=== PATIENT | male | born 1950 | race Caucasian/White ===

== ENCOUNTER 2019-12-29 14:23 | Outpatient (REF) | payer MEDICARE, MEDICAID, SELFPAY ==
[2019-12-29 15:23] LABS: Estimated Average Glucose 111 mg/dL; Hemoglobin A1c % 5.5 %
[2019-12-29 16:17] LABS: Prostate Specific Antigen 0.65 ng/mL (<0.05-4.0)
== END 2019-12-29 14:24 | disposition home or self-care (01) ==
LOC: HO.LAB 14:23
PROVIDERS: Visit Provider Family Medicine
DX: R35.0 Frequency of micturition (principal); Z12.5 Encounter for screening for malignant neoplasm of prostate
CPT/HCPCS: 83036; 84153

== ENCOUNTER → 2020-02-12 13:49 | Outpatient (BNVA) | payer MEDICARE, MEDICAID, SELFPAY | PROVIDERS: PCP Family Medicine; Visit Provider Internal Medicine Pulmonary Disease | DX: J44.9 Chronic obstructive pulmonary disease, unspecified (principal); R91.8 Other nonspecific abnormal finding of lung field; Z79.899 Other long term (current) drug therapy | CPT/HCPCS: 99212 ==

== ENCOUNTER → 2020-03-22 12:36 | Outpatient (BNVA) | payer MEDICARE, MEDICAID, SELFPAY | PROVIDERS: PCP Family Medicine; Referring Provider Family Medicine; Visit Provider Nurse Practitioner Family | DX: Z45.02 Encounter for adjustment and management of automatic implantable cardiac defibrillator (principal); I42.8 Other cardiomyopathies | CPT/HCPCS: 99212 ==

== ENCOUNTER → 2020-06-30 15:19 | Outpatient (BNVA) | payer MEDICARE, MEDICAID, SELFPAY | PROVIDERS: PCP Family Medicine; Visit Provider Internal Medicine Pulmonary Disease | DX: J44.9 Chronic obstructive pulmonary disease, unspecified (principal); R91.8 Other nonspecific abnormal finding of lung field; R05 Cough; Z87.891 Personal history of nicotine dependence | CPT/HCPCS: 99212 ==

== ENCOUNTER → 2020-07-27 14:01 | Outpatient (REF) | payer MEDICARE, MEDICAID, SELFPAY ==
--- NOTE | 2020-07-27 14:05 | CA_ITS ---
Transthoracic Echocardiogram Patient (Last, First, Middle): Ramesh Moser G Gender: Male Date of : 1950 Age: 69 Procedure Date: 07/27/2020 Procedure Type: Transthoracic Echocardiogram Location: OP Height: 160.02 cm Weight: 50.8 kg BSA: 1.51 m2 Heart Rate: bpm BP: 122 / 60 mmHg Hydramatic Specialist: UBALDO Referring MD: Kenyatta Agustin IMPROVEMENT SPEC-C Symptoms: I42.8 - Other cardiomyopathies Study Quality: Technically Difficult due to COPD ECG Rhythm: Sinus Conclusions: - Due to suboptimal images, LVEF is difficult to assess but grossly appears to be normal; > 50%. - No obvious valvular pathology seen on this study. Findings Left Ventricle Normal left ventricular cavity size. There is normal left ventricular wall thickness. There is no evidence of regional wall motion abnormalities. Diastolic function is normal for age. Due to suboptimal images, LVEF is difficult to assess but grossly appears to be normal; > 50%. Right Ventricle Normal right ventricular cavity size and systolic function. There is a pacemaker wire seen in the right ventricle. Atria The left atrium is normal in size. The right atrium is normal in size. Aortic Valve The aortic valve was not well visualized. There is no aortic valve stenosis. There is no aortic valve regurgitation. Mitral Valve The mitral valve appears normal. There is no mitral valve regurgitation. There is no mitral valve stenosis. Pulmonic Valve The pulmonic valve was not well visualized. Tricuspid Valve There is mild tricuspid valve regurgitation. The pulmonary artery systolic pressure is normal. Great Vessels The aortic annulus, sinuses of valsalva, and asc aorta are normal in size. Venous The inferior vena cava is normal in size and collapses greater than 50% with inspiration. Pericardium/Pleural There is no evidence of pericardial effusion. Prior Study Comparison Changes noted compared to prior study dated: 10/17/2018. Improved LVEF. Recommendations, Care & Conclusions No obvious valvular pathology seen on this study. Measurements 2D Linear Measurements IVSd: 0.82 0.6-0.9/0.6-1.0 cm LVIDd: 4.23 3.9-5.3/4.2-5.9 cm LVIDd Index: 2.80 2.4-3.2/2.2-3.1 cm/m2 LVIDs: 3.00 2.0-3.6 cm LVPWd: 0.85 0.7-1.1 cm Ao Root: 2.30 2.1-3.5 cm LA Diam: 3.10 2.7-3.8/3.0-4.0 cm LAIDs Index: 2.05 1.5-2.3 cm/m2 LV Mass: 134.45 67-162/88-224 g LV Mass Index: 89.04 43-95/49-115 g/m2 LVOT Diam: 1.90 3.0+(-)1.3 cm 2D Systolic Function EF 4C: 47.40 >55% EF 2C: 48.20 >55% Mitral Valve MV Pk E: 0.60 MV PK A: 0.91 MV Decel Time: 192.00 E/A: 0.70 E'Lateral: 5.87 E'Medial: 5.87 E/E' Med: 10.20 E/E' Lat: 10.20 PHT: 56.00 MVA PHT: 3.93 Decel Banks: 3.12 Aortic Valve AoV Pk Andrea: 1.57 AoV Mn Andrea: 0.89 AoV VTI: 0.28 AoV Pk Grad: 10.00 Aov Mn Grad: 4.00 JITENDRA Cont.VTI: 1.89 LVOT LVOT Pk Andrea: 0.88 LVOT Mn Andrea: 0.52 LVOT VTI: 0.18 LVOT Pk Grad: 3.00 LVOT Mn Grad: 1.00 LVOT Diam: 1.90 LVOT Area: 2.84 Diastolic Function MV Pk E: 0.60 MV Pk A: 0.91 E/A: 0.70 E'Medial: 5.87 E/E' Med: 10.20 E' Laterial: 5.87 E/E' Lat: 10.20 Tricuspid Valve TR Pk Andrea: 2.20 TR Pk Grad: 19.00 RA Press: 3.00 RVSP: 22.00 Great Vessels Aorta Ao Root-2D: 2.30 2.0-3.7 cm Pulmonary Valve PV Pk Andrea: 0.86 Peak PV Grad: 3.00 Updated in Other Vendor System with Status of Final Wilbert Linn MD electronically signed on 07/29/2020 5:07:54 PM with status of Final
== END ==
LOC: HO.CARD 14:01
PROVIDERS: PCP Family Medicine; Visit Provider Nurse Practitioner Family
DX: I42.8 Other cardiomyopathies (principal)
CPT/HCPCS: 93306

== ENCOUNTER → 2020-09-20 13:10 | Outpatient (BNVA) | payer MEDICARE, MEDICAID, SELFPAY | PROVIDERS: PCP Family Medicine; Referring Provider Family Medicine; Visit Provider Nurse Practitioner Family | DX: I42.8 Other cardiomyopathies (principal); I10 Essential (primary) hypertension; J44.9 Chronic obstructive pulmonary disease, unspecified; Z88.4 Allergy status to anesthetic agent; Z79.82 Long term (current) use of aspirin; Z79.899 Other long term (current) drug therapy; Z45.018 Encounter for adjustment and management of other part of cardiac pacemaker; Z95.810 Presence of automatic (implantable) cardiac defibrillator | CPT/HCPCS: 93282; 99212 ==

== ENCOUNTER → 2020-10-01 14:07 | Outpatient (BNVA) | payer MEDICARE, MEDICAID, SELFPAY | PROVIDERS: PCP Dentist Pediatric Dentistry; Visit Provider Internal Medicine Pulmonary Disease | DX: J44.9 Chronic obstructive pulmonary disease, unspecified (principal); R05 Cough; R91.8 Other nonspecific abnormal finding of lung field | CPT/HCPCS: 99212 ==

== ENCOUNTER 2020-10-05 14:52 | Outpatient (REF) | payer MEDICARE, MEDICAID, SELFPAY ==
--- NOTE | ~2020-10-05 | CT_ITS ---
EXAMINATION: CT CHEST WITHOUT CONTRAST CLINICAL INFORMATION: Follow-up pulmonary nodules COMPARISON: Previous chest CT scans most recent September 2019 TECHNIQUE: Multidetector volumetric CT imaging of the chest was done. Axial MIP volume rendering provided. Sagittal and coronal reformatted images were obtained. This CT examination was performed using dose optimization techniques as appropriate, variously including the following: *Automated exposure control *Adjustment of mA and/or kV according to patient size (this includes techniques or standardized protocols for targeted exams where dose is matched to indication/reason for exam; i.e. extremities or head) *Use of iterative reconstruction technique DLP: 173 mGy-cm FINDINGS: [employer] MEMBER: LUNGS: There is evidence of emphysema. There is a 5 mm right upper lobe nodule axial image 122 series 5 that is stable. There were 2 4 mm calcified right upper lobe nodules axial image 198 and 218 series 5 that are stable. There are several new small clustered peribronchial nodules seen in the anterior segment of the right upper lobe near the interhemispheric fissure that are new. The largest measures 3 x 5 mm axial image 219 series 5. Clustered appearance favors tree-in-bud appearance or infectious/inflammatory process. There is a new 0.9 x 1.5 cm spiculated right upper lobe nodule axial image 270 series 5. This has surrounding cystic change and groundglass attenuation this is the most suspicious-appearing pulmonary nodule. Including peripheral groundglass attenuation and cystic change this measures 1.6 x 2.3 cm axial image 270 series 5. There is a new 5 mm right upper lobe nodule axial image 281 series 5. There are numerous new clustered peribronchial right upper lobe nodules in the more inferior anterior segment of the right upper lobe near the minor fissure. The largest measures 6 x 13 mm axial image 334 series 5. Again clustered appearance suggests possible airways disease. There is a new 3 x 10 mm right middle lobe nodule axial image 385 series 5. On sagittal and coronal reconstructions this may represent an area of atelectasis. There is a new 0.9 x 1.5 cm right lower lobe nodule axial image 425 series 5. On sagittal and coronal reconstructions this may represent an area of atelectasis. There is a new 4 x 10 mm lingular nodule axial image 331 series 5. On sagittal and coronal reconstructions this may represent an area of atelectasis. There may be residual increased groundglass attenuation in the left upper lobe for example axial image 166 series 5. Evaluation is limited due to artifact from adjacent left chest wall battery. There is a 4 mm calcified left upper lobe nodule axial image 137 series 5 that is stable. There is a 3 mm calcified left lower lobe nodule axial image 328 series 5 that is stable. There is a 2 mm calcified left lower lobe nodule axial image 488 series 5 that is stable. MEDIASTINUM: There are small mediastinal lymph nodes that are stable. No enlarged lymph nodes are seen. There is a left subclavian single chamber pacemaker that appears unchanged. There is a small pericardial effusion that is unchanged. The thoracic aorta is normal in caliber. There is mild coronary artery calcification. PLEURA: There is no pleural effusion. No pleural mass or thickening. AXILLA: No lymphadenopathy. UPPER ABDOMEN: There are multiple low-attenuation liver lesions probably representing cysts. The largest measures 1.7 x 2.3 cm and the caudate lobe axial image 55 series 3. There is a partially visualized left renal cyst. OSSEOUS STRUCTURES: Unremarkable. CT/CT chest wo con IMPRESSION: Emphysema. Numerous new pulmonary nodules, right greater than left. Some pulmonary nodules appear clustered and peribronchial questionable for tree-in-bud appearance/infectious or inflammatory process or airways disease. Some pulmonary nodules appear to represent areas of atelectasis on sagittal and coronal reconstructed images. The most suspicious pulmonary nodule is a 0.9 x 1.5 cm spiculated right upper lobe nodule with surrounding groundglass attenuation and cystic changes measuring up to 1.6 x 2.3 cm. Short-term follow-up chest CT scan in 2-3 months following antibiotic therapy is recommended.
== END 2020-10-05 14:53 | disposition home or self-care (01) ==
LOC: HO.CT 14:52
PROVIDERS: PCP Family Medicine; Visit Provider Internal Medicine Pulmonary Disease
DX: R91.8 Other nonspecific abnormal finding of lung field (principal)
CPT/HCPCS: 71250

== ENCOUNTER 2020-10-09 11:59 | Inpatient (IN) | payer MEDICARE, MEDICAID, SELFPAY ==
--- NOTE | ~2020-10-09 | XR_ITS ---
EXAMINATION: CR RIGHT WRIST/HAND. CR RIGHT ELBOW. CLINICAL INFORMATION: Status post fall with pain to the right hand/wrist/elbow. COMPARISON: Contralateral left hand films from 05/05/2019. Right humerus films dated 09/15/2008. TECHNIQUE: 4 views of the right hand and wrist. 3 views of the right elbow. FINDINGS: Right hand and wrist: Diffuse osteopenia. No acute fracture or dislocation. 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 Arteriovascular calcifications and mild soft tissue swelling over the distal radius is noted. Minimal degenerative changes are seen in the intercarpal joints and the radiocarpal and first carpometacarpal joints. Right elbow: No acute fracture or dislocation. Evaluation limited by IV tubing overlapping the elbow. No elbow joint effusion or radiopaque foreign body in the soft tissues. Mild dorsal soft tissue swelling.. Arteriovascular calcifications are noted. XR/XR hand wrist RT IMPRESSION: 1. No acute fracture of the right hand/wrist and right elbow. 2. 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 3. Extensive atherosclerotic vascular calcifications.
--- NOTE | ~2020-10-09 | US_ITS ---
EXAMINATION: US VENOUS ULTRASOUND WITH DOPPLER LOWER EXTREMITY, BILATERAL CLINICAL INFORMATION: Lower extremity edema. Evaluate for deep vein thrombosis. COMPARISON: 05/23/2016 TECHNIQUE: Ultrasound of the deep veins is performed from the hip to the calf with compression sonography and color and pulse Doppler assessment. Spectral analysis with color-flow imaging is performed. FINDINGS: The common femoral vein is compressible and exhibits a normal phasic waveform, bilaterally; this suggests that the iliac veins are widely patent above. Within each proximal thigh, the visualized profunda femoris vein is patent. The visualized greater saphenous veins and saphenofemoral junctions are normal. Superficial femoral vein is patent in the proximal, mid and distal aspect of each thigh. Popliteal vein appears normal to the level of the trifurcation, bilaterally, and the visualized calf veins are patent. No evidence of Xie's cyst. US/US venous duplex LE BI IMPRESSION: No evidence of deep vein thrombosis in either lower extremity.
--- NOTE | ~2020-10-09 | CT_ITS ---
EXAMINATION: CT HEAD WITHOUT CONTRAST CT CERVICAL SPINE WITHOUT CONTRAST CLINICAL INFORMATION: Fall COMPARISON: 03/31/2018 TECHNIQUE: Multidetector CT imaging of the head and cervical spine was performed without the use of intravenous contrast. Multiplanar reformats are reviewed. This CT examination was performed using dose optimization techniques as appropriate, variously including the following: *Automated exposure control *Adjustment of mA and/or kV according to patient size (this includes techniques or standardized protocols for targeted exams where dose is matched to indication/reason for exam; i.e. extremities or head) *Use of iterative reconstruction technique DLP: 651 mGy-cm. FINDINGS: There is no evidence of acute intracranial hemorrhage or territorial infarction. No abnormal mass effect or midline shift is seen. Baltazar to white matter differentiation is well preserved. No extra-axial fluid collections are identified. The ventricles are normal in size. Mild patchy subcortical and periventricular white matter low-attenuation changes appear similar to prior and statistically related to chronic white matter small vessel ischemic disease. The osseous structures and soft tissues are normal. The mastoid air cells and visualized portions of the paranasal sinuses are well-aerated. Atlantooccipital alignment is maintained. The vertebral bodies and posterior elements align normally. No acute fracture or subluxation. Vertebral body heights are maintained.The patient status post right decompressive laminectomies at C4, C5 and C6, with instrumentation along the right lamina at the levels. Small endplate ossified present at C4-5 and C5-6. Conjunction with facet arthropathy at these levels, these changes lead to moderate bilateral foraminal narrowing at C4-5 and C5-6. There is slight retrolisthesis of C5 on C6 is well. The paraspinal soft tissues are unremarkable. The imaged lung apices are clear CT/CT cervical spine wo con IMPRESSION: No acute intracranial pathology. No cervical spine fracture or malalignment.
--- NOTE | ~2020-10-09 | US_ITS ---
EXAMINATION: US ABDOMEN COMPLETE CLINICAL INFORMATION: Follow-up abnormal CT. Abnormal common bile duct and ascites.. COMPARISON: Previous CT of the abdomen and pelvis 10/10/2019 TECHNIQUE: Real-time imaging of the abdominal viscera. FINDINGS: PANCREAS: Not visualized due to bowel gas ABDOMINAL AORTA: Not visualized due to bowel gas INFERIOR VENA CAVA: Visualized portions are normal. LIVER: Liver echotexture is normal. There are innumerable liver cysts. The largest measures 1.9 x 1.5 x 2 cm in the caudate lobe. The liver is normal in size. There is no intrahepatic biliary duct dilatation. GALLBLADDER: The gallbladder is normal in size. The gallbladder wall thickness is upper normal measuring 3 mm. No gallstones are seen. No gallbladder wall edema or pericholecystic fluid is seen. COMMON BILE DUCT: The distal common bile duct is not well visualized. The common bile duct is a dilated measuring up to 1.1 cm. No common bile duct stone is seen. RIGHT KIDNEY: Normal. No hydronephrosis. No renal calculi or focal parenchymal lesions. The kidney measures 9.3 cm in maximum dimension. LEFT KIDNEY: There is a 3.6 x 2.2 x 3 cm cyst in the midpole. No hydronephrosis. No renal calculi or focal parenchymal lesions. The kidney measures 9.7 cm in maximum dimension. There is trace perinephric fluid. SPLEEN: Normal. The spleen measures 8.3 cm in maximum dimension. FREE FLUID: There is trace ascites seen adjacent to both kidneys. Largest pocket of ascites measures 0.6 x 1.2 cm in transverse and AP dimension in the hepatorenal space. US/US abdomen complete IMPRESSION: Innumerable liver cysts. Upper normal thickness gallbladder wall. No gallstones seen. Normal caliber intrahepatic bile ducts. Dilated common bile duct measuring up to 1.1 cm. No common bile duct stone. Limited visualization of the distal common bile duct, pancreas and aorta. Left renal cyst. Trace ascites. This is too small even for diagnostic paracentesis.
--- NOTE | ~2020-10-09 | US_ITS ---
EXAMINATION: LEFT UPPER EXTREMITY ARTERIAL DOPPLER ULTRASOUND CLINICAL INFORMATION: Bilateral upper extremity edema and blue discoloration TECHNIQUE: Grayscale, color and spectral Doppler techniques with wave form analysis and measurement of velocities were performed throughout the left upper extremity. COMPARISON: None FINDINGS: LEFT UPPER EXTREMITY DUPLEX ULTRASOUND: LEFT ARM: Subclavian artery, proximal: 90 cm/s, Biphasic Subclavian artery, mid: 75 cm/s, Biphasic Subclavian artery, distal: 72 cm/s, Biphasic Axillary artery: 57 cm/s, Biphasic Brachial artery, proximal: 77 cm/s, Biphasic Brachial artery, mid: 109 cm/s, Biphasic Brachial artery, distal: 90 cm/s, Biphasic Radial artery, mid: 76 cm/s, Biphasic Ulnar artery, mid: 34 cm/s, Biphasic US/US arterial duplex UE LT IMPRESSION: LEFT ARM: Normal left upper extremity arterial perfusion without evidence of hemodynamically significant stenosis or occlusion.
--- NOTE | ~2020-10-09 | CT_ITS ---
EXAMINATION CT CHEST, ABDOMEN AND PELVIS WITH CONTRAST CLINICAL INFORMATION: Edema to all extremities. COMPARISON: CT chest dated 10/05/2020. TECHNIQUE: Multidetector volumetric CT imaging of the chest, abdomen and pelvis was obtained after the administration of 85 mL of intravenous Omnipaque 350 without immediate adverse reactions. Coronal and sagittal reformats were reviewed. This CT examination was performed using dose optimization techniques as appropriate, variously including the following: *Automated exposure control *Adjustment of mA and/or kV according to patient size (this includes techniques or standardized protocols for targeted exams where dose is matched to indication/reason for exam; i.e. extremities or head) *Use of iterative reconstruction technique DLP: 803 mGy-cm. FINDINGS: CHEST LUNGS/PLEURA: Moderate to severe emphysema. Again seen are multiple scattered pulmonary nodules. The dominant nodule within the right upper lobe shows minimal increase in size, now measuring 1.9 x 1.2 cm, previously 1.4 x 0.7 cm by my measurements, with surrounding groundglass. There are multiple additional nodular opacities within the middle lobe and lingula which appear similar to the previous exam. There is no pleural effusion. No pleural mass or thickening. MEDIASTINUM/JOSE: Mild cardiomegaly. New pericardial effusion. Great vessels normal caliber. No pulmonary embolism. No aortic aneurysm. No mediastinal, hilar or supraclavicular adenopathy. CHEST WALL/AXILLA: Unremarkable. ABDOMEN/PELVIS HEPATOBILIARY: Liver is normal in size, contour and morphology. There are multiple hepatic cysts. No suspicious liver lesions. No intrahepatic biliary dilatation. Common bile duct is dilated to 1.0 cm proximal, at the ampulla. Mild gallbladder wall thickening is present, likely related to underdistention. PANCREAS: Pancreatic duct is mildly dilated measuring up to 4 mm, also probably cutting off the region of the ampulla. In this region is a 1.5 x 1.2 cm structure as seen on coronal image 37 and axial image 33 of series 36. SPLEEN: Unremarkable. ADRENAL GLANDS: Unremarkable. KIDNEYS, URETERS AND BLADDER: Kidneys normal in size, axis and morphology demonstrating symmetric enhancement. There is a 3.2 cm cyst within the lateral interpolar cortex of the left kidney, which may be decompressing into the adjacent/overlying perinephric fat. Regardless of etiology, the cyst is benign. No further follow-up required. No hydronephrosis or urinary calculi. Ureters normal in course and caliber. Bladder grossly unremarkable.. GASTROINTESTINAL TRACT: No bowel related abnormalities. PELVIC VISCERA: Unremarkable. LYMPH NODES: No lymphadenopathy. PERITONEUM/BODY WALL: Unremarkable. VASCULAR STRUCTURES: Aorta is atherosclerotic but normal caliber. Patent venous structures. OSSEOUS STRUCTURES No acute or suspicious osseous abnormalities. Bone island present within S2. CT/CT abdomen pelvis w con IMPRESSION: * Moderate to severe emphysema. * Multiple pulmonary nodules redemonstrated, with interval increase in size of the dominant nodule within right upper lobe which now measures 1.9 x 1.2 cm, previously 1.4 x 0.7 cm. Given the short interval timeframe for the increase in size, I would favor an infectious/inflammatory etiology. Short interval follow-up is recommended previously, within 1-3 months. * There is dilatation of the common bile duct and pancreatic duct with abrupt cut off in the region of the ampulla related to a 1.5 x 1.2 cm soft tissue density structure in this region. Recommend MRI/MRCP without and with contrast for further evaluation, and/or ERCP.
--- NOTE | ~2020-10-09 | XR_ITS ---
EXAMINATION: CR RIGHT WRIST/HAND. CR RIGHT ELBOW. CLINICAL INFORMATION: Status post fall with pain to the right hand/wrist/elbow. COMPARISON: Contralateral left hand films from 05/05/2019. Right humerus films dated 09/15/2008. TECHNIQUE: 4 views of the right hand and wrist. 3 views of the right elbow. FINDINGS: Right hand and wrist: Diffuse osteopenia. No acute fracture or dislocation. 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 Arteriovascular calcifications and mild soft tissue swelling over the distal radius is noted. Minimal degenerative changes are seen in the intercarpal joints and the radiocarpal and first carpometacarpal joints. Right elbow: No acute fracture or dislocation. Evaluation limited by IV tubing overlapping the elbow. No elbow joint effusion or radiopaque foreign body in the soft tissues. Mild dorsal soft tissue swelling.. Arteriovascular calcifications are noted. XR/XR elbow RT min 3V IMPRESSION: 1. No acute fracture of the right hand/wrist and right elbow. 2. 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 3. Extensive atherosclerotic vascular calcifications.
--- NOTE | ~2020-10-09 | MR_ITS ---
EXAMINATION: MR ABDOMEN WITHOUT CONTRAST CLINICAL INFORMATION: Assess possible lesion at the ampulla COMPARISON: CT scan of same day TECHNIQUE: MR abdomen is performed without gadolinium contrast. FINDINGS: LUNG BASES: The visualized lung bases are unremarkable. LIVER, GALLBLADDER, AND BILIARY TREE: Multiple cysts again noted. CBD is dilated to the level of the ampulla within is an abrupt transition zone. There is a noncommon pancreatic duct channel does the pancreatic duct appears normal. No definite filling defects to indicate choledocholithiasis. No gross ampullary lesion.. The gallbladder is unremarkable with no evidence of gallbladder wall thickening, or obvious pericholecystic inflammatory changes. PANCREAS: Unremarkable. SPLEEN: Unremarkable. ADRENAL GLANDS: Unremarkable. KIDNEYS AND URETERS: The kidneys are normal in size and shape. No hydronephrosis. No perinephric stranding. Left renal cortical cysts noted. GASTROINTESTINAL TRACT: No bowel obstruction. No ascites or fluid collection. ABDOMINAL WALL: No significant hernia is appreciated. LYMPH NODES: No lymphadenopathy. VASCULAR: Unremarkable. OSSEOUS STRUCTURES: Marrow signal normal. MR/MR MRCP IMPRESSION: No definite ampullary lesion definable. An occult lesion is not excluded based on the limitations of this exam. Recommend ERCP based on the abrupt transition of the distal CBD to exclude a primary CBD lesion. No choledocholithiasis.
[2020-10-09 12:02] VITALS: BP 148/84; PULSE 86; RESP 16; TEMP 36.5; O2SAT 97; BMI 19.8
--- NOTE | 2020-10-09 12:21 | ECG_ITS ---
Test Reason : GENERAL MEDICAL Blood Pressure : / mmHG Vent. Rate : 073 BPM Atrial Rate : 073 BPM P-R Int : 110 ms QRS Dur : 084 ms QT Int : 362 ms P-R-T Axes : 074 069 071 degrees QTc Int : 398 ms Sinus rhythm with short WA Otherwise normal ECG When compared with ECG of 02-APR-2019 10:32, QRS duration has decreased T wave inversion no longer evident in Anterior leads QT has shortened Referred By: Kia Alejandro Electronically Signed By:Masoud Monzon
--- NOTE | 2020-10-09 12:42 | PC.NURSE ---
SLGHT[facility] LABORED RESP AT REST, SITTING UPRIGHT ON SIDE OF BED. LS CLEAR. PT SPKING FULL SENTENCES. PLUS 3 PITTING EDEMA TO KNEES BLE. NON PITTING EDEMA LEFT HAND AND WRIST. STATES ABD IS ALSO DISTENDED. FEELS SWELLING IS D/T AN INTIINFLAMMATORY MEDICATION. NSR ON MONITOR. DENIES CP
[2020-10-09 12:43] LABS: MANUAL DIFF FLAG NO
[2020-10-09 12:45] LABS: Basophils Percent Auto 0.1 % (0-2); Eosinophils Percent Auto 0.2 % (0-4); Hemoglobin 13.8 g/dl (14.0-18.0); Imm Gran Abs Auto 0.49 X10*3/uL (0.00-0.03); Lymphocytes Absolute Auto 0.5 X10*3/uL (1.2-4.9); Lymphocytes Percent Auto 4.7 % (20-40); Mean Corpuscular HGB Conc 33.7 g/dl (31.0-36.0); Mean Corpuscular Hemoglobin 31.9 pg (27.0-33.0); Mean Corpuscular Volume 94.7 fL (80-98); Monocytes Absolute Auto 0.6 X10*3/uL (0.1-1.2); Monocytes Percent Auto 6.1 % (2-11); NRBC Pct Auto 0.3 /100WBC (0.0-0.2); Neutrophils Absolute Auto 8.3 X10*3/uL (2.0-8.3); Neutrophils Percent Auto 83.9 % (45-73); Platelet Count 172 X10*3/uL (160-400); Red Blood Count 4.33 X10*6/uL (4.60-5.80); Red Cell Distribution Width 15.6 % (11.0-16.0); White Blood Count 9.9 X10*3/uL (4.8-10.8)
[2020-10-09 12:51] LABS: INTERNATIONAL NORM RATIO 0.9 (0.9-1.1); Prothrombin Time 10.4 SEC (9.9-13.0)
[2020-10-09 13:01] LABS: COVID-19 Test Negative (Negative); IDNOW Serial# 9DD0AD1C
[2020-10-09 13:10] VITALS: O2SAT 96
[2020-10-09 13:26] LABS: Alanine Aminotransferase 38 U/L (0-40); Albumin Level 3.4 g/dL (3.5-5.0); Alkaline Phosphatase 67 U/L (39-117); Anion Gap 14 (12-20); Aspartate Amino Transferase 22 U/L (5-37); Bilirubin Total 0.7 mg/dL (0.0-1.0); Blood Urea Nitrogen 30 mg/dL (9-16); Calcium 8.9 mg/dL (8.4-10.2); Carbon Dioxide 28 mmol/L (22-29); Chloride 100 mmol/L (96-108); Creatinine Clr Calc Pharmacy 71.5; Estimated Glomerular Filt Rate > 60; Glucose Random 115 mg/dL (60-115); Magnesium 1.9 mg/dL (1.6-2.6); Potassium 4.4 mmol/L (3.3-5.1); Sodium 138 mmol/L (135-145); Total Protein 5.9 g/dL (6.5-8.0)
[2020-10-09 13:28] LABS: B Type Natriuretic Peptide 119 pg/mL (<100)
[2020-10-09 13:28] LABS: ABG Base Excess 3.7 mmol/L; ABG HCO3 26 mmol/L (22-26); ABG pCO2 34 mmHg (32-45); ABG pCO2 TC 34 mmHg (32-45); ABG pH 7.49 (7.35-7.45); ABG pH TC 7.49 (7.35-7.45); ABG pO2 86 mmHg (83-108); ABG pO2 TC 88 (83-108)
--- NOTE | 2020-10-09 14:04 | ED.GENADULT ---
HPI - General Adult General Chief complaint: Extremity Problem Stated complaint: Swelling Time Seen by Provider: 10/09/20 12:18 Source: patient Mode of arrival: ambulatory Limitations: other (Poor historian) History of Present Illness HPI narrative: 70-year-old male with a past medical history dementia, chronic cough, COPD, pulmonary nodules, nonischemic cardiomyopathy with an ICD in place and on a pacemaker only on a baby aspirin presenting to the ED after being sent from [facility] for increased edema to all extremities for the past 2 weeks. Reports that he normally gets injections for pain/inflammation for his back and then was placed on meloxicam due to the pain/inflammation was worsening and he believes since he was started on the meloxicam and the swelling increased. Although he discontinue the meloxicam in a few days after and the swelling is continuing to worsen. He was seen by cardiology approximately 3 days ago and was started on Lasix although no improvement in the edema. 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 Apparently patient was also started on steroids for cough although the swelling started prior to being started on the steroids. He reports he fell this morning due to the swelling of his legs went forward injuring his right hand/right elbow. Reports he did not hit his head or lose consciousness and denies any other injuries. He denies prolonged down time. He denies any symptoms prior to the fall or after the fall it set for the right hand/wrist and elbow pain. He denies any chills, fevers dizziness, headaches, changes in vision, neck pain/stiffness, sore throat, chest pain, abdominal pain, diarrhea, constipation, black or bloody stools, dysuria, hematuria or rashes. Related Data Home Medications Medication Instructions Recorded Confirmed acetaminophen 300 mg-codeine 30 mg 1 tab PO BID PRN 02/12/20 10/09/20 tablet aspirin 81 mg tablet,delayed 81 mg PO DAILY 02/12/20 10/09/20 release atorvastatin 80 mg tablet 80 mg PO DAILY 02/12/20 10/09/20 cholecalciferol (vitamin D3) 25 25 mcg PO DAILY 02/12/20 10/09/20 mcg (1,000 unit) tablet docusate sodium 100 mg capsule 100 mg PO DAILY PRN 02/12/20 10/09/20 ezetimibe 10 mg tablet 10 mg PO DAILY 02/12/20 10/09/20 folic acid 1 mg tablet 1 mg PO DAILY 02/12/20 10/09/20 lisinopril 5 mg tablet 5 mg PO DAILY 02/12/20 10/09/20 metoprolol succinate 100 mg 100 mg PO DAILY 02/12/20 10/09/20 tablet,extended release 24 hr montelukast 10 mg tablet 10 mg PO DAILY 02/12/20 10/09/20 omeprazole 20 mg capsule,delayed 20 mg PO DAILY 02/12/20 10/09/20 release oxycodone 5 mg tablet 5 mg PO Q4H PRN 02/12/20 10/09/20 thiamine HCl (vitamin B1) 100 mg 100 mg PO DAILY 02/12/20 10/09/20 tablet cetirizine 10 mg tablet 10 mg PO DAILY 03/22/20 10/09/20 melatonin 5 mg tablet 5 mg PO BEDTIME 03/22/20 10/09/20 tamsulosin 0.4 mg capsule 0.4 mg PO DAILY 03/22/20 10/09/20 donepezil 10 mg tablet 5 mg PO DAILY tab 09/20/20 10/09/20 diazepam 1 tab PO BID PRN 10/09/20 10/09/20 ipratropium-albuterol 2.5 ml INHALATION Q4-6H PRN 10/09/20 10/09/20 tiotropium bromide [Spiriva with 1 cap INHALATION DAILY 10/09/20 10/09/20 HandiHaler] Previous Rx's Medication Instructions Recorded Advair Diskus 250 mcg-50 mcg/dose 1 inh INHALATION BID #60 ea NS 03/17/20 powder for inhalation albuterol sulfate 90 mcg/actuation 1 inh INHALATION QID #8.5 g 03/17/20 aerosol inhaler prednisone 10 mg tablet 40 mg PO DAILY 7 Days #28 tab 10/01/20 furosemide 20 mg tablet 20 mg PO DAILY 3 Days #3 tab 10/05/20 Allergies Allergy/AdvReac Type Severity Reaction Status Date / Time thiopental [SODIUM PENTOTHAL] Allergy Severe VIOLENCE Verified 10/01/20 14:10 Review of Systems Review of Systems: Constitutional : No Weight loss, No Fever, No Chills, No Night Sweats, No Fatigue, No Malaise ENT/Mouth : No Hearing loss, No Ear Pain, No Nasal Congestion, No Sinus Pain, No Hoarseness, No sore throat, No Rhinorrhea, No Swallowing Difficulty Eyes: No Eye Pain, No Swelling, No Redness, No Foreign Body, No Discharge, No Vision Changes Cardiovascular : Chronic shortness of breath not worse per patient, positive extremity edema upper and lower, No Chest Pain, No Dyspnea on Exertion, No Orthopnea, No Palpitations Respiratory : Chronic cough and sputum production, No Wheezing Gastrointestinal : No Nausea, No Vomiting, No Diarrhea, No Constipation, No abdominal Pain, No Hematochezia, No Melena Genitourinary : no irregular bleeding, No Dysuria, No Urinary Frequency, No Hematuria, No Urinary Incontinence, No Urgency, No Flank Pain, No Urinary Flow Changes, No Hesitancy Musculoskeletal : Positive right wrist/hand/elbow joint pain, No Myalgias, No Joint Swelling Skin : No Skin Lesions, No rash Neuro : No Weakness, No Numbness, No Paresthesias, No Loss of Consciousness, No Dizziness, No Headache Psych : No Anxiety/Panic, No Depression, No SI/HI/AH/VH, No Social Issues, Heme/Lymph: No Bruising, No Bleeding,No Lymphadenopathy Endocrine : No Polyuria, No Polydipsia, No Temperature Intolerance Yes all other systems are reviewed and are negative [facility] Past Medical History Attestation statement: The following information was validated with the patient. Medical History ICD (implantable cardioverter-defibrillator) in place Nonischemic cardiomyopathy Surgical History History of permanent cardiac pacemaker placement Family History Family History Father CVD (cardiovascular disease) Myocardial infarct Mother CVD (cardiovascular disease) Heart disease Social History Social History Alcohol intake: current Alcohol intake frequency: a few times a month Patient Tobacco Use Status: Former Tobacco user Years Smoked: 48 yrs Smoked in Last 30 Days: No Use of substances other than those prescribed or required for medical reasons: No Advance Directives: No Advance Directives Information Provided: Yes Physical Exam Vital Signs: Vital Signs: Last Vital Signs Temp 97.7 F 10/09/20 12:02 Pulse 72 10/09/20 16:00 Resp 18 10/09/20 16:00 BP 164/77 H 10/09/20 16:00 Pulse Ox 96 10/09/20 16:00 Body Mass Index 19.8 vital signs have been reviewed as normal and appeared to be correct. Blood pressure hypotensive 148/84. Heart rate normal. Respiration rate normal. Temperature normal. Oxygen saturation normal. Appearance: Alert. Oriented X3. No acute distress. Head: Normal external exam. Normocephalic. Atraumatic. Eyes: PERRLA. EOMI. Conjunctiva and sclera normal. Eyelids normal. ENT: Pharynx normal. Uvula midline. Dry mucous membranes noted. Neck: Normal inspection. Neck supple. FROM. No adenopathy. No meningeal signs. CVS: Normal heart rate and rhythm. Heart sound normal. Pulses normal throughout. No murmurs/rales/gallops. Respiratory: No respiratory distress. Painless inspiration. Breath sounds normal. No wheezes/rales/rhonchi noted. Chest nontender. No accessory muscle usage noted or decreased air movement noted. Abdomen: Soft and nontender. Bowel sounds normal in all 4 quadrants. Positive distention noted. No organomegaly noted. No visible injury noted. Back: Full range of motion noted. No rashes/lesion/induration/fluctuance or signs of infection noted. Skin: Skin warm and dry. Poor skin turgor. Bilateral upper extremities have a bluish coloration multiple bruises noted to upper extremities. Superficial abrasions throughout no active bleeding or signs of infection noted. No rashes/lesions/lacerations noted. Extremities: Positive bilateral +3 lower extremity edema. No calf tenderness is noted. Patient with tenderness to palpation to right hand/wrist at the radial aspect with mild soft tissue swelling no obvious deformities are noted although patient is noted to have ecchymosis. No signs of infection. Patient with mild tenderness to palpation to olecranon process of right elbow with full range of motion no soft tissue swelling or obvious deformities or signs of infection noted. Otherwise all other Extremities exhibit normal range of motion and nontender. Neuro: Oriented X 3. No motor deficit. No sensory deficit. Reflexes normal. Normal steady gait. No focal neuro deficits noted. Vascular: + radial pulses/+ 2 distal pedal pulses/+2 dorsalis pedis b/l. Normal cap refill. No cyanosis noted to upper extremity nails and lower extremity toes nails. Course Course Course Narrative: 12:20PM - 70-year-old male with a past medical history dementia, chronic cough, COPD, pulmonary nodules, nonischemic cardiomyopathy with an ICD in place and a pacemaker only on a baby aspirin presenting to the ED after being sent from [facility] for increased edema to all extremities for the past 2 weeks after starting meloxicam for inflammation. Also on steroids for chronic cough although swelling started before the steroids was started. Plan: Labs, CT scan of brain/cervical spine/abdomen pelvis and chest, COVID swab, x-ray of right hand/wrist/elbow, EKG, ABG, arterial/venous ultrasound of left upper extremity, bilateral venous duplex ultrasound of lower extremities. I also wanted an ultrasound of right upper extremity although ultrasound reported if I was able to feel a radial pulse that was not indicated and I was agreeable. Reevaluation(s) Reevaluation #1: - patient with a baseline anemia similar compared to prior. ABG 7.49 otherwise within normal limits. BUN 30. BNP 119. Total protein 5.9. Albumin 3.4. COVID swab negative. Otherwise all other labs are within normal limits. - CT scan of head and cervical spine revealed chronic changes no acute processes were noted. - CT scan of chest/abdomen and pelvis with contrast revealed moderate to severe emphysema with multiple pulmonary nodules redemonstrated although increased interval in the size of dominant nodule within the right upper lobe. Also reported is dilation of common bile duct and pancreatic duct with abruption cut off in the region of the ampulla related to a 1.5 x 1.2 cm soft tissue density structure in this region. Recommend MRI/MRCP without and with contrast for further evaluation, and/or ERCP. - venous duplex ultrasound of bilateral lower extremities negative for DVTs or any other acute processes. - x-ray of right wrist/hand and right elbow negative for any acute processes such as fractures revealed only chronic changes. - EKG is sinus rhythm with short UT interval with a ventricular rate of 73 similar when compared to prior EKG 04/02/2019 no acute ischemic changes were noted today. - therefore at this time will admit for anasarca and possible pancreatic cancer. Patient and healthcare proxy sister at bedside understand and agree with this plan. Time: 17:28 Reevaluation #2: Admitting at this time Dr. Brooke at bedside at this time. Time: 17:48 Medical Decision Making Medical Records Medical records reviewed: Yes I reviewed the patient's medical records. Lab Data Lab results reviewed: Yes I reviewed the patient's lab results. Result diagrams: 10/09/20 12:37 10/09/20 12:37 Labs: Lab Results 10/09/20 10/09/20 10/09/20 Range/Units 12:37 12:37 12:37 WBC 9.9 (4.8-10.8) X10*3/uL RBC 4.33 L (4.60-5.80) X10*6/uL Hgb 13.8 L (14.0-18.0) g/dl Hct 41.0 L (42-52) % MCV 94.7 (80-98) fL MCH 31.9 (27.0-33.0) pg MCHC 33.7 (31.0-36.0) g/dl RDW 15.6 (11.0-16.0) % Plt Count 172 (160-400) X10*3/uL MPV 9.0 L (9.4-12.4) fL Immature Gran % (Auto) 5.0 H (0.0-0.4) % Neut % (Auto) 83.9 H (45-73) % Lymph % (Auto) 4.7 L (20-40) % [place] % (Auto) 6.1 (2-11) % Eos % (Auto) 0.2 (0-4) % Baso % (Auto) 0.1 (0-2) % Lymph # (Auto) 0.5 L (1.2-4.9) X10*3/uL [place] # (Auto) 0.6 (0.1-1.2) X10*3/uL Eos # (Auto) 0.0 (0.0-0.4) X10*3/uL Baso # (Auto) 0.0 (0.0-0.2) X10*3/uL Abs Immat Gran (auto) 0.49 H (0.00-0.03) X10*3/uL Absolute Neuts (auto) 8.3 (2.0-8.3) X10*3/uL Absolute Nucleated RBC 0.030 H (0.0-0.012) X10*3/uL Nucleated RBC % (auto) 0.3 H (0.0-0.2) /100WBC Hold Purple Top PT 10.4 (9.9-13.0) SEC INR 0.9 (0.9-1.1) O2 Saturation % ABG pH at Pt Temp (7.35-7.45) ABG pH (Temp Correct) (7.35-7.45) ABG pCO2 at Pt Temp (32-45) mmHg ABG pCO2 (Temp Corrct (32-45) mmHg ABG pO2 at Pt Temp (83-108) mmHg ABG pO2 (Temp Correct (83-108) ABG HCO3 (22-26) mmol/L ABG Base Excess (Actual) mmol/L Sodium (135-145) mmol/L Potassium (3.3-5.1) mmol/L Chloride (96-108) mmol/L Carbon Dioxide (22-29) mmol/L Anion Gap (12-20) BUN (9-16) mg/dL Creatinine (0.5-1.4) mg/dL Estim Creat Clear Calc Estimated GFR Random Glucose (60-115) mg/dL Calcium (8.4-10.2) mg/dL Magnesium Cancelled Total Bilirubin (0.0-1.0) mg/dL AST (5-37) U/L ALT (0-40) U/L Alkaline Phosphatase (39-117) U/L B-Natriuretic Peptide (<100) pg/mL Total Protein (6.5-8.0) g/dL Albumin (3.5-5.0) g/dL COVID-19 ([facility]) (Negative) COVID-19 Clin Com 10/09/20 10/09/20 10/09/20 Range/Units 12:37 12:37 12:37 WBC (4.8-10.8) X10*3/uL RBC (4.60-5.80) X10*6/uL Hgb (14.0-18.0) g/dl Hct (42-52) % MCV (80-98) fL MCH (27.0-33.0) pg MCHC (31.0-36.0) g/dl RDW (11.0-16.0) % Plt Count (160-400) X10*3/uL MPV (9.4-12.4) fL Immature Gran % (Auto) (0.0-0.4) % Neut % (Auto) (45-73) % Lymph % (Auto) (20-40) % [place] % (Auto) (2-11) % Eos % (Auto) (0-4) % Baso % (Auto) (0-2) % Lymph # (Auto) (1.2-4.9) X10*3/uL [place] # (Auto) (0.1-1.2) X10*3/uL Eos # (Auto) (0.0-0.4) X10*3/uL Baso # (Auto) (0.0-0.2) X10*3/uL Abs Immat Gran (auto) (0.00-0.03) X10*3/uL Absolute Neuts (auto) (2.0-8.3) X10*3/uL Absolute Nucleated RBC (0.0-0.012) X10*3/uL Nucleated RBC % (auto) (0.0-0.2) /100WBC Hold Purple Top SEE NOTE PT (9.9-13.0) SEC INR (0.9-1.1) O2 Saturation % ABG pH at Pt Temp (7.35-7.45) ABG pH (Temp Correct) (7.35-7.45) ABG pCO2 at Pt Temp (32-45) mmHg ABG pCO2 (Temp Corrct (32-45) mmHg ABG pO2 at Pt Temp (83-108) mmHg ABG pO2 (Temp Correct (83-108) ABG HCO3 (22-26) mmol/L ABG Base Excess (Actual) mmol/L Sodium 138 (135-145) mmol/L Potassium 4.4 (3.3-5.1) mmol/L Chloride 100 (96-108) mmol/L Carbon Dioxide 28 (22-29) mmol/L Anion Gap 14 (12-20) BUN 30 H (9-16) mg/dL Creatinine 0.70 (0.5-1.4) mg/dL Estim Creat Clear Calc 71.5 Estimated GFR > 60 Random Glucose 115 (60-115) mg/dL Calcium 8.9 (8.4-10.2) mg/dL Magnesium 1.9 Total Bilirubin 0.7 (0.0-1.0) mg/dL AST 22 (5-37) U/L ALT 38 (0-40) U/L Alkaline Phosphatase 67 (39-117) U/L B-Natriuretic Peptide (<100) pg/mL Total Protein 5.9 L (6.5-8.0) g/dL Albumin 3.4 L (3.5-5.0) g/dL COVID-19 ([facility]) Negative (Negative) COVID-19 Clin Com See Note 10/09/20 10/09/20 Range/Units 12:37 13:21 WBC (4.8-10.8) X10*3/uL RBC (4.60-5.80) X10*6/uL Hgb (14.0-18.0) g/dl Hct (42-52) % MCV (80-98) fL MCH (27.0-33.0) pg MCHC (31.0-36.0) g/dl RDW (11.0-16.0) % Plt Count (160-400) X10*3/uL MPV (9.4-12.4) fL Immature Gran % (Auto) (0.0-0.4) % Neut % (Auto) (45-73) % Lymph % (Auto) (20-40) % [place] % (Auto) (2-11) % Eos % (Auto) (0-4) % Baso % (Auto) (0-2) % Lymph # (Auto) (1.2-4.9) X10*3/uL [place] # (Auto) (0.1-1.2) X10*3/uL Eos # (Auto) (0.0-0.4) X10*3/uL Baso # (Auto) (0.0-0.2) X10*3/uL Abs Immat Gran (auto) (0.00-0.03) X10*3/uL Absolute Neuts (auto) (2.0-8.3) X10*3/uL Absolute Nucleated RBC (0.0-0.012) X10*3/uL Nucleated RBC % (auto) (0.0-0.2) /100WBC Hold Purple Top PT (9.9-13.0) SEC INR (0.9-1.1) O2 Saturation 96.0 % ABG pH at Pt Temp 7.49 H (7.35-7.45) ABG pH (Temp Correct) 7.49 H (7.35-7.45) ABG pCO2 at Pt Temp 34 (32-45) mmHg ABG pCO2 (Temp Corrct 34 (32-45) mmHg ABG pO2 at Pt Temp 86 (83-108) mmHg ABG pO2 (Temp Correct 88 (83-108) ABG HCO3 26 (22-26) mmol/L ABG Base Excess (Actual) 3.7 mmol/L Sodium (135-145) mmol/L Potassium (3.3-5.1) mmol/L Chloride (96-108) mmol/L Carbon Dioxide (22-29) mmol/L Anion Gap (12-20) BUN (9-16) mg/dL Creatinine (0.5-1.4) mg/dL Estim Creat Clear Calc Estimated GFR Random Glucose (60-115) mg/dL Calcium (8.4-10.2) mg/dL Magnesium Total Bilirubin (0.0-1.0) mg/dL AST (5-37) U/L ALT (0-40) U/L Alkaline Phosphatase (39-117) U/L B-Natriuretic Peptide 119 H (<100) pg/mL Total Protein (6.5-8.0) g/dL Albumin (3.5-5.0) g/dL COVID-19 ([facility]) (Negative) COVID-19 Clin Com Imaging Data Right hand/wrist/elbow x-ray: Attestation: I personally reviewed and interpreted this imaging study as follows: Radiologist's impression: FINDINGS: Right hand and wrist: Diffuse osteopenia. No acute fracture or dislocation. 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 Arteriovascular calcifications and mild soft tissue swelling over the distal radius is noted. Minimal degenerative changes are seen in the intercarpal joints and the radiocarpal and first carpometacarpal joints. Right elbow: No acute fracture or dislocation. Evaluation limited by IV tubing overlapping the elbow. No elbow joint effusion or radiopaque foreign body in the soft tissues. Mild dorsal soft tissue swelling.. Arteriovascular calcifications are noted. XR/XR elbow RT min 3V IMPRESSION: 1. No acute fracture of the right hand/wrist and right elbow. 2. 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 3. Extensive atherosclerotic vascular calcifications. CT scan of brain/cervical spine without contrast: Attestation: I personally reviewed and interpreted this imaging study as follows: Radiologist's impression: FINDINGS: There is no evidence of acute intracranial hemorrhage or territorial infarction. No abnormal mass effect or midline shift is seen. Baltazar to white matter differentiation is well preserved. No extra-axial fluid collections are identified. The ventricles are normal in size. Mild patchy subcortical and periventricular white matter low-attenuation changes appear similar to prior and statistically related to chronic white matter small vessel ischemic disease. The osseous structures and soft tissues are normal. The mastoid air cells and visualized portions of the paranasal sinuses are well-aerated. Atlantooccipital alignment is maintained. The vertebral bodies and posterior elements align normally. No acute fracture or subluxation. Vertebral body heights are maintained.The patient status post right decompressive laminectomies at C4, C5 and C6, with instrumentation along the right lamina at the levels. Small endplate ossified present at C4-5 and C5-6. Conjunction with facet arthropathy at these levels, these changes lead to moderate bilateral foraminal narrowing at C4-5 and C5-6. There is slight retrolisthesis of C5 on C6 is well. The paraspinal soft tissues are unremarkable. The imaged lung apices are clear CT/CT head/brain wo con IMPRESSION: No acute intracranial pathology. No cervical spine fracture or malalignment. CT scan of chest with contrast and CT scan abdomen pelvis with IV contrast: Attestation: I personally reviewed and interpreted this imaging study as follows: Radiologist's impression: FINDINGS: CHEST LUNGS/PLEURA: Moderate to severe emphysema. Again seen are multiple scattered pulmonary nodules. The dominant nodule within the right upper lobe shows minimal increase in size, now measuring 1.9 x 1.2 cm, previously 1.4 x 0.7 cm by my measurements, with surrounding groundglass. There are multiple additional nodular opacities within the middle lobe and lingula which appear similar to the previous exam. There is no pleural effusion. No pleural mass or thickening. MEDIASTINUM/JOSE: Mild cardiomegaly. New pericardial effusion. Great vessels normal caliber. No pulmonary embolism. No aortic aneurysm. No mediastinal, hilar or supraclavicular adenopathy. CHEST WALL/AXILLA: Unremarkable. ABDOMEN/PELVIS HEPATOBILIARY: Liver is normal in size, contour and morphology. There are multiple hepatic cysts. No suspicious liver lesions. No intrahepatic biliary dilatation. Common bile duct is dilated to 1.0 cm proximal, at the ampulla. Mild gallbladder wall thickening is present, likely related to underdistention. PANCREAS: Pancreatic duct is mildly dilated measuring up to 4 mm, also probably cutting off the region of the ampulla. In this region is a 1.5 x 1.2 cm structure as seen on coronal image 37 and axial image 33 of series 36. SPLEEN: Unremarkable. ADRENAL GLANDS: Unremarkable. KIDNEYS, URETERS AND BLADDER: Kidneys normal in size, axis and morphology demonstrating symmetric enhancement. There is a 3.2 cm cyst within the lateral interpolar cortex of the left kidney, which may be decompressing into the adjacent/overlying perinephric fat. Regardless of etiology, the cyst is benign. No further follow-up required. No hydronephrosis or urinary calculi. Ureters normal in course and caliber. Bladder grossly unremarkable.. GASTROINTESTINAL TRACT: No bowel related abnormalities. PELVIC VISCERA: Unremarkable. LYMPH NODES: No lymphadenopathy. PERITONEUM/BODY WALL: Unremarkable. VASCULAR STRUCTURES: Aorta is atherosclerotic but normal caliber. Patent venous structures. OSSEOUS STRUCTURES No acute or suspicious osseous abnormalities. Bone island present within S2. CT/CT abdomen pelvis w con IMPRESSION: * Moderate to severe emphysema. * Multiple pulmonary nodules redemonstrated, with interval increase in size of the dominant nodule within right upper lobe which now measures 1.9 x 1.2 cm, previously 1.4 x 0.7 cm. Given the short interval timeframe for the increase in size, I would favor an infectious/inflammatory etiology. Short interval follow-up is recommended previously, within 1-3 months. * There is dilatation of the common bile duct and pancreatic duct with abrupt cut off in the region of the ampulla related to a 1.5 x 1.2 cm soft tissue density structure in this region. Recommend MRI/MRCP without and with contrast for further evaluation, and/or ERCP. Venous duplex ultrasound of lower extremity bilaterally: Attestation: I personally reviewed and interpreted this imaging study as follows: Radiologist's impression: FINDINGS: The common femoral vein is compressible and exhibits a normal phasic waveform, bilaterally; this suggests that the iliac veins are widely patent above. Within each proximal thigh, the visualized profunda femoris vein is patent. The visualized greater saphenous veins and saphenofemoral junctions are normal. Superficial femoral vein is patent in the proximal, mid and distal aspect of each thigh. Popliteal vein appears normal to the level of the trifurcation, bilaterally, and the visualized calf veins are patent. No evidence of Xie's cyst. US/US venous duplex LE BI IMPRESSION: No evidence of deep vein thrombosis in either lower extremity. ECG Data Attestation: I personally reviewed and interpreted this ECG as follows: Interpretation: Sinus rhythm with short UT interval with a ventricular rate of 73 UT interval 110 milliseconds otherwise normal QRS normal QT/normal QTC. No acute ischemic change are noted. Similar compared to prior EKG 04/02/2019 Critical Care Time Critical Care Time Critical Care Time: Yes Total Critical Care Time: 60 Attestation: I personally attest to this time spent taking care of the patient Discharge Plan Discharge Clinical Impression: Anasarca, Abnormal computed tomography of abdomen and pelvis, Fall, Right wrist sprain, Sprain of hand, right, Sprain of right elbow, Ecchymosis Patient Disposition: Admitted As Inpatient
[2020-10-09] MEDS: Tamsulosin HCL 0.4 MG CAPSULE PO (14:27)
[2020-10-09 14:33] LABS: ABG Refer to POC result
[2020-10-09 16:00] VITALS: BP 164/77; PULSE 72; RESP 18; O2SAT 96
[2020-10-09 18:01] LABS: Lipase 54 U/L (8-78)
[2020-10-09] MEDS: Albumin Human 25 % 100 ML IV ×2 (18:04→19:02)
--- NOTE | 2020-10-09 18:22 | PM.IMHP ---
History of Present Illness Date of Service: 10/09/20 Chief Complaint: Leg swelling, abdominal distension, weakness and falls A 70 years old male with PMH of COPD, pulmonary nodules, CMP post ICD among others who presented to the hospital with leg edema, abdominal distension, falls for the last week or so. The patient reports that he was treated recently for COPD and chronic cough with prednisone 40 mg which helped his cough along with that he was taking meloxicam that was prescribed for him by Orthopedics for chronic shoulder pain from osteoarthritis and has been taking it for a while now. Earlier this week he started to notice that his legs are getting more swollen associated with abdominal distension but denies any fevers, chills, nausea or vomiting, abdominal pain, change in bowel habit but noticed decreased amount of urine. He reported fall yesterday and multiple other falls over the last few weeks which has increased in frequency than before. In the emergency a CT scan of the abdomen pelvis was consistent with soft tissue mass that cutting of the ambulate over better associated with dilated CBD and pancreatic duct. Blood work overall within normal with mildly decreased albumin level. Admitted for further evaluation and treatment. Review of Systems Review of Systems: No fever, chills but has increased weakness and falls No chest pain, palpitation Chronic shortness of breath and coughing No abdominal pain, nausea or vomiting, abdominal distension No urinary symptoms Petechial rash on upper extremities Lower extremities edema PMFSH Medical History ICD (implantable cardioverter-defibrillator) in place Nonischemic cardiomyopathy Family History Father CVD (cardiovascular disease) Myocardial infarct Mother CVD (cardiovascular disease) Heart disease Surgical History History of permanent cardiac pacemaker placement Social History Alcohol intake: current Alcohol intake frequency: a few times a month Patient Tobacco Use Status: Former Tobacco user Years Smoked: 48 yrs Smoked in Last 30 Days: No Use of substances other than those prescribed or required for medical reasons: No Advance Directives: No Advance Directives Information Provided: Yes Meds Allergies Allergy/AdvReac Type Severity Reaction Status Date / Time thiopental [SODIUM PENTOTHAL] Allergy Severe VIOLENCE Verified 10/01/20 14:10 Active Medications: Current Medications Generic Name Dose Route Start Last Admin Trade Name Damon PRN Reason Stop Dose Admin Acetaminophen 650 mg 10/09/20 18:15 Acetaminophen 325 Mg Tablet PO Q6H PRN Pain, Mild (Pain Scale 1-3) Acetaminophen/Codeine Phosphate 1 tab 10/09/20 18:07 Acetaminophen With Codeine # 3 Tablet PO BID PRN Pain Albuterol Sulfate 1 puff 10/09/20 21:00 Albuterol Sulfate 90 Mcg 8 Gm Inhaler INHALE QID [facility] Albuterol/Ipratropium 2.5 ml 10/09/20 20:00 Albuterol/Iprat 2.5/0.5mg 3 Ml Ampul.Neb INHALE RQ6H WHILE AWAKE [facility] Aspirin 81 mg 10/10/20 09:00 Aspirin Enteric Coated 81 Mg Tablet.Dr PO DAILY [facility] Atorvastatin Calcium 80 mg 10/10/20 09:00 Atorvastatin Calcium 80 Mg Tablet PO DAILY [facility] Diazepam 10 mg 10/09/20 18:07 Diazepam 10 Mg Tablet PO BID PRN Anxiety Docusate Sodium 100 mg 10/09/20 18:07 Docusate Sodium 100 Mg Capsule PO DAILY PRN Constipation Donepezil HCl 5 mg 10/10/20 09:00 Donepezil Hcl 5 Mg Tablet PO DAILY [facility] Ezetimibe 10 mg 10/10/20 09:00 Ezetimibe 10 Mg Tablet PO DAILY [facility] Enoxaparin Sodium 40 mg 10/09/20 18:15 Enoxaparin Sodium 40 Mg/0.4 Ml Syringe SUBCUT Q24H [facility] Folic Acid 1 mg 10/10/20 09:00 Folic Acid 1 Mg Tablet PO DAILY [facility] Furosemide 20 mg 10/09/20 18:10 Furosemide 20 Mg/2 Ml Vial IVPUSH 10/09/20 18:11 ONCE ONE Protocol Albumin Human 100 mls @ 100 mls/hr 10/09/20 17:30 10/09/20 18:04 Kedbumin 25 % IV 10/09/20 19:29 100 mls/hr Q1H [facility] Administration Lisinopril 5 mg 10/10/20 09:00 Lisinopril 5 Mg Tablet PO DAILY [facility] Protocol Loratadine 10 mg 10/10/20 09:00 Loratadine 10 Mg Tablet PO DAILY [facility] Melatonin 6 mg 07/17/21 18:15 Melatonin 3 Mg Tablet PO BEDTIME PRN Insomnia Metoprolol Succinate 100 mg 10/10/20 09:00 Metoprolol Succinate Er 100 Mg Tab.Er.24h PO DAILY [facility] Protocol Montelukast Sodium 10 mg 10/10/20 09:00 Montelukast Sodium 10 Mg Tablet PO DAILY [facility] Omeprazole 20 mg 10/10/20 09:00 Omeprazole 20 Mg Capsule.Dr PO DAILY [facility] Ondansetron HCl 4 mg 10/09/20 18:15 Ondansetron Hcl 4 Mg/2 Ml Vial IVPUSH Q8H PRN Nausea and Vomiting Oxycodone HCl 5 mg 10/09/20 18:07 Oxycodone Hcl Immed Release 5 Mg Tablet PO Q4H PRN Pain Sodium Chloride 3 ml 10/10/20 00:00 0.9 % Sodium Chloride Flush 3 Ml Syringe IVFLUSH QSHIFT [facility] Tamsulosin HCl 0.4 mg 10/10/20 09:00 Tamsulosin Hcl 0.4 Mg Capsule PO DAILY [facility] Thiamine HCl 100 mg 10/10/20 09:00 Thiamine Hcl 100 Mg Tablet PO DAILY [facility] Tiotropium Two Dot puff 10/10/20 09:00 Tiotropium Two Dot 18 Mcg Cap.W.Dev INHALE DAILY [facility] Vitamin D 25 mcg 10/10/20 09:00 Cholecalciferol (Vitamin D3) 25 Mcg Tablet PO DAILY [facility] Home Medications Medication Instructions Recorded Confirmed Last Taken Type acetaminophen 300 mg-codeine 30 mg 1 tab PO BID PRN 02/12/20 10/09/20 Unknown History tablet aspirin 81 mg tablet,delayed 81 mg PO DAILY 02/12/20 10/09/20 Unknown History release atorvastatin 80 mg tablet 80 mg PO DAILY 02/12/20 10/09/20 Unknown History cholecalciferol (vitamin D3) 25 25 mcg PO DAILY 02/12/20 10/09/20 Unknown History mcg (1,000 unit) tablet docusate sodium 100 mg capsule 100 mg PO DAILY PRN 02/12/20 10/09/20 Unknown History ezetimibe 10 mg tablet 10 mg PO DAILY 02/12/20 10/09/20 Unknown History folic acid 1 mg tablet 1 mg PO DAILY 02/12/20 10/09/20 Unknown History lisinopril 5 mg tablet 5 mg PO DAILY 02/12/20 10/09/20 Unknown History metoprolol succinate 100 mg 100 mg PO DAILY 02/12/20 10/09/20 Unknown History tablet,extended release 24 hr montelukast 10 mg tablet 10 mg PO DAILY 02/12/20 10/09/20 Unknown History omeprazole 20 mg capsule,delayed 20 mg PO DAILY 02/12/20 10/09/20 Unknown History release oxycodone 5 mg tablet 5 mg PO Q4H PRN 02/12/20 10/09/20 Unknown History thiamine HCl (vitamin B1) 100 mg 100 mg PO DAILY 02/12/20 10/09/20 Unknown History tablet cetirizine 10 mg tablet 10 mg PO DAILY 03/22/20 10/09/20 Unknown History melatonin 5 mg tablet 5 mg PO BEDTIME 03/22/20 10/09/20 Unknown History tamsulosin 0.4 mg capsule 0.4 mg PO DAILY 03/22/20 10/09/20 Unknown History donepezil 10 mg tablet 5 mg PO DAILY tab 09/20/20 10/09/20 Unknown History diazepam 1 tab PO BID PRN 10/09/20 10/09/20 Unknown History ipratropium-albuterol 2.5 ml INHALATION Q4-6H PRN 10/09/20 10/09/20 Unknown History tiotropium bromide [Spiriva with 1 cap INHALATION DAILY 10/09/20 10/09/20 Unknown History HandiHaler] Physical Exam Vital Signs and Narrative: Vital Signs: Last Vital Signs Temp 97.7 F 10/09/20 12:02 Pulse 72 10/09/20 16:00 Resp 18 10/09/20 16:00 BP 164/77 H 10/09/20 16:00 Pulse Ox 96 10/09/20 16:00 Body Mass Index 19.8 Const: Other: Constitutional : Alert, oriented, not in distress, muscle wasted Neck : Normal inspection, Supple Cardiovascular : RRR, S1 S2, +2 bilateral lower extremity edema Respiratory : Decreased bilateral air entry, no crackles, points catheter wheezes or rhonchi Gastrointestinal: soft, lax, Normal bowel sounds, Non tender, distended with mild amount of ascites Skin : Warm/Dry, upper extremity petechial rash bilaterally Neurological : Alert & oriented x3, No focal deficit Results Labs CBC and Chem 7: 10/09/20 12:37 10/09/20 12:37 Labs: Laboratory Results - last 24 hr 10/09/20 10/09/20 10/09/20 12:37 12:37 12:37 MCV 94.7 MCH 31.9 MCHC 33.7 RDW 15.6 Plt Count 172 MPV 9.0 L Immature Gran % (Auto) 5.0 H Neut % (Auto) 83.9 H Lymph % (Auto) 4.7 L Sumner % (Auto) 6.1 Eos % (Auto) 0.2 Baso % (Auto) 0.1 Lymph # (Auto) 0.5 L Sumner # (Auto) 0.6 Eos # (Auto) 0.0 Baso # (Auto) 0.0 Abs Immat Gran (auto) 0.49 H Absolute Neuts (auto) 8.3 Absolute Nucleated RBC 0.030 H Nucleated RBC % (auto) 0.3 H Hold Purple Top PT 10.4 INR 0.9 O2 Saturation ABG pH at Pt Temp ABG pH (Temp Correct) ABG pCO2 at Pt Temp ABG pCO2 (Temp Corrct ABG pO2 at Pt Temp ABG pO2 (Temp Correct ABG HCO3 ABG Base Excess (Actual) Anion Gap Estim Creat Clear Calc Estimated GFR Random Glucose Calcium Magnesium Cancelled Total Bilirubin AST ALT Alkaline Phosphatase B-Natriuretic Peptide Total Protein Albumin Lipase COVID-19 ([facility]) COVID-19 Clin Com 10/09/20 10/09/20 10/09/20 12:37 12:37 12:37 MCV MCH MCHC RDW Plt Count MPV Immature Gran % (Auto) Neut % (Auto) Lymph % (Auto) Sumner % (Auto) Eos % (Auto) Baso % (Auto) Lymph # (Auto) Sumner # (Auto) Eos # (Auto) Baso # (Auto) Abs Immat Gran (auto) Absolute Neuts (auto) Absolute Nucleated RBC Nucleated RBC % (auto) Hold Purple Top SEE NOTE PT INR O2 Saturation ABG pH at Pt Temp ABG pH (Temp Correct) ABG pCO2 at Pt Temp ABG pCO2 (Temp Corrct ABG pO2 at Pt Temp ABG pO2 (Temp Correct ABG HCO3 ABG Base Excess (Actual) Anion Gap 14 Estim Creat Clear Calc 71.5 Estimated GFR > 60 Random Glucose 115 Calcium 8.9 Magnesium 1.9 Total Bilirubin 0.7 AST 22 ALT 38 Alkaline Phosphatase 67 B-Natriuretic Peptide Total Protein 5.9 L Albumin 3.4 L Lipase 54 COVID-19 ([facility]) Negative COVID-19 Clin Com See Note 10/09/20 10/09/20 12:37 13:21 MCV MCH MCHC RDW Plt Count MPV Immature Gran % (Auto) Neut % (Auto) Lymph % (Auto) Sumner % (Auto) Eos % (Auto) Baso % (Auto) Lymph # (Auto) Sumner # (Auto) Eos # (Auto) Baso # (Auto) Abs Immat Gran (auto) Absolute Neuts (auto) Absolute Nucleated RBC Nucleated RBC % (auto) Hold Purple Top PT INR O2 Saturation 96.0 ABG pH at Pt Temp 7.49 H ABG pH (Temp Correct) 7.49 H ABG pCO2 at Pt Temp 34 ABG pCO2 (Temp Corrct 34 ABG pO2 at Pt Temp 86 ABG pO2 (Temp Correct 88 ABG HCO3 26 ABG Base Excess (Actual) 3.7 Anion Gap Estim Creat Clear Calc Estimated GFR Random Glucose Calcium Magnesium Total Bilirubin AST ALT Alkaline Phosphatase B-Natriuretic Peptide 119 H Total Protein Albumin Lipase COVID-19 ([facility]) COVID-19 Clin Com Imaging Radiologist's Impressions: Impressions Chest CT 10/09/20 12:51 IMPRESSION: * Moderate to severe emphysema. * Multiple pulmonary nodules redemonstrated, with interval increase in size of the dominant nodule within right upper lobe which now measures 1.9 x 1.2 cm, previously 1.4 x 0.7 cm. Given the short interval timeframe for the increase in size, I would favor an infectious/inflammatory etiology. Short interval follow-up is recommended previously, within 1-3 months. * There is dilatation of the common bile duct and pancreatic duct with abrupt cut off in the region of the ampulla related to a 1.5 x 1.2 cm soft tissue density structure in this region. Recommend MRI/MRCP without and with contrast for further evaluation, and/or ERCP. Abdomen/Pelvis CT 10/09/20 12:53 IMPRESSION: * Moderate to severe emphysema. * Multiple pulmonary nodules redemonstrated, with interval increase in size of the dominant nodule within right upper lobe which now measures 1.9 x 1.2 cm, previously 1.4 x 0.7 cm. Given the short interval timeframe for the increase in size, I would favor an infectious/inflammatory etiology. Short interval follow-up is recommended previously, within 1-3 months. * There is dilatation of the common bile duct and pancreatic duct with abrupt cut off in the region of the ampulla related to a 1.5 x 1.2 cm soft tissue density structure in this region. Recommend MRI/MRCP without and with contrast for further evaluation, and/or ERCP. Elbow X-Ray 10/09/20 12:54 IMPRESSION: 1. No acute fracture of the right hand/wrist and right elbow. 2. 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 3. Extensive atherosclerotic vascular calcifications. Hand/Wrist X-Ray 10/09/20 12:54 IMPRESSION: 1. No acute fracture of the right hand/wrist and right elbow. 2. 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 3. Extensive atherosclerotic vascular calcifications. Cervical Spine CT 10/09/20 12:55 IMPRESSION: No acute intracranial pathology. No cervical spine fracture or malalignment. Head CT 10/09/20 12:55 IMPRESSION: No acute intracranial pathology. No cervical spine fracture or malalignment. Venous Duplex 10/09/20 14:06 IMPRESSION: No evidence of deep vein thrombosis in either lower extremity. Assessment and Plan (1) Abnormal computed tomography of abdomen and pelvis: Status: Acute (2) Fall: Status: Acute (3) Ascites: Status: Acute (4) Anasarca: Status: Acute A 70 years old male with PMH of COPD, pulmonary nodules, CMP post ICD among others who presented to the hospital with leg edema, abdominal distension, falls for the last week. Anasarca Ascites, lower extremity and mildly upper extremities swelling Albumin level acceptable Kidney function within normal Has CMP at baseline which might be contributing but last echo from July showing EF of 50% CT abdomen showing soft tissue lesion which might be contributing in case of malignancy BNP 0 111 To start Lasix 20 mg IV for now and monitor response To get GI evaluation for now Soft tissue lesion Shown on CT scan cutting of the ambula of Vater Liver function within normal, no abdominal pain reported To do MRCP tomorrow Physical deconditioning Multiple falls and feeling weak next [place] to do physical therapy evaluation COPD, chronic continue home inhalers Continue the rest of home medications DVT prophylaxis Lovenox Quality Stroke Does the patient have a stroke diagnosis?: No VTE Prior VTE?: No VTE Risk Level:: Medical - moderate - high VTE Device Contraindication: Treatment Not Indicated VTE Drug Contraindication: N/A - Med Ordered
[2020-10-09] MEDS: Furosemide 20 MG/2 ML VIAL IVPUSH (18:39)
[2020-10-09 19:06] VITALS: BP 141/83; PULSE 78; RESP 18; O2SAT 96
[2020-10-09] MEDS: Albuterol Sulfate 90 MCG 8 GM INHALER 1 PUFF INHALE (19:48)
[2020-10-09] MEDS: Albuterol/Iprat 2.5/0.5MG 3 ML AMPUL.NEB 2.5 ML INHALE (19:49)
[2020-10-09] MEDS: diazePAM 10 MG TABLET PO (20:19)
[2020-10-09] MEDS: Enoxaparin Sodium 40 MG/0.4 ML SYRINGE SUBCUT (20:20)
--- NOTE | 2020-10-09 20:25 | PC.NURSE ---
1500: report taken from kayla rn- pt was sent in by pcp for worstening edema. Pt reports anxiety regarding outcome of care. A and o x 4. pt is tachypnic at baseline, but lung sounds remain clear, room saturation remains at 95-96%. Pt orientated to use of call urena. Pt given urinal. denies needs. Pt educated that po will be offered when cleared by MD. 1900: pt tolerating po well. Multiple juices given and crackers 2000: ERT and staff respiratory therapist report tachypnea and disorientation. Contact made to covering hospitalist-tamiko to place condom cath. Pt reports anxiety regarding lack of home meds. Pt given 10mg klonopin PRN and tylenol with codiene. Pt also medicated with lovenox at this time per order. aware and pennyayed.
--- NOTE | 2020-10-09 22:09 | PC.NURSE ---
Attempted to give report. Dinorah jacinto unavaible.
[2020-10-09 23:09] VITALS: BMI 21.4
[2020-10-09 23:29] VITALS: BP 157/87; PULSE 71; RESP 16; TEMP 36.6; O2SAT 98
[2020-10-10] VITALS (8 sets, daily range): BP systolic 122–170; BP diastolic 62–91; PULSE 69–90; RESP 17–20; TEMP 36.4–36.9; O2SAT 93–97
[2020-10-10 00:05] LABS: Glucose Urine UA NEG (NEG); Leukocyte Esterase Urine NEG (NEG); Nitrite Urine NEG (NEG); Urine Blood NEG (NEG); Urine Ketones NEG (NEG); Urine Protein NEG (NEG-TRACE)
[2020-10-10 00:07] LABS: Appearance Urine CLEAR; Color Urine YELLOW
[2020-10-10] MEDS: 0.9 % Sodium Chloride Flush 3 ML SYRINGE IVFLUSH ×3 (02:20→15:43)
[2020-10-10 05:23] LABS: Hematocrit 33.1 % (42-52); Hemoglobin 11.1 g/dl (14.0-18.0); Mean Corpuscular HGB Conc 33.5 g/dl (31.0-36.0); Mean Corpuscular Hemoglobin 31.7 pg (27.0-33.0); Mean Corpuscular Volume 94.6 fL (80-98); Mean Platelet Volume 9.2 fL (9.4-12.4); Platelet Count 133 X10*3/uL (160-400); Red Cell Distribution Width 15.6 % (11.0-16.0); White Blood Count 7.6 X10*3/uL (4.8-10.8)
[2020-10-10 05:44] LABS: Anion Gap 11 (12-20); Blood Urea Nitrogen 29 mg/dL (9-16); Calcium 8.9 mg/dL (8.4-10.2); Carbon Dioxide 33 mmol/L (22-29); Chloride 99 mmol/L (96-108); Creatinine Clr Calc Pharmacy 82.1; Estimated Glomerular Filt Rate > 60; Glucose Random 93 mg/dL (60-115); Potassium 3.9 mmol/L (3.3-5.1); Sodium 139 mmol/L (135-145)
[2020-10-10] MEDS: Albuterol/Iprat 2.5/0.5MG 3 ML AMPUL.NEB 2.5 ML INHALE (08:39)
[2020-10-10] MEDS: Donepezil HCl 5 MG TABLET PO (08:41)
[2020-10-10] MEDS: Metoprolol Succinate ER 100 MG TAB.ER.24H PO (08:41)
[2020-10-10] MEDS: Tamsulosin HCL 0.4 MG CAPSULE PO (08:41)
[2020-10-10] MEDS: Cholecalciferol (Vitamin D3) 25 MCG TABLET PO (08:41)
[2020-10-10] MEDS: Loratadine 10 MG TABLET PO (08:41)
[2020-10-10] MEDS: lisinopriL 5 MG TABLET PO (08:41)
[2020-10-10] MEDS: Omeprazole 20 MG CAPSULE.DR PO (08:41)
[2020-10-10] MEDS: Aspirin Enteric Coated 81 MG TABLET.DR PO (08:41)
[2020-10-10] MEDS: Atorvastatin Calcium 80 MG TABLET PO (08:41)
[2020-10-10] MEDS: Montelukast Sodium 10 MG TABLET PO (08:41)
[2020-10-10] MEDS: Folic Acid 1 MG TABLET PO (08:41)
[2020-10-10] MEDS: Thiamine HCL 100 MG TABLET PO (08:41)
[2020-10-10] MEDS: Ezetimibe 10 MG TABLET PO (08:41)
[2020-10-10] MEDS: Furosemide 20 MG/2 ML VIAL IVPUSH (12:13)
--- NOTE | 2020-10-10 12:47 | PC.NURSE ---
pt's [employer] kunal inhalers from home. Called pharmacy to determine inhalers can return to home. Pt aware
--- NOTE | 2020-10-10 14:19 | P.PNIM_ITS ---
Subjective Subjective Date of Service: 10/10/20 Interval History: the patient was seen and evaluated this morning Laying in bed, feels comfortable overall Swelling has decreased in his lower extremities in stomach Denies any fever, chills or shortness of breath No reported other overnight events. Review of Systems No fever, chills but has increased weakness and falls No chest pain, palpitation Chronic shortness of breath and coughing No abdominal pain, nausea or vomiting, abdominal distension No urinary symptoms Petechial rash on upper extremities Lower extremities edema Physical Exam Vital Signs: Vital Signs: Last Vital Signs Temp 98.5 F 10/10/20 11:29 Pulse 85 10/10/20 11:29 Resp 17 10/10/20 11:29 BP 122/62 10/10/20 11:29 Pulse Ox 97 10/10/20 11:29 Body Mass Index 21.4 Const: Other: Constitutional : Alert, oriented, not in distress, muscle wasted Neck : Normal inspection, Supple Cardiovascular : RRR, S1 S2, +2 bilateral lower extremity edema Respiratory : Decreased bilateral air entry, no crackles, points catheter wheezes or rhonchi Gastrointestinal: soft, lax, Normal bowel sounds, Non tender, distended with mild amount of ascites Skin : Warm/Dry, upper extremity petechial rash bilaterally Neurological : Alert & oriented x3, No focal deficit Objective Data Current Medications Generic Name Dose Route Start Last Admin Trade Name Freq PRN Reason Stop Dose Admin Acetaminophen 650 mg 10/09/20 18:15 Acetaminophen 325 Mg Tablet PO Q6H PRN Pain, Mild (Pain Scale 1-3) Acetaminophen/Codeine Phosphate 1 tab 10/09/20 18:07 10/09/20 20:19 Acetaminophen With Codeine # 3 Tablet PO 1 tab BID PRN Administration Pain Albuterol Sulfate 1 puff 10/09/20 20:00 10/10/20 13:17 Albuterol Sulfate 90 Mcg 8 Gm Inhaler INHALE Not Given RQID JOSE LUIS Albuterol/Ipratropium 2.5 ml 10/09/20 20:00 10/10/20 14:18 Albuterol/Iprat 2.5/0.5mg 3 Ml Ampul.Neb INHALE Not Given RQ6H WHILE AWAKE [facility] Aspirin 81 mg 10/10/20 09:00 10/10/20 08:41 Aspirin Enteric Coated 81 Mg Tablet. PO 81 mg DAILY JOSE LUIS Administration Atorvastatin Calcium 80 mg 10/10/20 09:00 10/10/20 08:41 Atorvastatin Calcium 80 Mg Tablet PO 80 mg DAILY JOSE LUIS Administration Diazepam 10 mg 10/09/20 18:07 10/09/20 20:19 Diazepam 10 Mg Tablet PO 10 mg BID PRN Administration Anxiety Docusate Sodium 100 mg 10/09/20 18:07 Docusate Sodium 100 Mg Capsule PO DAILY PRN Constipation Donepezil HCl 5 mg 10/10/20 09:00 10/10/20 08:41 Donepezil Hcl 5 Mg Tablet PO 5 mg DAILY JOSE LUIS Administration Ezetimibe 10 mg 10/10/20 09:00 10/10/20 08:41 Ezetimibe 10 Mg Tablet PO 10 mg DAILY JOSE LUIS Administration Enoxaparin Sodium 40 mg 10/09/20 22:00 10/09/20 20:20 Enoxaparin Sodium 40 Mg/0.4 Ml Syringe SUBCUT 40 mg Q24H JOSE LUIS Administration Folic Acid 1 mg 10/10/20 09:00 10/10/20 08:41 Folic Acid 1 Mg Tablet PO 1 mg DAILY JOSE LUIS Administration Furosemide 20 mg 10/10/20 10:30 10/10/20 12:13 Furosemide 20 Mg/2 Ml Vial IVPUSH 20 mg DAILY JOSE LUIS Administration Protocol Lisinopril 5 mg 10/10/20 09:00 10/10/20 08:41 Lisinopril 5 Mg Tablet PO 5 mg DAILY JOSE LUIS Administration Protocol Loratadine 10 mg 10/10/20 09:00 10/10/20 08:41 Loratadine 10 Mg Tablet PO 10 mg DAILY JOSE LUIS Administration Melatonin 6 mg 10/09/20 18:15 Melatonin 3 Mg Tablet PO BEDTIME PRN Insomnia Metoprolol Succinate 100 mg 10/10/20 09:00 10/10/20 08:41 Metoprolol Succinate Er 100 Mg Tab.Er.24h PO 100 mg DAILY JOSE LUIS Administration Protocol Montelukast Sodium 10 mg 10/10/20 09:00 10/10/20 08:41 Montelukast Sodium 10 Mg Tablet PO 10 mg DAILY JOSE LUIS Administration Omeprazole 20 mg 10/10/20 09:00 10/10/20 08:41 Omeprazole 20 Mg Capsule.Dr PO 20 mg DAILY JOSE LUIS Administration Ondansetron HCl 4 mg 10/09/20 18:15 Ondansetron Hcl 4 Mg/2 Ml Vial IVPUSH Q8H PRN Nausea and Vomiting Oxycodone HCl 5 mg 10/09/20 18:07 Oxycodone Hcl Immed Release 5 Mg Tablet PO Q4H PRN Pain Sodium Chloride 3 ml 10/10/20 00:00 10/10/20 08:41 0.9 % Sodium Chloride Flush 3 Ml Syringe IVFLUSH 3 ml QSHIFT [facility] Administration Tamsulosin HCl 0.4 mg 10/10/20 09:00 10/10/20 08:41 Tamsulosin Hcl 0.4 Mg Capsule PO 0.4 mg DAILY JOSE LUIS Administration Thiamine HCl 100 mg 10/10/20 09:00 10/10/20 08:41 Thiamine Hcl 100 Mg Tablet PO 100 mg DAILY [facility] Administration Tiotropium [place] 1 puff 10/10/20 08:00 10/10/20 08:40 Tiotropium [place] 18 Mcg Cap.W.Dev INHALE 1 puff RDAILY [facility] Administration Vitamin D 25 mcg 10/10/20 09:00 10/10/20 08:41 Cholecalciferol (Vitamin D3) 25 Mcg Tablet PO 25 mcg DAILY JOSE LUIS Administration Labs CBC & Chem 7: 10/10/20 05:08 10/10/20 05:08 Labs: Laboratory Results - last 24 hr 10/09/20 10/09/20 10/10/20 12:37 23:20 05:08 WBC 7.6 RBC 3.50 L Hgb 11.1 L Hct 33.1 L MCV 94.6 MCH 31.7 MCHC 33.5 RDW 15.6 Plt Count 133 L MPV 9.2 L Absolute Nucleated RBC 0.000 Nucleated RBC % (auto) 0.0 Sodium Potassium Chloride Carbon Dioxide Anion Gap BUN Creatinine Estim Creat Clear Calc Estimated GFR Random Glucose Calcium Lipase 54 Urine Color YELLOW Urine Appearance CLEAR Urine pH 6.0 Ur Specific [place] 1.010 Urine Protein NEG Urine Glucose (UA) NEG Urine Ketones NEG Urine Blood NEG Urine Nitrite NEG Ur Leukocyte Esterase NEG 10/10/20 05:08 WBC RBC Hgb Hct MCV MCH MCHC RDW Plt Count MPV Absolute Nucleated RBC Nucleated RBC % (auto) Sodium 139 Potassium 3.9 Chloride 99 Carbon Dioxide 33 H Anion Gap 11 L BUN 29 H Creatinine 0.66 Estim Creat Clear Calc 82.1 Estimated GFR > 60 Random Glucose 93 Calcium 8.9 Lipase Urine Color Urine Appearance Urine pH Ur Specific [place] Urine Protein Urine Glucose (UA) Urine Ketones Urine Blood Urine Nitrite Ur Leukocyte Esterase Imaging Right hand/wrist/elbow x-ray: Radiologist's impression: Impressions Chest CT 10/09/20 12:51 IMPRESSION: * Moderate to severe emphysema. * Multiple pulmonary nodules redemonstrated, with interval increase in size of the dominant nodule within right upper lobe which now measures 1.9 x 1.2 cm, previously 1.4 x 0.7 cm. Given the short interval timeframe for the increase in size, I would favor an infectious/inflammatory etiology. Short interval follow-up is recommended previously, within 1-3 months. * There is dilatation of the common bile duct and pancreatic duct with abrupt cut off in the region of the ampulla related to a 1.5 x 1.2 cm soft tissue density structure in this region. Recommend MRI/MRCP without and with contrast for further evaluation, and/or ERCP. Abdomen/Pelvis CT 10/09/20 12:53 IMPRESSION: * Moderate to severe emphysema. * Multiple pulmonary nodules redemonstrated, with interval increase in size of the dominant nodule within right upper lobe which now measures 1.9 x 1.2 cm, previously 1.4 x 0.7 cm. Given the short interval timeframe for the increase in size, I would favor an infectious/inflammatory etiology. Short interval follow-up is recommended previously, within 1-3 months. * There is dilatation of the common bile duct and pancreatic duct with abrupt cut off in the region of the ampulla related to a 1.5 x 1.2 cm soft tissue density structure in this region. Recommend MRI/MRCP without and with contrast for further evaluation, and/or ERCP. Cervical Spine CT 10/09/20 12:55 IMPRESSION: No acute intracranial pathology. No cervical spine fracture or malalignment. Head CT 10/09/20 12:55 IMPRESSION: No acute intracranial pathology. No cervical spine fracture or malalignment. Duplex Scan Upper Extremity Artery 10/09/20 14:06 IMPRESSION: LEFT ARM: Normal left upper extremity arterial perfusion without evidence of hemodynamically significant stenosis or occlusion. Venous Duplex 10/09/20 14:06 IMPRESSION: No evidence of deep vein thrombosis in either lower extremity. CT scan of brain/cervical spine without contrast: Radiologist's impression: Impressions Chest CT 10/09/20 12:51 IMPRESSION: * Moderate to severe emphysema. * Multiple pulmonary nodules redemonstrated, with interval increase in size of the dominant nodule within right upper lobe which now measures 1.9 x 1.2 cm, previously 1.4 x 0.7 cm. Given the short interval timeframe for the increase in size, I would favor an infectious/inflammatory etiology. Short interval follow-up is recommended previously, within 1-3 months. * There is dilatation of the common bile duct and pancreatic duct with abrupt cut off in the region of the ampulla related to a 1.5 x 1.2 cm soft tissue density structure in this region. Recommend MRI/MRCP without and with contrast for further evaluation, and/or ERCP. Abdomen/Pelvis CT 10/09/20 12:53 IMPRESSION: * Moderate to severe emphysema. * Multiple pulmonary nodules redemonstrated, with interval increase in size of the dominant nodule within right upper lobe which now measures 1.9 x 1.2 cm, previously 1.4 x 0.7 cm. Given the short interval timeframe for the increase in size, I would favor an infectious/inflammatory etiology. Short interval follow-up is recommended previously, within 1-3 months. * There is dilatation of the common bile duct and pancreatic duct with abrupt cut off in the region of the ampulla related to a 1.5 x 1.2 cm soft tissue density structure in this region. Recommend MRI/MRCP without and with contrast for further evaluation, and/or ERCP. Cervical Spine CT 10/09/20 12:55 IMPRESSION: No acute intracranial pathology. No cervical spine fracture or malalignment. Head CT 10/09/20 12:55 IMPRESSION: No acute intracranial pathology. No cervical spine fracture or malalignment. Duplex Scan Upper Extremity Artery 10/09/20 14:06 IMPRESSION: LEFT ARM: Normal left upper extremity arterial perfusion without evidence of hemodynamically significant stenosis or occlusion. Venous Duplex 10/09/20 14:06 IMPRESSION: No evidence of deep vein thrombosis in either lower extremity. CT scan of chest with contrast and CT scan abdomen pelvis with IV contrast: Radiologist's impression: Impressions Chest CT 10/09/20 12:51 IMPRESSION: * Moderate to severe emphysema. * Multiple pulmonary nodules redemonstrated, with interval increase in size of the dominant nodule within right upper lobe which now measures 1.9 x 1.2 cm, previously 1.4 x 0.7 cm. Given the short interval timeframe for the increase in size, I would favor an infectious/inflammatory etiology. Short interval follow-up is recommended previously, within 1-3 months. * There is dilatation of the common bile duct and pancreatic duct with abrupt cut off in the region of the ampulla related to a 1.5 x 1.2 cm soft tissue density structure in this region. Recommend MRI/MRCP without and with contrast for further evaluation, and/or ERCP. Abdomen/Pelvis CT 10/09/20 12:53 IMPRESSION: * Moderate to severe emphysema. * Multiple pulmonary nodules redemonstrated, with interval increase in size of the dominant nodule within right upper lobe which now measures 1.9 x 1.2 cm, previously 1.4 x 0.7 cm. Given the short interval timeframe for the increase in size, I would favor an infectious/inflammatory etiology. Short interval follow-up is recommended previously, within 1-3 months. * There is dilatation of the common bile duct and pancreatic duct with abrupt cut off in the region of the ampulla related to a 1.5 x 1.2 cm soft tissue density structure in this region. Recommend MRI/MRCP without and with contrast for further evaluation, and/or ERCP. Cervical Spine CT 10/09/20 12:55 IMPRESSION: No acute intracranial pathology. No cervical spine fracture or malalignment. Head CT 10/09/20 12:55 IMPRESSION: No acute intracranial pathology. No cervical spine fracture or malalignment. Duplex Scan Upper Extremity Artery 10/09/20 14:06 IMPRESSION: LEFT ARM: Normal left upper extremity arterial perfusion without evidence of hemodynamically significant stenosis or occlusion. Venous Duplex 10/09/20 14:06 IMPRESSION: No evidence of deep vein thrombosis in either lower extremity. Venous duplex ultrasound of lower extremity bilaterally: Radiologist's impression: Impressions Chest CT 10/09/20 12:51 IMPRESSION: * Moderate to severe emphysema. * Multiple pulmonary nodules redemonstrated, with interval increase in size of the dominant nodule within right upper lobe which now measures 1.9 x 1.2 cm, previously 1.4 x 0.7 cm. Given the short interval timeframe for the increase in size, I would favor an infectious/inflammatory etiology. Short interval follow-up is recommended previously, within 1-3 months. * There is dilatation of the common bile duct and pancreatic duct with abrupt cut off in the region of the ampulla related to a 1.5 x 1.2 cm soft tissue density structure in this region. Recommend MRI/MRCP without and with contrast for further evaluation, and/or ERCP. Abdomen/Pelvis CT 10/09/20 12:53 IMPRESSION: * Moderate to severe emphysema. * Multiple pulmonary nodules redemonstrated, with interval increase in size of the dominant nodule within right upper lobe which now measures 1.9 x 1.2 cm, previously 1.4 x 0.7 cm. Given the short interval timeframe for the increase in size, I would favor an infectious/inflammatory etiology. Short interval follow-up is recommended previously, within 1-3 months. * There is dilatation of the common bile duct and pancreatic duct with abrupt cut off in the region of the ampulla related to a 1.5 x 1.2 cm soft tissue density structure in this region. Recommend MRI/MRCP without and with contrast for further evaluation, and/or ERCP. Cervical Spine CT 10/09/20 12:55 IMPRESSION: No acute intracranial pathology. No cervical spine fracture or malalignment. Head CT 10/09/20 12:55 IMPRESSION: No acute intracranial pathology. No cervical spine fracture or malalignment. Duplex Scan Upper Extremity Artery 10/09/20 14:06 IMPRESSION: LEFT ARM: Normal left upper extremity arterial perfusion without evidence of hemodynamically significant stenosis or occlusion. Venous Duplex 10/09/20 14:06 IMPRESSION: No evidence of deep vein thrombosis in either lower extremity. Quality Stroke Does the patient have a stroke diagnosis?: No VTE Prior VTE?: No VTE Risk Level:: Medical - moderate - high VTE Device Contraindication: Treatment Not Indicated VTE Drug Contraindication: N/A - Med Ordered Assessment and Plan (1) Abnormal computed tomography of abdomen and pelvis: Status: Acute (2) Fall: Status: Acute (3) Ascites: Status: Acute (4) Anasarca: Status: Acute Assessment and Plan: A 70 years old male with PMH of COPD, pulmonary nodules, CMP post ICD among others who presented to the hospital with leg edema, abdominal distension, falls for the last week. Anasarca Ascites, lower extremity and mildly upper extremities swelling Albumin level acceptable Kidney function within normal Has CMP at baseline which might be contributing but last echo from July showing EF of 50% CT abdomen showing soft tissue lesion which might be contributing in case of malignancy BNP 111 Continue Lasix 20 mg daily IV Pending GI evaluation for now Soft tissue lesion Shown on CT scan cutting of the ambula of Vater Liver function within normal, no abdominal pain reported To do MRCP tomorrow Physical deconditioning Multiple falls and feeling weak to do physical therapy evaluation COPD, chronic continue home inhalers Continue the rest of home medications DVT prophylaxis Lovenox
--- NOTE | 2020-10-10 14:38 | MHC.CM.PN ---
CM MET WITH PT, HIS SISTER/HCP WAS AT BEDSIDE. PT REPORTS HE LIVES ALONE AND HAS 25 HOURS OF CAREER DEVELOPMENT COORDINATOR SERVICE A WEEK HOWEVER HE STATES SHE IS OFTEN THERE MORE THAN THAT. HE REPORTS SHE HELPS WITH HOUSEKEEPING, GROCERY SHOPPING, TRANSPORTATION AND MEDICATIONS. HE REPORTS THE CAREER DEVELOPMENT COORDINATOR DOES NOT HELP HIM WITH SHOWERS BUT DOES STAY CLOSE BY TO ENSURE HIS SAFETY. PT REPORTS HE HAS A CANE, NEBULIZER AND GRAB BARS FOR DME. PT HAS A HCP AND PCP ON FILE, HE CONFIRMS THEY ARE CORRECT. IMM DELIVERED CURRENT DC PLAN IS HOME WITH RESUMPTION OF CAREER DEVELOPMENT COORDINATOR AND POSSIBLE VNA. PT IS NOT INTERESTED IN STR. FAMILY TO TRANSPORT
--- NOTE | 2020-10-10 15:09 | PC.NURSE ---
pt has been transferred to [facility]Ed surg unit, report to [facility]. PT awake, oriented and states understanding of reason for transfer.
--- NOTE | 2020-10-10 17:49 | PM.EVENT ---
Event Note Date of Service: 10/10/20 Event Note: GI Consult-Hx via patient, sister, and EMR. Imp: Chronically ill male with significant COPD, s/p placement of an ICD, and a former smoker and EtOH abuser, presenting after a fall at home with some abdominal distention and LE edema. A CT of the abdomen has raised a suspicion of an incidental lesion in the region of the major ampulla/head of the pancreas with dilatation of the CBD and PD. However, the patient is asymptomatic and has normal LFT's. His exam is suspicious for ascites, although he reports that this has improved with diuresis since admission. Rec: Ideally a MRI with MRCP would be helpful, but this can't be done due to the presence of his ICD. Given his frail condition and significant pulmonary disease, along with normal LFT's, I would hold off on an ERCP with anesthesia for now. I will order an U/S for further evaluation of the CBD and possible paracentesis with studies including cytology if they can remove some fluid for the AM. I put his aspirin and Lovenox on hold for 24 hours. I will check a CA 19-9 level re: ? of a pancreatic neoplasm. I will review his films with the radiologist. At some point he might need an upper endoscopy to assess the major ampulla and an ERCP as well. D/W patient and his sister, Faheem, in detail. Thanks.
--- NOTE | 2020-10-10 19:32 | CONS_ITS ---
DATE OF SERVICE: 10/10/2020 REASON FOR CONSULTATION: Question of CAT scan abnormality involving the bile duct, major ampulla, and pancreatic duct, as well as possible ascites. HISTORY OF PRESENT ILLNESS: This has been obtained from the patient, his sister, and the medical record. The patient is a 70-year-old male, who has underlying significant pulmonary disease with COPD, as well as having been a former smoker and heavy drinker. He also has a previously placed ICD. He came to the ER after suffering a fall at home. While in the ER, he was noted to have abdominal distention and leg edema and was subsequently admitted. He underwent multiple imaging studies including a CT scan of the abdomen. Of note, he had been on prednisone recently as well as meloxicam for underlying COPD and shoulder pain, respectively. He describes that his edema and distention of the abdomen seem to have worsened with these medications. Since admission, he has been feeling better with diuresis. He reports that his legs and abdomen are less swollen. He describes that he has been eating comfortably at home. He denies any chronic heartburn nor dysphagia. He denies any nausea nor vomiting. He denies any early satiety. He has not noticed any jaundice. He denies any abdominal pain. He reports his bowel movements are fairly regular and he denies any hematochezia nor melena. He denies any diarrhea. He has not used alcohol for quite some time, although does have a very occasional drink. He also stopped smoking some time ago. He denies any previous history of known liver disease or jaundice, nor any pancreatitis, in relation to his previous history of heavy drinking. MEDICATIONS: At home included the recent prednisone and meloxicam. His medications also included acetaminophen, Advair, albuterol, aspirin, atorvastatin, vitamin D, diazepam p.r.n., Colace p.r.n., Aricept, ezetimibe, folic acid, furosemide, lisinopril, melatonin, oxycodone, tamsulosin, thiamine. His medications here in the hospital include , aspirin, atorvastatin, vitamin D, Colace, Aricept, Lovenox, Zetia, folic acid, Lasix, lisinopril, loratadine, melatonin, metoprolol, Singulair, Prilosec, Zofran, oxycodone, tamsulosin, thiamine. PAST MEDICAL HISTORY: Neck surgery for cervical disk disease. He had placement of AICD. He reports he has had MIs in the past. He has significant pulmonary disease as followed in the [facility] for that. He denies any history of diabetes, stroke, nor kidney disease. SOCIAL HISTORY: He is single. Former smoker and drinker as above. FAMILY HISTORY: Noncontributory. REVIEW OF SYSTEMS: CONSTITUTIONAL: He reports he has been feeling somewhat weak and tired at home, although his appetite has been good. CARDIAC: No chest pain. PULMONARY: He does have some dyspnea and occasional coughing, but no hemoptysis. GASTROINTESTINAL: As above. URINARY: No dysuria. No hematuria. PHYSICAL EXAMINATION: GENERAL: The patient is a thin, chronically ill appearing male, in no distress. He has been afebrile. NECK: Supple. ABDOMEN: Soft and somewhat distended with possible ascites, but no focal mass nor tenderness. Bowel sounds are normal. EXTREMITIES: Without edema. NEUROLOGIC: He seems to be alert and oriented and answers all questions appropriately. LABORATORY DATA: He had a completely normal liver profile on admission. White blood cell count 7.6, hemoglobin 11.1, platelets 132,000 today. CBC yesterday showed a white blood cell count 9.9, hemoglobin 13.8, and platelets 172,000. PT was 10.4 with INR of 0.9. Normal electrolytes. BUN 30, creatinine 0.7. Total bilirubin 0.7, AST 22, ALT 38, alkaline phosphatase 67, albumin 3.4. His CAT scan of the abdomen and pelvis describes a common bile duct of 1 cm with some mild gallbladder wall thickening, but no sign of any gallstones. There is no intrahepatic bile duct dilatation. The pancreatic duct appeared mildly dilated up to 4 mm. There was a question of an ampullary lesion with some cut off the distal bile duct and pancreatic duct. The radiologist describes a possible soft tissue density in the area of that major ampulla. His chest CT describes multiple pulmonary nodules, which appeared to be chronic, although one of the nodules appears to have increased. IMPRESSION: In regard to the CAT scan findings, this appears to be incidental as the patient is asymptomatic and does not have any jaundice. In fact, his LFTs are completely normal. This would tend to go against any significant biliary obstruction. Nonetheless, given the CT scan findings, this may need to be addressed further. Ideally, given his clinical condition, MRI with MRCP would be the most helpful, but that can be done due to the presence of his ICD. Given his overall poor condition, particularly with his lung disease, I am hesitant to put him through ERCP with anesthesia unless we have a more definitive reason to do so, i.e., jaundice. Given his clinical condition, he certainly would not be a candidate for any type of surgical intervention if indeed he had some head of the pancreas lesion. However, I will proceed with abdominal ultrasound for further inspection of the gallbladder and bile duct, as well as to have them before a paracentesis if indeed he has ascites. The ascites can be sent for the usual analysis including cytology. I shall check a repeat liver profile tomorrow. At some point, he may need upper endoscopy for inspection of the major ampulla as well as ERCP, but again, I would hold off on that so as to avoid any invasive procedures and anesthesia given his overall frail condition and pulmonary disease. I shall check a CA19-9 level as well. This has all been reviewed with the patient and his sister in detail and they are comfortable with the plan to proceed conservatively at this time. Thank you for the consultation. MD CHRISTINE Diaz/NURA / [phone]
[2020-10-10] MEDS: diazePAM 10 MG TABLET PO (20:20)
[2020-10-11] VITALS (9 sets, daily range): BP systolic 113–144; BP diastolic 72–81; PULSE 72–88; RESP 18–20; TEMP 36.1–36.6; O2SAT 94–96
[2020-10-11] MEDS: 0.9 % Sodium Chloride Flush 3 ML SYRINGE IVFLUSH ×3 (00:12→17:40)
[2020-10-11 06:54] LABS: Hematocrit 37.9 % (42-52); Hemoglobin 12.7 g/dl (14.0-18.0); Mean Corpuscular HGB Conc 33.5 g/dl (31.0-36.0); Mean Corpuscular Hemoglobin 31.8 pg (27.0-33.0); Mean Corpuscular Volume 94.8 fL (80-98); Mean Platelet Volume 9.2 fL (9.4-12.4); Platelet Count 143 X10*3/uL (160-400); Red Cell Distribution Width 15.7 % (11.0-16.0); White Blood Count 9.3 X10*3/uL (4.8-10.8)
[2020-10-11 07:00] LABS: Partial Thromboplastin Time 25.6 SEC (24.1-38.0)
[2020-10-11 07:33] LABS: Anion Gap 12 (12-20); Blood Urea Nitrogen 34 mg/dL (9-16); Calcium 9.3 mg/dL (8.4-10.2); Carbon Dioxide 32 mmol/L (22-29); Chloride 97 mmol/L (96-108); Creatinine Clr Calc Pharmacy 63.8; Estimated Glomerular Filt Rate > 60; Glucose Random 99 mg/dL (60-115); Potassium 4.4 mmol/L (3.3-5.1); Sodium 137 mmol/L (135-145)
[2020-10-11 07:43] LABS: Alanine Aminotransferase 30 U/L (0-40); Albumin Level 3.6 g/dL (3.5-5.0); Alkaline Phosphatase 52 U/L (39-117); Aspartate Amino Transferase 17 U/L (5-37); Bilirubin Direct 0.4 mg/dL (0.0-0.5); Bilirubin Total 0.9 mg/dL (0.0-1.0); Total Protein 5.6 g/dL (6.5-8.0)
[2020-10-11] MEDS: Albuterol/Iprat 2.5/0.5MG 3 ML AMPUL.NEB 2.5 ML INHALE ×2 (08:11→20:04)
[2020-10-11] MEDS: Furosemide 20 MG/2 ML VIAL IVPUSH (08:16)
[2020-10-11] MEDS: Atorvastatin Calcium 80 MG TABLET PO (08:17)
[2020-10-11] MEDS: oxyCODONE HCl Immed Release 5 MG TABLET PO (08:17)
[2020-10-11] MEDS: Cholecalciferol (Vitamin D3) 25 MCG TABLET PO (08:17)
[2020-10-11] MEDS: Donepezil HCl 5 MG TABLET PO (08:17)
[2020-10-11] MEDS: Metoprolol Succinate ER 100 MG TAB.ER.24H PO (08:17)
[2020-10-11] MEDS: Omeprazole 20 MG CAPSULE.DR PO (08:18)
[2020-10-11] MEDS: Thiamine HCL 100 MG TABLET PO (08:18)
[2020-10-11] MEDS: lisinopriL 5 MG TABLET PO (08:18)
[2020-10-11] MEDS: Loratadine 10 MG TABLET PO (08:18)
[2020-10-11] MEDS: Montelukast Sodium 10 MG TABLET PO (08:18)
[2020-10-11] MEDS: Tamsulosin HCL 0.4 MG CAPSULE PO (08:19)
[2020-10-11] MEDS: diazePAM 10 MG TABLET PO ×2 (08:19→21:44)
[2020-10-11] MEDS: Ezetimibe 10 MG TABLET PO (08:19)
[2020-10-11] MEDS: Folic Acid 1 MG TABLET PO (08:19)
--- NOTE | 2020-10-11 13:41 | MHC.CLN ---
NUTRITION/CONSULT BELLO=15-NO PRESSURE AREAS. HAS SKIN TEARS/ABRASIONS. REGULAR DIET, BMI WNL. NO ADDITIONAL NUTRITION INTERVENTIONS AT THIS TIME.
--- NOTE | 2020-10-11 14:31 | HO.PM.IMPN ---
Subjective Subjective Date of Service: 10/11/20 Interval History: the patient was seen and evaluated this morning Laying the in bed, feels comfortable overall Swellin decreased significantly in his lower extremities Denies any fever, chills or shortness of breath No reported other overnight events. Review of Systems No fever, chills but reports being hungry and weak No chest pain, palpitation Chronic shortness of breath and coughing No abdominal pain, nausea or vomiting, abdominal distension No urinary symptoms Petechial rash on upper extremities Lower extremities edema Physical Exam Vital Signs: Vital Signs: Last Vital Signs Temp 98 F 10/11/20 11:18 Pulse 85 10/11/20 11:18 Resp 18 10/11/20 11:18 BP 138/80 10/11/20 11:18 Pulse Ox 96 10/11/20 11:18 Body Mass Index 21.4 Const: Other: Constitutional : Alert, oriented, not in distress, muscle wasted Neck : Normal inspection, Supple Cardiovascular : RRR, S1 S2, trace bilateral lower extremity edema Respiratory : Decreased bilateral air entry, no crackles, points catheter wheezes or rhonchi Gastrointestinal: soft, lax, Normal bowel sounds, Non tender, no more ascites Skin : Warm/Dry, upper extremity petechial rash bilaterally Neurological : Alert & oriented x3, No focal deficit Objective Data Current Medications Generic Name Dose Route Start Last Admin Trade Name Pavelq PRN Reason Stop Dose Admin Acetaminophen 650 mg 10/09/20 18:15 Acetaminophen 325 Mg Tablet PO Q6H PRN Pain, Mild (Pain Scale 1-3) Acetaminophen/Codeine Phosphate 1 tab 10/09/20 18:07 10/09/20 20:19 Acetaminophen With Codeine # 3 Tablet PO 1 tab BID PRN Administration Pain Albuterol Sulfate 1 puff 10/09/20 20:00 10/11/20 11:32 Albuterol Sulfate 90 Mcg 8 Gm Inhaler INHALE Not Given RQID [facility] Albuterol/Ipratropium 2.5 ml 10/09/20 20:00 10/11/20 13:36 Albuterol/Iprat 2.5/0.5mg 3 Ml Ampul.Neb INHALE Not Given RQ6H WHILE AWAKE [facility] Aspirin 81 mg 10/10/20 09:00 10/11/20 09:59 Aspirin Enteric Coated 81 Mg Tablet. PO Not Given DAILY [facility] Atorvastatin Calcium 80 mg 10/10/20 09:00 10/11/20 08:17 Atorvastatin Calcium 80 Mg Tablet PO 80 mg DAILY JOSE LUIS Administration Diazepam 10 mg 10/09/20 18:07 10/11/20 08:19 Diazepam 10 Mg Tablet PO 10 mg BID PRN Administration Anxiety Docusate Sodium 100 mg 10/09/20 18:07 Docusate Sodium 100 Mg Capsule PO DAILY PRN Constipation Donepezil HCl 5 mg 10/10/20 09:00 10/11/20 08:17 Donepezil Hcl 5 Mg Tablet PO 5 mg DAILY JOSE LUIS Administration Ezetimibe 10 mg 10/10/20 09:00 10/11/20 08:19 Ezetimibe 10 Mg Tablet PO 10 mg DAILY JOSE LUIS Administration Enoxaparin Sodium 40 mg 10/09/20 22:00 10/09/20 20:20 Enoxaparin Sodium 40 Mg/0.4 Ml Syringe SUBCUT 40 mg Q24H JOSE LUIS Administration Fluticasone/Vilanterol 1 puff 10/12/20 08:00 Fluticasone/Vilanterol 100/25 Blst.W.Dev INHALE RDAILY JOSE LUIS Folic Acid 1 mg 10/10/20 09:00 10/11/20 08:19 Folic Acid 1 Mg Tablet PO 1 mg DAILY JOSE LUIS Administration Furosemide 20 mg 10/10/20 10:30 10/11/20 08:16 Furosemide 20 Mg/2 Ml Vial IVPUSH 20 mg DAILY JOSE LUIS Administration Protocol Lisinopril 5 mg 10/10/20 09:00 10/11/20 08:18 Lisinopril 5 Mg Tablet PO 5 mg DAILY JOSE LUIS Administration Protocol Loratadine 10 mg 10/10/20 09:00 10/11/20 08:18 Loratadine 10 Mg Tablet PO 10 mg DAILY JOSE LUIS Administration Melatonin 6 mg 10/09/20 18:15 Melatonin 3 Mg Tablet PO BEDTIME PRN Insomnia Metoprolol Succinate 100 mg 10/10/20 09:00 10/11/20 08:17 Metoprolol Succinate Er 100 Mg Tab.Er.24h PO 100 mg DAILY JOSE LUIS Administration Protocol Montelukast Sodium 10 mg 10/10/20 09:00 10/11/20 08:18 Montelukast Sodium 10 Mg Tablet PO 10 mg DAILY JOSE LUIS Administration Omeprazole 20 mg 10/10/20 09:00 10/11/20 08:18 Omeprazole 20 Mg Capsule.Dr PO 20 mg DAILY JOSE LUIS Administration Ondansetron HCl 4 mg 10/09/20 18:15 Ondansetron Hcl 4 Mg/2 Ml Vial IVPUSH Q8H PRN Nausea and Vomiting Oxycodone HCl 5 mg 10/09/20 18:07 10/11/20 08:17 Oxycodone Hcl Immed Release 5 Mg Tablet PO 5 mg Q4H PRN Administration Pain Sodium Chloride 3 ml 10/10/20 00:00 10/11/20 08:17 0.9 % Sodium Chloride Flush 3 Ml Syringe IVFLUSH 3 ml QSHIFT JOSE LUIS Administration Tamsulosin HCl 0.4 mg 10/10/20 09:00 10/11/20 08:19 Tamsulosin Hcl 0.4 Mg Capsule PO 0.4 mg DAILY JOSE LUIS Administration Thiamine HCl 100 mg 10/10/20 09:00 10/11/20 08:18 Thiamine Hcl 100 Mg Tablet PO 100 mg DAILY JOSE LUIS Administration Tiotropium Jeffers 1 puff 10/10/20 08:00 10/11/20 08:06 Tiotropium Jeffers 18 Mcg Cap.W.Dev INHALE 1 puff RDAILY JOSE LUIS Administration Vitamin D 25 mcg 10/10/20 09:00 10/11/20 08:17 Cholecalciferol (Vitamin D3) 25 Mcg Tablet PO 25 mcg DAILY JOSE LUIS Administration Labs CBC & Chem 7: 10/11/20 06:32 10/11/20 06:32 Labs: Laboratory Results - last 24 hr 10/11/20 10/11/20 10/11/20 06:32 06:32 06:32 WBC 9.3 RBC 4.00 L Hgb 12.7 L Hct 37.9 L MCV 94.8 MCH 31.8 MCHC 33.5 RDW 15.7 Plt Count 143 L MPV 9.2 L Absolute Nucleated RBC 0.000 Nucleated RBC % (auto) 0.0 APTT Sodium 137 Potassium 4.4 Chloride 97 Carbon Dioxide 32 H Anion Gap 12 BUN 34 H Creatinine 0.85 Estim Creat Clear Calc 63.8 Estimated GFR > 60 Random Glucose 99 Calcium 9.3 Total Bilirubin 0.9 Direct Bilirubin 0.4 AST 17 ALT 30 Alkaline Phosphatase 52 D Total Protein 5.6 L Albumin 3.6 10/11/20 10/11/20 06:32 06:32 WBC RBC Hgb Hct MCV MCH MCHC RDW Plt Count MPV Absolute Nucleated RBC Nucleated RBC % (auto) APTT 25.6 Sodium Potassium Chloride Carbon Dioxide Anion Gap BUN Creatinine Estim Creat Clear Calc Estimated GFR Random Glucose Calcium Total Bilirubin Cancelled Direct Bilirubin Cancelled AST Cancelled ALT Cancelled Alkaline Phosphatase Cancelled Total Protein Cancelled Albumin Cancelled Imaging Right hand/wrist/elbow x-ray: Radiologist's impression: Impressions Abdomen Ultrasound 10/11/20 10:53 IMPRESSION: Innumerable liver cysts. Upper normal thickness gallbladder wall. No gallstones seen. Normal caliber intrahepatic bile ducts. Dilated common bile duct measuring up to 1.1 cm. No common bile duct stone. Limited visualization of the distal common bile duct, pancreas and aorta. Left renal cyst. Trace ascites. This is too small even for diagnostic paracentesis. CT scan of brain/cervical spine without contrast: Radiologist's impression: Impressions Abdomen Ultrasound 10/11/20 10:53 IMPRESSION: Innumerable liver cysts. Upper normal thickness gallbladder wall. No gallstones seen. Normal caliber intrahepatic bile ducts. Dilated common bile duct measuring up to 1.1 cm. No common bile duct stone. Limited visualization of the distal common bile duct, pancreas and aorta. Left renal cyst. Trace ascites. This is too small even for diagnostic paracentesis. CT scan of chest with contrast and CT scan abdomen pelvis with IV contrast: Radiologist's impression: Impressions Abdomen Ultrasound 10/11/20 10:53 IMPRESSION: Innumerable liver cysts. Upper normal thickness gallbladder wall. No gallstones seen. Normal caliber intrahepatic bile ducts. Dilated common bile duct measuring up to 1.1 cm. No common bile duct stone. Limited visualization of the distal common bile duct, pancreas and aorta. Left renal cyst. Trace ascites. This is too small even for diagnostic paracentesis. Venous duplex ultrasound of lower extremity bilaterally: Radiologist's impression: Impressions Abdomen Ultrasound 10/11/20 10:53 IMPRESSION: Innumerable liver cysts. Upper normal thickness gallbladder wall. No gallstones seen. Normal caliber intrahepatic bile ducts. Dilated common bile duct measuring up to 1.1 cm. No common bile duct stone. Limited visualization of the distal common bile duct, pancreas and aorta. Left renal cyst. Trace ascites. This is too small even for diagnostic paracentesis. Quality Stroke Does the patient have a stroke diagnosis?: No VTE Prior VTE?: No VTE Risk Level:: Medical - moderate - high VTE Device Contraindication: Treatment Not Indicated VTE Drug Contraindication: N/A - Med Ordered Assessment and Plan (1) Abnormal computed tomography of abdomen and pelvis: Status: Acute (2) Fall: Status: Acute (3) Ascites: Status: Acute (4) Anasarca: Status: Acute Assessment and Plan: A 70 years old male with PMH of COPD, pulmonary nodules, CMP post ICD among others who presented to the hospital with leg edema, abdominal distension, falls for the last week. Anasarca, resolved Ascites, lower extremity and mildly upper extremities swelling, improving Improved significantly Albumin level acceptable Kidney function within normal Has CMP at baseline which might be contributing but last echo from July showing EF of 50% CT abdomen showing soft tissue lesion which seems to be artifact BNP 111 Continue Lasix 20 mg daily IV GI input appreciated, to do ultrasound and paracentesis Paracentesis attempted today, no more fluid remain after diuresis Soft tissue lesion Shown on CT scan cutting of the ambula of Vater Liver function within normal, no abdominal pain reported Ultrasound showing mildly dilated CBD of 1.1 centimetres with no masses seen To do MRCP tomorrow Physical deconditioning Multiple falls and feeling weak physical therapy evaluation COPD, chronic continue home inhalers Continue the rest of home medications DVT prophylaxis Lovenox
[2020-10-12] VITALS (10 sets, daily range): BP systolic 88–128; BP diastolic 51–81; PULSE 69–92; RESP 16–20; TEMP 35.9–36.6; O2SAT 93–96
[2020-10-12] MEDS: 0.9 % Sodium Chloride Flush 3 ML SYRINGE IVFLUSH ×3 (00:33→15:43)
[2020-10-12 07:25] LABS: Anion Gap 13 (12-20); Blood Urea Nitrogen 43 mg/dL (9-16); Calcium 8.9 mg/dL (8.4-10.2); Carbon Dioxide 29 mmol/L (22-29); Chloride 100 mmol/L (96-108); Creatinine Clr Calc Pharmacy 73.2; Estimated Glomerular Filt Rate > 60; Glucose Random 142 mg/dL (60-115); Potassium 4.1 mmol/L (3.3-5.1); Sodium 138 mmol/L (135-145)
[2020-10-12] MEDS: Montelukast Sodium 10 MG TABLET PO (08:16)
[2020-10-12] MEDS: Metoprolol Succinate ER 100 MG TAB.ER.24H PO (08:16)
[2020-10-12] MEDS: Donepezil HCl 5 MG TABLET PO (08:16)
[2020-10-12] MEDS: Ezetimibe 10 MG TABLET PO (08:16)
[2020-10-12] MEDS: Tamsulosin HCL 0.4 MG CAPSULE PO (08:16)
[2020-10-12] MEDS: Thiamine HCL 100 MG TABLET PO (08:16)
[2020-10-12] MEDS: Loratadine 10 MG TABLET PO (08:16)
[2020-10-12] MEDS: Folic Acid 1 MG TABLET PO (08:16)
[2020-10-12] MEDS: Cholecalciferol (Vitamin D3) 25 MCG TABLET PO (08:17)
[2020-10-12] MEDS: Omeprazole 20 MG CAPSULE.DR PO (08:17)
[2020-10-12] MEDS: Aspirin Enteric Coated 81 MG TABLET.DR PO (08:17)
[2020-10-12] MEDS: lisinopriL 5 MG TABLET PO (08:17)
[2020-10-12] MEDS: Atorvastatin Calcium 80 MG TABLET PO (08:17)
[2020-10-12] MEDS: Furosemide 20 MG/2 ML VIAL IVPUSH (08:22)
[2020-10-12] MEDS: Albuterol/Iprat 2.5/0.5MG 3 ML AMPUL.NEB 2.5 ML INHALE ×2 (09:57→20:08)
--- NOTE | 2020-10-12 11:36 | P.PNIM_ITS ---
Subjective Subjective Date of Service: 10/12/20 Interval History: seen and examined this AM no new complaints, wants to go home ROS General - no fevers or chills Cardiovascular - no chest pain Respiratory - no shortness of breath or cough Abdominal- no abdominal pain, nausea, vomiting, diarrhea Physical Exam Vital Signs: Vital Signs: Last Vital Signs Temp 97.9 F 10/12/20 11:23 Pulse 92 10/12/20 11:23 Resp 18 10/12/20 11:23 BP 128/71 10/12/20 11:23 Pulse Ox 93 10/12/20 11:23 Body Mass Index 21.4 Const: Other: Constitutional : Alert, oriented, not in distress, muscle wasted Neck : Normal inspection, Supple Cardiovascular : RRR, S1 S2, trace bilateral lower extremity edema Respiratory : Decreased bilateral air entry, no crackles, points catheter whee zes or rhonchi Gastrointestinal: soft, lax, Normal bowel sounds, Non tender, no more ascites Skin : Warm/Dry, upper extremity petechial rash bilaterally Neurological : Alert & oriented x3, No focal deficit Objective Data Current Medications Generic Name Dose Route Start Last Admin Trade Name Freq PRN Reason Stop Dose Admin Acetaminophen 650 mg 10/09/20 18:15 Acetaminophen 325 Mg Tablet PO Q6H PRN Pain, Mild (Pain Scale 1-3) Acetaminophen/Codeine Phosphate 1 tab 10/09/20 18:07 10/11/20 21:43 Acetaminophen With Codeine # 3 Tablet PO 1 tab BID PRN Administration Pain Albuterol Sulfate 1 puff 10/09/20 20:00 10/12/20 09:55 Albuterol Sulfate 90 Mcg 8 Gm Inhaler INHALE Not Given RQID JOSE LUIS Albuterol/Ipratropium 2.5 ml 10/09/20 20:00 10/12/20 09:57 Albuterol/Iprat 2.5/0.5mg 3 Ml Ampul.Neb INHALE 2.5 ml RQ6H WHILE AWAKE JOSE LUIS Administration Aspirin 81 mg 10/10/20 09:00 10/12/20 08:17 Aspirin Enteric Coated 81 Mg Tablet. PO 81 mg DAILY JOSE LUIS Administration Atorvastatin Calcium 80 mg 10/10/20 09:00 10/12/20 08:17 Atorvastatin Calcium 80 Mg Tablet PO 80 mg DAILY JOSE LUIS Administration Diazepam 10 mg 10/09/20 18:07 10/11/20 21:44 Diazepam 10 Mg Tablet PO 10 mg BID PRN Administration Anxiety Docusate Sodium 100 mg 10/09/20 18:07 Docusate Sodium 100 Mg Capsule PO DAILY PRN Constipation Donepezil HCl 5 mg 10/10/20 09:00 10/12/20 08:16 Donepezil Hcl 5 Mg Tablet PO 5 mg DAILY JOSE LUIS Administration Ezetimibe 10 mg 10/10/20 09:00 10/12/20 08:16 Ezetimibe 10 Mg Tablet PO 10 mg DAILY JOSE LUIS Administration Enoxaparin Sodium 40 mg 10/09/20 22:00 10/09/20 20:20 Enoxaparin Sodium 40 Mg/0.4 Ml Syringe SUBCUT 40 mg Q24H JOSE LUIS Administration Fluticasone/Vilanterol 1 puff 10/12/20 08:00 10/12/20 10:05 Fluticasone/Vilanterol 100/25 Blst.W.Dev INHALE Not Given RDAILY JOSE LUIS Folic Acid 1 mg 10/10/20 09:00 10/12/20 08:16 Folic Acid 1 Mg Tablet PO 1 mg DAILY JOSE LUIS Administration Furosemide 20 mg 10/10/20 10:30 10/12/20 08:22 Furosemide 20 Mg/2 Ml Vial IVPUSH 20 mg DAILY JOSE LUIS Administration Protocol Lisinopril 5 mg 10/10/20 09:00 10/12/20 08:17 Lisinopril 5 Mg Tablet PO 5 mg DAILY JOSE LUIS Administration Protocol Loratadine 10 mg 10/10/20 09:00 10/12/20 08:16 Loratadine 10 Mg Tablet PO 10 mg DAILY JOSE LUIS Administration Melatonin 6 mg 10/09/20 18:15 Melatonin 3 Mg Tablet PO BEDTIME PRN Insomnia Metoprolol Succinate 100 mg 10/10/20 09:00 10/12/20 08:16 Metoprolol Succinate Er 100 Mg Tab.Er.24h PO 100 mg DAILY JOSE LUIS Administration Protocol Montelukast Sodium 10 mg 10/10/20 09:00 10/12/20 08:16 Montelukast Sodium 10 Mg Tablet PO 10 mg DAILY JOSE LUIS Administration Omeprazole 20 mg 10/10/20 09:00 10/12/20 08:17 Omeprazole 20 Mg Capsule.Dr PO 20 mg DAILY JOSE LUIS Administration Ondansetron HCl 4 mg 10/09/20 18:15 Ondansetron Hcl 4 Mg/2 Ml Vial IVPUSH Q8H PRN Nausea and Vomiting Oxycodone HCl 5 mg 10/09/20 18:07 10/11/20 08:17 Oxycodone Hcl Immed Release 5 Mg Tablet PO 5 mg Q4H PRN Administration Pain Sodium Chloride 3 ml 10/10/20 00:00 10/12/20 08:17 0.9 % Sodium Chloride Flush 3 Ml Syringe IVFLUSH 3 ml QSHIFT [facility] Administration Tamsulosin HCl 0.4 mg 10/10/20 09:00 10/12/20 08:16 Tamsulosin Hcl 0.4 Mg Capsule PO 0.4 mg DAILY JOSE LUIS Administration Thiamine HCl 100 mg 10/10/20 09:00 10/12/20 08:16 Thiamine Hcl 100 Mg Tablet PO 100 mg DAILY JOSE LUIS Administration Tiotropium Catarina 1 puff 10/10/20 08:00 10/12/20 09:57 Tiotropium Catarina 18 Mcg Cap.W.Dev INHALE 1 puff RDAILY [facility] Administration Vitamin D 25 mcg 10/10/20 09:00 10/12/20 08:17 Cholecalciferol (Vitamin D3) 25 Mcg Tablet PO 25 mcg DAILY JOSE LUIS Administration Labs CBC & Chem 7: 10/11/20 06:32 10/12/20 06:33 Labs: Laboratory Results - last 24 hr 10/12/20 06:33 Sodium 138 Potassium 4.1 Chloride 100 Carbon Dioxide 29 Anion Gap 13 BUN 43 H Creatinine 0.74 Estim Creat Clear Calc 73.2 Estimated GFR > 60 Random Glucose 142 H D Calcium 8.9 Imaging Right hand/wrist/elbow x-ray: Radiologist's impression: Impressions Abdomen Ultrasound 10/11/20 10:53 IMPRESSION: Innumerable liver cysts. Upper normal thickness gallbladder wall. No gallstones seen. Normal caliber intrahepatic bile ducts. Dilated common bile duct measuring up to 1.1 cm. No common bile duct stone. Limited visualization of the distal common bile duct, pancreas and aorta. Left renal cyst. Trace ascites. This is too small even for diagnostic paracentesis. CT scan of brain/cervical spine without contrast: Radiologist's impression: Impressions Abdomen Ultrasound 10/11/20 10:53 IMPRESSION: Innumerable liver cysts. Upper normal thickness gallbladder wall. No gallstones seen. Normal caliber intrahepatic bile ducts. Dilated common bile duct measuring up to 1.1 cm. No common bile duct stone. Limited visualization of the distal common bile duct, pancreas and aorta. Left renal cyst. Trace ascites. This is too small even for diagnostic paracentesis. CT scan of chest with contrast and CT scan abdomen pelvis with IV contrast: Radiologist's impression: Impressions Abdomen Ultrasound 10/11/20 10:53 IMPRESSION: Innumerable liver cysts. Upper normal thickness gallbladder wall. No gallstones seen. Normal caliber intrahepatic bile ducts. Dilated common bile duct measuring up to 1.1 cm. No common bile duct stone. Limited visualization of the distal common bile duct, pancreas and aorta. Left renal cyst. Trace ascites. This is too small even for diagnostic paracentesis. Venous duplex ultrasound of lower extremity bilaterally: Radiologist's impression: Impressions Abdomen Ultrasound 10/11/20 10:53 IMPRESSION: Innumerable liver cysts. Upper normal thickness gallbladder wall. No gallstones seen. Normal caliber intrahepatic bile ducts. Dilated common bile duct measuring up to 1.1 cm. No common bile duct stone. Limited visualization of the distal common bile duct, pancreas and aorta. Left renal cyst. Trace ascites. This is too small even for diagnostic paracentesis. Quality Stroke Does the patient have a stroke diagnosis?: No VTE Prior VTE?: No VTE Risk Level:: Medical - moderate - high VTE Device Contraindication: Treatment Not Indicated VTE Drug Contraindication: N/A - Med Ordered Assessment and Plan (1) Abnormal computed tomography of abdomen and pelvis: Status: Acute (2) Fall: Status: Acute (3) Ascites: Status: Acute (4) Anasarca: Status: Acute Assessment and Plan: A 70 years old male with PMH of COPD, pulmonary nodules, CMP post ICD among others who presented to the hospital with leg edema, abdominal distension, falls for the last week. Anasarca, Ascites improved Albumin level acceptable Kidney function within normal Has CMP at baseline which might be contributing but last echo from July showing EF of 50% BNP 111 Continue Lasix 20 mg IV today, change to oral diuretics by tomorrow s/p abd ultrasound, trace asictes noted Soft tissue lesion Shown on CT scan cutting of the ampula of Vater Liver function within normal, no abdominal pain reported Ultrasound showing mildly dilated CBD of 1.1 centimetres with no masses seen MRCP today Physical deconditioning Multiple falls and feeling weak physical therapy evaluation COPD, chronic continue home inhalers Continue the rest of home medications DVT prophylaxis Lovenox
[2020-10-12 12:26] LABS: Carbohydrate Antigen 19-9 21 U/mL (<34)
--- NOTE | 2020-10-12 14:23 | MHC.CM.PN ---
MRCP PLANNED FOR TODAY. PLAN IS HOME NO SERVICES [facility].
[2020-10-12] MEDS: LORazepam 2 MG/ML VIAL 0.25 MG IVPUSH (16:58)
[2020-10-12] MEDS: Enoxaparin Sodium 40 MG/0.4 ML SYRINGE SUBCUT (21:41)
[2020-10-12] MEDS: diazePAM 10 MG TABLET PO (21:49)
[2020-10-13] VITALS (7 sets, daily range): BP systolic 98–117; BP diastolic 56–79; PULSE 73–80; RESP 18; TEMP 36.2–36.7; O2SAT 94–955
[2020-10-13] MEDS: 0.9 % Sodium Chloride Flush 3 ML SYRINGE IVFLUSH ×2 (00:27→09:49)
[2020-10-13] MEDS: Albuterol/Iprat 2.5/0.5MG 3 ML AMPUL.NEB 2.5 ML INHALE ×2 (07:09→13:32)
[2020-10-13] MEDS: Fluticasone/Vilanterol 100/25 BLST.W.DEV 1 PUFF INHALE (07:09)
[2020-10-13] MEDS: Montelukast Sodium 10 MG TABLET PO (09:48)
[2020-10-13] MEDS: lisinopriL 5 MG TABLET PO (09:48)
[2020-10-13] MEDS: Atorvastatin Calcium 80 MG TABLET PO (09:48)
[2020-10-13] MEDS: Ezetimibe 10 MG TABLET PO (09:48)
[2020-10-13] MEDS: Loratadine 10 MG TABLET PO (09:48)
[2020-10-13] MEDS: Thiamine HCL 100 MG TABLET PO (09:48)
[2020-10-13] MEDS: Omeprazole 20 MG CAPSULE.DR PO (09:48)
[2020-10-13] MEDS: Metoprolol Succinate ER 100 MG TAB.ER.24H PO (09:48)
[2020-10-13] MEDS: Folic Acid 1 MG TABLET PO (09:49)
[2020-10-13] MEDS: Tamsulosin HCL 0.4 MG CAPSULE PO (09:49)
[2020-10-13] MEDS: Furosemide 20 MG TABLET PO (09:49)
[2020-10-13] MEDS: Cholecalciferol (Vitamin D3) 25 MCG TABLET PO (09:49)
[2020-10-13] MEDS: Donepezil HCl 5 MG TABLET PO (09:50)
--- NOTE | 2020-10-13 13:31 | MHC.CM.PN ---
PATIENT REFUSES INPATIENT REHAB PLACEMENT REFERRALS. HE IS AGREEABLE TO HOME SERVICES, AND CHOOSES [facility]. REFERRAL PLACED. PATIENT REPORTS A SISTER WHO LIVES NEXT DOOR AND TWO NEPHEWS WHO LIVE ABOVE THE PATIENT AND ARE ACTIVE IN PATIENT'S DAILY CARE. IMM 10/13 IN CHART
--- NOTE | 2020-10-13 14:00 | MHC.CM.PN ---
Addendum entered by Yusra Sidhu 10/13/20 14:48: PATIENT VERBALIZED THAT HE PLANS TO BE OUT OF TOWN STARTING NEXT WEEK. [facility] MADE AWARE IN [facility]. PATIENT MADE AWARE THAT PATIENT NEEDS TO BE HOMEBOUND IN ORDER TO RECEIVE [facility] SERVICES Original Note: PATIENT IS DISCHARGED HOME WITH [facility].RN SKILLS TO START Sunday10/16/20 AND PHYSICAL THERAPY TO START Sunday10/18/20. PATIENT AND SISTER (IN ROOM TO PROVIDE TRANSPORT HOME) AWARE OF PLAN. IMM 10/13 IN CHART.
--- NOTE | 2020-10-13 14:06 | P.F2F_ITS ---
Service Date Service Date: 10/13/20 Encounter Date of encounter: 10/13/20 Encounter: Admitted due to bilateral lower extremity edema much generalized weakness and fall, seen by physical therapy they recommended short-term rehab however patient declined and wishes to be discharged home, licensed clinical social worker will arrange for [facility] services Reasons for Services Reason for group home: medication management Reason for physical therapy: home safety and mobility Homebound: Leaving the home is medically contraindicated at this time without the asist of a device and/or another person due th the listed conditions above and below. Certification: Based on the above findings, I certify that this patient is confined to the home and needs intermittent group home care, physical therapy and/or speech therapy, or continues to need occupational therapy. The patient is under my care, and I have initiated the establishment of the plan of care. The patient will be followed by a physician who will periodically review the plan of care.
--- NOTE | 2020-10-13 14:07 | PM.DS ---
DS: Providers Provider Date of Service: 10/13/20 Date of admission: 10/09/20 18:15 Primary care physician: Abdias Griffin MD Consults: 10/09/20 18:10 Consult to Gastroenterology Routine Consulting Provider: Saji Og Reason for consultation: Ascites, CT 1.5x1.2 cm Soft tissue cutting off Ampulla. DS: Diagnosis Discharge Diagnosis (1) Abnormal computed tomography of abdomen and pelvis: Status: Acute (2) Fall: Status: Acute (3) Ascites: Status: Acute (4) Anasarca: Status: Acute DS: Medications Discharge Medications Home Medications: Home Medications Medication Instructions Recorded Confirmed acetaminophen 300 mg-codeine 30 mg 1 tab PO BID PRN 02/12/20 10/09/20 tablet aspirin 81 mg tablet,delayed 81 mg PO DAILY 02/12/20 10/09/20 release atorvastatin 80 mg tablet 80 mg PO DAILY 02/12/20 10/09/20 cholecalciferol (vitamin D3) 25 25 mcg PO DAILY 02/12/20 10/09/20 mcg (1,000 unit) tablet docusate sodium 100 mg capsule 100 mg PO DAILY PRN 02/12/20 10/09/20 ezetimibe 10 mg tablet 10 mg PO DAILY 02/12/20 10/09/20 folic acid 1 mg tablet 1 mg PO DAILY 02/12/20 10/09/20 metoprolol succinate 100 mg 100 mg PO DAILY 02/12/20 10/09/20 tablet,extended release 24 hr montelukast 10 mg tablet 10 mg PO DAILY 02/12/20 10/09/20 omeprazole 20 mg capsule,delayed 20 mg PO DAILY 02/12/20 10/09/20 release thiamine HCl (vitamin B1) 100 mg 100 mg PO DAILY 02/12/20 10/09/20 tablet cetirizine 10 mg tablet 10 mg PO DAILY 03/22/20 10/09/20 melatonin 5 mg tablet 5 mg PO BEDTIME 03/22/20 10/09/20 tamsulosin 0.4 mg capsule 0.4 mg PO DAILY 03/22/20 10/09/20 donepezil 10 mg tablet 5 mg PO DAILY tab 09/20/20 10/09/20 Spiriva with HandiHaler 1 cap INHALATION DAILY 10/09/20 10/09/20 ipratropium-albuterol 2.5 ml INHALATION Q4-6H PRN 10/09/20 10/09/20 Previous Rx's Medication Instructions Recorded Advair Diskus 250 mcg-50 mcg/dose 1 inh INHALATION BID #60 ea NS 03/17/20 powder for inhalation albuterol sulfate 90 mcg/actuation 1 inh INHALATION QID #8.5 g 03/17/20 aerosol inhaler furosemide 20 mg tablet 20 mg PO DAILY 3 Days #3 tab 10/05/20 diazepam 1 tab PO BEDTIME PRN #0 tab 10/13/20 DS: Summary Hospital Course Hospital Course: History of presenting illness Chief Complaint: Leg swelling, abdominal distension, weakness and falls A 70 years old male with PMH of COPD, pulmonary nodules, CMP post ICD among others who presented to the hospital with leg edema, abdominal distension, falls for the last week or so. The patient reports that he was treated recently for COPD and chronic cough with prednisone 40 mg which helped his cough along with that he was taking meloxicam that was prescribed for him by Orthopedics for chronic shoulder pain from osteoarthritis and has been taking it for a while now. Earlier this week he started to notice that his legs are getting more swollen associated with abdominal distension but denies any fevers, chills, nausea or vomiting, abdominal pain, change in bowel habit but noticed decreased amount of urine. He reported fall yesterday and multiple other falls over the last few weeks which has increased in frequency than before. In the emergency a CT scan of the abdomen pelvis was consistent with soft tissue mass that cutting of the ambulate over better associated with dilated CBD and pancreatic duct. Blood work overall within normal with mildly decreased albumin level. Admitted for further evaluation and treatment. Hospital course 70 years old male with PMH of COPD, pulmonary nodules, CMP post ICD among others who presented to the hospital with leg edema, abdominal distension, falls for the last week, patient workup showed normal renal function and LFTs, there was no evidence of congestive heart failure abdominal and pelvic CAT scan showed dilated common bile duct with rapid tapering, no common bile duct stones were noted, since patient remained asymptomatic with no nausea vomiting abdominal pain and with normal LFTs no further intervention is planned by accounting coordinator Dr. Og, he recommend follow-up LFTs in next 4-5 6 weeks and if noted to have elevated LFTs then he can proceed with ERCP, recommended patient to follow high-protein diet and to minimize home medication, patient was noted to have low blood pressure therefore lisinopril has been discontinued since EF is greater than 50%, patient on multiple medications including oxycodone, Valium, high-dose Lipitor, that all can contribute to dizziness and fall, therefore recommended to have outpatient follow-up with primary care physician and Cardiology to minimize home medications, I took the liberty and decrease dose of Librium to once daily took him off of oxycodone prn, patient was not noted to have COPD exacerbation, he was seen by Physical therapy and they recommended short-term rehab however patient declined case discussed with patient's sister who agrees with his decision since patient has [employer] services to of his nephews live upstairs and sister lives close by and they will follow up on him closely. Abdominal ultrasound showed trace ascites, not enough for diagnostic paracentesis. Leg edema has resolved recommend to continue Lasix 20 mg daily and keep leg elevated and to take high-protein diet. In regard to his chronic pulmonary nodules he has been recommended to have follow-up CT chest in 1-3 months Time Spent with Patient Time attestation: Total time spent providing and/or coordinating discharge services: Discharge coordination time: Greater than 30 minutes Quality: Stroke Does the patient have a stroke diagnosis?: No Physical Exam Vital Signs: Vital Signs: Last Vital Signs Temp 97.4 F 10/13/20 12:00 Pulse 73 10/13/20 13:34 Resp 18 10/13/20 12:00 BP 117/75 10/13/20 12:00 Pulse Ox 94 10/13/20 12:00 Body Mass Index 21.4 Constitutional : Alert, oriented, not in distress ,frail appearing Neck : Normal inspection, Supple Cardiovascular : RRR, S1 S2, Respiratory : Decreased bilateral air entry, no crackles, no wheeze, no rhonchi Gastrointestinal: soft, Normal bowel sounds, Non tender Skin : Warm/Dry, upper extremity, no rash noted Extremities no edema noted Neurological : Alert & oriented x3, No focal deficit Discharge Plan Discharge Patient Disposition: Home Health Service Discharge Diagnosis: Dilated common bile duct Generalized weakness Physical deconditioning Referrals: Jennifer MARIE [Outside] - 1 Week Abdias Griffin MD [Primary Care Provider] - 1 Week Discharge Medications: Continued albuterol sulfate [Ventolin HFA] 90 mcg/actuation HFA aerosol inhaler 1 inh inhalation QID Qty: 8.5 RF: 0 fluticasone propion-salmeterol [Advair Diskus] 250-50 mcg/dose blister with device 1 inh inhalation BID Qty: 60 RF: 3 furosemide 20 mg tablet 20 mg PO DAILY 3 Days Qty: 3 RF: 0 ipratropium-albuterol 0.5 mg-3 mg(2.5 mg base)/3 mL Solution For Nebulization 2.5 ml INHALATION Q4-6H PRN (Reason: Shortness Of Breath) RF: 0 Spiriva with HandiHaler 18 mcg Capsule, W/Inhalation Device 1 cap INHALATION DAILY RF: 0 cetirizine 10 mg tablet 10 mg PO DAILY RF: 0 tamsulosin 0.4 mg capsule 0.4 mg PO DAILY RF: 0 melatonin 5 mg tablet 5 mg PO BEDTIME RF: 0 aspirin 81 mg tablet,delayed release (DR/EC) 81 mg PO DAILY RF: 0 docusate sodium 100 mg capsule 100 mg PO DAILY PRN (Reason: Constipation) RF: 0 atorvastatin 80 mg tablet 80 mg PO DAILY RF: 0 metoprolol succinate 100 mg tablet extended release 24 hr 100 mg PO DAILY RF: 0 folic acid 1 mg tablet 1 mg PO DAILY RF: 0 montelukast 10 mg tablet 10 mg PO DAILY RF: 0 omeprazole 20 mg capsule,delayed release(DR/EC) 20 mg PO DAILY RF: 0 cholecalciferol (vitamin D3) 25 mcg (1,000 unit) tablet 25 mcg PO DAILY RF: 0 ezetimibe 10 mg tablet 10 mg PO DAILY RF: 0 thiamine HCl (vitamin B1) 100 mg tablet 100 mg PO DAILY RF: 0 acetaminophen-codeine 300-30 mg tablet 1 tab PO BID PRN (Reason: Pain) RF: 0 donepezil 10 mg tablet 5 mg PO DAILY RF: 0 Changed diazepam 10 mg tablet 1 tab PO BEDTIME PRN (Reason: Anxiety) Qty: 0 RF: 0 Discontinued prednisone 10 mg tablet 40 mg PO DAILY 7 Days Qty: 28 RF: 0 oxycodone 5 mg tablet 5 mg PO Q4H PRN (Reason: Pain) RF: 0 lisinopril 5 mg tablet 5 mg PO DAILY RF: 0 Discharge Orders: Discharge Order (Routine); Ordered 10/13/20 Ordered By: Avel Colon Diet: advance to usual diet and low fat, low cholesterol Activity on Discharge: As tolerated Stand Alone Forms: Patient Portal Discharge page Care Plan Goals: Dilated common bile duct repeat LFTs in 4-6 weeks if noted to have elevated LFTs follow-up with Dr. Og from Gastroenterology Multiple pulmonary nodules short interval follow-up is recommended within 1-3 months to be arranged by primary care physician Generalized weakness and fall recommend physical therapy, minimize home medication as per PCP, avoid narcotics and muscle relaxants Health Concerns: Hypertension, high cholesterol, emphysema close outpatient follow-up Plan of Treatment: Outpatient follow-up with primary care physician in 7-10 days Assessment: as above
--- NOTE | 2020-10-13 21:24 | P.EN_ITS ---
Event Note Date of Service: 10/13/20 Event Note: GI F/U--Late entry after patient was discharged earlier today. How ever, I spoke with Dr. Colon at approx. 2PM today before patient was discharged. I reviewed with her my impression of his MRCP. I did review his MRCP with Dr. Uriarte in radiology today. The CBD appeared somewhat dilated but the distal portion had a smooth and tapered appearance without a stricture nor cutoff. The pancreatic duct appeared WNL without any dilation nor cutoff. There was no evidence of CBD stones nor double duct sign. There was no intrahepatic bile duct dilation His LFT's have been normal and he has had no abdominal complaints. Therefore, I advised her that I would hold off on ERCP given all of these negative findings, as well as his poor clinical condition. I did recommend that his PCP continue to follow as an outpatient with periodic LFT's and to refer back to see me if he develops any signs of jaundice or abdominal pain. If he goes on to develop any definitive signs or symptoms related to his biliary tract I could then reassess things at that point in regard to potential need for ERCP. Thanks
== END 2020-10-13 15:53 | disposition home health service (06) | DRG 445 ==
LOC: HO.ED 17:33 → HO.EDOVER 21:49 → HO.IMC 21:59 → HO.S3 10-10 13:52
PROVIDERS: Internal Medicine; Physician Assistant Medical; Radiology Diagnostic Radiology; Admitting Provider Student in an Organized Health Care Education/Training Program; Emergency Provider Emergency Medicine; PCP Family Medicine; Visit Provider Hospitalist
DX: K83.8 Other specified diseases of biliary tract (principal); R18.8 Other ascites; F03.90 Unspecified dementia, unspecified severity, without behavioral disturbance, psychotic disturbance, mood disturbance, and anxiety; Z95.0 Presence of cardiac pacemaker; Z20.822 Contact with and (suspected) exposure to COVID-19; R29.6 Repeated falls; Z91.81 History of falling; Z87.891 Personal history of nicotine dependence; Z79.1 Long term (current) use of non-steroidal anti-inflammatories (NSAID); Z79.51 Long term (current) use of inhaled steroids; Z79.82 Long term (current) use of aspirin; Z79.899 Other long term (current) drug therapy
CPT/HCPCS: 36415; 70450; 71260; 72125; 73080; 73110; 73130; 74177; 74181; 76700; 80048; 80053; 80076; 81003; 82803; 83690; 83735; 83880; 85025; 85027; 85610; 85730; 86301; 87635; 93005; 93931; 93970; 97110; 97116; 97161; 99285; J1650; J1940; J2060; P9047

== ENCOUNTER → 2020-11-05 13:25 | Outpatient (BNVA) | payer MEDICARE, MEDICAID, SELFPAY | PROVIDERS: PCP Family Medicine; Visit Provider Internal Medicine Pulmonary Disease | DX: J44.9 Chronic obstructive pulmonary disease, unspecified (principal); R91.8 Other nonspecific abnormal finding of lung field; R05 Cough | CPT/HCPCS: 99212 ==

== ENCOUNTER 2020-11-18 11:14 | Day surgery (SDC) | payer MEDICARE, MEDICAID, SELFPAY ==
--- NOTE | 2020-11-17 10:45 | HO.ANESPROP2 ---
Documented by User: Zuleika Silverio NP 11/17/20 10:50 HPI - Anesthesia Eval Consult details Narrative: 70yo M for Bronchoscopy Fiberoptic PMFSH Active Problems Active Problems: All Active Problems (Updated 10/21/20 @ 00:03 by Fermín Pastor) Abnormal computed tomography of abdomen and pelvis (Acute) Fall (Acute) History of permanent cardiac pacemaker placement (Acute) Chronic cough (Acute) ICD (implantable cardioverter-defibrillator) in place (Acute) Nonischemic cardiomyopathy (Acute) Pulmonary nodules (Acute) COPD (chronic obstructive pulmonary disease) (Acute) Past Medical History Medical History (Updated 11/17/20 @ 10:46 by Zuleika Silverio NP) COPD (chronic obstructive pulmonary disease) ICD (implantable cardioverter-defibrillator) in place Nonischemic cardiomyopathy Pulmonary nodules Family History Family History Father CVD (cardiovascular disease) Myocardial infarct Mother CVD (cardiovascular disease) Heart disease Surgical History Surgical History History of permanent cardiac pacemaker placement Social History Social History Household Members: None Housing: House Do you presently have visiting nurse or other home services: Yes ([employer] 25 hours a week) Alcohol intake: current Alcohol intake frequency: a few times a month Patient Tobacco Use Status: Former Tobacco user Years Smoked: 48 yrs Use of substances other than those prescribed or required for medical reasons: No Have you been hit, kicked, punched, or otherwise hurt by someone within the past year? If so, by whom?: No Are you DNR?: Yes Advance Directives: No Advance Directives Information Provided: Yes Current occupational status: retired and disabled Meds Allergies Allergy/AdvReac Type Severity Reaction Status Date / Time thiopental [SODIUM PENTOTHAL] Allergy Severe VIOLENCE Verified 11/05/20 13:34 Home Medications Medication Instructions Recorded Confirmed Last Taken Type acetaminophen 300 mg-codeine 30 mg 1 tab PO BID PRN 02/12/20 10/09/20 Unknown History tablet aspirin 81 mg tablet,delayed 81 mg PO DAILY 02/12/20 10/09/20 Unknown History release atorvastatin 80 mg tablet 80 mg PO DAILY 02/12/20 10/09/20 Unknown History cholecalciferol (vitamin D3) 25 25 mcg PO DAILY 02/12/20 10/09/20 Unknown History mcg (1,000 unit) tablet docusate sodium 100 mg capsule 100 mg PO DAILY PRN 02/12/20 10/09/20 Unknown History ezetimibe 10 mg tablet 10 mg PO DAILY 02/12/20 10/09/20 Unknown History folic acid 1 mg tablet 1 mg PO DAILY 02/12/20 10/09/20 Unknown History metoprolol succinate 100 mg 100 mg PO DAILY 02/12/20 10/09/20 Unknown History tablet,extended release 24 hr montelukast 10 mg tablet 10 mg PO DAILY 02/12/20 10/09/20 Unknown History omeprazole 20 mg capsule,delayed 20 mg PO DAILY 02/12/20 10/09/20 Unknown History release thiamine HCl (vitamin B1) 100 mg 100 mg PO DAILY 02/12/20 10/09/20 Unknown History tablet cetirizine 10 mg tablet 10 mg PO DAILY 03/22/20 10/09/20 Unknown History melatonin 5 mg tablet 5 mg PO BEDTIME 03/22/20 10/09/20 Unknown History tamsulosin 0.4 mg capsule 0.4 mg PO DAILY 03/22/20 10/09/20 Unknown History donepezil 10 mg tablet 5 mg PO DAILY tab 09/20/20 10/09/20 Unknown History ipratropium 0.5 mg-albuterol 3 mg 2.5 ml INHALATION Q4-6H PRN 10/09/20 10/09/20 Unknown History (2.5 mg base)/3 mL nebulization soln tiotropium bromide 18 mcg capsule 1 cap INHALATION DAILY 10/09/20 10/09/20 Unknown History with inhalation device (Spiriva with HandiHaler) lisinopril 5 mg tablet 5 mg PO DAILY 11/05/20 Unknown History Exam Exam Date and Time: November 17, 2020 1045 Pertinent Lab Results Pertinent Lab Results: Laboratory Tests 10/11/20 10/12/20 06:32 06:33 WBC 9.3 Hgb 12.7 L Hct 37.9 L Plt Count 143 L Sodium 138 Potassium 4.1 Chloride 100 Carbon Dioxide 29 BUN 43 H Creatinine 0.74 Narrative Narrative: Cardiac Device Check 11/01/2020 Details: Remote heart failure report generated 11/01/2020.? Heart failure parameters are stable EKG 09/2020 Vent. Rate : 073 BPM ? ? Atrial Rate : 073 BPM ?? P-R Int : 110 ms? QRS Dur : 084 ms ? ? QT Int : 362 ms ? ? ? P-R-T Axes : 074 069 071 degrees ?? QTc Int : 398 ms ? Sinus rhythm with short WI Otherwise normal ECG When compared with ECG of 02-APR-2019 10:32, QRS duration has decreased T wave inversion no longer evident in Anterior leads QT has shortened ECHO 07/2020 Conclusions: - Due to suboptimal images, LVEF is difficult to assess but? ? ? grossly appears to be normal; >? 50%.? - No obvious valvular pathology seen on this study.? ?? Documented by User: Ani Connor MD 11/18/20 12:41 [facility] Past Medical History Medical History (Updated 11/17/20 @ 10:46 by Zuleika Silverio NP) COPD (chronic obstructive pulmonary disease) ICD (implantable cardioverter-defibrillator) in place Nonischemic cardiomyopathy Pulmonary nodules Family History Family History Father CVD (cardiovascular disease) Myocardial infarct Mother CVD (cardiovascular disease) Heart disease Family history of problems with anesthesia: No Surgical History Surgical History History of permanent cardiac pacemaker placement History of Problems with Anesthesia: No Social History Social History Household Members: None Housing: House Do you presently have visiting nurse or other home services: Yes ([employer] 25 hours a week) Alcohol intake: current Alcohol intake frequency: a few times a month Patient Tobacco Use Status: Former Tobacco user Years Smoked: 48 yrs Use of substances other than those prescribed or required for medical reasons: No Have you been hit, kicked, punched, or otherwise hurt by someone within the past year? If so, by whom?: No Are you DNR?: Yes Advance Directives: No Advance Directives Information Provided: Yes Current occupational status: retired and disabled Meds Allergies Allergy/AdvReac Type Severity Reaction Status Date / Time thiopental [SODIUM PENTOTHAL] Allergy Severe VIOLENCE Verified 11/05/20 13:34 Home Medications Medication Instructions Recorded Confirmed Last Taken Type acetaminophen 300 mg-codeine 30 mg 1 tab PO BID PRN 02/12/20 10/09/20 Unknown History tablet aspirin 81 mg tablet,delayed 81 mg PO DAILY 02/12/20 10/09/20 Unknown History release atorvastatin 80 mg tablet 80 mg PO DAILY 02/12/20 10/09/20 Unknown History cholecalciferol (vitamin D3) 25 25 mcg PO DAILY 02/12/20 10/09/20 Unknown History mcg (1,000 unit) tablet docusate sodium 100 mg capsule 100 mg PO DAILY PRN 02/12/20 10/09/20 Unknown History ezetimibe 10 mg tablet 10 mg PO DAILY 02/12/20 10/09/20 Unknown History folic acid 1 mg tablet 1 mg PO DAILY 02/12/20 10/09/20 Unknown History metoprolol succinate 100 mg 100 mg PO DAILY 02/12/20 10/09/20 Unknown History tablet,extended release 24 hr montelukast 10 mg tablet 10 mg PO DAILY 02/12/20 10/09/20 Unknown History omeprazole 20 mg capsule,delayed 20 mg PO DAILY 02/12/20 10/09/20 Unknown History release thiamine HCl (vitamin B1) 100 mg 100 mg PO DAILY 02/12/20 10/09/20 Unknown History tablet cetirizine 10 mg tablet 10 mg PO DAILY 03/22/20 10/09/20 Unknown History melatonin 5 mg tablet 5 mg PO BEDTIME 03/22/20 10/09/20 Unknown History tamsulosin 0.4 mg capsule 0.4 mg PO DAILY 03/22/20 10/09/20 Unknown History donepezil 10 mg tablet 5 mg PO DAILY tab 09/20/20 10/09/20 Unknown History ipratropium 0.5 mg-albuterol 3 mg 2.5 ml INHALATION Q4-6H PRN 10/09/20 10/09/20 Unknown History (2.5 mg base)/3 mL nebulization soln tiotropium bromide 18 mcg capsule 1 cap INHALATION DAILY 10/09/20 10/09/20 Unknown History with inhalation device (Spiriva with HandiHaler) lisinopril 5 mg tablet 5 mg PO DAILY 11/05/20 Unknown History Exam Airway Mallampati Class: II TM Dist: >3cm Neck ROM: Full Heart: rrr Lungs: cta Assessment and Plan Assessment Anesthesia Assessment: Anesthesia Plan Discussed and Chart Reviewed Final Anesthetic Review Family History of Problems with Anesthesia: No History of Problems with Anesthesia: No NPO: Yes ASA Class: III Final Preanesthetic Review: No Changes in Pt Med Stat and Consent Obtained/Reviewed Patient Risk: Intermediate Procedure Risk: Intermediate Anesthetic Plan Anesthetic Plan: MAC: Disposition: Standard PACU
[2020-11-18] VITALS (7 sets, daily range): BP systolic 107–131; BP diastolic 66–82; PULSE 87–94; RESP 16–18; TEMP 36.7; O2SAT 96–99
--- NOTE | 2020-11-18 12:13 | MHC.SHP ---
Pre-Procedural Eval Section A Date of Service: 11/18/20 The patient is an INPATIENT: No Changes since office visit: No Cold of Flu in the past 2 weeks, No New Medical Problems and No Changes in Medication The History & Physical has been completed within 30 days and I have reviewed it.: Yes Section B Chief Complaint: cough Allergies: Allergies Allergy/AdvReac Type Severity Reaction Status Date / Time thiopental [SODIUM PENTOTHAL] Allergy Severe VIOLENCE Verified 11/05/20 13:34 Plan Diagnosis/Plan: Unchanged I have reviewed the history and physical and performed a pertinent physical examination on my patient. No changes have occurred unless specified.
[2020-11-18] MEDS: Lactated Ringers 500 ML 20 ML IVCONT (12:36)
--- NOTE | 2020-11-18 14:34 | P.BOP_ITS ---
Brief Operative Note Date of Service: 11/18/20 Pre-op diagnosis: Chronic cough Post-op diagnosis: same Procedure: Flexible bronchoscopy performed through LMA with flexible bronchoscope advanced through the tracheobronchial tree with visualization and clearance of copious amount of thin clear secretions with normal bronchial mucosa underneath. Bronchoalveolar lavage in right middle lobe with sample sent for microbiologic testing. Patient tolerated procedure well and was returned to PACU in stable condition. Surgeon: Ian Arroyo MD Anesthesia: GLMA Was an Hydrological Technical Officer used for this Procedure?: No Estimated blood loss (mL): 0 Condition: stable Disposition: PACU
== END 2020-11-18 15:23 | disposition home or self-care (01) ==
PROVIDERS: PCP Family Medicine; Visit Provider Internal Medicine Pulmonary Disease
PROC: 0BJ08ZZ Inspection of Tracheobronchial Tree, Via Natural or Artificial Opening Endoscopic (ICD-10-PCS; CPT 31622; principal; 2020-11-18 13:00)
DX: J44.9 Chronic obstructive pulmonary disease, unspecified (principal); R91.8 Other nonspecific abnormal finding of lung field; R05 Cough; R06.00 Dyspnea, unspecified; I42.8 Other cardiomyopathies; Z95.810 Presence of automatic (implantable) cardiac defibrillator; Z79.51 Long term (current) use of inhaled steroids; Z79.899 Other long term (current) drug therapy; Z79.82 Long term (current) use of aspirin; Z88.8 Allergy status to other drugs, medicaments and biological substances; Z87.891 Personal history of nicotine dependence
CPT/HCPCS: 31645; 31624; 87071; 87101; 87102; 87116; 87205; J1100; J2370; J2405; J3010

== ENCOUNTER → 2020-12-02 13:50 | Outpatient (BNVA) | payer MEDICARE, MEDICAID, SELFPAY | PROVIDERS: PCP Family Medicine; Visit Provider Internal Medicine Pulmonary Disease | DX: J44.9 Chronic obstructive pulmonary disease, unspecified (principal); R91.8 Other nonspecific abnormal finding of lung field; R05 Cough; Z87.891 Personal history of nicotine dependence | CPT/HCPCS: 99212 ==

== ENCOUNTER 2020-12-27 13:20 | Outpatient (REF) | payer MEDICARE, MEDICAID, SELFPAY ==
--- NOTE | ~2020-12-27 | CT_ITS ---
EXAMINATION: CT CHEST WITHOUT CONTRAST CLINICAL INFORMATION: Follow-up pulmonary nodules COMPARISON: Previous chest CT scans most recent September 2020 TECHNIQUE: Multidetector volumetric CT imaging of the chest was done. Axial MIP volume rendering provided. Sagittal and coronal reformatted images were obtained. This CT examination was performed using dose optimization techniques as appropriate, variously including the following: *Automated exposure control *Adjustment of mA and/or kV according to patient size (this includes techniques or standardized protocols for targeted exams where dose is matched to indication/reason for exam; i.e. extremities or head) *Use of iterative reconstruction technique DLP: 158 mGy-cm FINDINGS: LUNGS: There is evidence of emphysema. There are bilateral calcified pulmonary nodules that are stable. The largest measures 5 mm in the right upper lobe axial image 118 series 9. There are multiple parenchymal opacities in the right upper lobe. These appear decreased in size and density compared to September 2020 exam and likely represent resolving areas of infection/infiltrate. There is a new irregularly-shaped density in the right lower lobe in the lateral costophrenic sulcus measuring 2 cm axial image 405 series 9. There is a new peripheral or subpleural nodule in the right middle lobe measuring 5 x 8 mm axial image 417 series 9. There is a new peripheral irregularly-shaped density in the left upper lobe measuring 5 x 10 mm axial image 241 series 9. Waxing and waning appearance favors an infectious or inflammatory process. There is chronic scarring or subsegmental atelectasis in the inferior segment of the lingula that is stable axial image 419 series 9. MEDIASTINUM: There is a left subclavian AICD that appears unchanged. The heart does not appear enlarged. There is a new tiny anterior pericardial effusion. There is mild coronary artery calcification. There are no enlarged hilar or mediastinal lymph nodes. PLEURA: There is no pleural effusion. No pleural mass or thickening. AXILLA: No lymphadenopathy. UPPER ABDOMEN: There are stable low-attenuation liver lesions suggestive of cysts. The largest measures 2 cm in the caudate lobe. The common bile duct is slightly prominent measuring 1 cm. This is similar to previous exams. OSSEOUS STRUCTURES: There are degenerative changes of the spine. CT/CT chest wo con IMPRESSION: Emphysema. Interval decrease in size and density of multiple right upper lobe opacities compared to September 2020 and new opacities in the right middle, right lower and left upper lobes. Waxing and waning appearance favors an infectious or inflammatory process. Multiple calcified pulmonary nodules that are stable.
== END 2020-12-27 13:21 | disposition home or self-care (01) ==
LOC: HO.CT 13:20
PROVIDERS: PCP Family Medicine; Visit Provider Internal Medicine Pulmonary Disease
DX: R91.8 Other nonspecific abnormal finding of lung field (principal)
CPT/HCPCS: 71250

== ENCOUNTER 2021-02-10 14:02 | Inpatient (IN) | payer MEDICARE, MEDICAID, SELFPAY ==
--- NOTE | ~2021-02-10 | CT_ITS ---
EXAMINATION: CT ANGIOGRAM OF THE CHEST WITH AND WITHOUT CONTRAST (CT PULMONARY ANGIOGRAM FOR PE) CLINICAL INFORMATION: Reason for Exam SOB, tachypneic COMPARISON: 12/27/2020 TECHNIQUE: Prior to contrast administration, noncontrast localization images were obtained. Subsequently, multidetector volumetric imaging was performed from the thoracic inlet to below the diaphragms following the administration of 65 mL Omnipaque 350 intravenous contrast. No contrast reaction reported Sagittal, coronal, and MIP oblique sagittal reformatted images were obtained on the CT workstation, uploaded to PACS, and reviewed. This CT examination was performed using dose optimization techniques as appropriate, variously including the following: *Automated exposure control *Adjustment of mA and/or kV according to patient size (this includes techniques or standardized protocols for targeted exams where dose is matched to indication/reason for exam; i.e. extremities or head) *Use of iterative reconstruction technique Total exam dose-length product 276 mGy-cm FINDINGS: QUALITY OF STUDY/CONTRAST BOLUS: Satisfactory. PULMONARY ARTERIES: No central or segmental pulmonary emboli. THORACIC AORTA: No aneurysm or dissection. Scattered calcifications are present along the aorta. LUNG: There is extensive emphysema, most severe in the bilateral upper lobes. There are multifocal regions of consolidation including in the lingula and bilateral lower lobes. Dependent opacity in the lower lobes may partially be due to atelectasis. Calcified granulomas are noted in the right lung. PLEURA: No pleural effusion or pneumothorax. MEDIASTINUM: Visualized thyroid gland is grossly unremarkable though not well seen due to artifact. There are subcentimeter mediastinal lymph nodes within the range of normal variation. Cardiac size is within normal limits. Trace pericardial fluid is noted, similar to prior. No evidence of septal bowing or right heart strain. Left-sided AICD lead tip extending to the right ventricle. CHEST WALL/AXILLA: No axillary or internal mammary lymphadenopathy. OSSEOUS STRUCTURES: Mild degenerative changes are noted in the spine. UPPER ABDOMEN: A few small scattered hypoattenuating lesions in the liver are suggestive of cysts, too small to characterize. Left renal cyst is noted; no follow-up recommended. No reflux of contrast into the hepatic veins to suggest elevated right heart pressures. CT/CT angio chest PE protocol IMPRESSION: 1. No pulmonary embolus identified. 2. Multifocal consolidations in the lingula and bilateral lower lobes, which could be due to pneumonia or aspiration in the proper clinical setting. 3. Extensive emphysema. VTE: negative
--- NOTE | ~2021-02-10 | XR_ITS ---
EXAMINATION: LEFT HIP WITH AP PELVIS. LEFT ELBOW AND LEFT SHOULDER. CLINICAL INFORMATION: Fall. COMPARISON: None TECHNIQUE: AP pelvis and left hip 3 views. Left elbow 3 views. Left shoulder 4 views. FINDINGS: AP pelvis and left hip: There is normal symmetry of bilateral hip joints and SI joints. No visible acute fracture or dislocation seen. AP and frog-leg views left hip reveal no visible fracture or bony erosive changes. The soft tissues are normal. There is evidence of previous bilateral vasectomies Left elbow: There is no visible acute fracture, dislocation or subluxation. No joint effusion or bony erosive changes. The soft tissues are normal. Left shoulder: There is no visible acute fracture, dislocation or subluxation. Mild loss of glenohumeral joint space is noted. XR/XR hip LT w PEL1V IMPRESSION: No acute fracture, dislocation left shoulder or left elbow. Mild degenerative changes with loss of left glenohumeral joint space of the shoulder is noted. Unremarkable AP pelvis and left hip exam. No evidence of fracture.
--- NOTE | ~2021-02-10 | XR_ITS ---
EXAMINATION: LEFT HIP WITH AP PELVIS. LEFT ELBOW AND LEFT SHOULDER. CLINICAL INFORMATION: Fall. COMPARISON: None TECHNIQUE: AP pelvis and left hip 3 views. Left elbow 3 views. Left shoulder 4 views. FINDINGS: AP pelvis and left hip: There is normal symmetry of bilateral hip joints and SI joints. No visible acute fracture or dislocation seen. AP and frog-leg views left hip reveal no visible fracture or bony erosive changes. The soft tissues are normal. There is evidence of previous bilateral vasectomies Left elbow: There is no visible acute fracture, dislocation or subluxation. No joint effusion or bony erosive changes. The soft tissues are normal. Left shoulder: There is no visible acute fracture, dislocation or subluxation. Mild loss of glenohumeral joint space is noted. XR/XR elbow LT 2V IMPRESSION: No acute fracture, dislocation left shoulder or left elbow. Mild degenerative changes with loss of left glenohumeral joint space of the shoulder is noted. Unremarkable AP pelvis and left hip exam. No evidence of fracture.
--- NOTE | ~2021-02-10 | XR_ITS ---
EXAMINATION: XR CHEST CLINICAL INFORMATION: Weakness COMPARISON: CT scan of December 27, 2020 TECHNIQUE: AP portable view of the chest was obtained. FINDINGS: Since previous study there has been development of interstitial airspace disease in the lower left lung consistent with pneumonia. Lungs are hyperinflated. No pneumothorax or significant pleural effusion appreciated. Pacemaker in place. Heart normal size. No evidence of pulmonary edema. XR/XR chest 1V IMPRESSION: Left lower lung disease consistent with pneumonia.
--- NOTE | ~2021-02-10 | XR_ITS ---
EXAMINATION: LEFT HIP WITH AP PELVIS. LEFT ELBOW AND LEFT SHOULDER. CLINICAL INFORMATION: Fall. COMPARISON: None TECHNIQUE: AP pelvis and left hip 3 views. Left elbow 3 views. Left shoulder 4 views. FINDINGS: AP pelvis and left hip: There is normal symmetry of bilateral hip joints and SI joints. No visible acute fracture or dislocation seen. AP and frog-leg views left hip reveal no visible fracture or bony erosive changes. The soft tissues are normal. There is evidence of previous bilateral vasectomies Left elbow: There is no visible acute fracture, dislocation or subluxation. No joint effusion or bony erosive changes. The soft tissues are normal. Left shoulder: There is no visible acute fracture, dislocation or subluxation. Mild loss of glenohumeral joint space is noted. XR/XR shoulder LT min 2V IMPRESSION: No acute fracture, dislocation left shoulder or left elbow. Mild degenerative changes with loss of left glenohumeral joint space of the shoulder is noted. Unremarkable AP pelvis and left hip exam. No evidence of fracture.
[2021-02-10 14:30] VITALS: BP 118/70; BP 98/55; PULSE 81; RESP 20; TEMP 37.2; O2SAT 96; O2SAT 97; BMI 20.2
--- NOTE | 2021-02-10 14:45 | ECG_ITS ---
Test Reason : WEAKNESS Blood Pressure : / mmHG Vent. Rate : 078 BPM Atrial Rate : 078 BPM P-R Int : 128 ms QRS Dur : 082 ms QT Int : 396 ms P-R-T Axes : 070 071 042 degrees QTc Int : 451 ms Normal sinus rhythm Intra-ventricular conduction delay Otherwise normal ECG When compared with ECG of 09-OCT-2020 12:52, No significant changes seen Referred By: Etienne Carpenter Electronically Signed By:DAVID SEGAL MD
[2021-02-10 15:01] LABS: MANUAL DIFF FLAG NO
[2021-02-10 15:04] LABS: Basophils Percent Auto 0.3 % (0-2); Eosinophils Absolute Auto 0.1 X10*3/uL (0.0-0.4); Eosinophils Percent Auto 0.9 % (0-4); Hematocrit 43.7 % (42.0-52.0); Hemoglobin 14.4 g/dl (14.0-18.0); Imm Gran Pct Auto 0.8 % (0.0-0.4); Lymphocytes Absolute Auto 0.7 X10*3/uL (1.2-4.9); Lymphocytes Percent Auto 5.8 % (20-40); Mean Corpuscular Hemoglobin 30.6 pg (27.0-33.0); Mean Platelet Volume 9.1 fL (9.4-12.4); Monocytes Absolute Auto 0.9 X10*3/uL (0.1-1.2); Monocytes Percent Auto 7.2 % (2-11); Neutrophils Absolute Auto 10.8 x10*3/uL (2.0-8.3); Platelet Count 196 X10*3/uL (160-400); Red Cell Distribution Width 13.9 % (11.0-16.0); White Blood Count 12.7 X10*3/uL (4.8-10.8)
[2021-02-10 15:22] LABS: Alanine Aminotransferase 22 U/L (0-40); Albumin Level 3.4 g/dL (3.5-5.0); Alkaline Phosphatase 109 U/L (39-117); Anion Gap 19 (12-20); Aspartate Amino Transferase 24 U/L (5-37); Bilirubin Total 1.3 mg/dL (0.0-1.0); Blood Urea Nitrogen 18 mg/dL (9-16); Calcium 8.7 mg/dL (8.4-10.2); Carbon Dioxide 23 mmol/L (22-29); Chloride 100 mmol/L (96-108); Estimated Glomerular Filt Rate > 60; Glucose Random 84 mg/dL (60-115); Potassium 3.9 mmol/L (3.3-5.1); Sodium 138 mmol/L (135-145)
--- NOTE | 2021-02-10 15:37 | ED_ITS ---
HPI - General Adult General Chief complaint: Weakness Stated complaint: weakness/fall Time Seen by Provider: 02/10/21 15:37 Source: patient, EMS and RN notes reviewed Mode of arrival: ambulatory Limitations: no limitations History of Present Illness HPI narrative: See 10-year-old male with past medical history of COPD, cardiac pacemaker, ICD, nonischemic cardiomyopathy is here today for complaining of weakness. Patient received COVID booster vaccine on Sunday and since then he reports that he has been feeling weak. Patient usually stays home and has [employer] who takes care of him several hours a day. Has not had much appetite and has not eaten anything since yesterday afternoon. Patient denies any subjective fevers or chills. This morning he was trying to get in the shower and his legs felt weak and he fell down. Patient fell down to the floor denies hitting head, however he reports that he landed on his left side hitting his left hip, left elbow and left shoulder. Patient does have a history of let shoulder pain with no dislocation. Patient denies any CP, SOB with or without exertion, syncope, presyncope. Patient denies feeling dizzy before or at the time of the event. Patient is on low-dose aspirin no other anticoagulation therapy. Patient denies nausea, vomiting. Denies any vision changes or light sensitivity. Patient denies any ill contacts. Onset (ago): hour(s) Radiation: non-radiation Related Data Home Medications Medication Instructions Recorded Confirmed acetaminophen 300 mg-codeine 30 mg 1 tab PO BID PRN 02/12/20 02/10/21 tablet aspirin 81 mg tablet,delayed 81 mg PO DAILY 02/12/20 02/10/21 release atorvastatin 80 mg tablet 80 mg PO DAILY 02/12/20 02/10/21 cholecalciferol (vitamin D3) 25 25 mcg PO DAILY 02/12/20 02/10/21 mcg (1,000 unit) tablet ezetimibe 10 mg tablet 10 mg PO DAILY 02/12/20 02/10/21 folic acid 1 mg tablet 1 mg PO DAILY 02/12/20 02/10/21 metoprolol succinate 100 mg 100 mg PO DAILY 02/12/20 02/10/21 tablet,extended release 24 hr montelukast 10 mg tablet 10 mg PO DAILY 02/12/20 02/10/21 thiamine HCl (vitamin B1) 100 mg 100 mg PO DAILY 02/12/20 02/10/21 tablet cetirizine 10 mg tablet 10 mg PO DAILY 03/22/20 02/10/21 melatonin 5 mg tablet 5 mg PO BEDTIME 03/22/20 02/10/21 tamsulosin 0.4 mg capsule 0.4 mg PO DAILY 03/22/20 02/10/21 donepezil 10 mg tablet 5 mg PO DAILY tab 09/20/20 02/10/21 tiotropium bromide 18 mcg capsule 1 cap INHALATION DAILY 10/09/20 02/10/21 with inhalation device (Spiriva with HandiHaler) diazepam 10 mg tablet 1 tab PO BID PRN 02/10/21 02/10/21 fluoxetine 10 mg capsule 1 cap PO DAILY 02/10/21 02/10/21 lisinopril 5 mg tablet 1 tab PO DAILY 02/10/21 02/10/21 Previous Rx's Medication Instructions Recorded Advair Diskus 250 mcg-50 mcg/dose 1 inh INHALATION BID #60 ea NS 03/17/20 powder for inhalation (fluticasone propion-salmeterol) albuterol sulfate 90 mcg/actuation 1 inh INHALATION QID #8.5 g 03/17/20 aerosol inhaler (Ventolin HFA) omeprazole 40 mg capsule,delayed 40 mg PO BID 30 Days #60 cap 12/02/20 release Allergies Allergy/AdvReac Type Severity Reaction Status Date / Time thiopental [SODIUM PENTOTHAL] Allergy Severe VIOLENCE Verified 12/02/20 13:54 Review of Systems Review of Systems: Constitutional : No Weight loss, No Fever, No Chills, No Night Sweats, No Fatigue, No Malaise ENT/Mouth : No Hearing loss, No Ear Pain, No Nasal Congestion, No Sinus Pain, No Hoarseness, No sore throat, No Rhinorrhea, No Swallowing Difficulty Eyes: No Eye Pain, No Swelling, No Redness, No Foreign Body, No Discharge, No Vision Changes Cardiovascular : No Chest Pain, No SOB, No Dyspnea on Exertion, No Orthopnea, No Edema, No Palpitations Respiratory : Cough, No Sputum, No Wheezing, No Smoke Exposure, No Dyspnea Gastrointestinal : No Nausea, No Vomiting, No Diarrhea, No Constipation, No abdominal Pain, No Hematochezia, No Melena Genitourinary : no irregular bleeding, No Dysuria, No Urinary Frequency, No Hematuria, No Urinary Incontinence, No Urgency, No Flank Pain, No Urinary Flow Changes, No Hesitancy Musculoskeletal : No joint pain, Myalgias, No Joint Swelling Skin : No Skin Lesions, No rash Neuro : No Weakness, No Numbness, No Paresthesias, No Loss of Consciousness, No Dizziness, No Headache Psych : No Anxiety/Panic, No Depression, No SI/HI/AH/VH, No Social Issues, Yes all other systems are reviewed and are negative [facility] Past Medical History Medical History (Updated 02/10/21 @ 20:00 by Lisa Chen [facility]) COPD (chronic obstructive pulmonary disease) ICD (implantable cardioverter-defibrillator) in place Nonischemic cardiomyopathy Pulmonary nodules Surgical History History of permanent cardiac pacemaker placement Family History Family History Father CVD (cardiovascular disease) Myocardial infarct Mother CVD (cardiovascular disease) Heart disease Social History Social History Household Members: None Housing: House Do you presently have visiting nurse or other home services: Yes ([employer] 25 hours a week) Alcohol intake: current Alcohol intake frequency: a few times a month Patient Tobacco Use Status: Former Tobacco user Years Smoked: 48 yrs Advance Directives: Yes Advance Directives on File: Yes Advance Directives Date on File: 02/10/21 Current occupational status: retired and disabled Physical Exam Vital Signs: Vital Signs: Last Vital Signs Temp 98.3 F 02/10/21 20:20 Pulse 96 02/10/21 20:20 Resp 24 H 02/10/21 20:20 BP 119/65 02/10/21 20:20 Pulse Ox 90 L 02/10/21 20:20 Body Mass Index 20.2 Const: General: cooperative, healthy appearing and comfortable Nutritional Appearance: average body habitus Orientation/consciousness: patient oriented x3 Limitations: no limitations HENMT: Head: Yes atraumatic and Yes other (Old hematomas) Ears: hearing grossly normal bilaterally General nose exam: Normal external nose present Face and sinus: Yes normal facial exam Mouth: Normal oral and palatal mucosa present, lip abnormal (Dry), tongue normal and oropharynx normal Throat: Yes posterior oropharynx normal Eyes: General: appearance normal, both eyes and all related structures Eyelids: Yes eyelids normal Conjunctivae: conjunctivae normal Sclerae: sclerae normal Pupils: Equal, round and reactive pupils present Neck: Neck: Yes normal visual inspection, Yes full ROM, Yes no lymphadenopathy, Yes trachea midline and Yes supple Thyroid: Thyroid normal Lymphatic: no lymphadenopathy noted Chest: Chest palpation & inspection: normal inspection of the chest Resp: Effort & Inspection: normal respiratory effort, able to speak in comp lete sentences and labored Auscultation: crackles (Left lower lobe) Cardio: Jugular venous distension: no JVD Rate: regular rate Rhythm: regular rhythm Heart sounds: S1 normal heart sound present, S2 normal heart sound present, no gallops, no murmurs and no rubs Peripheral pulses: Peripheral pulses 2+ throughout GI: Inspection: Yes normal to inspection and No distended Palpation (GI): No hepatosplenomegaly present and No Rebound tenderness present Percussion: Yes normal to percussion Auscultation: normal bowel sounds Back/Spine/Pelvis: Cervical Spine: cervical ROM normal and No cervical muscular tenderness Thoracic/Lumbar Spine: thoracic and lumbar spine normal to inspection Skin: General skin exam: no rashes or lesions noted, elasticity normal and turgor normal Neuro: General: patient oriented x3 Cranial nerves: Yes Equal, round and reactive pupils present Extrem: General: Yes normal to inspection, Yes full ROM and Yes capillary refill normal Psych: Appearance: grossly normal Mental Status: mental status grossly normal Speech and movement: Normal speech and movement present Affect: normal affect Attitude: cooperative Thought process: Normal thought process present Insight: Good insight present (Psych) Course Course Course Narrative: 70-year-old male with past medical history of pulmonary note, COPD, permanent cardiac pacemaker, chronic cough, ICD, nonischemic cardiomyopathy is here today for complaining weakness. Patient reports that he was given COVID vaccine booster on Sunday and since then he has been feeling weak. Decreased appetite. Denies any subjective fevers no chills. Patient denies any chest pain, SOB with or without exertion. Denies any palpitations. Patient most likely dehydrated will need to get some fluids, however he does have history of ICD and pacemaker we will be gentle on hydration. We will check his labs, CBC, CMP chest x-ray. Patient reports that he fell when he was walking out of the shower today. Patient denies dizziness, syncope or presyncope. Reports that his legs just gave out under him and he fell into the left side. Patient reports hitting his left hip, left shoulder and left elbow. Patient denies hitting his head. Patient reports that he was home with his [employer] and she witnessed the fall. Reevaluation(s) Reevaluation #1: Chest x-ray reviewed patient has left lower lung disease consistent with pneumonia. Most likely community-acquired pneumonia. We will draw lactic, blood cultures, start him on ceftriaxone and azithromycin IV. Infectious process suspected. Awaiting results from lactic acid. Monitor vital signs. Will order COVID 19, RSV and flu swab Time: 16:12 Reevaluation #2: Lactic negative, awaiting flu, RSV, COVID swab results Reevaluation #3: RSV, flu, COVID-19 swab is negative. Patient will be admitted to hospitalist services. Spoke with the hospitalist will admit patient. Medical Decision Making Lab Data Result diagrams: 02/10/21 14:53 02/10/21 14:53 Labs: Lab Results 02/10/21 02/10/21 02/10/21 Range/Units 14:53 14:53 14:53 WBC 12.7 H (4.8-10.8) X10*3/uL RBC 4.70 (4.60-5.80) X10*6/uL Hgb 14.4 (14.0-18.0) g/dl Hct 43.7 (42.0-52.0) % MCV 93.0 (80.0-98.0) fL MCH 30.6 (27.0-33.0) pg MCHC 33.0 (31.0-36.0) g/dl RDW 13.9 (11.0-16.0) % Plt Count 196 (160-400) X10*3/uL MPV 9.1 L (9.4-12.4) fL Immature Gran % (Auto) 0.8 H (0.0-0.4) % Neut % (Auto) 85.0 H (45-73) % Lymph % (Auto) 5.8 L (20-40) % [place] % (Auto) 7.2 (2-11) % Eos % (Auto) 0.9 (0-4) % Baso % (Auto) 0.3 (0-2) % Lymph # (Auto) 0.7 L (1.2-4.9) X10*3/uL [place] # (Auto) 0.9 (0.1-1.2) X10*3/uL Eos # (Auto) 0.1 (0.0-0.4) X10*3/uL Baso # (Auto) 0.0 (0.0-0.2) X10*3/uL Abs Immat Gran (auto) 0.10 H (0.00-0.03) X10*3/uL Absolute Neuts (auto) 10.8 H (2.0-8.3) x10*3/uL Absolute Nucleated RBC 0.000 (0.0-0.012) X10*3/uL Nucleated RBC % (auto) 0.0 (0.0-0.2) /100WBC Sodium 138 (135-145) mmol/L Potassium 3.9 (3.3-5.1) mmol/L Chloride 100 (96-108) mmol/L Carbon Dioxide 23 (22-29) mmol/L Anion Gap 19 (12-20) BUN 18 H D (9-16) mg/dL Creatinine 0.80 (0.5-1.4) mg/dL Estim Creat Clear Calc 62.0 Estimated GFR > 60 Random Glucose 84 D (60-115) mg/dL Lactic Acid (0.5-2.0) mmol/L Calcium 8.7 (8.4-10.2) mg/dL Total Bilirubin 1.3 H (0.0-1.0) mg/dL AST 24 D (5-37) U/L ALT 22 (0-40) U/L Alkaline Phosphatase 109 D (39-117) U/L Troponin I High Sens < 3.5 (<3.5-35.0) ng/L Total Protein 6.0 L (6.5-8.0) g/dL Albumin 3.4 L (3.5-5.0) g/dL Urine Color Urine Appearance Urine pH (5.0-8.0) Ur Specific [place] (1.005-1.025) Urine Protein (NEG-TRACE) MG/DL Urine Glucose (UA) (NEG) MG/DL Urine Ketones (NEG) MG/DL Urine Blood (NEG) Urine Nitrite (NEG) Ur Leukocyte Esterase (NEG) Influenza Type A (PCR) (Negative) Influenza Type B (PCR) (Negative) RSV RNA Qual (PCR) (Negative) SARS-CoV-2 RNA (RT-PCR) (Negative) 02/10/21 02/10/21 02/10/21 Range/Units 17:22 19:00 20:30 WBC (4.8-10.8) X10*3/uL RBC (4.60-5.80) X10*6/uL Hgb (14.0-18.0) g/dl Hct (42.0-52.0) % MCV (80.0-98.0) fL MCH (27.0-33.0) pg MCHC (31.0-36.0) g/dl RDW (11.0-16.0) % Plt Count (160-400) X10*3/uL MPV (9.4-12.4) fL Immature Gran % (Auto) (0.0-0.4) % Neut % (Auto) (45-73) % Lymph % (Auto) (20-40) % [place] % (Auto) (2-11) % Eos % (Auto) (0-4) % Baso % (Auto) (0-2) % Lymph # (Auto) (1.2-4.9) X10*3/uL [place] # (Auto) (0.1-1.2) X10*3/uL Eos # (Auto) (0.0-0.4) X10*3/uL Baso # (Auto) (0.0-0.2) X10*3/uL Abs Immat Gran (auto) (0.00-0.03) X10*3/uL Absolute Neuts (auto) (2.0-8.3) x10*3/uL Absolute Nucleated RBC (0.0-0.012) X10*3/uL Nucleated RBC % (auto) (0.0-0.2) /100WBC Sodium (135-145) mmol/L Potassium (3.3-5.1) mmol/L Chloride (96-108) mmol/L Carbon Dioxide (22-29) mmol/L Anion Gap (12-20) BUN (9-16) mg/dL Creatinine (0.5-1.4) mg/dL Estim Creat Clear Calc Estimated GFR Random Glucose (60-115) mg/dL Lactic Acid 1.1 (0.5-2.0) mmol/L Calcium (8.4-10.2) mg/dL Total Bilirubin (0.0-1.0) mg/dL AST (5-37) U/L ALT (0-40) U/L Alkaline Phosphatase (39-117) U/L Troponin I High Sens (<3.5-35.0) ng/L Total Protein (6.5-8.0) g/dL Albumin (3.5-5.0) g/dL Urine Color YELLOW Urine Appearance CLEAR Urine pH 5.5 (5.0-8.0) Ur Specific [place] >= 1.030 H (1.005-1.025) Urine Protein TRACE (NEG-TRACE) MG/DL Urine Glucose (UA) NEG (NEG) MG/DL Urine Ketones 40 (NEG) MG/DL Urine Blood NEG (NEG) Urine Nitrite NEG (NEG) Ur Leukocyte Esterase NEG (NEG) Influenza Type A (PCR) NEGATIVE (Negative) Influenza Type B (PCR) NEGATIVE (Negative) RSV RNA Qual (PCR) NEGATIVE (Negative) SARS-CoV-2 RNA (RT-PCR) NEGATIVE (Negative) Imaging Data Chest x-ray: Attestation: I personally reviewed and interpreted this imaging study as follows: Radiologist's impression: FINDINGS: Since previous study there has been development of interstitial airspace disease in the lower left lung consistent with pneumonia. Lungs are hyperinflated. No pneumothorax or significant pleural effusion appreciated. Pacemaker in place. Heart normal size. No evidence of pulmonary edema. Discharge Plan Discharge Clinical Impression: Community acquired pneumonia Qualifiers: Laterality: left Lung location: lower lobe of lung Qualified Code(s): J18.9 - Pneumonia, unspecified organism Patient Disposition: Admitted As Inpatient
[2021-02-10] MEDS: 0.9 % Sodium Chloride 500 ML IV (15:57)
[2021-02-10 16:00] VITALS: BP 115/76; PULSE 68
[2021-02-10 16:55] LABS: Troponin-I High Sensitivity < 3.5 ng/L (<3.5-35.0)
[2021-02-10] MEDS: cefTRIAXone sodium 1 GM in 0.9 % Sodium Chloride 50 ML IV (17:29)
[2021-02-10 17:49] LABS: Lactic Acid 1.1 mmol/L (0.5-2.0)
[2021-02-10 17:50] VITALS: BP 107/55; PULSE 88
[2021-02-10] MEDS: Azithromycin 500 MG in 0.9 % Sodium Chloride 250 ML 125 MG IV (17:54)
--- NOTE | 2021-02-10 19:07 | PC.NURSE ---
patient had episode of emesis and incontinence. Cleaned and repositioned. NPO
[2021-02-10 19:43] LABS: Influenza A PCR NEGATIVE (Negative); Influenza B PCR NEGATIVE (Negative); Resp Syncy Virus RNA Qual PCR NEGATIVE (Negative); SARS COV2 PCR INHOUSE NEGATIVE (Negative)
[2021-02-10 20:20] VITALS: BP 119/65; PULSE 96; RESP 24; TEMP 36.8; O2SAT 90
[2021-02-10 20:38] LABS: Appearance Urine CLEAR; Color Urine YELLOW; Glucose Urine UA NEG (NEG); Leukocyte Esterase Urine NEG (NEG); Nitrite Urine NEG (NEG); PH 5.5 (5.0-8.0); Specific Gravity - Urine >= 1.030 (1.005-1.025); Urine Blood NEG (NEG); Urine Ketones 40 MG/DL (NEG); Urine Protein TRACE MG/DL (NEG-TRACE)
--- NOTE | 2021-02-10 20:44 | PC.NURSE ---
patient aspirated on vomit and SpO2 dropped to 80% on Room air. Provider aware. patient hx of COPD but placed on NC for SpO2 to be at 91% on 2l NC.
--- NOTE | 2021-02-10 21:19 | PHA.MEDREC ---
Pharmacy Consult ? Medication Reconciliation Pharmacy has completed the medication reconciliation. Patient has [employer] and knows nothing about the medications he takes. Med rec was completed with pharmacy history and provider med lists
--- NOTE | 2021-02-10 21:56 | P.HPHOSP_ITS ---
History of Present Illness Date of Service: 02/10/21 Chief Complaint: weakness Appearing 70-year-old male with past medical history of COPD, nonischemic cardiomyopathy status post ICD implantation, who presents to the hospital with complaints of generalized weakness and fall. Patient reports that he had a booster shot on Sunday and developed significant weakness following that. He was in bed, slipped out of bed and lowered himself to the floor and had difficulty getting up due to severe weakness therefore was brought to the hospital. He denies any loss of consciousness, no palpitations or chest pain prior to the fall. He reports shoulder pain as a result of the fall. No head trauma. lives alone, reports low appetite and oral intake. He denies any chest pain but reports shortness of breath, cough, and increased sputum production for the past 2-3 days. He was feeling nauseous, had 1 episode of vomiting today, no diarrhea constipation, he reports no chest pain, no abdominal pain no urinary symptoms and no lower extremity edema. Patient is extremely weak, and frail, appears very cachectic. Stable with no significant abnormal vitals except for an initial blood pressure of 98/55 that resolved, patient found to desat to high 80s on room air, therefore placed on 6 L of oxygen satting about 93-96% Labs show WBC count 12.7, pH of 7.25, CO2 of 44, bicarb of 23, BUN of 18, glucose of 142, bili of 1.3, albumin of 3.4, UA negative, COVID-19, influenza, and RSV negative, alcohol level negative. CT angiogram negative for PE showed multifocal consolidation in the lingula and bilateral lower lobes. Patient will be admitted for further management Review of Systems Review of Systems: Yes all other systems are reviewed and are negative [facility] Medical History COPD (chronic obstructive pulmonary disease) ICD (implantable cardioverter-defibrillator) in place Nonischemic cardiomyopathy Pulmonary nodules Family History Father CVD (cardiovascular disease) Myocardial infarct Mother CVD (cardiovascular disease) Heart disease Surgical History History of permanent cardiac pacemaker placement Social History Household Members: None Housing: House Do you presently have visiting nurse or other home services: Yes ([employer] 25 hours a week) Alcohol intake: current Alcohol intake frequency: a few times a month Patient Tobacco Use Status: Former Tobacco user Years Smoked: 48 yrs Advance Directives: Yes Advance Directives on File: Yes Advance Directives Date on File: 02/10/21 Current occupational status: retired and disabled Meds Allergies Allergy/AdvReac Type Severity Reaction Status Date / Time thiopental [SODIUM PENTOTHAL] Allergy Severe VIOLENCE Verified 12/02/20 13:54 Active Medications: Current Medications Pharmacy Consult (Consult Rx Perform Med Rec) 1 each MISCELLANE ONCE PRN PRN Reason: Consult order Home Medications Medication Instructions Recorded Confirmed Last Taken Type acetaminophen 300 mg-codeine 30 mg 1 tab PO BID PRN 02/12/20 02/10/21 Unknown History tablet aspirin 81 mg tablet,delayed 81 mg PO DAILY 02/12/20 02/10/21 Unknown History release atorvastatin 80 mg tablet 80 mg PO DAILY 02/12/20 02/10/21 Unknown History cholecalciferol (vitamin D3) 25 25 mcg PO DAILY 02/12/20 02/10/21 Unknown History mcg (1,000 unit) tablet ezetimibe 10 mg tablet 10 mg PO DAILY 02/12/20 02/10/21 Unknown History folic acid 1 mg tablet 1 mg PO DAILY 02/12/20 02/10/21 Unknown History metoprolol succinate 100 mg 100 mg PO DAILY 02/12/20 02/10/21 Unknown History tablet,extended release 24 hr montelukast 10 mg tablet 10 mg PO DAILY 02/12/20 02/10/21 Unknown History thiamine HCl (vitamin B1) 100 mg 100 mg PO DAILY 02/12/20 02/10/21 Unknown History tablet cetirizine 10 mg tablet 10 mg PO DAILY 03/22/20 02/10/21 Unknown History melatonin 5 mg tablet 5 mg PO BEDTIME 03/22/20 02/10/21 Unknown History tamsulosin 0.4 mg capsule 0.4 mg PO DAILY 03/22/20 02/10/21 Unknown History donepezil 10 mg tablet 5 mg PO DAILY tab 09/20/20 02/10/21 Unknown History tiotropium bromide 18 mcg capsule 1 cap INHALATION DAILY 10/09/20 02/10/21 Unknown History with inhalation device (Spiriva with HandiHaler) diazepam 10 mg tablet 1 tab PO BID PRN 02/10/21 02/10/21 Unknown History fluoxetine 10 mg capsule 1 cap PO DAILY 02/10/21 02/10/21 Unknown History lisinopril 5 mg tablet 1 tab PO DAILY 02/10/21 02/10/21 Unknown History Physical Exam Vital Signs and Narrative: Vital Signs: Last Vital Signs Temp 98.3 F 02/10/21 20:20 Pulse 96 02/10/21 20:20 Resp 24 H 02/10/21 20:20 BP 119/65 02/10/21 20:20 Pulse Ox 90 L 02/10/21 20:20 Body Mass Index 20.2 Const: Other: Patient very frail, ill-appearing, cachectic, poor hygiene Answers questions appropriately but very slow to respond General: cooperative and no acute distress Orientation/consciousness: patient oriented x3 Eyes: General: appearance normal, both eyes and all related structures Pupils: Equal, round and reactive pupils present Resp: Effort & Inspection: normal respiratory effort Cardio: Rate: regular rate Rhythm: regular rhythm GI: Other: Soft nontender, no rebound or guarding Palpation (GI): Soft to palpation Auscultation: normal bowel sounds Skin: Other: Extremely dry, General skin exam: no rashes or lesions noted Neuro: General: patient oriented x3 Cranial nerves: Yes Equal, round and reactive pupils present Cognition (Neuro): normal cognition Extrem: General: Yes normal to inspection and Yes no pedal edema Results Labs CBC and Chem 7: 02/10/21 14:53 02/10/21 14:53 Labs: Laboratory Results - last 24 hr 02/10/21 02/10/21 02/10/21 14:53 14:53 14:53 MCV 93.0 MCH 30.6 MCHC 33.0 RDW 13.9 Plt Count 196 MPV 9.1 L Immature Gran % (Auto) 0.8 H Neut % (Auto) 85.0 H Lymph % (Auto) 5.8 L [place] % (Auto) 7.2 Eos % (Auto) 0.9 Baso % (Auto) 0.3 Lymph # (Auto) 0.7 L [place] # (Auto) 0.9 Eos # (Auto) 0.1 Baso # (Auto) 0.0 Abs Immat Gran (auto) 0.10 H Absolute Neuts (auto) 10.8 H Absolute Nucleated RBC 0.000 Nucleated RBC % (auto) 0.0 Anion Gap 19 Estim Creat Clear Calc 62.0 Estimated GFR > 60 Random Glucose 84 D Lactic Acid Calcium 8.7 Total Bilirubin 1.3 H AST 24 D ALT 22 Alkaline Phosphatase 109 D Troponin I High Sens < 3.5 Total Protein 6.0 L Albumin 3.4 L Urine Color Urine Appearance Urine pH Ur Specific [place] Urine Protein Urine Glucose (UA) Urine Ketones Urine Blood Urine Nitrite Ur Leukocyte Esterase Influenza Type A (PCR) Influenza Type B (PCR) RSV RNA Qual (PCR) SARS-CoV-2 RNA (RT-PCR) 02/10/21 02/10/21 02/10/21 17:22 19:00 20:30 MCV MCH MCHC RDW Plt Count MPV Immature Gran % (Auto) Neut % (Auto) Lymph % (Auto) [place] % (Auto) Eos % (Auto) Baso % (Auto) Lymph # (Auto) [place] # (Auto) Eos # (Auto) Baso # (Auto) Abs Immat Gran (auto) Absolute Neuts (auto) Absolute Nucleated RBC Nucleated RBC % (auto) Anion Gap Estim Creat Clear Calc Estimated GFR Random Glucose Lactic Acid 1.1 Calcium Total Bilirubin AST ALT Alkaline Phosphatase Troponin I High Sens Total Protein Albumin Urine Color YELLOW Urine Appearance CLEAR Urine pH 5.5 Ur Specific [place] >= 1.030 H Urine Protein TRACE Urine Glucose (UA) NEG Urine Ketones 40 Urine Blood NEG Urine Nitrite NEG Ur Leukocyte Esterase NEG Influenza Type A (PCR) NEGATIVE Influenza Type B (PCR) NEGATIVE RSV RNA Qual (PCR) NEGATIVE SARS-CoV-2 RNA (RT-PCR) NEGATIVE Imaging Radiologist's Impressions: Impressions Chest X-Ray 02/10/21 14:45 IMPRESSION: Left lower lung disease consistent with pneumonia. Elbow X-Ray 02/10/21 15:47 IMPRESSION: No acute fracture, dislocation left shoulder or left elbow. Mild degenerative changes with loss of left glenohumeral joint space of the shoulder is noted. Unremarkable AP pelvis and left hip exam. No evidence of fracture. Hip/Pelvis X-Ray 02/10/21 15:47 IMPRESSION: No acute fracture, dislocation left shoulder or left elbow. Mild degenerative changes with loss of left glenohumeral joint space of the shoulder is noted. Unremarkable AP pelvis and left hip exam. No evidence of fracture. Shoulder X-Ray 02/10/21 15:47 IMPRESSION: No acute fracture, dislocation left shoulder or left elbow. Mild degenerative changes with loss of left glenohumeral joint space of the shoulder is noted. Unremarkable AP pelvis and left hip exam. No evidence of fracture. Assessment and Plan (1) Community acquired pneumonia: Qualifiers: Laterality: left Lung location: lower lobe of lung Qualified Code(s): J18.9 - Pneumonia, unspecified organism Status: Acute (2) COPD exacerbation: Status: Acute (3) Generalized weakness: Status: Acute (4) Fall: Status: Acute 70-year-old male with past medical history of COPD as well as congestive heart failure status post ICD who presents to the hospital with complaints of weakness found to have pneumonia # pneumonia - community-acquired pneumonia versus aspiration - chest CT findings as above, has leukocytosis, cough, increased sputum production increased dyspnea - has difficulty clearing his secretions, RT was consulted, and had a lot of thick secretions in his mouth that were cleared by RT - at this time will start him on IV antibiotics - follow cultures - monitor respiratory status # COPD exacerbation - history of COPD with increased cough dyspnea, sputum production - Start him on IV Solu-Medrol, DuoNeb p.r.n. as well as scheduled - IV antibiotics as above # generalized weakness as well as fall - most likely secondary to acute infection as well as chronically debilitated - patient appears attack take, chest CT shows no evidence of cancer - PT OT as well as social work evaluation for possible residential placement once medically cleared # history of CHF - not in exacerbation - continue metoprolol - monitor # hypertension - stable - continue home antihypertensives DVT prophylaxis: Heparin subQ Quality Stroke Does the patient have a stroke diagnosis?: No VTE Prior VTE?: No VTE Risk Level:: Medical - moderate - high VTE Device Contraindication: Treatment Not Indicated VTE Drug Contraindication: N/A - Med Ordered
--- NOTE | 2021-02-10 23:33 | PC.NURSE ---
upon initial assessment, pt. is speaking in short, choppy sentences, tachypneic in the 30-40s with accessory muscle use on respirations, and rhoncorous throughout. pt. found to be mid 70s on NC. pt. initially placed on 6 L NC. Oxygenation improved and trialed back down to 3 L. NS on tele. Uncomfortable. episode of fecal incontinence. cleaned, changed, and repositioned. Hosopital paged for respiratory status and stated that she'd order morphine to improve.
[2021-02-10 23:36] VITALS: BP 105/65; PULSE 86; RESP 35; TEMP 36.6; O2SAT 93
[2021-02-10 23:37] VITALS: RESP 35
[2021-02-10] MEDS: Morphine Sulfate 4 MG/ML CARTRIDGE IVPUSH (23:46)
[2021-02-11] VITALS (12 sets, daily range): BP systolic 95–115; BP diastolic 65–71; PULSE 87–99; RESP 16–40; TEMP 36.7–37.6; O2SAT 95–97; BMI 19.3
--- NOTE | 2021-02-11 00:44 | PC.NURSE ---
Pt. is having difficulty managing secretions. Suction set up at bedside. Increased O2 to 4 L from 2 L. Pale, tachypnea decreased from 30-40 to 20-30.
[2021-02-11 01:44] LABS: ABG Base Excess -7.1 mmol/L; ABG HCO3 20 mmol/L (22-26); ABG pCO2 44 mmHg (32-45); ABG pCO2 TC 44 mmHg (32-45); ABG pH 7.25 (7.35-7.45); ABG pH TC 7.25 (7.35-7.45); ABG pO2 109 mmHg (83-108); ABG pO2 TC 107 (83-108)
[2021-02-11] MEDS: iohexoL 350 MG/ML 100 ML INFUS..BTL 65 ML IV (02:24)
[2021-02-11 03:02] LABS: Ethanol < 10 mg/dL
[2021-02-11] MEDS: methylPREDNISolone Sod Succ 40 MG/ML VIAL IVPUSH ×2 (04:58→18:35)
[2021-02-11] MEDS: Heparin Sodium,Porcine 5,000 UNIT/ML VIAL 5000 UNIT SUBCUT ×2 (05:00→18:33)
[2021-02-11] MEDS: 0.9 % Sodium Chloride Flush 3 ML SYRINGE IVFLUSH ×4 (05:05→19:55)
--- NOTE | 2021-02-11 05:09 | PC.NURSE ---
pt repositioned and medicated per mar. Consult with respiratory regarding status . Will continue to montior
[2021-02-11 05:11] LABS: ABG Refer to POC result
--- NOTE | 2021-02-11 06:51 | PC.NURSE ---
swallow consult placed. no po meds per hospitalist at this time.
--- NOTE | 2021-02-11 06:53 | PM.EVENT ---
Event Note Date of Service: 02/11/21 Event Note: Patient noted to be aspirating when talking morning meds Will keep him NPO, will obtain swallow eval Will add Unasyn to cover for the likely aspiration pneumonia
[2021-02-11 07:00] LABS: Hematocrit 47.5 % (42.0-52.0); Hemoglobin 15.2 g/dl (14.0-18.0); Mean Corpuscular Hemoglobin 30.5 pg (27.0-33.0); Mean Corpuscular Volume 95.2 fL (80.0-98.0); Mean Platelet Volume 9.2 fL (9.4-12.4); Platelet Count 199 X10*3/uL (160-400); Red Blood Count 4.99 X10*6/uL (4.60-5.80); White Blood Count 10.2 X10*3/uL (4.8-10.8)
[2021-02-11 07:17] LABS: Anion Gap 23 (12-20); Blood Urea Nitrogen 17 mg/dL (9-16); Calcium 8.7 mg/dL (8.4-10.2); Carbon Dioxide 18 mmol/L (22-29); Chloride 104 mmol/L (96-108); Creatinine Clr Calc Pharmacy 62.7; Estimated Glomerular Filt Rate > 60; Glucose Random 56 mg/dL (60-115); Potassium 4.1 mmol/L (3.3-5.1); Sodium 141 mmol/L (135-145)
--- NOTE | 2021-02-11 07:27 | PC.NURSE ---
per lab pts glucose 56. pt weak, slow to answer questions. pt is NPO. overrode d50% and IV pushed. MD aware. Waiting for MD to place order to scan med. will recheck cbg in 30 minutes. vss.
[2021-02-11] MEDS: Albuterol/Iprat 2.5/0.5MG 3 ML AMPUL.NEB INHALE ×4 (07:39→19:46)
[2021-02-11 07:43] LABS: Band Neutrophils Percent 23 % (3-5); Basophils Abs Manual 0.2 X10*3/uL (0.0-0.2); Basophils Percent Manual 2 % (0-2); Lymphocytes Absolute Manual 0.5 X10*3/uL (1.2-4.9); Lymphocytes Percent Manual 5 % (20-40); Monocytes Absolute Manual 0.3 X10*3/uL (0.1-1.2); Monocytes Percent Manual 3 % (2-11); Neutrophils Absolute Manual 9.2 X10*3/uL (2.0-8.3); Neutrophils Percent Manual 67 % (45-73)
[2021-02-11 07:45] LABS: Acanthocytes 1+ (0-2) /OIF; Burr Cells 3+ (>5) /OIF; Microcytosis 1+ (5-14) /OIF; Ovalocytes 1+ (5-14) /OIF; Polychromasia 1+ (0-2) /OIF; RBC Morphology NOTED; Tear Drop Cells 1+ (0-2) /OIF
[2021-02-11 07:46] LABS: Platelet Estimate NORMAL (NORMAL); Platelet Morphology Comment NOTED
[2021-02-11] MEDS: Ampicillin Sodium/Sulbactam Na 3 GM in 0.9 % Sodium Chloride 100 ML IV ×2 (07:49→18:30)
--- NOTE | 2021-02-11 08:01 | PC.NURSE ---
pt cbg 246, pt speaking more readily and clearly. vss.
[2021-02-11 08:03] LABS: Glucose, Whole Blood 246 mg/dL (60-115)
--- NOTE | 2021-02-11 10:28 | MHC.CM.PN ---
PATIENT IS UNABLE TO PARTICIPATE IN MEANINGFUL CONVERSATION. WHEN HE DOES SPEAK, HE APOLOGIZES STATING I AM SORRY. I HAVE HAD 2 STROKES PATIENT IS TO BE SEEN FOR SWALLOW EVAL. HE NODS IN AGREEMENT THAT IMM BE LEFT ON BEDSIDE TABLE. HE IS MADE AWARE THAT HE CAN ASK FOR ANOTHER EXPLANATION OF THE IMM AT ANYTIME DURING HIS STAY. HCP IS ON FILE AND VERIFIED. PER REVIEW OF NOTES, PATIENT RECENTLY RECEIVED HIS COVID BOOSTER. CASE MANAGEMENT TO FOLLOW ON UNIT IMM 02/11 IN CHART
--- NOTE | 2021-02-11 11:47 | MHC.SL.SWA ---
Speech Pathologist Impression: Risk of Aspiration Risk of Aspiration Due to: History of Pneumonia Poor PO Intake Dysphasia Diet Status: Upgrade Liquid Consistency and Strategies for Safe Swallow: Liquid Intake Recommendation: [place] Thick Liquid Intake Strategies: Small Sips No Straws Solid Food Consistency: Dietary Recommendations: Pureed (NDD1) Additional Modifications to Solid Foods: Oral Medication Intake: Crushed in Puree Compensatory Strategies and Precautions to be Taken for Safe Swallow: Supervision While Eating and Drinking for Safe Swallow: Total Supervision (1:1) Foods to Avoid: Swallowing Recommended Treatments: Recommendation for Speech: On presentation of thin liquid by spoon, Pt had difficulty keeping liquid in mouth, delayed oral transit, and delayed swallow with wet vocal quality after swallow. On cup sip, oral phase was mildly improved, delayed swallow and Pt cleared through after swallow. On nectar thick liquid by spoon and cup sip, Pt had improved oral phase, mild delay of swallow, no clinical signs of aspiration. ON puree, Pt needed to be repeatedly cued to strip spoon, had mild delay of oral phase and swallow, with no clinical signs of aspiration. Did not offer trial of solid foods at this time, due to Pt edentulous, and would recommend start on Puree (NDD1) with nectar thick liquids. MD, Nutrition, Food SVC notified by secure text of diet rec. Inpatient Speech Therapy Comment: FIRER BO[employer]ER to follow daily, M-F Frequency/Duration: Date Range for Service Req: Timeline to reassess: Criminalist Clinican/Clinical Fellow: No Supervisory Statement: I have reviewed and agree with the student/clinical fellow's documentation: Speech Language Pathologist: Eulalia Rivera M.A., CCC-FIRER BOILER
--- NOTE | 2021-02-11 12:42 | HO.PM.IMPN ---
Subjective Subjective Date of Service: 02/11/21 Interval History: the patient was seen and evaluated this morning Laying in bed, feels tired and has no energy Denies any fever, chills or shortness of breath No reported other overnight events. Systemic review: No fever, chills but has generalized weakness No chest pain, palpitation No shortness of breath or coughing No abdominal pain, nausea or vomiting No urinary symptoms No any rash or wounds Physical Exam Vital Signs: Vital Signs: Last Vital Signs Temp 98.0 F 02/11/21 00:52 Pulse 87 02/11/21 11:10 Resp 21 H 02/11/21 11:10 BP 110/65 02/11/21 07:28 Pulse Ox 97 02/11/21 11:10 Body Mass Index 20.2 Const: Other: Constitutional : Alert, oriented to self but slow in responses not in distress, very frail, ill-appearing, cachectic, poor hygiene Neck : Normal inspection, Supple Cardiovascular : RRR, S1 S2, no lower extremity edema Respiratory : Fair bilateral air entry, no crackles, wheezes or rhonchi Gastrointestinal: soft, lax, Normal bowel sounds, Non tender Skin : Warm, Dry, multiple bruises Neurological : Alert & oriented x3, No focal deficit Objective Data Active Medications Acetaminophen (Acetaminophen 325 Mg Tablet) 650 mg PO Q8H PRN PRN Reason: Fever Acetaminophen/Codeine Phosphate (Acetaminophen With Codeine # 3 Tablet) 1 tab PO BID PRN PRN Reason: Pain, Severe (Pain Scale 7-10) Albuterol/Ipratropium (Albuterol/Iprat 2.5/0.5mg 3 Ml Ampul.Neb) 3 ml INHALE RQ4H PRN PRN Reason: Shortness of Breath/Wheezing Albuterol/Ipratropium (Albuterol/Iprat 2.5/0.5mg 3 Ml Ampul.Neb) 3 ml INHALE RQ4H WHILE AWAKE [facility] Last Admin: 02/11/21 11:07 Dose: 3 ml Documented by: CESAR Aspirin (Aspirin Enteric Coated 81 Mg Tablet.) 81 mg PO DAILY [facility] Last Admin: 02/11/21 08:03 Dose: Not Given Documented by: LETICIA Non-Admin Reason: NPO Atorvastatin Calcium (Atorvastatin Calcium 80 Mg Tablet) 80 mg PO DAILY [facility] Last Admin: 02/11/21 08:04 Dose: Not Given Documented by: LETICIA Non-Admin Reason: NPO Diazepam (Diazepam 5 Mg Tablet) 10 mg PO BID PRN PRN Reason: Anxiety Donepezil HCl (Donepezil Hcl 5 Mg Tablet) 5 mg PO DAILY [facility] Last Admin: 02/11/21 08:04 Dose: Not Given Documented by: LETICIA Non-Admin Reason: NPO Ezetimibe (Ezetimibe 10 Mg Tablet) 10 mg PO DAILY [facility] Last Admin: 02/11/21 08:04 Dose: Not Given Documented by: LETICIA Non-Admin Reason: NPO Fluoxetine HCl (Fluoxetine Hcl 10 Mg Capsule) 10 mg PO DAILY [facility] Last Admin: 02/11/21 08:04 Dose: Not Given Documented by: LETICIA Non-Admin Reason: NPO Folic Acid (Folic Acid 1 Mg Tablet) 1 mg PO DAILY [facility] Last Admin: 02/11/21 08:04 Dose: Not Given Documented by: LETICIA Non-Admin Reason: NPO Heparin Sodium (Porcine) (Heparin Sodium,Porcine 5,000 Unit/Ml Vial) 5,000 unit SUBCUT Q12H [facility] Last Admin: 02/11/21 05:00 Dose: 5,000 unit Documented by: TYLER Azithromycin 500 mg/ Sodium (Chloride) 250 mls @ 125 mls/hr IV Q24H [facility] Ampicillin Sodium/Sulbactam (Sodium 3 gm/ Sodium Chloride) 100 mls @ 200 mls/hr IV Q8H [facility] Last Infusion: 02/11/21 09:34 Dose: 0 mls/hr Documented by: LETICIA Lisinopril (Lisinopril 5 Mg Tablet) 5 mg PO DAILY [facility]; Protocol Last Admin: 02/11/21 08:04 Dose: Not Given Documented by: LETICIA Non-Admin Reason: NPO Loratadine (Loratadine 10 Mg Tablet) 10 mg PO DAILY [facility] Last Admin: 02/11/21 08:04 Dose: Not Given Documented by: LETICIA Non-Admin Reason: NPO Melatonin (Melatonin 3 Mg Tablet) 6 mg PO BEDTIME [facility] Last Admin: 02/11/21 01:07 Dose: Not Given Documented by: HANNAH Non-Admin Reason: Pt. unable to manage secretions appropriately Methylprednisolone Sodium Succinate (Methylprednisolone Sod Succ 40 Mg/Ml Vial) 40 mg IVPUSH Q12H [facility] Last Admin: 02/11/21 04:58 Dose: 40 mg Documented by: TYLER Metoprolol Succinate (Metoprolol Succinate Er 100 Mg Tab.Er.24h) 100 mg PO DAILY [facility]; Protocol Last Admin: 02/11/21 08:04 Dose: Not Given Documented by: LETICIA Non-Admin Reason: NPO Montelukast Sodium (Montelukast Sodium 10 Mg Tablet) 10 mg PO DAILY [facility] Last Admin: 02/11/21 08:04 Dose: Not Given Documented by: LETICIA Non-Admin Reason: NPO Morphine Sulfate (Morphine Sulfate 4 Mg/Ml Cartridge) 4 mg IVPUSH Q6H PRN; Protocol PRN Reason: tachypnea >30 Last Admin: 02/10/21 23:46 Dose: 4 mg Documented by: HANNAH Omeprazole (Omeprazole 40 Mg Capsule.Dr) 40 mg PO BID@0630,1630 [facility] Last Admin: 02/11/21 06:51 Dose: Not Given Documented by: TYLER Non-Admin Reason: Physician Held Med Ondansetron HCl (Ondansetron Hcl 4 Mg/2 Ml Vial) 4 mg IVPUSH Q8H PRN PRN Reason: Nausea and Vomiting Pharmacy Consult (Consult Rx Perform Med Rec) 1 each MISCELLANE ONCE PRN PRN Reason: Consult order Sodium Chloride (0.9 % Sodium Chloride Flush 3 Ml Syringe) 3 ml IVFLUSH QSHIFT [facility] Last Admin: 02/11/21 07:50 Dose: 3 ml Documented by: LETICIA Tamsulosin HCl (Tamsulosin Hcl 0.4 Mg Capsule) 0.4 mg PO DAILY [facility] Last Admin: 02/11/21 08:04 Dose: Not Given Documented by: LETICIA Non-Admin Reason: NPO Thiamine HCl (Thiamine Hcl 100 Mg Tablet) 100 mg PO DAILY [facility] Last Admin: 02/11/21 08:04 Dose: Not Given Documented by: LETICIA Non-Admin Reason: NPO Tiotropium [place] (Tiotropium [place] 18 Mcg Cap.W.Dev) 1 puff INHALE DAILY [facility] Last Admin: 02/11/21 07:41 Dose: Not Given Documented by: CESAR Non-Admin Reason: Med Not Available Vitamin D (Cholecalciferol (Vitamin D3) 25 Mcg Tablet) 25 mcg PO DAILY [facility] Last Admin: 02/11/21 08:04 Dose: Not Given Documented by: LETICIA Non-Admin Reason: NPO Labs CBC & Chem 7: 02/11/21 06:32 02/11/21 06:32 Labs: Laboratory Results - last 24 hr 02/10/21 02/10/21 02/10/21 14:53 14:53 14:53 MCV 93.0 MCH 30.6 MCHC 33.0 RDW 13.9 Plt Count 196 MPV 9.1 L Immature Gran % (Auto) 0.8 H Neut % (Auto) 85.0 H Lymph % (Auto) 5.8 L [place] % (Auto) 7.2 Eos % (Auto) 0.9 Baso % (Auto) 0.3 Lymph # (Auto) 0.7 L [place] # (Auto) 0.9 Eos # (Auto) 0.1 Baso # (Auto) 0.0 Abs Immat Gran (auto) 0.10 H Absolute Neuts (auto) 10.8 H Absolute Nucleated RBC 0.000 Nucleated RBC % (auto) 0.0 Neutrophils % (Manual) Band Neutrophils % Lymphocytes % (Manual) Monocytes % (Manual) Basophils % (Manual) Abs Neuts (Manual) Lymphocytes # (Manual) Monocytes # (Manual) Basophils # (Manual) Platelet Estimate Plt Morphology Comment RBC Morphology Polychromasia Microcytosis Tear Drop Cells Ovalocytes Barton Cells Acanthocytes (Spur) O2 Saturation ABG pH at Pt Temp ABG pH (Temp Correct) ABG pCO2 at Pt Temp ABG pCO2 (Temp Corrct ABG pO2 at Pt Temp ABG pO2 (Temp Correct ABG HCO3 ABG Base Excess (Actual) Anion Gap 19 Estim Creat Clear Calc 62.0 Estimated GFR > 60 POC Glucose Random Glucose 84 D Lactic Acid Calcium 8.7 Total Bilirubin 1.3 H AST 24 D ALT 22 Alkaline Phosphatase 109 D Troponin I High Sens < 3.5 Total Protein 6.0 L Albumin 3.4 L Urine Color Urine Appearance Urine pH Ur Specific [place] Urine Protein Urine Glucose (UA) Urine Ketones Urine Blood Urine Nitrite Ur Leukocyte Esterase Ethyl Alcohol Influenza Type A (PCR) Influenza Type B (PCR) RSV RNA Qual (PCR) SARS-CoV-2 RNA (RT-PCR) 02/10/21 02/10/21 02/10/21 17:22 19:00 20:30 MCV MCH MCHC RDW Plt Count MPV Immature Gran % (Auto) Neut % (Auto) Lymph % (Auto) [place] % (Auto) Eos % (Auto) Baso % (Auto) Lymph # (Auto) [place] # (Auto) Eos # (Auto) Baso # (Auto) Abs Immat Gran (auto) Absolute Neuts (auto) Absolute Nucleated RBC Nucleated RBC % (auto) Neutrophils % (Manual) Band Neutrophils % Lymphocytes % (Manual) Monocytes % (Manual) Basophils % (Manual) Abs Neuts (Manual) Lymphocytes # (Manual) Monocytes # (Manual) Basophils # (Manual) Platelet Estimate Plt Morphology Comment RBC Morphology Polychromasia Microcytosis Tear Drop Cells Ovalocytes Jason Cells Acanthocytes (Spur) O2 Saturation ABG pH at Pt Temp ABG pH (Temp Correct) ABG pCO2 at Pt Temp ABG pCO2 (Temp Corrct ABG pO2 at Pt Temp ABG pO2 (Temp Correct ABG HCO3 ABG Base Excess (Actual) Anion Gap Estim Creat Clear Calc Estimated GFR POC Glucose Random Glucose Lactic Acid 1.1 Calcium Total Bilirubin AST ALT Alkaline Phosphatase Troponin I High Sens Total Protein Albumin Urine Color YELLOW Urine Appearance CLEAR Urine pH 5.5 Ur Specific [place] >= 1.030 H Urine Protein TRACE Urine Glucose (UA) NEG Urine Ketones 40 Urine Blood NEG Urine Nitrite NEG Ur Leukocyte Esterase NEG Ethyl Alcohol Influenza Type A (PCR) NEGATIVE Influenza Type B (PCR) NEGATIVE RSV RNA Qual (PCR) NEGATIVE SARS-CoV-2 RNA (RT-PCR) NEGATIVE 02/11/21 02/11/21 02/11/21 01:36 02:35 06:32 MCV 95.2 MCH 30.5 MCHC 32.0 RDW 14.0 Plt Count 199 MPV 9.2 L Immature Gran % (Auto) Cancelled Neut % (Auto) Cancelled Lymph % (Auto) Cancelled [place] % (Auto) Cancelled Eos % (Auto) Cancelled Baso % (Auto) Cancelled Lymph # (Auto) Cancelled [place] # (Auto) Cancelled Eos # (Auto) Cancelled Baso # (Auto) Cancelled Abs Immat Gran (auto) Cancelled Absolute Neuts (auto) Cancelled Absolute Nucleated RBC 0.000 Nucleated RBC % (auto) 0.0 Neutrophils % (Manual) 67 Band Neutrophils % 23 H Lymphocytes % (Manual) 5 L Monocytes % (Manual) 3 Basophils % (Manual) 2 Abs Neuts (Manual) 9.2 H Lymphocytes # (Manual) 0.5 L Monocytes # (Manual) 0.3 Basophils # (Manual) 0.2 Platelet Estimate NORMAL Plt Morphology Comment NOTED RBC Morphology NOTED Polychromasia 1+ (0-2) Microcytosis 1+ (5-14) Tear Drop Cells 1+ (0-2) Ovalocytes 1+ (5-14) Jason Cells 3+ (>5) Acanthocytes (Spur) 1+ (0-2) O2 Saturation 97.0 ABG pH at Pt Temp 7.25 L ABG pH (Temp Correct) 7.25 L ABG pCO2 at Pt Temp 44 ABG pCO2 (Temp Corrct 44 ABG pO2 at Pt Temp 109 H ABG pO2 (Temp Correct 107 ABG HCO3 20 L ABG Base Excess (Actual) -7.1 Anion Gap Estim Creat Clear Calc Estimated GFR POC Glucose Random Glucose Lactic Acid Calcium Total Bilirubin AST ALT Alkaline Phosphatase Troponin I High Sens Total Protein Albumin Urine Color Urine Appearance Urine pH Ur Specific [place] Urine Protein Urine Glucose (UA) Urine Ketones Urine Blood Urine Nitrite Ur Leukocyte Esterase Ethyl Alcohol < 10 Influenza Type A (PCR) Influenza Type B (PCR) RSV RNA Qual (PCR) SARS-CoV-2 RNA (RT-PCR) 02/11/21 02/11/21 06:32 07:58 MCV MCH MCHC RDW Plt Count MPV Immature Gran % (Auto) Neut % (Auto) Lymph % (Auto) [place] % (Auto) Eos % (Auto) Baso % (Auto) Lymph # (Auto) [place] # (Auto) Eos # (Auto) Baso # (Auto) Abs Immat Gran (auto) Absolute Neuts (auto) Absolute Nucleated RBC Nucleated RBC % (auto) Neutrophils % (Manual) Band Neutrophils % Lymphocytes % (Manual) Monocytes % (Manual) Basophils % (Manual) Abs Neuts (Manual) Lymphocytes # (Manual) Monocytes # (Manual) Basophils # (Manual) Platelet Estimate Plt Morphology Comment RBC Morphology Polychromasia Microcytosis Tear Drop Cells Ovalocytes Barton Cells Acanthocytes (Spur) O2 Saturation ABG pH at Pt Temp ABG pH (Temp Correct) ABG pCO2 at Pt Temp ABG pCO2 (Temp Corrct ABG pO2 at Pt Temp ABG pO2 (Temp Correct ABG HCO3 ABG Base Excess (Actual) Anion Gap 23 H Estim Creat Clear Calc 62.7 Estimated GFR > 60 POC Glucose 246 H Random Glucose 56 L* Lactic Acid Calcium 8.7 Total Bilirubin AST ALT Alkaline Phosphatase Troponin I High Sens Total Protein Albumin Urine Color Urine Appearance Urine pH Ur Specific [place] Urine Protein Urine Glucose (UA) Urine Ketones Urine Blood Urine Nitrite Ur Leukocyte Esterase Ethyl Alcohol Influenza Type A (PCR) Influenza Type B (PCR) RSV RNA Qual (PCR) SARS-CoV-2 RNA (RT-PCR) Assessment and Plan (1) Frailty: Status: Acute (2) Fall: Status: Acute (3) Generalized weakness: Status: Acute (4) Community acquired pneumonia: Status: Acute Assessment and Plan: 70-year-old male with past medical history of COPD as well as congestive heart failure status post ICD who presents to the hospital with complaints of weakness found to have pneumonia # pneumonia community-acquired pneumonia versus aspiration CT as described IV antibiotics follow cultures monitor respiratory status # COPD exacerbation history of COPD with increased cough dyspnea, sputum production on IV Solu-Medrol, DuoNeb p.r.n. as well as scheduled # generalized weakness, Frialty, falls secondary to FTT, physical deconditioning as well as chronically debilitated chest CT shows no evidence of cancer PT OT as well as social work evaluation for possible custodial placement # history of CHF not in exacerbation continue metoprolol # hypertension stable continue home antihypertensives DVT prophylaxis: Heparin subQ Quality Stroke Does the patient have a stroke diagnosis?: No VTE Prior VTE?: No VTE Risk Level:: Medical - moderate - high VTE Device Contraindication: Treatment Not Indicated VTE Drug Contraindication: N/A - Med Ordered
[2021-02-11 18:21] LABS: Glucose, Whole Blood 258 mg/dL (60-115)
[2021-02-11] MEDS: Omeprazole 40 MG CAPSULE.DR PO (18:38)
[2021-02-11] MEDS: Azithromycin 500 MG in 0.9 % Sodium Chloride 250 ML 125 MG IV (19:55)
[2021-02-11] MEDS: diazePAM 5 MG TABLET 10 MG PO (20:21)
[2021-02-12] VITALS (9 sets, daily range): BP systolic 100–125; BP diastolic 50–73; PULSE 68–95; RESP 17–20; TEMP 36.1–37; O2SAT 93–98
[2021-02-12] MEDS: Heparin Sodium,Porcine 5,000 UNIT/ML VIAL 5000 UNIT SUBCUT ×2 (05:31→17:11)
[2021-02-12] MEDS: Omeprazole 40 MG CAPSULE.DR PO ×2 (05:31→17:11)
[2021-02-12] MEDS: methylPREDNISolone Sod Succ 40 MG/ML VIAL IVPUSH (05:31)
[2021-02-12] MEDS: Ampicillin Sodium/Sulbactam Na 3 GM in 0.9 % Sodium Chloride 100 ML IV ×3 (05:31→18:07)
[2021-02-12 05:40] LABS: Hematocrit 37.5 % (42.0-52.0); Hemoglobin 12.9 g/dl (14.0-18.0); Mean Corpuscular HGB Conc 34.4 g/dl (31.0-36.0); Mean Corpuscular Hemoglobin 31.5 pg (27.0-33.0); Mean Corpuscular Volume 91.5 fL (80.0-98.0); Mean Platelet Volume 9.2 fL (9.4-12.4); Platelet Count 177 X10*3/uL (160-400); Red Cell Distribution Width 14.2 % (11.0-16.0); White Blood Count 10.2 X10*3/uL (4.8-10.8)
[2021-02-12 05:45] LABS: Anion Gap 13 (12-20); Blood Urea Nitrogen 16 mg/dL (9-16); Calcium 8.5 mg/dL (8.4-10.2); Carbon Dioxide 28 mmol/L (22-29); Chloride 105 mmol/L (96-108); Creatinine Clr Calc Pharmacy 60.5; Estimated Glomerular Filt Rate > 60; Glucose Random 173 mg/dL (60-115); Potassium 3.3 mmol/L (3.3-5.1); Sodium 143 mmol/L (135-145)
[2021-02-12] MEDS: Albuterol/Iprat 2.5/0.5MG 3 ML AMPUL.NEB INHALE ×3 (08:13→19:29)
[2021-02-12] MEDS: Folic Acid 1 MG TABLET PO (09:28)
[2021-02-12] MEDS: Cholecalciferol (Vitamin D3) 25 MCG TABLET PO (09:28)
[2021-02-12] MEDS: Metoprolol Succinate ER 100 MG TAB.ER.24H PO (09:28)
[2021-02-12] MEDS: Montelukast Sodium 10 MG TABLET PO (09:28)
[2021-02-12] MEDS: Tamsulosin HCL 0.4 MG CAPSULE PO (09:29)
[2021-02-12] MEDS: Aspirin Enteric Coated 81 MG TABLET.DR PO (09:29)
[2021-02-12] MEDS: Ezetimibe 10 MG TABLET PO (09:29)
[2021-02-12] MEDS: FLUoxetine HCl 10 MG CAPSULE PO (09:29)
[2021-02-12] MEDS: Atorvastatin Calcium 80 MG TABLET PO (09:29)
[2021-02-12] MEDS: Donepezil HCl 5 MG TABLET PO (09:29)
[2021-02-12] MEDS: lisinopriL 5 MG TABLET PO (09:29)
[2021-02-12] MEDS: Loratadine 10 MG TABLET PO (09:29)
[2021-02-12] MEDS: Thiamine HCL 100 MG TABLET PO (09:29)
[2021-02-12] MEDS: 0.9 % Sodium Chloride Flush 3 ML SYRINGE IVFLUSH ×3 (09:47→19:29)
--- NOTE | 2021-02-12 10:20 | P.PNIM_ITS ---
Subjective Subjective Date of Service: 02/12/21 Interval History: the patient was seen and evaluated this morning Laying in bed, feels tired and upset about food quality of pureed Denies any fever, chills or shortness of breath No reported other overnight events. Systemic review: No fever, chills but has generalized weakness No chest pain, palpitation Still reporting cough but improved shortness of breath No abdominal pain, nausea or vomiting No urinary symptoms No any rash or wounds Physical Exam Vital Signs: Vital Signs: Last Vital Signs Temp 96.9 F 02/12/21 07:17 Pulse 95 02/12/21 08:13 Resp 19 02/12/21 07:17 BP 125/73 02/12/21 07:17 Pulse Ox 98 02/12/21 07:17 Body Mass Index 19.3 Const: Other: Constitutional : Alert, oriented to self but slow in responses not in distress, very frail, ill-appearing, cachectic, poor hygiene Neck : Normal inspection, Supple Cardiovascular : RRR, S1 S2, no lower extremity edema Respiratory : Fair bilateral air entry, basal fine bilateral crackles, wheezes or rhonchi Gastrointestinal: soft, lax, Normal bowel sounds, Non tender Skin : Warm, Dry, multiple bruises Neurological : Alert & oriented x3, No focal deficit Objective Data Active Medications Acetaminophen (Acetaminophen 325 Mg Tablet) 650 mg PO Q8H PRN PRN Reason: Fever Acetaminophen/Codeine Phosphate (Acetaminophen With Codeine # 3 Tablet) 1 tab PO BID PRN PRN Reason: Pain, Severe (Pain Scale 7-10) Last Admin: 02/11/21 20:17 Dose: 1 tab Documented by: JHOANA Albuterol/Ipratropium (Albuterol/Iprat 2.5/0.5mg 3 Ml Ampul.Neb) 3 ml INHALE RQ4H PRN PRN Reason: Shortness of Breath/Wheezing Albuterol/Ipratropium (Albuterol/Iprat 2.5/0.5mg 3 Ml Ampul.Neb) 3 ml INHALE RQ4H WHILE AWAKE [facility] Last Admin: 02/12/21 08:13 Dose: 3 ml Documented by: MIRNA Aspirin (Aspirin Enteric Coated 81 Mg Tablet.) 81 mg PO DAILY [facility] Last Admin: 02/12/21 09:29 Dose: 81 mg Documented by: ROBERT Atorvastatin Calcium (Atorvastatin Calcium 80 Mg Tablet) 80 mg PO DAILY [facility] Last Admin: 02/12/21 09:29 Dose: 80 mg Documented by: ROBERT Diazepam (Diazepam 5 Mg Tablet) 10 mg PO BID PRN PRN Reason: Anxiety Last Admin: 02/11/21 20:21 Dose: 10 mg Documented by: JHOANA Donepezil HCl (Donepezil Hcl 5 Mg Tablet) 5 mg PO DAILY [facility] Last Admin: 02/12/21 09:29 Dose: 5 mg Documented by: ROBERT Ezetimibe (Ezetimibe 10 Mg Tablet) 10 mg PO DAILY [facility] Last Admin: 02/12/21 09:29 Dose: 10 mg Documented by: ROBERT Fluoxetine HCl (Fluoxetine Hcl 10 Mg Capsule) 10 mg PO DAILY [facility] Last Admin: 02/12/21 09:29 Dose: 10 mg Documented by: ROBERT Folic Acid (Folic Acid 1 Mg Tablet) 1 mg PO DAILY [facility] Last Admin: 02/12/21 09:28 Dose: 1 mg Documented by: ROBERT Heparin Sodium (Porcine) (Heparin Sodium,Porcine 5,000 Unit/Ml Vial) 5,000 unit SUBCUT Q12H [facility] Last Admin: 02/12/21 05:31 Dose: 5,000 unit Documented by: JHOANA Azithromycin 500 mg/ Sodium (Chloride) 250 mls @ 125 mls/hr IV Q24H [facility] Last Infusion: 02/11/21 21:55 Dose: 0 mls/hr Documented by: JHOANA Ampicillin Sodium/Sulbactam (Sodium 3 gm/ Sodium Chloride) 100 mls @ 200 mls/hr IV Q8H [facility] Last Infusion: 02/12/21 06:13 Dose: 0 mls/hr Documented by: JHOANA Lisinopril (Lisinopril 5 Mg Tablet) 5 mg PO DAILY [facility]; Protocol Last Admin: 02/12/21 09:29 Dose: 5 mg Documented by: ROBERT Loratadine (Loratadine 10 Mg Tablet) 10 mg PO DAILY [facility] Last Admin: 02/12/21 09:29 Dose: 10 mg Documented by: ROBERT Melatonin (Melatonin 3 Mg Tablet) 6 mg PO BEDTIME [facility] Last Admin: 02/11/21 20:09 Dose: Not Given Documented by: JHOANA Non-Admin Reason: Patient Refused Methylprednisolone Sodium Succinate (Methylprednisolone Sod Succ 40 Mg/Ml Vial) 40 mg IVPUSH Q12H [facility] Last Admin: 02/12/21 05:31 Dose: 40 mg Documented by: JHOANA Metoprolol Succinate (Metoprolol Succinate Er 100 Mg Tab.Er.24h) 100 mg PO DAILY [facility]; Protocol Last Admin: 02/12/21 09:28 Dose: 100 mg Documented by: ROBERT Montelukast Sodium (Montelukast Sodium 10 Mg Tablet) 10 mg PO DAILY [facility] Last Admin: 02/12/21 09:28 Dose: 10 mg Documented by: ROBERT Morphine Sulfate (Morphine Sulfate 4 Mg/Ml Cartridge) 4 mg IVPUSH Q6H PRN; Prot ocol PRN Reason: tachypnea >30 Last Admin: 02/10/21 23:46 Dose: 4 mg Documented by: HANNAH Omeprazole (Omeprazole 40 Mg Capsule.) 40 mg PO BID@0630,1630 [facility] Last Admin: 02/12/21 05:31 Dose: 40 mg Documented by: JHOANA Ondansetron HCl (Ondansetron Hcl 4 Mg/2 Ml Vial) 4 mg IVPUSH Q8H PRN PRN Reason: Nausea and Vomiting Pharmacy Consult (Consult Rx Perform Med Rec) 1 each MISCELLANE ONCE PRN PRN Reason: Consult order Sodium Chloride (0.9 % Sodium Chloride Flush 3 Ml Syringe) 3 ml IVFLUSH QSHIFT [facility] Last Admin: 02/12/21 09:47 Dose: 3 ml Documented by: ROBERT Tamsulosin HCl (Tamsulosin Hcl 0.4 Mg Capsule) 0.4 mg PO DAILY [facility] Last Admin: 02/12/21 09:29 Dose: 0.4 mg Documented by: ROBERT Thiamine HCl (Thiamine Hcl 100 Mg Tablet) 100 mg PO DAILY [facility] Last Admin: 02/12/21 09:29 Dose: 100 mg Documented by: ROBERT Tiotropium [place] (Tiotropium [place] 18 Mcg Cap.W.Dev) 1 puff INHALE DAILY [facility] Last Admin: 02/12/21 08:22 Dose: 1 puff Documented by: MIRNA Vitamin D (Cholecalciferol (Vitamin D3) 25 Mcg Tablet) 25 mcg PO DAILY [facility] Last Admin: 02/12/21 09:28 Dose: 25 mcg Documented by: ROBERT Labs CBC & Chem 7: 02/12/21 05:05 02/12/21 05:05 Labs: Laboratory Results - last 24 hr 02/11/21 02/12/21 02/12/21 18:13 05:05 05:05 MCV 91.5 MCH 31.5 MCHC 34.4 RDW 14.2 Plt Count 177 MPV 9.2 L Absolute Nucleated RBC 0.000 Nucleated RBC % (auto) 0.0 Anion Gap 13 Estim Creat Clear Calc 60.5 Estimated GFR > 60 POC Glucose 258 H Random Glucose 173 H D Calcium 8.5 Microbiology Microbiology Results: Microbiology 02/10/21 17:23 Blood Culture - Preliminary Blood - Venous No growth after 24 hours. 02/10/21 17:23 Blood Culture - Preliminary Blood - Venous No growth after 24 hours. Assessment and Plan (1) Frailty: Status: Acute (2) Generalized weakness: Status: Acute (3) Community acquired pneumonia: Status: Acute (4) Failure to thrive in adult: Status: Acute Assessment and Plan: 70-year-old male with past medical history of COPD as well as congestive heart failure status post ICD who presents to the hospital with complaints of weakness found to have pneumonia # pneumonia community-acquired pneumonia versus aspiration CT as described Continue IV antibiotics follow cultures monitor respiratory status # COPD exacerbation history of COPD with increased cough dyspnea, sputum production Change IV Solu-Medrol to prednisone p.o. DuoNeb p.r.n. as well as scheduled # generalized weakness, Frialty, falls secondary to FTT, physical deconditioning as well as chronically debilitated chest CT shows no evidence of cancer PT OT as well as social work evaluation for possible SNF placement # history of CHF not in exacerbation continue metoprolol # hypertension stable continue home antihypertensives DVT prophylaxis: Heparin subQ Quality Stroke Does the patient have a stroke diagnosis?: No VTE Prior VTE?: No VTE Risk Level:: Medical - moderate - high VTE Device Contraindication: Treatment Not Indicated VTE Drug Contraindication: N/A - Med Ordered
[2021-02-12] MEDS: Azithromycin 500 MG in 0.9 % Sodium Chloride 250 ML 125 MG IV (19:29)
[2021-02-12] MEDS: Melatonin 3 MG TABLET 6 MG PO (20:06)
[2021-02-12] MEDS: diazePAM 5 MG TABLET 10 MG PO (20:07)
[2021-02-13] VITALS (9 sets, daily range): BP systolic 122–136; BP diastolic 67–81; PULSE 70–86; RESP 16–19; TEMP 36.2–36.7; O2SAT 94–98
[2021-02-13] MEDS: Ampicillin Sodium/Sulbactam Na 3 GM in 0.9 % Sodium Chloride 100 ML IV ×3 (02:37→18:12)
[2021-02-13] MEDS: Heparin Sodium,Porcine 5,000 UNIT/ML VIAL 5000 UNIT SUBCUT ×2 (03:18→15:39)
[2021-02-13] MEDS: Omeprazole 40 MG CAPSULE.DR PO ×2 (05:48→15:39)
[2021-02-13 06:45] LABS: Alanine Aminotransferase 20 U/L (0-40); Albumin Level 2.7 g/dL (3.5-5.0); Alkaline Phosphatase 84 U/L (39-117); Anion Gap 12 (12-20); Aspartate Amino Transferase 19 U/L (5-37); Bilirubin Direct 0.4 mg/dL (0.0-0.5); Bilirubin Total 0.5 mg/dL (0.0-1.0); Blood Urea Nitrogen 15 mg/dL (9-16); Calcium 8.4 mg/dL (8.4-10.2); Carbon Dioxide 29 mmol/L (22-29); Chloride 106 mmol/L (96-108); Creatinine Clr Calc Pharmacy 78.7; Estimated Glomerular Filt Rate > 60; Glucose Random 122 mg/dL (60-115); Potassium 3.3 mmol/L (3.3-5.1); Sodium 144 mmol/L (135-145); Total Protein 4.9 g/dL (6.5-8.0)
[2021-02-13] MEDS: 0.9 % Sodium Chloride Flush 3 ML SYRINGE IVFLUSH ×3 (07:10→19:55)
[2021-02-13] MEDS: Albuterol/Iprat 2.5/0.5MG 3 ML AMPUL.NEB INHALE ×3 (07:21→19:42)
[2021-02-13] MEDS: Loratadine 10 MG TABLET PO (09:15)
[2021-02-13] MEDS: lisinopriL 5 MG TABLET PO (09:17)
[2021-02-13] MEDS: Montelukast Sodium 10 MG TABLET PO (09:17)
[2021-02-13] MEDS: Donepezil HCl 5 MG TABLET PO (09:17)
[2021-02-13] MEDS: Thiamine HCL 100 MG TABLET PO (09:18)
[2021-02-13] MEDS: Folic Acid 1 MG TABLET PO (09:18)
[2021-02-13] MEDS: Cholecalciferol (Vitamin D3) 25 MCG TABLET PO (09:18)
[2021-02-13] MEDS: Aspirin Enteric Coated 81 MG TABLET.DR PO (09:18)
[2021-02-13] MEDS: Tamsulosin HCL 0.4 MG CAPSULE PO (09:19)
[2021-02-13] MEDS: FLUoxetine HCl 10 MG CAPSULE PO (09:19)
[2021-02-13] MEDS: Ezetimibe 10 MG TABLET PO (09:19)
[2021-02-13] MEDS: predniSONE 20 MG TABLET 40 MG PO (09:20)
[2021-02-13] MEDS: Metoprolol Succinate ER 100 MG TAB.ER.24H PO (09:20)
[2021-02-13] MEDS: Atorvastatin Calcium 80 MG TABLET PO (09:21)
[2021-02-13] MEDS: diazePAM 5 MG TABLET 10 MG PO ×2 (10:36→19:50)
--- NOTE | 2021-02-13 11:08 | P.PNIM_ITS ---
Subjective Subjective Date of Service: 02/13/21 Interval History: the patient was seen and evaluated this morning Laying in bed, feels Better and more energized today Asking to change his diet Denies any fever, chills or shortness of breath No reported other overnight events. Systemic review: No fever, chills but has generalized weakness No chest pain, palpitation improved shortness of breath No abdominal pain, nausea or vomiting No urinary symptoms No any rash or wounds Physical Exam Vital Signs: Vital Signs: Last Vital Signs Temp 97.5 F 02/13/21 06:58 Pulse 72 02/13/21 07:22 Resp 19 02/13/21 06:58 BP 128/80 02/13/21 06:58 Pulse Ox 94 02/13/21 06:58 Body Mass Index 19.3 Const: Other: Constitutional : Alert, oriented to self but slow in responses not in distress, very frail, ill-appearing, cachectic, poor hygiene Neck : Normal inspection, Supple Cardiovascular : RRR, S1 S2, no lower extremity edema Respiratory : Fair bilateral air entry, basal fine bilateral crackles, wheezes or rhonchi Gastrointestinal: soft, lax, Normal bowel sounds, Non tender Skin : Warm, Dry, multiple bruises Neurological : Alert & oriented x3, No focal deficit Objective Data Active Medications Acetaminophen (Acetaminophen 325 Mg Tablet) 650 mg PO Q8H PRN PRN Reason: Fever Acetaminophen/Codeine Phosphate (Acetaminophen With Codeine # 3 Tablet) 1 tab PO BID PRN PRN Reason: Pain, Severe (Pain Scale 7-10) Last Admin: 02/12/21 20:06 Dose: 1 tab Documented by: MALA Albuterol/Ipratropium (Albuterol/Iprat 2.5/0.5mg 3 Ml Ampul.Neb) 3 ml INHALE RQ4H PRN PRN Reason: Shortness of Breath/Wheezing Albuterol/Ipratropium (Albuterol/Iprat 2.5/0.5mg 3 Ml Ampul.Neb) 3 ml INHALE RQ4H WHILE AWAKE [facility] Last Admin: 02/13/21 07:21 Dose: 3 ml Documented by: DILCIA Aspirin (Aspirin Enteric Coated 81 Mg Tablet.) 81 mg PO DAILY [facility] Last Admin: 02/13/21 09:18 Dose: 81 mg Documented by: BERYL Atorvastatin Calcium (Atorvastatin Calcium 80 Mg Tablet) 80 mg PO DAILY [facility] Last Admin: 02/13/21 09:21 Dose: 80 mg Documented by: BERYL Diazepam (Diazepam 5 Mg Tablet) 10 mg PO BID PRN PRN Reason: Anxiety Last Admin: 02/13/21 10:36 Dose: 10 mg Documented by: BERYL Donepezil HCl (Donepezil Hcl 5 Mg Tablet) 5 mg PO DAILY [facility] Last Admin: 02/13/21 09:17 Dose: 5 mg Documented by: BERYL Ezetimibe (Ezetimibe 10 Mg Tablet) 10 mg PO DAILY [facility] Last Admin: 02/13/21 09:19 Dose: 10 mg Documented by: BERYL Fluoxetine HCl (Fluoxetine Hcl 10 Mg Capsule) 10 mg PO DAILY [facility] Last Admin: 02/13/21 09:19 Dose: 10 mg Documented by: BERYL Folic Acid (Folic Acid 1 Mg Tablet) 1 mg PO DAILY [facility] Last Admin: 02/13/21 09:18 Dose: 1 mg Documented by: BERYL Heparin Sodium (Porcine) (Heparin Sodium,Porcine 5,000 Unit/Ml Vial) 5,000 unit SUBCUT Q12H [facility] Last Admin: 02/13/21 03:18 Dose: 5,000 unit Documented by: MALA Azithromycin 500 mg/ Sodium (Chloride) 250 mls @ 125 mls/hr IV Q24H [facility] Last Infusion: 02/12/21 22:13 Dose: 0 mls/hr Documented by: MALA Ampicillin Sodium/Sulbactam (Sodium 3 gm/ Sodium Chloride) 100 mls @ 200 mls/hr IV Q8H [facility] Last Admin: 02/13/21 10:35 Dose: 200 mls/hr Documented by: BERYL Lisinopril (Lisinopril 5 Mg Tablet) 5 mg PO DAILY [facility]; Protocol Last Admin: 02/13/21 09:17 Dose: 5 mg Documented by: BERYL Loratadine (Loratadine 10 Mg Tablet) 10 mg PO DAILY [facility] Last Admin: 02/13/21 09:15 Dose: 10 mg Documented by: BERYL Melatonin (Melatonin 3 Mg Tablet) 6 mg PO BEDTIME [facility] Last Admin: 02/12/21 20:06 Dose: 6 mg Documented by: MALA Metoprolol Succinate (Metoprolol Succinate Er 100 Mg Tab.Er.24h) 100 mg PO DAILY [facility]; Protocol Last Admin: 02/13/21 09:20 Dose: 100 mg Documented by: BEYRL Montelukast Sodium (Montelukast Sodium 10 Mg Tablet) 10 mg PO DAILY [facility] Last Admin: 02/13/21 09:17 Dose: 10 mg Documented by: BERYL Morphine Sulfate (Morphine Sulfate 4 Mg/Ml Cartridge) 4 mg IVPUSH Q6H PRN; Protocol PRN Reason: tachypnea >30 Last Admin: 02/10/21 23:46 Dose: 4 mg Documented by: HANNAH Omeprazole (Omeprazole 40 Mg Capsule.Dr) 40 mg PO BID@0630,1630 [facility] Last Admin: 02/13/21 05:48 Dose: 40 mg Documented by: MALA Ondansetron HCl (Ondansetron Hcl 4 Mg/2 Ml Vial) 4 mg IVPUSH Q8H PRN PRN Reason: Nausea and Vomiting Pharmacy Consult (Consult Rx Perform Med Rec) 1 each MISCELLANE ONCE PRN PRN Reason: Consult order Prednisone (Prednisone 20 Mg Tablet) 40 mg PO DAILY [facility] Last Admin: 02/13/21 09:20 Dose: 40 mg Documented by: BERYL Sodium Chloride (0.9 % Sodium Chloride Flush 3 Ml Syringe) 3 ml IVFLUSH QSHIFT [facility] Last Admin: 02/13/21 07:10 Dose: 3 ml Documented by: BERYL Tamsulosin HCl (Tamsulosin Hcl 0.4 Mg Capsule) 0.4 mg PO DAILY [facility] Last Admin: 02/13/21 09:19 Dose: 0.4 mg Documented by: BERYL Thiamine HCl (Thiamine Hcl 100 Mg Tablet) 100 mg PO DAILY [facility] Last Admin: 02/13/21 09:18 Dose: 100 mg Documented by: BERYL Tiotropium Johnson (Tiotropium Johnson 18 Mcg Cap.W.Dev) 1 puff INHALE DAILY [facility] Last Admin: 02/13/21 07:22 Dose: 1 puff Documented by: DILCIA Vitamin D (Cholecalciferol (Vitamin D3) 25 Mcg Tablet) 25 mcg PO DAILY [facility] Last Admin: 02/13/21 09:18 Dose: 25 mcg Documented by: BERYL Labs CBC & Chem 7: 02/12/21 05:05 02/13/21 04:46 Labs: Laboratory Results - last 24 hr 02/13/21 04:46 Anion Gap 12 Estim Creat Clear Calc 78.7 Estimated GFR > 60 Random Glucose 122 H Calcium 8.4 Total Bilirubin 0.5 Direct Bilirubin 0.4 AST 19 ALT 20 Alkaline Phosphatase 84 D Total Protein 4.9 L Albumin 2.7 L D Microbiology Microbiology Results: Microbiology 02/10/21 17:23 Blood Culture - Preliminary Blood - Venous No growth after 48 hours. 02/10/21 17:23 Blood Culture - Preliminary Blood - Venous No growth after 48 hours. Assessment and Plan (1) Failure to thrive in adult: Status: Acute (2) Community acquired pneumonia: Status: Acute (3) COPD exacerbation: Status: Acute Assessment and Plan: 70-year-old male with past medical history of COPD as well as congestive heart failure status post ICD who presents to the hospital with complaints of weakness found to have pneumonia # pneumonia community-acquired pneumonia versus aspiration CT as described Continue IV antibiotics Negative blood cultures monitor respiratory status Wean oxygen down as tolerated # COPD exacerbation history of COPD with increased cough dyspnea, sputum production Continueprednisone p.o. DuoNeb p.r.n. as well as scheduled # Frialty, falls # FTT, physical deconditioning chronically debilitated chest CT shows no evidence of cancer but will need further workup as outpatient PT OT as well as social work evaluation for possible SNF placement # history of CHF not in exacerbation continue metoprolol # hypertension stable continue home antihypertensives DVT prophylaxis: Heparin subQ Quality Stroke Does the patient have a stroke diagnosis?: No VTE Prior VTE?: No VTE Risk Level:: Medical - moderate - high VTE Device Contraindication: Treatment Not Indicated VTE Drug Contraindication: N/A - Med Ordered
--- NOTE | 2021-02-13 18:43 | PC.NURSE ---
Picture of wound to buttock sent to Lashanda Cordova wound nurse- Triad and foam dressing applied
[2021-02-13] MEDS: Melatonin 3 MG TABLET 6 MG PO (19:50)
[2021-02-13] MEDS: Azithromycin 500 MG in 0.9 % Sodium Chloride 250 ML 125 MG IV (19:50)
[2021-02-14] VITALS (11 sets, daily range): BP systolic 116–136; BP diastolic 67–77; PULSE 53–85; RESP 16–18; TEMP 36–37.1; O2SAT 93–98; BMI 19.3
[2021-02-14] MEDS: Ampicillin Sodium/Sulbactam Na 3 GM in 0.9 % Sodium Chloride 100 ML IV ×2 (02:55→11:28)
[2021-02-14 04:51] LABS: Folate 9.4 ng/mL (> or = 4.0); Vitamin B12 605 pg/mL (200-900)
[2021-02-14] MEDS: Heparin Sodium,Porcine 5,000 UNIT/ML VIAL 5000 UNIT SUBCUT (05:17)
[2021-02-14] MEDS: Omeprazole 40 MG CAPSULE.DR PO (05:18)
[2021-02-14] MEDS: Albuterol/Iprat 2.5/0.5MG 3 ML AMPUL.NEB INHALE ×2 (08:12→11:28)
[2021-02-14] MEDS: Aspirin Enteric Coated 81 MG TABLET.DR PO (08:20)
[2021-02-14] MEDS: Loratadine 10 MG TABLET PO (08:20)
[2021-02-14] MEDS: Ezetimibe 10 MG TABLET PO (08:20)
[2021-02-14] MEDS: Tamsulosin HCL 0.4 MG CAPSULE PO (08:20)
[2021-02-14] MEDS: predniSONE 20 MG TABLET 40 MG PO (08:21)
[2021-02-14] MEDS: Donepezil HCl 5 MG TABLET PO (08:22)
[2021-02-14] MEDS: Thiamine HCL 100 MG TABLET PO (08:22)
[2021-02-14] MEDS: lisinopriL 5 MG TABLET PO (08:22)
[2021-02-14] MEDS: Folic Acid 1 MG TABLET PO (08:22)
[2021-02-14] MEDS: FLUoxetine HCl 10 MG CAPSULE PO (08:22)
[2021-02-14] MEDS: Montelukast Sodium 10 MG TABLET PO (08:22)
[2021-02-14] MEDS: Cholecalciferol (Vitamin D3) 25 MCG TABLET PO (08:22)
[2021-02-14] MEDS: Atorvastatin Calcium 80 MG TABLET PO (08:23)
[2021-02-14] MEDS: Metoprolol Succinate ER 100 MG TAB.ER.24H PO (08:23)
[2021-02-14] MEDS: diazePAM 5 MG TABLET 10 MG PO (08:31)
[2021-02-14] MEDS: 0.9 % Sodium Chloride Flush 3 ML SYRINGE IVFLUSH (08:34)
--- NOTE | 2021-02-14 09:18 | P.CDIC_ITS ---
CDI Concurrent Query Documentation Clarification: PHYSICIAN'S DOCUMENTATION REQUEST Date of Query: 02/14/2119 Patient Name: Ramesh Moser Admit Date: 02/10/21 Dear Doctor, A review of the medical record indicates additional documentation may be needed. Please review below and update the documentation accordingly. Clinical Indicators: Risk Factors/Clinical Indicators/Treatments History of Congestive heart failure. No exacerbation History of echo performed. Continue metoprolol. Please provide further specificity regarding the most likely type and acuity of CHF you are evaluating, treating, or monitoring. Examples include: Type: * Systolic * Diastolic * Combined Systolic/Diastolic * Other ? please specify * Unable to determine * Chronic * Acute on chronic * Unable to determine Use of terms such as suspected, likely, concern for, or probable (associated with a specific diagnosis that is being evaluated, monitored, or treated as if it exists) are acceptable and can be coded in the inpatient setting, when do cumented at the time of discharge. Thank you, Sandra Donaldson [facility], CDIS Extension: [phone] Please use your independent medical judgment in providing your response. THIS QUERY IS PART OF THE PERMANENT MEDICAL RECORD Provider Response: Other Other Diagnosis: Acute on chronic diastolic heart failure
--- NOTE | 2021-02-14 09:29 | PC.NURSE ---
Skin assessment completed today. Patient has scabbed abrasions on arms and back. Skin is very dry and fragile. He has a stage 1 on his sacrum/coccyx- Triad applied covered with foam dressing. Patient also has reddened bilateral heels- Heelbos applied to feet. No other skin issues or open areas noted at this time.
--- NOTE | 2021-02-14 10:32 | P.CDIC_ITS ---
CDI Concurrent Query Documentation Clarification: PHYSICIAN'S DOCUMENTATION REQUEST Date of Query: 02/14/21 1033 Patient Name: Ramesh Moser Admit Date: 02/10/21 Dear Doctor, A review of the medical record indicates additional documentation may be indicated. Please review below and update the documentation accordingly. Clinical Indicators: Risk Factors/Clinical Indicators/Treatments Nursing notes: 02/14 Skin assessment - Stage I on his sacrum/coccyx. Triad applied w foam dressing. Bilateral reddened heels, heelbos applied to feet. Wound assessment 02/13 - Pressure injury bilateral arms Stage I Foam dressing. Based on the above, could you please provide, in the Progress Notes, further information regarding the ulcer/wound: * For a non-pressure ulcer, please indicate the depth/severity: * Limited to the breakdown of skin * Other * Unable to determine * If a pressure ulcer, please also include the stage* of the ulcer: * Stage 1 - Skin intact, non-blanchable redness * Stage 2 - Partial thickness loss of dermis, includes intact or open blister * Other etc. * Unable to determine *Source: National Pressure Ulcer Advisory Panel (NPUAP) Use of terms such as suspected, likely, concern for, or probable (associated with a specific diagnosis that is being evaluated, monitored, or treated as if it exists) are acceptable and can be coded in the inpatient setting, when documented at the time of discharge. Thank you, Sandra Donaldson [facility], CDIS Extension: [phone] Please use your independent medical judgment in providing your response. THIS QUERY IS PART OF THE PERMANENT MEDICAL RECORD Provider Response: Other Other Diagnosis: Stage I Pressure wound on his sacrum/coccyx
--- NOTE | 2021-02-14 11:17 | P.PNIM_ITS ---
Subjective Subjective Date of Service: 02/14/21 Interval History: the patient was seen and evaluated this morning Laying in bed, Feels more in her charge today Weaned off oxygen Diet advanced Denies any fever, chills or shortness of breath No reported other overnight events. Systemic review: No fever, chills but has generalized weakness No chest pain, palpitation improved shortness of breath No abdominal pain, nausea or vomiting No urinary symptoms No any rash or wounds Physical Exam Vital Signs: Vital Signs: Last Vital Signs Temp 98.1 F 02/14/21 11:06 Pulse 59 02/14/21 11:06 Resp 16 02/14/21 11:06 BP 119/74 02/14/21 11:06 Pulse Ox 97 02/14/21 07:28 Body Mass Index 19.3 Const: Other: Constitutional : Alert, oriented to self but slow in responses not in distress, very frail, ill-appearing, cachectic, poor hygiene Neck : Normal inspection, Supple Cardiovascular : RRR, S1 S2, no lower extremity edema Respiratory : Fair bilateral air entry, basal fine bilateral crackles, wheezes or rhonchi Gastrointestinal: soft, lax, Normal bowel sounds, Non tender Skin : Warm, Dry, multiple bruises, poor hygiene, stage I coccyx pressure wound Neurological : Alert & oriented x3, No focal deficit Objective Data Active Medications Acetaminophen (Acetaminophen 325 Mg Tablet) 650 mg PO Q8H PRN PRN Reason: Fever Acetaminophen/Codeine Phosphate (Acetaminophen With Codeine # 3 Tablet) 1 tab PO BID PRN PRN Reason: Pain, Severe (Pain Scale 7-10) Last Admin: 02/13/21 19:50 Dose: 1 tab Documented by: MALA Albuterol/Ipratropium (Albuterol/Iprat 2.5/0.5mg 3 Ml Ampul.Neb) 3 ml INHALE RQ4H PRN PRN Reason: Shortness of Breath/Wheezing Albuterol/Ipratropium (Albuterol/Iprat 2.5/0.5mg 3 Ml Ampul.Neb) 3 ml INHALE RQ4H WHILE AWAKE [facility] Last Admin: 02/14/21 08:12 Dose: 3 ml Documented by: REENA Aspirin (Aspirin Enteric Coated 81 Mg Tablet.) 81 mg PO DAILY [facility] Last Admin: 02/14/21 08:20 Dose: 81 mg Documented by: SERENA Atorvastatin Calcium (Atorvastatin Calcium 80 Mg Tablet) 80 mg PO DAILY [facility] Last Admin: 02/14/21 08:23 Dose: 80 mg Documented by: SERENA Diazepam (Diazepam 5 Mg Tablet) 10 mg PO BID PRN PRN Reason: Anxiety Last Admin: 02/14/21 08:31 Dose: 10 mg Documented by: SERENA Donepezil HCl (Donepezil Hcl 5 Mg Tablet) 5 mg PO DAILY [facility] Last Admin: 02/14/21 08:22 Dose: 5 mg Documented by: SERENA Ezetimibe (Ezetimibe 10 Mg Tablet) 10 mg PO DAILY [facility] Last Admin: 02/14/21 08:20 Dose: 10 mg Documented by: SERENA Fluoxetine HCl (Fluoxetine Hcl 10 Mg Capsule) 10 mg PO DAILY [facility] Last Admin: 02/14/21 08:22 Dose: 10 mg Documented by: SERENA Folic Acid (Folic Acid 1 Mg Tablet) 1 mg PO DAILY [facility] Last Admin: 02/14/21 08:22 Dose: 1 mg Documented by: SERENA Heparin Sodium (Porcine) (Heparin Sodium,Porcine 5,000 Unit/Ml Vial) 5,000 unit SUBCUT Q12H [facility] Last Admin: 02/14/21 05:17 Dose: 5,000 unit Documented by: MALA Azithromycin 500 mg/ Sodium (Chloride) 250 mls @ 125 mls/hr IV Q24H [facility] Last Infusion: 02/13/21 21:55 Dose: 0 mls/hr Documented by: MALA Ampicillin Sodium/Sulbactam (Sodium 3 gm/ Sodium Chloride) 100 mls @ 200 mls/hr IV Q8H [facility] Last Infusion: 02/14/21 03:31 Dose: 0 mls/hr Documented by: MALA Lisinopril (Lisinopril 5 Mg Tablet) 5 mg PO DAILY [facility]; Protocol Last Admin: 02/14/21 08:22 Dose: 5 mg Documented by: SERENA Loratadine (Loratadine 10 Mg Tablet) 10 mg PO DAILY [facility] Last Admin: 02/14/21 08:20 Dose: 10 mg Documented by: SERENA Melatonin (Melatonin 3 Mg Tablet) 6 mg PO BEDTIME [facility] Last Admin: 02/13/21 19:50 Dose: 6 mg Documented by: MALA Metoprolol Succinate (Metoprolol Succinate Er 100 Mg Tab.Er.24h) 100 mg PO DAILY [facility]; Protocol Last Admin: 02/14/21 08:23 Dose: 100 mg Documented by: SERENA Montelukast Sodium (Montelukast Sodium 10 Mg Tablet) 10 mg PO DAILY [facility] Last Admin: 02/14/21 08:22 Dose: 10 mg Documented by: SERENA Morphine Sulfate (Morphine Sulfate 4 Mg/Ml Cartridge) 4 mg IVPUSH Q6H PRN; Protocol PRN Reason: tachypnea >30 Last Admin: 02/10/21 23:46 Dose: 4 mg Documented by: HANNAH Omeprazole (Omeprazole 40 Mg Capsule.Dr) 40 mg PO BID@0630,1630 [facility] Last Admin: 02/14/21 05:18 Dose: 40 mg Documented by: MALA Ondansetron HCl (Ondansetron Hcl 4 Mg/2 Ml Vial) 4 mg IVPUSH Q8H PRN PRN Reason: Nausea and Vomiting Pharmacy Consult (Consult Rx Perform Med Rec) 1 each MISCELLANE ONCE PRN PRN Reason: Consult order Prednisone (Prednisone 20 Mg Tablet) 40 mg PO DAILY [facility] Last Admin: 02/14/21 08:21 Dose: 40 mg Documented by: SERENA Sodium Chloride (0.9 % Sodium Chloride Flush 3 Ml Syringe) 3 ml IVFLUSH QSHIFT [facility] Last Admin: 02/14/21 08:34 Dose: 3 ml Documented by: SERENA Tamsulosin HCl (Tamsulosin Hcl 0.4 Mg Capsule) 0.4 mg PO DAILY [facility] Last Admin: 02/14/21 08:20 Dose: 0.4 mg Documented by: SERENA Thiamine HCl (Thiamine Hcl 100 Mg Tablet) 100 mg PO DAILY [facility] Last Admin: 02/14/21 08:22 Dose: 100 mg Documented by: SERENA Tiotropium [place] (Tiotropium [place] 18 Mcg Cap.W.Dev) 1 puff INHALE DAILY [facility] Last Admin: 02/14/21 08:23 Dose: 1 puff Documented by: REENA Vitamin D (Cholecalciferol (Vitamin D3) 25 Mcg Tablet) 25 mcg PO DAILY [facility] Last Admin: 02/14/21 08:22 Dose: 25 mcg Documented by: SERENA Labs CBC & Chem 7: 02/12/21 05:05 02/13/21 04:46 Labs: Laboratory Results - last 24 hr 02/13/21 04:46 Vitamin B12 605 Folate 9.4 Assessment and Plan (1) Failure to thrive in adult: Status: Acute (2) Frailty: Status: Acute (3) Generalized weakness: Status: Acute (4) COPD exacerbation: Status: Acute (5) Community acquired pneumonia: Status: Acute Assessment and Plan: 70-year-old male with past medical history of COPD as well as congestive heart failure status post ICD who presents to the hospital with complaints of weakness found to have pneumonia # pneumonia community-acquired pneumonia versus aspiration CT as described Continue IV antibiotics Negative blood cultures Oxygen wean down to room air # COPD exacerbation history of COPD with increased cough dyspnea, sputum production Continueprednisone p.o. DuoNeb p.r.n. as well as scheduled # Frialty, falls # FTT, physical deconditioning chronically debilitated chest CT shows no evidence of cancer but will need further workup as outpatient PT OT as well as social work evaluation for possible SNF placement # Stage I Pressure wound on his sacrum/coccyx Wound Care following, local measures # history of CHF not in exacerbation continue metoprolol # hypertension stable continue home antihypertensives DVT prophylaxis: Heparin subQ Quality Stroke Does the patient have a stroke diagnosis?: No VTE Prior VTE?: No VTE Risk Level:: Medical - moderate - high VTE Device Contraindication: Treatment Not Indicated VTE Drug Contraindication: N/A - Med Ordered
--- NOTE | 2021-02-14 11:33 | MHC.SL.SWA ---
Speech Pathologist Impression: Risk of Aspiration Risk of Aspiration Due to: History of Pneumonia Poor PO Intake Dysphasia Diet Status: CONTINUE REG/THIN Liquid Consistency and Strategies for Safe Swallow: Liquid Intake Recommendation: Thin Liquid Intake Strategies: Small Sips Solid Food Consistency: Dietary Recommendations: Regular Additional Modifications to Solid Foods: Recommend patient CONTINUE unmodified diet REGULAR solids and THIN liquids, with pills WHOLE in LIQUID. Patient is edentulous, but is able to adequately mash food. Note mildly prolonged mastication, but with complete oral recollection. Recommend patient to self select easy to chew foods, avoiding tough, hard, and sticky foods. Patient is able to feed himself without any difficulties. Recommend intermittent supervision to ensure aspiration precautions. INDUSTRIAL RADIOGRAPHER to follow up 1x time to monitor tolerance of upgrade. Oral Medication Intake: Whole with Liquid Compensatory Strategies and Precautions to be Taken for Safe Swallow: Sitting Upright (90 deg) Double Swallow Small Bites and Sips Alternate Liquids/Solids Rate of Ingestion Change Avoid Specific Foods Supervision While Eating and Drinking for Safe Swallow: Intermittent Supervision Foods to Avoid: hard, tough, sticky foods Recommendation for Speech: 1 f/u Fleet Coordinator Clinican/Clinical Fellow: No Supervisory Statement: I have reviewed and agree with the student/clinical fellow's documentation: N/A Speech Language Pathologist: Snehal Browning M.A., CCC-INDUSTRIAL RADIOGRAPHER
--- NOTE | 2021-02-14 12:04 | MHC.CM.PN ---
CM met with Patient at bedside and addressed IMM with him, providing him with the original and placing a copy on the chart. Patient will dc today to [facility] at 4PM, via [facility]. Patient is aware of and in agreement with the dc plan.
--- NOTE | 2021-02-14 12:07 | P.DS_ITS ---
DS: Providers Provider Date of Service: 02/14/21 Date of admission: 02/10/21 21:43 Primary care physician: Abdias Griffin MD DS: Diagnosis Discharge Diagnosis (1) Failure to thrive in adult: Status: Acute (2) Frailty: Status: Acute (3) Generalized weakness: Status: Acute (4) COPD exacerbation: Status: Acute (5) Community acquired pneumonia: Status: Acute DS: Summary Hospital Course Hospital Course: Admission note HPI Appearing 70-year-old male with past medical history of COPD, nonischemic cardiomyopathy status post ICD implantation, who presents to the hospital with complaints of generalized weakness and fall.? Patient reports that he had a booster shot on Sunday and developed significant weakness following that.? He was in bed, slipped out of bed and lowered himself to the floor and had difficulty getting up due to severe weakness therefore was brought to the hospital.? He denies any loss of consciousness, no palpitations or chest pain prior to the fall.? He reports shoulder pain as a result of the fall.? No head trauma.? lives alone, reports low appetite and oral intake.? He denies any chest pain but reports shortness of breath, cough, and increased sputum production for the past 2-3 days.? He was feeling nauseous, had 1 episode of vomiting today, no diarrhea constipation, he reports no chest pain, no abdominal pain no urinary symptoms and no lower extremity edema. Patient is extremely weak, and frail, appears very cachectic. Stable with no significant abnormal vitals except for an initial blood pressure of 98/55 that resolved, patient found to desat to high 80s on room air, therefore placed on 6 L of oxygen satting about 93-96% Labs show WBC count 12.7, pH of 7.25, CO2 of 44, bicarb of 23, BUN of 18, glucose of 142, bili of 1.3, albumin of 3.4, UA negative, COVID-19, influenza, and RSV negative, alcohol level negative. CT angiogram negative for PE showed multifocal consolidation in the lingula and bilateral lower lobes. Patient will be admitted for further management Hospital course The patient was admitted to the hospital for evaluation of generalized weakness and fall with associated difficulty breathing. CT scan of the chest was concerning for pneumonia who which was thought to be secondary to aspiration associated with evidence of COPD exacerbation. The patient was treated with IV antibiotics, steroids and nebulizer with oxygen supplement. He responded well to the treatment and oxygen was weaned down until turned off on the day of discharge as his symptoms improved. He was evaluated by speech therapy who recommended modified diet at the time of admission but advanced to regular as the patient improved physically and mentally. Evaluated by Physical therapy for frailty and falls with recommendation for short-term rehab for physical therapy. Noticed to have stage I pressure wound on the sacrum followed by the wound care team. To continue local measures at time of discharge. To continue azithromycin and Ceftin with 1 more day of prednisone Time Spent with Patient Time attestation: Total time spent providing and/or coordinating discharge services: Discharge coordination time: Greater than 30 minutes Quality: Stroke Does the patient have a stroke diagnosis?: No Physical Exam Vital Signs: Vital Signs: Last Vital Signs Temp 96.8 F 02/14/21 11:42 Pulse 68 02/14/21 11:42 Resp 18 02/14/21 11:42 BP 116/67 02/14/21 11:42 Pulse Ox 96 02/14/21 11:42 Body Mass Index 19.3 Const: Other: Constitutional : Alert, oriented , not in distress, frail, ill- appearing, cachectic, poor hygiene Neck : Normal inspection, Supple Cardiovascular : RRR, S1 S2, no lower extremity edema Respiratory : Fair bilateral air entry, basal fine bilateral crackles, improved wheezes or rhonchi Gastrointestinal: soft, lax, Normal bowel sounds, Non tender Skin : Warm, Dry, multiple bruises, poor hygiene, stage I coccyx pressure wound Neurological : Alert & oriented x3, No focal deficit DS: Data Data Completed and Pending Labs on day of discharge: Laboratory Results - last 24 hr 02/13/21 04:46 Vitamin B12 605 Folate 9.4 Preliminary micro results at discharge 02/10/21 17:23 Blood Culture - Preliminary Blood - Venous No growth after 48 hours. 02/10/21 17:23 Blood Culture - Preliminary Blood - Venous No growth after 48 hours. Discharge Plan Discharge Patient Disposition: [facility] Discharge Diagnosis: Pneumonia Failure to thrive Referrals: [facility] [Outside] - 1 Week Abdias Griffin MD [Primary Care Provider] - 1 Week Discharge Medications: New prednisone 20 mg Tablet 40 mg PO DAILY 1 Days Qty: 2 RF: 0 azithromycin 500 mg tablet 500 mg PO DAILY 2 Days Qty: 2 RF: 0 cefuroxime axetil 500 mg tablet 500 mg PO BID Qty: 6 RF: 0 Continued albuterol sulfate [Ventolin HFA] 90 mcg/actuation HFA aerosol inhaler 1 inh inhalation QID Qty: 8.5 RF: 0 fluticasone propion-salmeterol [Advair Diskus] 250-50 mcg/dose blister with device 1 inh inhalation BID Qty: 60 RF: 3 Spiriva with HandiHaler 18 mcg Capsule, W/Inhalation Device 1 cap INHALATION DAILY RF: 0 fluoxetine 10 mg capsule 1 cap PO DAILY RF: 0 lisinopril 5 mg tablet 1 tab PO DAILY RF: 0 diazepam 10 mg tablet 1 tab PO BID PRN (Reason: Anxiety) RF: 0 cetirizine 10 mg tablet 10 mg PO DAILY RF: 0 tamsulosin 0.4 mg capsule 0.4 mg PO DAILY RF: 0 melatonin 5 mg tablet 5 mg PO BEDTIME RF: 0 aspirin 81 mg tablet,delayed release (DR/EC) 81 mg PO DAILY RF: 0 atorvastatin 80 mg tablet 80 mg PO DAILY RF: 0 metoprolol succinate 100 mg tablet extended release 24 hr 100 mg PO DAILY RF: 0 folic acid 1 mg tablet 1 mg PO DAILY RF: 0 montelukast 10 mg tablet 10 mg PO DAILY RF: 0 cholecalciferol (vitamin D3) 25 mcg (1,000 unit) tablet 25 mcg PO DAILY RF: 0 ezetimibe 10 mg tablet 10 mg PO DAILY RF: 0 thiamine HCl (vitamin B1) 100 mg tablet 100 mg PO DAILY RF: 0 acetaminophen-codeine 300-30 mg tablet 1 tab PO BID PRN (Reason: Pain) RF: 0 donepezil 10 mg tablet 5 mg PO DAILY RF: 0 omeprazole 40 mg capsule,delayed release(DR/EC) 40 mg PO BID 30 Days Qty: 60 RF: 6 Discharge Orders: Discharge Order (Routine); Ordered 02/14/21 Ordered By: Silverio Brooke Diet: advance to usual diet and other Activity on Discharge: As tolerated Stand Alone Forms: Patient Portal Discharge page Care Plan Goals: Read below Health Concerns: Read below Plan of Treatment: Read below Assessment: You were admitted to the hospital for evaluation of difficulty breathing and increased weakness. Images were consistent with possible pneumonia that was treated with IV antibiotics and nebulizers for COPD exacerbation with good response over the course of hospital stay. You were evaluated by Physical therapy who recommended short-term rehab. To be discharged to facility to start therapy. Continue azithromycin and Ceftin as prescribed
--- NOTE | 2021-02-14 12:28 | MHC.CLN ---
NUTRITION CONSULT CHANGED DIET TO CARDIAC DIET. DISLIKES AND DOES NOT WANT ANY ENSURE PRODUCT. DISCONTINUED ENSURE CLEAR SUPPLEMENT. REPORTED WEIGHT TWO YEARS AGO OF 82#. PATIENT EXPRESSED THAT HE WOULD LIKE TO GAIN MORE WEIGHT. STAGE I TO COCCYX WITH BELLO=12. SCHEDULED TO DISCHARGE TO REHAB FACILITY TODAY. REPORTS THAT EATING WELL. CONTINUE TO ENCOURAGE INTAKE AT MEALS AND SNACKS ABLE. NUTRITION DX MODERATE MALNUTRITION IN THE CONTEXT OF CHRONIC ILLNESS (COPD).
[2021-02-14 12:53] LABS: COVID-19 Test Negative (Negative); IDNOW Serial# 9DD0AD1C
== END 2021-02-14 16:16 | disposition skilled nursing facility (03) | DRG 193 ==
LOC: HO.ED 20:00 → HO.EDOVER 21:49 → HO.S3 02-11 14:36
PROVIDERS: Nurse Practitioner Family; Admitting Provider Internal Medicine; Emergency Provider Emergency Medicine Emergency Medical Services; PCP Family Medicine; Visit Provider Student in an Organized Health Care Education/Training Program
DX: J18.9 Pneumonia, unspecified organism (principal); I50.33 Acute on chronic diastolic (congestive) heart failure; I42.8 Other cardiomyopathies; J44.0 Chronic obstructive pulmonary disease with (acute) lower respiratory infection; J44.1 Chronic obstructive pulmonary disease with (acute) exacerbation; Z68.1 Body mass index [BMI] 19.9 or less, adult; L89.151 Pressure ulcer of sacral region, stage 1; I11.0 Hypertensive heart disease with heart failure; Z20.822 Contact with and (suspected) exposure to COVID-19; Z95.810 Presence of automatic (implantable) cardiac defibrillator; R62.7 Adult failure to thrive; Z87.891 Personal history of nicotine dependence; Z79.82 Long term (current) use of aspirin; Z79.899 Other long term (current) drug therapy
CPT/HCPCS: 0241U; 36415; 36600; 71045; 71275; 73030; 73070; 73502; 80048; 80053; 80076; 81003; 82077; 82607; 82746; 82803; 82947; 83605; 84484; 85007; 85025; 85027; 87040; 87635; 92610; 93005; 96361; 96365; 96375; 97162; 97163; 99285; J0295; J0456; J0696; J2270; J2920; Q9967

== ENCOUNTER 2021-03-14 01:31 | Outpatient (REF) | payer MEDICARE, MEDICAID, SELFPAY ==
[2021-03-14 07:42] LABS: Anion Gap 11 (12-20); Blood Urea Nitrogen 15 mg/dL (9-16); Calcium 8.8 mg/dL (8.4-10.2); Carbon Dioxide 27 mmol/L (22-29); Chloride 107 mmol/L (96-108); Estimated Glomerular Filt Rate > 60; Glucose Random 84 mg/dL (60-115); Potassium 4.4 mmol/L (3.3-5.1); Sodium 141 mmol/L (135-145)
[2021-03-14 09:00] LABS: Hematocrit 37.9 % (42.0-52.0); Hemoglobin 12.1 g/dl (14.0-18.0); Mean Corpuscular HGB Conc 31.9 g/dl (31.0-36.0); Mean Platelet Volume 9.5 fL (9.4-12.4); Platelet Count 219 X10*3/uL (160-400); Red Blood Count 4.03 X10*6/uL (4.60-5.80); Red Cell Distribution Width 15.2 % (11.0-16.0); White Blood Count 8.8 X10*3/uL (4.8-10.8)
== END 2021-03-14 01:32 | disposition home or self-care (01) ==
LOC: HO.MMNH1L 01:31
PROVIDERS: Visit Provider Family Medicine
DX: I11.0 Hypertensive heart disease with heart failure (principal); I50.9 Heart failure, unspecified; R62.7 Adult failure to thrive
CPT/HCPCS: 36415; 80048; 85027

== ENCOUNTER 2021-03-21 00:53 | Outpatient (REF) | payer SELFPAY | END 2021-03-21 00:54 | disposition home or self-care (01) | LOC: HO.MMNH1L 00:53 | PROVIDERS: Visit Provider Family Medicine | DX: Z13.89 Encounter for screening for other disorder (principal) ==

== ENCOUNTER 2021-03-30 13:11 | Day surgery (SDC) | payer MEDICARE, MEDICAID, SELFPAY ==
--- NOTE | 2021-03-29 14:09 | HO.ANESPROP2 ---
HPI - Anesthesia Eval Consult details Narrative: 70yo M for ICD Generator Change s/p Bronch 10/2020 with GA-LMA 4 PMFSH Active Problems Active Problems: All Active Problems (Updated 02/22/21 @ 00:02 by Background Daemon) Failure to thrive in adult (Acute) Frailty (Acute) Pulmonary nodules (Acute) COPD (chronic obstructive pulmonary disease) (Acute) Abnormal computed tomography of abdomen and pelvis (Acute) History of permanent cardiac pacemaker placement (Acute) Chronic cough (Acute) ICD (implantable cardioverter-defibrillator) in place (Acute) Nonischemic cardiomyopathy (Acute) Past Medical History Medical History COPD (chronic obstructive pulmonary disease) ICD (implantable cardioverter-defibrillator) in place Nonischemic cardiomyopathy Pulmonary nodules Family History Family History Father CVD (cardiovascular disease) Myocardial infarct Mother CVD (cardiovascular disease) Heart disease Family history of problems with anesthesia: No Surgical History Surgical History History of permanent cardiac pacemaker placement History of Problems with Anesthesia: No Social History Social History Household Members: None Housing: Apartment Do you presently have visiting nurse or other home services: Yes Alcohol intake: current Alcohol intake frequency: a few times a month Patient Tobacco Use Status: Former Tobacco user Years Smoked: 48 yrs Advance Directives Date on File: 02/10/21 Current occupational status: retired and disabled Meds Allergies Allergy/AdvReac Type Severity Reaction Status Date / Time thiopental [SODIUM PENTOTHAL] Allergy Severe VIOLENCE Verified 12/02/20 13:54 Home Medications Medication Instructions Recorded Confirmed Last Taken Type acetaminophen 300 mg-codeine 30 mg 1 tab PO BID PRN 02/12/20 02/10/21 Unknown History tablet aspirin 81 mg tablet,delayed 81 mg PO DAILY 02/12/20 02/10/21 Unknown History release atorvastatin 80 mg tablet 80 mg PO DAILY 02/12/20 02/10/21 Unknown History cholecalciferol (vitamin D3) 25 25 mcg PO DAILY 02/12/20 02/10/21 Unknown History mcg (1,000 unit) tablet ezetimibe 10 mg tablet 10 mg PO DAILY 02/12/20 02/10/21 Unknown History folic acid 1 mg tablet 1 mg PO DAILY 02/12/20 02/10/21 Unknown History metoprolol succinate 100 mg 100 mg PO DAILY 02/12/20 02/10/21 Unknown History tablet,extended release 24 hr montelukast 10 mg tablet 10 mg PO DAILY 02/12/20 02/10/21 Unknown History thiamine HCl (vitamin B1) 100 mg 100 mg PO DAILY 02/12/20 02/10/21 Unknown History tablet cetirizine 10 mg tablet 10 mg PO DAILY 03/22/20 02/10/21 Unknown History melatonin 5 mg tablet 5 mg PO BEDTIME 03/22/20 02/10/21 Unknown History tamsulosin 0.4 mg capsule 0.4 mg PO DAILY 03/22/20 02/10/21 Unknown History donepezil 10 mg tablet 5 mg PO DAILY tab 09/20/20 02/10/21 Unknown History diazepam 10 mg tablet 1 tab PO BID PRN 02/10/21 02/10/21 04/02/21 09:00 History fluoxetine 10 mg capsule 1 cap PO DAILY 02/10/21 02/10/21 Unknown History lisinopril 5 mg tablet 1 tab PO DAILY 02/10/21 02/10/21 Unknown History Exam Exam Date and Time: March 29, 2021 1409 Pertinent Lab Results Pertinent Lab Results: Laboratory Tests 03/14/21 03/14/21 04:57 04:57 WBC 8.8 Hgb 12.1 L Hct 37.9 L Plt Count 219 Sodium 141 Potassium 4.4 Chloride 107 Carbon Dioxide 27 BUN 15 Creatinine 0.67 Narrative Narrative: EKG 01/2021 Vent. Rate : 078 BPM ? ? Atrial Rate : 078 BPM ?? P-R Int : 128 ms? QRS Dur : 082 ms ? ? QT Int : 396 ms ? ? ? P-R-T Axes : 070 071 042 degrees ?? QTc Int : 451 ms ? Normal sinus rhythm Intra-ventricular conduction delay Otherwise normal ECG When compared with ECG of 09-OCT-2020 12:52, No significant changes seen ECHO 07/2020 Conclusions: - Due to suboptimal images, LVEF is difficult to assess but? ? ? grossly appears to be normal; >? 50%.? - No obvious valvular pathology seen on this study.? ? Cardiac Device Check Details: Remote heart failure report generated 02/08/2021.? Heart failure parameters are stable [id number] Cardiac Device Interrogation, cardio physiologic monitor Procedure code (CPT) selection complete Cardiac Device Check Details: Remote ICD function generated 12/22/2020.? ICD function is adequate [id number] Cardiac Interrogation, implant defibrillator w/interim Procedure code (CPT) selection complete Assessment and Plan Assessment Anesthesia Assessment: Chart Reviewed Final Anesthetic Review Family History of Problems with Anesthesia: No History of Problems with Anesthesia: No
--- NOTE | 2021-04-02 12:12 | P.HPCA_ITS ---
History of Present Illness History of Present Illness Date of Service: 04/02/21 Chief complaint: cardia pulse generator change Narrative: Ramesh Moser is a 70 year old male with NICM s/p Biotronik VDD ICD which is on FDA recall for rapid battery depletion and therefore requires urgent replacement. Review of Systems Constitutional: Constitutional: Denies fatigue and Denies headache(s) Eyes: Eyes: Denies blurry vision ENT: Denies headache(s) Cardiovascular: Cardiovascular: Reports as per HPI Respiratory: Respiratory: Reports cough Gastrointestinal: Gastrointestinal: Denies abdominal pain Musculoskeletal: Comments: Right arm swelling after fall a few days ago Neurologic: Denies headache(s) Endocrine: Endocrine: Denies cold intolerance and Denies fatigue Hematologic/Lymphatic: Hematologic/Lymphatic: Reports easy bruising PMFSH Past Medical History Medical History COPD (chronic obstructive pulmonary disease) ICD (implantable cardioverter-defibrillator) in place Nonischemic cardiomyopathy Pulmonary nodules Family History Family History Father CVD (cardiovascular disease) Myocardial infarct Mother CVD (cardiovascular disease) Heart disease Surgical History Surgical History History of permanent cardiac pacemaker placement Social History Social History Household Members: None Housing: Apartment Do you presently have visiting nurse or other home services: Yes Alcohol intake: current Alcohol intake frequency: a few times a month Patient Tobacco Use Status: Former Tobacco user Years Smoked: 48 yrs Advance Directives: Yes Advance Directives on File: Yes Advance Directives Date on File: 02/10/21 Current occupational status: retired and disabled Meds Allergies Allergy/AdvReac Type Severity Reaction Status Date / Time thiopental [SODIUM PENTOTHAL] Allergy Severe VIOLENCE Verified 12/02/20 13:54 Home Medications Medication Instructions Recorded Confirmed Last Taken Type acetaminophen 300 mg-codeine 30 mg 1 tab PO BID PRN 02/12/20 02/10/21 Unknown History tablet aspirin 81 mg tablet,delayed 81 mg PO DAILY 02/12/20 02/10/21 Unknown History release atorvastatin 80 mg tablet 80 mg PO DAILY 02/12/20 02/10/21 Unknown History cholecalciferol (vitamin D3) 25 25 mcg PO DAILY 02/12/20 02/10/21 Unknown History mcg (1,000 unit) tablet ezetimibe 10 mg tablet 10 mg PO DAILY 02/12/20 02/10/21 Unknown History folic acid 1 mg tablet 1 mg PO DAILY 02/12/20 02/10/21 Unknown History metoprolol succinate 100 mg 100 mg PO DAILY 02/12/20 02/10/21 Unknown History tablet,extended release 24 hr montelukast 10 mg tablet 10 mg PO DAILY 02/12/20 02/10/21 Unknown History thiamine HCl (vitamin B1) 100 mg 100 mg PO DAILY 02/12/20 02/10/21 Unknown History tablet cetirizine 10 mg tablet 10 mg PO DAILY 03/22/20 02/10/21 Unknown History melatonin 5 mg tablet 5 mg PO BEDTIME 03/22/20 02/10/21 Unknown History tamsulosin 0.4 mg capsule 0.4 mg PO DAILY 03/22/20 02/10/21 Unknown History donepezil 10 mg tablet 5 mg PO DAILY tab 09/20/20 02/10/21 Unknown History diazepam 10 mg tablet 1 tab PO BID PRN 02/10/21 02/10/21 Unknown History fluoxetine 10 mg capsule 1 cap PO DAILY 02/10/21 02/10/21 Unknown History lisinopril 5 mg tablet 1 tab PO DAILY 02/10/21 02/10/21 Unknown History Physical Exam 2 Const: Orientation/consciousness: oriented to person, oriented to place and oriented to time Eyes: Eyelids: Yes eyelids normal Chest: Chest palpation & inspection: normal inspection of the chest and Pacemaker present (Left sided defibrillator) Cardio: Jugular venous distension: no JVD Neuro: General: oriented to person, oriented to place and oriented to time Extrem: Other: Right hand and forearm swollen with some brusing after fall. evaluated by ED physician today Psych: Appearance: disheveled Assessment and Plan (1) ICD (implantable cardioverter-defibrillator) in place: Status: Acute (2) Nonischemic cardiomyopathy: Status: Acute Defibrillator with rapid battery depletion and FDA recall plan for generator change. Risks benefits and alternatives explained including bleeding and infection. Patient verbalized agreement and understanding. Questions encouraged and answered. Consent obtained. Quality Stroke Does the patient have a stroke diagnosis?: Yes Reason for No Anti-thrombotic by Day Two: Not indicated VTE Prior VTE?: No VTE Risk Level:: Surgical - low VTE Device Contraindication: Treatment Not Indicated VTE Drug Contraindication: Treatment Not Indicated Procedures Date of Service Date of Service: 04/02/21
--- NOTE | 2021-04-02 12:19 | W.PM.OPN ---
Operative Note Operative Note Date of Service: 04/02/21 Narrative: Pre-Operative Diagnosis: Non-ischemic cardiomyopathy; Rapid Battery Depletion: FDA recall Post-Operative Diagnosis: Defibrillator Generator Change Procedure: VDD Defibrillator Generator Removal VDD Defibrillator Generator Implantation Pacer/Lead testing Gm Mobile: Sacha Bacon M.D. Inspector And Hand Packager: Shine Anesthesia: General Drains: None Estimated Blood Loss: Minimal Complications: none Indications: Non-ischemic cardiomyopathy; Rapid Battery Depletion: FDA recall Specimen removed: None Additional Studies ordered: None Drains: None Procedure: Informed consent was obtained. The patient was brought to the EP lab in the fasting state. Perioperative antibiotics were given with cefazolin. He received conscious sedation via the anesthesia service. He was prepped and draped in the usual sterile fashion. After subcutaneous infiltration with lidocaine, a #15 scalpel was used to make a 1.5 incision overlying the original incision. This was dissected down to the device pocket using blunt dissection. The defibrillator generator was isolated and delivered from the pocket without difficulty. It was disconnected from the leads, which were tested visually and electronically and found to be stable. The pocket was copiously irrigated with antibiotic solution. The new device was brought to the field and carefully connected to the leads. Appropriate defibrillator function was noted. The entire assembly was inserted into the pocket with a Tryx antibiotic pouch, which was closed in 2 layers, using 2-0 polysorb and 4-0 monocryl. Steri-strips and a sterile dressing were applied and the patient returned to the recovery room in good condition. Results Generator: Intica Leoncio 7 VR-T Dx Final Settings: VVI 40 VT1 150 Monitor VF > 200bpm Burst then 40 J x 2, then 40J x 6 Conclusion: Successful generator change Plan: - No repetitive motion or lifting heavy weight for 3-4 weeks - No driving, alcohol or making legal decisions for 24 hours. - Keep wound completely dry for 7 days; no showers. - No soaking in hot tubs or baths for 10 days. May sponge bath - Remove band-aid/tegaderm in 2 days; allow steristrips underneath to fall off naturally. ? - Please call our office if you notice any discharge or swelling around incision or fever. - Follow-up with Device clinic with Dr. Iniguez?within 2 weeks for a wound check or as scheduled.
[2021-04-02 12:26] VITALS: BMI 18.6
--- NOTE | 2021-04-02 13:05 | P.CONAN_ITS ---
FORM[facility]LY [facility] Active Problems Active Problems: All Active Problems (Updated 04/02/21 @ 10:54 by ENZO Tucker) Ecchymosis (Acute) Hand swelling (Acute) Failure to thrive in adult (Acute) Frailty (Acute) Pulmonary nodules (Acute) COPD (chronic obstructive pulmonary disease) (Acute) Abnormal computed tomography of abdomen and pelvis (Acute) History of permanent cardiac pacemaker placement (Acute) Chronic cough (Acute) ICD (implantable cardioverter-defibrillator) in place (Acute) Nonischemic cardiomyopathy (Acute) Past Medical History Medical History COPD (chronic obstructive pulmonary disease) ICD (implantable cardioverter-defibrillator) in place Nonischemic cardiomyopathy Pulmonary nodules Family History Family History Father CVD (cardiovascular disease) Myocardial infarct Mother CVD (cardiovascular disease) Heart disease Family history of problems with anesthesia: No Surgical History Surgical History History of permanent cardiac pacemaker placement History of Problems with Anesthesia: No Social History Social History Household Members: None Housing: Apartment Do you presently have visiting nurse or other home services: Yes Alcohol intake: current Alcohol intake frequency: a few times a month Patient Tobacco Use Status: Former Tobacco user Years Smoked: 48 yrs Advance Directives: Yes Advance Directives on File: Yes Advance Directives Date on File: 02/10/21 Current occupational status: retired and disabled Meds Allergies Allergy/AdvReac Type Severity Reaction Status Date / Time thiopental [SODIUM PENTOTHAL] Allergy Severe VIOLENCE Verified 12/02/20 13:54 Home Medications Medication Instructions Recorded Confirmed Last Taken Type acetaminophen 300 mg-codeine 30 mg 1 tab PO BID PRN 02/12/20 02/10/21 Unknown History tablet aspirin 81 mg tablet,delayed 81 mg PO DAILY 02/12/20 02/10/21 Unknown History release atorvastatin 80 mg tablet 80 mg PO DAILY 02/12/20 02/10/21 Unknown History cholecalciferol (vitamin D3) 25 25 mcg PO DAILY 02/12/20 02/10/21 Unknown History mcg (1,000 unit) tablet ezetimibe 10 mg tablet 10 mg PO DAILY 02/12/20 02/10/21 Unknown History folic acid 1 mg tablet 1 mg PO DAILY 02/12/20 02/10/21 Unknown History metoprolol succinate 100 mg 100 mg PO DAILY 02/12/20 02/10/21 Unknown History tablet,extended release 24 hr montelukast 10 mg tablet 10 mg PO DAILY 02/12/20 02/10/21 Unknown History thiamine HCl (vitamin B1) 100 mg 100 mg PO DAILY 02/12/20 02/10/21 Unknown History tablet cetirizine 10 mg tablet 10 mg PO DAILY 03/22/20 02/10/21 Unknown History melatonin 5 mg tablet 5 mg PO BEDTIME 03/22/20 02/10/21 Unknown History tamsulosin 0.4 mg capsule 0.4 mg PO DAILY 03/22/20 02/10/21 Unknown History donepezil 10 mg tablet 5 mg PO DAILY tab 09/20/20 02/10/21 Unknown History diazepam 10 mg tablet 1 tab PO BID PRN 02/10/21 02/10/21 04/02/21 09:00 History fluoxetine 10 mg capsule 1 cap PO DAILY 02/10/21 02/10/21 Unknown History lisinopril 5 mg tablet 1 tab PO DAILY 02/10/21 02/10/21 Unknown History Exam Exam Date and Time: April 02, 2021 1305 Height,Weight and Vital Signs: Height 5 ft 2 in Weight 46.266 kg Airway Mallampati Class: II TM Dist: >3cm Neck ROM: Full Denture: Upper and Lower Assessment and Plan Assessment Anesthesia Assessment: Anesthesia Plan Discussed and Chart Reviewed Final Anesthetic Review Family History of Problems with Anesthesia: No History of Problems with Anesthesia: No NPO: Yes ASA Class: III Final Preanesthetic Review: No Changes in Pt Med Stat, Meds/Allgs Chart Reviewed, Consent Obtained/Reviewed and Anes Risks/Benef Reviewed Patient Risk: Intermediate Procedure Risk: Low Anesthetic Plan Anesthetic Plan: GA Disposition: Standard PACU
[2021-04-02 14:00] VITALS: BP 150/85; PULSE 66; RESP 15; TEMP 37.5; O2SAT 100
[2021-04-02 14:05] VITALS: BP 147/84; PULSE 63; RESP 16; O2SAT 100
[2021-04-02 14:10] VITALS: BP 145/81; PULSE 65; RESP 16; O2SAT 100
[2021-04-02 14:15] VITALS: BP 139/85; PULSE 62; RESP 18; O2SAT 100
[2021-04-02 14:30] VITALS: BP 140/81; PULSE 66; RESP 18; O2SAT 94
[2021-04-02 14:45] VITALS: BP 147/82; PULSE 67; RESP 18; TEMP 37; O2SAT 95
--- NOTE | 2021-04-03 08:42 | MHC.CM.PN ---
Patient d/c'd prior to being able to seen by case management.
== END 2021-04-02 15:53 ==
PROVIDERS: PCP Family Medicine; Visit Provider Internal Medicine Clinical Cardiac Electrophysiology
PROC: 0JPT0PZ Removal of Cardiac Rhythm Related Device from Trunk Subcutaneous Tissue and Fascia, Open Approach (ICD-10-PCS; CPT 33262; principal; 2021-04-02 12:00)
DX: T82.111A Breakdown (mechanical) of cardiac pulse generator (battery), initial encounter (principal); Y71.0 Diagnostic and monitoring cardiovascular devices associated with adverse incidents; Z95.810 Presence of automatic (implantable) cardiac defibrillator; I42.8 Other cardiomyopathies; Z87.891 Personal history of nicotine dependence; Z88.8 Allergy status to other drugs, medicaments and biological substances; Z79.82 Long term (current) use of aspirin; Z79.899 Other long term (current) drug therapy
CPT/HCPCS: 33262; 99204; C1722; J0696; J1100; J2250; J2405; J3010; J3370

== ENCOUNTER 2021-04-02 10:28 | Emergency (ER) | payer MEDICARE, MEDICAID, SELFPAY ==
--- NOTE | 2021-04-02 10:39 | ED_ITS ---
HPI - Extremity Injury (Upper) General Chief Complaint: Extremity Problem Stated Complaint: swollen arm Time Seen by Provider: 04/02/21 10:34 Source: patient Mode of arrival: ambulatory Limitations: no limitations History of Present Illness HPI narrative: This is a 70-year-old male past medical history significant for COPD, nonischemic cardiomyopathy presenting to the emergency department with right hand swelling and pain. Patient tells me that he fell down a flight of stairs a few weeks ago, he recently had a dressing applied to his right hand at a clinic, and since last night exprienced swelling to the area. He tells me is able to feel his fingers, he reports pain to the right hand the dorsal aspect. He tells me he noticed this yesterday. complaint: injury to: right Onset (ago): day(s) (1) Other injuries: none Handedness: right Place: home Severity: moderate Relieving factors: none Exacerbating factors: none Context: fall (a few weels ago) Associated symptoms: denies other symptoms Treatments prior to arrival: bandage Related Data Home Medications Medication Instructions Recorded Confirmed acetaminophen 300 mg-codeine 30 mg 1 tab PO BID PRN 02/12/20 02/10/21 tablet aspirin 81 mg tablet,delayed 81 mg PO DAILY 02/12/20 02/10/21 release atorvastatin 80 mg tablet 80 mg PO DAILY 02/12/20 02/10/21 cholecalciferol (vitamin D3) 25 25 mcg PO DAILY 02/12/20 02/10/21 mcg (1,000 unit) tablet ezetimibe 10 mg tablet 10 mg PO DAILY 02/12/20 02/10/21 folic acid 1 mg tablet 1 mg PO DAILY 02/12/20 02/10/21 metoprolol succinate 100 mg 100 mg PO DAILY 02/12/20 02/10/21 tablet,extended release 24 hr montelukast 10 mg tablet 10 mg PO DAILY 02/12/20 02/10/21 thiamine HCl (vitamin B1) 100 mg 100 mg PO DAILY 02/12/20 02/10/21 tablet cetirizine 10 mg tablet 10 mg PO DAILY 03/22/20 02/10/21 melatonin 5 mg tablet 5 mg PO BEDTIME 03/22/20 02/10/21 tamsulosin 0.4 mg capsule 0.4 mg PO DAILY 03/22/20 02/10/21 donepezil 10 mg tablet 5 mg PO DAILY tab 09/20/20 02/10/21 diazepam 10 mg tablet 1 tab PO BID PRN 02/10/21 02/10/21 fluoxetine 10 mg capsule 1 cap PO DAILY 02/10/21 02/10/21 lisinopril 5 mg tablet 1 tab PO DAILY 02/10/21 02/10/21 Previous Rx's Medication Instructions Recorded Advair Diskus 250 mcg-50 mcg/dose 1 inh INHALATION BID #60 ea NS 03/17/20 powder for inhalation (fluticasone propion-salmeterol) albuterol sulfate 90 mcg/actuation 1 inh INHALATION QID #8.5 g 03/17/20 aerosol inhaler (Ventolin HFA) omeprazole 40 mg capsule,delayed 40 mg PO BID 30 Days #60 cap 12/02/20 release azithromycin 500 mg tablet 500 mg PO DAILY 2 Days #2 tab 02/14/21 cefuroxime axetil 500 mg tablet 500 mg PO BID #6 tab 02/14/21 prednisone 20 mg tablet 40 mg PO DAILY 1 Days #2 tab 02/14/21 tiotropium bromide 18 mcg capsule 1 cap INHALATION DAILY #30 ea 03/09/21 with inhalation device (Spiriva with HandiHaler) Allergies Allergy/AdvReac Type Severity Reaction Status Date / Time thiopental [SODIUM PENTOTHAL] Allergy Severe VIOLENCE Verified 12/02/20 13:54 Review of Systems Review of Systems: Constitutional : No Weight loss, No Fever, No Chills, No Fatigue, No Malaise ENT/Mouth : No sore throat, No Rhinorrhea Eyes: No Eye Pain, No Swelling, No Redness Cardiovascular : No Chest Pain, No SOB, No Dyspnea on Exertion, No Orthopnea, No Edema, No Palpitations Respiratory : No Cough, No Sputum, No Wheezing Gastrointestinal : No Nausea, No Vomiting, No Diarrhea, No Constipation, No abdominal Pain, No Hematochezia, No Melena Genitourinary : No Dysuria, No Urinary Frequency, No Hematuria, Musculoskeletal : + joint pain, No Myalgias, + Joint Swelling Skin : No Skin Lesions, No rash Neuro : No Weakness, No Numbness, No Dizziness, No Headache Psych : No Anxiety/Panic, No Depression All other systems reviewed and are negative Yes all other systems are reviewed and are negative [facility] Past Medical History Attestation statement: The following information was validated with the patient. Source: old records reviewed and nursing notes reviewed Medical History COPD (chronic obstructive pulmonary disease) ICD (implantable cardioverter-defibrillator) in place Nonischemic cardiomyopathy Pulmonary nodules Surgical History History of permanent cardiac pacemaker placement Family History Family History Father CVD (cardiovascular disease) Myocardial infarct Mother CVD (cardiovascular disease) Heart disease Social History Social History Household Members: None Housing: Apartment Do you presently have visiting nurse or other home services: Yes Alcohol intake: current Alcohol intake frequency: a few times a month Patient Tobacco Use Status: Former Tobacco user Years Smoked: 48 yrs Advance Directives: Yes Advance Directives on File: Yes Advance Directives Date on File: 02/10/21 Current occupational status: retired and disabled Physical Exam Vital Signs: Vital Signs: Last Vital Signs Temp 98.7 F 04/02/21 11:06 Pulse 62 04/02/21 11:06 Resp 17 04/02/21 11:06 BP 134/74 04/02/21 11:06 Pulse Ox 98 04/02/21 11:06 BMI result Body Mass Index 20.0 VSS Appearance: Alert.? Oriented X3.? No acute distress.? Head: Normocephalic, atraumatic, no step-offs or deformities Eyes: Pupils equal, round and reactive to light.? ENT: Pharynx normal.? Neck: Normal inspection.? Neck supple.? CVS: Normal heart rate and rhythm.? Pulses normal.? Respiratory: No respiratory distress.? Breath sounds normal.? Abdomen: Soft and nontender.? Skin: Skin warm and dry.? Normal skin color.? Normal skin turgor.? Extremities: No lower extremity edema.? No calf ttp. 5/5 strength to bilateral upper and lower extremities + swelling to the dorsal aspect of the right hand, area is soft, fingers are cold. Left hand normal. Bilateral radial pulses 2+ equal and bilateral. Patient has full range of motion to all digits. Sensory and motor intact bilaterally. Back: No midline tenderness, no C-spine tenderness, full range of motion, no CVA tenderness bilaterally Neuro: Oriented X 3.? No motor deficit.? No sensory deficit. Course Reevaluation(s) Reevaluation #1: Laboratory studies obtained, they appear to be at baseline. COVID neagtive. Patient will head to the OR for ICD placement. Comfortable with discharge. Time: 11:32 MDM - Extremity Injury (Upper) MDM Narrative Medical decision making narrative: 1050 70 yo M presents with pain and swelling to right hand. Patient reports a fall few weeks ago, he was seen in outpatient clinic, who applied a dressing to the area. Scheduled for an ICD placement today at noon PE swelling to dorsal aspect of right hand. (images in PE section) Plan- this patient was evaluated by Dr. Flores, who states likely ecchyosis, unlikley clot or arterial occlusion. No need for imaging. Will obtain labs, as patient is scheduled for defibrillator placement today at noon. Medical Records Attestation: I reviewed the patient's medical records. Lab Data Attestation: I reviewed the patient's lab results. Result diagrams: 04/02/21 11:05 04/02/21 11:05 Labs: Lab Results 04/02/21 04/02/21 04/02/21 Range/Units 11:01 11:04 11:05 WBC 7.3 (4.8-10.8) X10*3/uL RBC 4.00 L (4.60-5.80) X10*6/uL Hgb 12.7 L (14.0-18.0) g/dl Hct 38.4 L (42.0-52.0) % MCV 96.0 (80.0-98.0) fL MCH 31.8 (27.0-33.0) pg MCHC 33.1 (31.0-36.0) g/dl RDW 16.0 (11.0-16.0) % Plt Count 168 (160-400) X10*3/uL MPV 9.0 L (9.4-12.4) fL Immature Gran % (Auto) 1.1 H (0.0-0.4) % Neut % (Auto) 76.9 H (45-73) % Lymph % (Auto) 13.0 L (20-40) % [place] % (Auto) 8.2 (2-11) % Eos % (Auto) 0.7 (0-4) % Baso % (Auto) 0.1 (0-2) % Lymph # (Auto) 1.0 L (1.2-4.9) X10*3/uL [place] # (Auto) 0.6 (0.1-1.2) X10*3/uL Eos # (Auto) 0.1 (0.0-0.4) X10*3/uL Baso # (Auto) 0.0 (0.0-0.2) X10*3/uL Abs Immat Gran (auto) 0.08 H (0.00-0.03) X10*3/uL Absolute Neuts (auto) 5.6 (2.0-8.3) x10*3/uL Absolute Nucleated RBC 0.000 (0.0-0.012) X10*3/uL Nucleated RBC % (auto) 0.0 (0.0-0.2) /100WBC PT 10.8 (9.9-13.0) SEC INR 1.0 (0.9-1.1) Sodium (135-145) mmol/L Potassium (3.3-5.1) mmol/L Chloride (96-108) mmol/L Carbon Dioxide (22-29) mmol/L Anion Gap (12-20) BUN (9-16) mg/dL Creatinine (0.5-1.4) mg/dL Estim Creat Clear Calc Estimated GFR Random Glucose (60-115) mg/dL Calcium (8.4-10.2) mg/dL Total Bilirubin (0.0-1.0) mg/dL AST (5-37) U/L ALT (0-40) U/L Alkaline Phosphatase (39-117) U/L Total Protein (6.5-8.0) g/dL Albumin (3.5-5.0) g/dL COVID-19 ([facility]) Negative (Negative) COVID-19 Clin Com See Note 04/02/21 Range/Units 11:05 WBC (4.8-10.8) X10*3/uL RBC (4.60-5.80) X10*6/uL Hgb (14.0-18.0) g/dl Hct (42.0-52.0) % MCV (80.0-98.0) fL MCH (27.0-33.0) pg MCHC (31.0-36.0) g/dl RDW (11.0-16.0) % Plt Count (160-400) X10*3/uL MPV (9.4-12.4) fL Immature Gran % (Auto) (0.0-0.4) % Neut % (Auto) (45-73) % Lymph % (Auto) (20-40) % [place] % (Auto) (2-11) % Eos % (Auto) (0-4) % Baso % (Auto) (0-2) % Lymph # (Auto) (1.2-4.9) X10*3/uL [place] # (Auto) (0.1-1.2) X10*3/uL Eos # (Auto) (0.0-0.4) X10*3/uL Baso # (Auto) (0.0-0.2) X10*3/uL Abs Immat Gran (auto) (0.00-0.03) X10*3/uL Absolute Neuts (auto) (2.0-8.3) x10*3/uL Absolute Nucleated RBC (0.0-0.012) X10*3/uL Nucleated RBC % (auto) (0.0-0.2) /100WBC PT (9.9-13.0) SEC INR (0.9-1.1) Sodium 140 (135-145) mmol/L Potassium 4.3 (3.3-5.1) mmol/L Chloride 105 (96-108) mmol/L Carbon Dioxide 29 (22-29) mmol/L Anion Gap 10 L (12-20) BUN 18 H (9-16) mg/dL Creatinine 0.70 (0.5-1.4) mg/dL Estim Creat Clear Calc 76.6 Estimated GFR > 60 Random Glucose 102 (60-115) mg/dL Calcium 8.5 (8.4-10.2) mg/dL Total Bilirubin 0.4 (0.0-1.0) mg/dL AST 13 (5-37) U/L ALT 19 (0-40) U/L Alkaline Phosphatase 82 (39-117) U/L Total Protein 5.6 L (6.5-8.0) g/dL Albumin 3.3 L (3.5-5.0) g/dL COVID-19 ([facility]) (Negative) COVID-19 Clin Com Critical Care Time Critical Care Time Critical Care Time: No Discharge Plan Discharge Clinical Impression: Ecchymosis, Hand swelling Patient Disposition: Home, Self-Care Instructions: Ecchymosis (ED) Additional Instructions: Take your medications as prescribed. If you were prescribed antibiotics today, it is important that you take your medication to their entirety, do not skip any doses, do not finish them early. Follow-up with your primary care provider this week. Return to the emergency department with new or worsening symptoms. In case of emergency call 911 Prescriptions: No Action albuterol sulfate [Ventolin HFA] 90 mcg/actuation HFA aerosol inhaler 1 inh inhalation QID Qty: 8.5 RF: 0 fluticasone propion-salmeterol [Advair Diskus] 250-50 mcg/dose blister with device 1 inh inhalation BID Qty: 60 RF: 3 Spiriva with HandiHaler 18 mcg capsule, w/inhalation device 1 cap inhalation DAILY Qty: 30 RF: 6 fluoxetine 10 mg capsule 1 cap PO DAILY RF: 0 lisinopril 5 mg tablet 1 tab PO DAILY RF: 0 diazepam 10 mg tablet 1 tab PO BID PRN (Reason: Anxiety) RF: 0 prednisone 20 mg Tablet 40 mg PO DAILY 1 Days Qty: 2 RF: 0 azithromycin 500 mg tablet 500 mg PO DAILY 2 Days Qty: 2 RF: 0 cefuroxime axetil 500 mg tablet 500 mg PO BID Qty: 6 RF: 0 cetirizine 10 mg tablet 10 mg PO DAILY RF: 0 tamsulosin 0.4 mg capsule 0.4 mg PO DAILY RF: 0 melatonin 5 mg tablet 5 mg PO BEDTIME RF: 0 aspirin 81 mg tablet,delayed release (DR/EC) 81 mg PO DAILY RF: 0 atorvastatin 80 mg tablet 80 mg PO DAILY RF: 0 metoprolol succinate 100 mg tablet extended release 24 hr 100 mg PO DAILY RF: 0 folic acid 1 mg tablet 1 mg PO DAILY RF: 0 montelukast 10 mg tablet 10 mg PO DAILY RF: 0 cholecalciferol (vitamin D3) 25 mcg (1,000 unit) tablet 25 mcg PO DAILY RF: 0 ezetimibe 10 mg tablet 10 mg PO DAILY RF: 0 thiamine HCl (vitamin B1) 100 mg tablet 100 mg PO DAILY RF: 0 acetaminophen-codeine 300-30 mg tablet 1 tab PO BID PRN (Reason: Pain) RF: 0 donepezil 10 mg tablet 5 mg PO DAILY RF: 0 omeprazole 40 mg capsule,delayed release(DR/EC) 40 mg PO BID 30 Days Qty: 60 RF: 6 Referrals: Physician,Unknown J [Primary Care Provider] - 2 days
[2021-04-02 10:42] VITALS: BP 124/80; BP 141/77; PULSE 65; RESP 18; TEMP 36.8; O2SAT 97
[2021-04-02 11:06] VITALS: BP 134/74; PULSE 62; RESP 17; TEMP 37.1; O2SAT 98
[2021-04-02 11:11] LABS: MANUAL DIFF FLAG NO
[2021-04-02 11:12] LABS: Basophils Percent Auto 0.1 % (0-2); Eosinophils Absolute Auto 0.1 X10*3/uL (0.0-0.4); Eosinophils Percent Auto 0.7 % (0-4); Hematocrit 38.4 % (42.0-52.0); Hemoglobin 12.7 g/dl (14.0-18.0); Imm Gran Abs Auto 0.08 X10*3/uL (0.00-0.03); Imm Gran Pct Auto 1.1 % (0.0-0.4); Mean Corpuscular HGB Conc 33.1 g/dl (31.0-36.0); Mean Corpuscular Hemoglobin 31.8 pg (27.0-33.0); Monocytes Absolute Auto 0.6 X10*3/uL (0.1-1.2); Monocytes Percent Auto 8.2 % (2-11); Neutrophils Absolute Auto 5.6 x10*3/uL (2.0-8.3); Neutrophils Percent Auto 76.9 % (45-73); Platelet Count 168 X10*3/uL (160-400); White Blood Count 7.3 X10*3/uL (4.8-10.8)
[2021-04-02 11:29] LABS: Alanine Aminotransferase 19 U/L (0-40); Albumin Level 3.3 g/dL (3.5-5.0); Alkaline Phosphatase 82 U/L (39-117); Anion Gap 10 (12-20); Aspartate Amino Transferase 13 U/L (5-37); Bilirubin Total 0.4 mg/dL (0.0-1.0); Blood Urea Nitrogen 18 mg/dL (9-16); Calcium 8.5 mg/dL (8.4-10.2); Carbon Dioxide 29 mmol/L (22-29); Chloride 105 mmol/L (96-108); Creatinine Clr Calc Pharmacy 76.6; Estimated Glomerular Filt Rate > 60; Glucose Random 102 mg/dL (60-115); Potassium 4.3 mmol/L (3.3-5.1); Sodium 140 mmol/L (135-145); Total Protein 5.6 g/dL (6.5-8.0)
[2021-04-02 11:31] LABS: COVID-19 Test Negative (Negative)
[2021-04-02 11:31] LABS: Prothrombin Time 10.8 SEC (9.9-13.0)
== END 2021-04-02 11:48 | disposition home or self-care (01) ==
LOC: HO.ED 11:07
PROVIDERS: Physician Assistant; Emergency Provider Internal Medicine
DX: M79.641 Pain in right hand (principal); S60.221A Contusion of right hand, initial encounter; W10.8XXA Fall (on) (from) other stairs and steps, initial encounter; M79.89 Other specified soft tissue disorders; Z20.822 Contact with and (suspected) exposure to COVID-19; Y93.9 Activity, unspecified; Y92.9 Unspecified place or not applicable; Y99.9 Unspecified external cause status
CPT/HCPCS: 80053; 85025; 85610; 87635; 99283

== ENCOUNTER → 2021-05-04 12:33 | Outpatient (BNVA) | payer MEDICARE, MEDICAID, SELFPAY | PROVIDERS: PCP Nurse Practitioner Family; Visit Provider Nurse Practitioner Family | DX: Z45.02 Encounter for adjustment and management of automatic implantable cardiac defibrillator (principal); Z51.89 Encounter for other specified aftercare; I42.8 Other cardiomyopathies; N52.9 Male erectile dysfunction, unspecified | CPT/HCPCS: 99212 ==

== ENCOUNTER 2021-05-13 11:04 | Inpatient (IN) | payer MEDICARE, MEDICAID, SELFPAY ==
[2021-05-13] VITALS (8 sets, daily range): BP systolic 96–116; BP diastolic 55–65; PULSE 84–108; RESP 18–32; TEMP 36.1–37.2; O2SAT 93–100; BMI 18.0
--- NOTE | ~2021-05-13 | XR_ITS ---
EXAMINATION: XR CHEST CLINICAL INFORMATION: Shortness of breath with cough COMPARISON: February 10, 2021 TECHNIQUE: AP portable view of the chest was obtained. FINDINGS: Lungs are hyperinflated. There is scarring/atelectasis seen at the lung bases right greater than left. There appears to be a region of superimposed airspace disease with question small effusion at the right base.. Calcific granuloma is present within the right upper lobe. Emphysematous change is evident. No pneumothorax . Heart normal size. No evidence of pulmonary edema. AICD in place. Status post previous cervical spine surgery. There has been clearing of left base disease seen on study of February 10, 2021. XR/XR chest 1V IMPRESSION: COPD Small focus of disease with question small pleural effusion right base. Old granulomatous disease.
--- NOTE | 2021-05-13 11:53 | ECG_ITS ---
Test Reason : SOB Blood Pressure : / mmHG Vent. Rate : 086 BPM Atrial Rate : 086 BPM P-R Int : 120 ms QRS Dur : 082 ms QT Int : 646 ms P-R-T Axes : 070 074 070 degrees QTc Int : 773 ms Normal sinus rhythm Nonspecific ST and T wave abnormality Abnormal ECG When compared with ECG of 10-FEB-2021 14:53, T wave inversion now evident in Anterior leads QT has lengthened Referred By: Shelley Preciado Electronically Signed By:PRADEEP ABEBE MD
[2021-05-13] MEDS: Albuterol/Iprat 2.5/0.5MG 3 ML AMPUL.NEB INHALE ×2 (12:07→14:58)
[2021-05-13 12:08] LABS: MANUAL DIFF FLAG NO
[2021-05-13 12:14] LABS: Basophils Absolute Auto 0.1 X10*3/uL (0.0-0.2); Basophils Percent Auto 0.4 % (0-2); Eosinophils Percent Auto 0.2 % (0-4); Hemoglobin 13.1 g/dl (14.0-18.0); Imm Gran Abs Auto 0.12 X10*3/uL (0.00-0.03); Imm Gran Pct Auto 0.9 % (0.0-0.4); Lymphocytes Absolute Auto 1.1 X10*3/uL (1.2-4.9); Lymphocytes Percent Auto 8.4 % (20-40); Mean Corpuscular HGB Conc 32.8 g/dl (31.0-36.0); Mean Corpuscular Hemoglobin 31.7 pg (27.0-33.0); Mean Corpuscular Volume 96.9 fL (80.0-98.0); Mean Platelet Volume 9.2 fL (9.4-12.4); Monocytes Absolute Auto 1.2 X10*3/uL (0.1-1.2); Monocytes Percent Auto 8.9 % (2-11); Neutrophils Absolute Auto 10.8 x10*3/uL (2.0-8.3); Neutrophils Percent Auto 81.2 % (45-73); Platelet Count 236 X10*3/uL (160-400); Red Blood Count 4.13 X10*6/uL (4.60-5.80); White Blood Count 13.4 X10*3/uL (4.8-10.8)
[2021-05-13 12:20] LABS: Lactic Acid 1.7 mmol/L (0.5-2.0)
[2021-05-13 12:25] LABS: Alanine Aminotransferase 12 U/L (0-40); Albumin Level 3.3 g/dL (3.5-5.0); Alkaline Phosphatase 96 U/L (39-117); Anion Gap 11 (12-20); Aspartate Amino Transferase 17 U/L (5-37); Bilirubin Direct 0.3 mg/dL (0.0-0.5); Bilirubin Total 0.6 mg/dL (0.0-1.0); Blood Urea Nitrogen 18 mg/dL (9-16); Carbon Dioxide 30 mmol/L (22-29); Chloride 103 mmol/L (96-108); Creatinine Clr Calc Pharmacy 69.1; Estimated Glomerular Filt Rate > 60; Glucose Random 105 mg/dL (60-115); Magnesium 1.6 mg/dL (1.6-2.6); Sodium 141 mmol/L (135-145); Total Protein 5.6 g/dL (6.5-8.0)
[2021-05-13 12:29] LABS: B Type Natriuretic Peptide 145 pg/mL (<100); Troponin-I High Sensitivity 4.4 ng/L (<3.5-35.0)
[2021-05-13] MEDS: methylPREDNISolone Sod Succ 125 MG/2 ML VIAL IVPUSH (12:32)
[2021-05-13] MEDS: Magnesium Sulfate/H2O 2 GM/50 ML PIGGYBACK IV (12:33)
[2021-05-13 12:50] LABS: Influenza A PCR NEGATIVE (Negative); Influenza B PCR NEGATIVE (Negative); Resp Syncy Virus RNA Qual PCR NEGATIVE (Negative); SARS COV2 PCR INHOUSE NEGATIVE (Negative)
[2021-05-13] MEDS: cefEPime HCl 2 GM in 0.9 % Sodium Chloride 50 ML IV (12:57)
--- NOTE | 2021-05-13 13:14 | PHA.MEDREC ---
Pharmacy Consult ? Medication Reconciliation Pharmacy has completed the medication reconciliation. Patient reports he know none of his medications. Reports he takes what is picked up at the pharmacy. He allegedly fills at two pharmacy [facility] and [facility] [place], however the claim history has a mail order as well. Patient had an order of Fluoxetine 20m x 90 days in February and Fluoxetine 10 mg filled March. Prescriber's office currently closed but will call to confirm if patient should be on both. Juli Hanna, FarhanD
--- NOTE | 2021-05-13 13:26 | ED.URI ---
HPI - URI/Sore Throat General Chief Complaint: Upper Respiratory Symptoms Stated Complaint: shortness of breath Time Seen by Provider: 05/13/21 11:33 Source: patient and EMS Mode of arrival: EMS History of Present Illness HPI Narrative: 70-year-old male with a past medical history of COPD, nonischemic cardiomyopathy s/p ICD implantation, CAP in 01/2021, BIBA c/o continued cough, SOB, congestion, generalized fatigue/weakness x 3 days. Denies fever, chills, abdominal pain, nausea / vomiting, pedal edema, COVID-19 exposure. Is fully vaccinated for COVID-19 with booster MD elicited complaint: cough Pertinent past history: COPD Onset (ago): day(s) Related Data Home Medications Medication Instructions Recorded Confirmed acetaminophen 300 mg-codeine 30 mg 1 tab PO BID PRN 02/12/20 05/13/21 tablet aspirin 81 mg tablet,delayed 81 mg PO DAILY 02/12/20 05/13/21 release atorvastatin 80 mg tablet 80 mg PO DAILY 02/12/20 05/13/21 cholecalciferol (vitamin D3) 25 25 mcg PO DAILY 02/12/20 05/13/21 mcg (1,000 unit) tablet folic acid 1 mg tablet 1 mg PO DAILY 02/12/20 05/13/21 metoprolol succinate 100 mg 100 mg PO DAILY 02/12/20 05/13/21 tablet,extended release 24 hr montelukast 10 mg tablet 10 mg PO DAILY 02/12/20 05/13/21 thiamine HCl (vitamin B1) 100 mg 100 mg PO DAILY 02/12/20 05/13/21 tablet cetirizine 10 mg tablet 10 mg PO DAILY 03/22/20 05/13/21 tamsulosin 0.4 mg capsule 0.8 mg PO DAILY 03/22/20 05/13/21 donepezil 10 mg tablet 5 mg PO DAILY tab 09/20/20 05/13/21 diazepam 10 mg tablet 1 tab PO BID PRN 02/10/21 05/13/21 fluoxetine 10 mg capsule 1 cap PO DAILY 02/10/21 05/13/21 oxycodone 5 mg tablet 1 tab PO DAILY PRN 05/13/21 05/13/21 Previous Rx's Medication Instructions Recorded Advair Diskus 250 mcg-50 mcg/dose 1 inh INHALATION BID #60 ea NS 03/17/20 powder for inhalation (fluticasone propion-salmeterol) albuterol sulfate 90 mcg/actuation 1 inh INHALATION QID #8.5 g 03/17/20 aerosol inhaler (Ventolin HFA) omeprazole 40 mg capsule,delayed 40 mg PO BID 30 Days #60 cap 12/02/20 release tiotropium bromide 18 mcg capsule 1 cap INHALATION DAILY #30 ea 03/09/21 with inhalation device (Spiriva with HandiHaler) Allergies Allergy/AdvReac Type Severity Reaction Status Date / Time thiopental [SODIUM PENTOTHAL] Allergy Severe VIOLENCE Verified 05/04/21 12:36 Review of Systems Review of Systems: Constitutional: No Fever, No Chills, + Fatigue, No Malaise ENT/Mouth: No Ear Pain, No Nasal Congestion, No Sinus Pain, No Hoarseness, No sore throat, No Rhinorrhea Eyes: No Eye Pain, No Swelling, No Redness, No Discharge Cardiovascular: No Chest Pain, + SOB, No Dyspnea on Exertion, No Orthopnea, No Edema, No Palpitations Respiratory: + Cough, No Sputum, + Wheezing, No Smoke Exposure, + Dyspnea Gastrointestinal: No Nausea, No Vomiting, No Diarrhea, No Constipation, No Abdominal pain Genitourinary: No Dysuria, No Urinary Frequency, No Urgency, No Flank Pain Musculoskeletal: No joint pain, No Myalgias, No Joint Swelling Skin: No Skin Lesions, No rash Neuro: +generalized Weakness, No Loss of Consciousness, No Dizziness, No Headache Yes all other systems are reviewed and are negative [facility], [facility] Past Medical History Attestation statement: The following information was validated with the patient. Medical History COPD (chronic obstructive pulmonary disease) ICD (implantable cardioverter-defibrillator) in place Nonischemic cardiomyopathy Pulmonary nodules Surgical History History of permanent cardiac pacemaker placement Family History Family History Father CVD (cardiovascular disease) Myocardial infarct Mother CVD (cardiovascular disease) Heart disease Social History Social History Household Members: None Housing: Apartment Do you presently have visiting nurse or other home services: Yes Alcohol intake: former Patient Tobacco Use Status: Former Tobacco user Years Smoked: 48 yrs Advance Directives: Yes Advance Directives on File: Yes Advance Directives Date on File: 02/10/21 Current occupational status: retired and disabled Physical Exam Vital Signs: Vital Signs: Last Vital Signs Temp 97.6 F 05/13/21 11:12 Pulse 88 05/13/21 12:07 Resp 25 H 05/13/21 12:07 BP 115/65 05/13/21 11:12 Pulse Ox 100 05/13/21 11:21 Oxygen Flow Rate 2 05/13/21 11:21 BMI result Body Mass Index 18.0 Const: General: cooperative and ill appearing Nutritional Appearance: cachectic Orientation/consciousness: patient oriented x3 Limitations: no limitations HENMT: Head: Yes normal to inspection Ears: hearing grossly normal bilaterally General nose exam: Normal external nose present Face and sinus: Yes normal facial exam Eyes: General: appearance normal, both eyes and all related structures EOM: EOMs intact bilaterally Neck: Neck: Yes normal visual inspection and Yes no meningeal signs Resp: Effort & Inspection: labored and tachypneic Auscultation: rhonchi throughout and wheezes throughout Cardio: Rate: regular rate Heart sounds: S1 normal heart sound present and S2 normal heart sound present GI: Inspection: Yes normal to inspection Palpation (GI): Soft to palpation, nontender, no guarding and not rigid Skin: Rashes: no rashes Wounds: no wounds Neuro: General: patient oriented x3 and no meningeal signs Gait exam (Neuro): Normal gait present Extrem: General: Yes normal to inspection, Yes no pedal edema and Yes no calf tenderness Course Course Course Narrative: -1345-- noted leukocytosis of 13.4. H&H stable. Potassium low at 3.0 > 60mEq p.o. repletion ordered. BNP at patient's baseline. Labs otherwise unremarkable - lactic acid negative. COVID-19/influenza/ RSV negative XR chest 1V IMPRESSION: COPD Small focus of disease with question small pleural effusion right base. Old granulomatous disease. >> patient covered with empiric Cefepime due to recent STR placement MDM - URI/Sore Throat MDM Narrative Medical decision making narrative: 70-year-old male with a past medical history of COPD, nonischemic cardiomyopathy s/p ICD implantation, CAP in 01/2021, BIBA c/o continued cough, SOB, congestion, generalized fatigue/weakness x 3 days. on exam tachypneic, labored, coarse lung sounds with rhonchi and wheezing throughout, no pedal edema. Concern for COPD exacerbation vs viral syndrome/COVID-19 vs pneumonia. Lower concern for ACS/PE plan: EKG, labs, CXR, COVID-19 testing, IV Solu-Medrol, magnesium, DuoNeb, anticipated admission Differential Diagnosis Differential diagnosis: Likely upper respiratory infection, viral infection, bronchitis and influenza Medical Records Attestation: I reviewed the patient's medical records. Lab Data Attestation: I reviewed the patient's lab results. Result diagrams: 05/13/21 12:02 05/13/21 12:02 Labs: Lab Results 05/13/21 05/13/21 05/13/21 Range/Units 12:02 12:02 12:02 WBC 13.4 H (4.8-10.8) X10*3/uL RBC 4.13 L (4.60-5.80) X10*6/uL Hgb 13.1 L (14.0-18.0) g/dl Hct 40.0 L (42.0-52.0) % MCV 96.9 (80.0-98.0) fL MCH 31.7 (27.0-33.0) pg MCHC 32.8 (31.0-36.0) g/dl RDW 14.0 (11.0-16.0) % Plt Count 236 D (160-400) X10*3/uL MPV 9.2 L (9.4-12.4) fL Immature Gran % (Auto) 0.9 H (0.0-0.4) % Neut % (Auto) 81.2 H (45-73) % Lymph % (Auto) 8.4 L (20-40) % [place] % (Auto) 8.9 (2-11) % Eos % (Auto) 0.2 (0-4) % Baso % (Auto) 0.4 (0-2) % Lymph # (Auto) 1.1 L (1.2-4.9) X10*3/uL [place] # (Auto) 1.2 (0.1-1.2) X10*3/uL Eos # (Auto) 0.0 (0.0-0.4) X10*3/uL Baso # (Auto) 0.1 (0.0-0.2) X10*3/uL Abs Immat Gran (auto) 0.12 H (0.00-0.03) X10*3/uL Absolute Neuts (auto) 10.8 H (2.0-8.3) x10*3/uL Absolute Nucleated RBC 0.000 (0.0-0.012) X10*3/uL Nucleated RBC % (auto) 0.0 (0.0-0.2) /100WBC Sodium 141 (135-145) mmol/L Potassium 3.0 L D (3.3-5.1) mmol/L Chloride 103 (96-108) mmol/L Carbon Dioxide 30 H (22-29) mmol/L Anion Gap 11 L (12-20) BUN 18 H (9-16) mg/dL Creatinine 0.66 (0.5-1.4) mg/dL Estim Creat Clear Calc 69.1 Estimated GFR > 60 Random Glucose 105 (60-115) mg/dL Lactic Acid 1.7 (0.5-2.0) mmol/L Calcium 8.0 L (8.4-10.2) mg/dL Magnesium 1.6 (1.6-2.6) mg/dL Total Bilirubin 0.6 (0.0-1.0) mg/dL Direct Bilirubin 0.3 (0.0-0.5) mg/dL AST 17 (5-37) U/L ALT 12 (0-40) U/L Alkaline Phosphatase 96 (39-117) U/L Troponin I High Sens (<3.5-35.0) ng/L B-Natriuretic Peptide (<100) pg/mL Total Protein 5.6 L (6.5-8.0) g/dL Albumin 3.3 L (3.5-5.0) g/dL Influenza Type A (PCR) (Negative) Influenza Type B (PCR) (Negative) RSV RNA Qual (PCR) (Negative) SARS-CoV-2 RNA (RT-PCR) (Negative) 05/13/21 05/13/21 Range/Units 12:02 12:02 WBC (4.8-10.8) X10*3/uL RBC (4.60-5.80) X10*6/uL Hgb (14.0-18.0) g/dl Hct (42.0-52.0) % MCV (80.0-98.0) fL MCH (27.0-33.0) pg MCHC (31.0-36.0) g/dl RDW (11.0-16.0) % Plt Count (160-400) X10*3/uL MPV (9.4-12.4) fL Immature Gran % (Auto) (0.0-0.4) % Neut % (Auto) (45-73) % Lymph % (Auto) (20-40) % [place] % (Auto) (2-11) % Eos % (Auto) (0-4) % Baso % (Auto) (0-2) % Lymph # (Auto) (1.2-4.9) X10*3/uL [place] # (Auto) (0.1-1.2) X10*3/uL Eos # (Auto) (0.0-0.4) X10*3/uL Baso # (Auto) (0.0-0.2) X10*3/uL Abs Immat Gran (auto) (0.00-0.03) X10*3/uL Absolute Neuts (auto) (2.0-8.3) x10*3/uL Absolute Nucleated RBC (0.0-0.012) X10*3/uL Nucleated RBC % (auto) (0.0-0.2) /100WBC Sodium (135-145) mmol/L Potassium (3.3-5.1) mmol/L Chloride (96-108) mmol/L Carbon Dioxide (22-29) mmol/L Anion Gap (12-20) BUN (9-16) mg/dL Creatinine (0.5-1.4) mg/dL Estim Creat Clear Calc Estimated GFR Random Glucose (60-115) mg/dL Lactic Acid (0.5-2.0) mmol/L Calcium (8.4-10.2) mg/dL Magnesium (1.6-2.6) mg/dL Total Bilirubin (0.0-1.0) mg/dL Direct Bilirubin (0.0-0.5) mg/dL AST (5-37) U/L ALT (0-40) U/L Alkaline Phosphatase (39-117) U/L Troponin I High Sens 4.4 (<3.5-35.0) ng/L B-Natriuretic Peptide 145 H (<100) pg/mL Total Protein (6.5-8.0) g/dL Albumin (3.5-5.0) g/dL Influenza Type A (PCR) NEGATIVE (Negative) Influenza Type B (PCR) NEGATIVE (Negative) RSV RNA Qual (PCR) NEGATIVE (Negative) SARS-CoV-2 RNA (RT-PCR) NEGATIVE (Negative) Critical Care Time Critical Care Time Critical Care Time: Yes Total Critical Care Time: 50 Attestation: I have personally provided critical care time exclusive of time spent on separately billable procedures. Time includes review of lab data, radiology results, discussion with consultants, and monitoring for potential decompensation. Intervention performed as documented. Discharge Plan Discharge Clinical Impression: COPD (chronic obstructive pulmonary disease) Patient Disposition: Admitted As Inpatient
--- NOTE | 2021-05-13 14:05 | PC.NURSE ---
patient skin cleansed and linens changed. patient has noted redness to sacral area, barrier cream applied. incontinent of stool. no noted blood, brown in color.
[2021-05-13] MEDS: Potassium Chloride Packet 20 MEQ PACKET 60 MEQ PO (14:17)
[2021-05-13] MEDS: Albuterol Sulfate (0.083%) 2.5 MG/3 ML VIAL.NEB 5 MG INHALE (14:58)
[2021-05-13] MEDS: 0.9 % Sodium Chloride 500 ML 999 ML IV (15:02)
[2021-05-13] MEDS: diazePAM 5 MG TABLET 10 MG PO (15:05)
[2021-05-13] MEDS: Doxycycline Hyclate 100 MG in 0.9 % Sodium Chloride 250 ML 166.67 MG IV (15:06)
--- NOTE | 2021-05-13 15:13 | PM.IMHP ---
History of Present Illness Date of Service: 05/13/21 Chief Complaint: dyspnea, cough 70yo M with COPD with chronic cough, NICM s/p ICD [LVEF 07/27/20 >50%] presenting with 36 hr of worsening fatigue, weakness, nonproductive cough, dyspnea, and wheeze. Occasional diarrhea as well. No abdominal pain, nausea, or vomiting. No chest pain. Patient has been fully vaccinated against Covid-19 including booster. In the ED, he was found to be in moderate respiratory distress and tachypneic. CXR showed an infiltrate at the R lung base with possible small pleural effusion. He was last admitted here 02/11-02/14/21 with CAP and COPD exacerbation along with FTT. He was discharged to [facility] for STR. Currently lives alone with his cat and not on home oxygen. No current PCP [prior PCP, Abdias Griffin, is no longer in primary care] and he sees Dr Arroyo for Pulmonology and Dr Iniguez for Cardiology. He quit smoking 10 yr ago and drinking alcohol 12 wk ago. In the ED he was given Duoneb, methylprednisolone, cefepime, magnesium, and potassium for K 3.0. WBC 13.4. Covid-19 PCR negative. Review of Systems Review of Systems: Yes all other systems are reviewed and are negative [facility] Medical History COPD (chronic obstructive pulmonary disease) ICD (implantable cardioverter-defibrillator) in place Nonischemic cardiomyopathy Pulmonary nodules Family History Father CVD (cardiovascular disease) Myocardial infarct Mother CVD (cardiovascular disease) Heart disease Surgical History History of permanent cardiac pacemaker placement Social History Household Members: None Housing: Apartment Do you presently have visiting nurse or other home services: Yes Alcohol intake: former Patient Tobacco Use Status: Former Tobacco user Years Smoked: 48 yrs Advance Directives: Yes Advance Directives on File: Yes Advance Directives Date on File: 02/10/21 Current occupational status: retired and disabled Meds Allergies Allergy/AdvReac Type Severity Reaction Status Date / Time thiopental [SODIUM PENTOTHAL] Allergy Severe VIOLENCE Verified 05/04/21 12:36 Active Medications: Current Medications Acetaminophen (Acetaminophen 325 Mg Tablet) 650 mg PO Q6H PRN PRN Reason: Pain, Mild (Pain Scale 1-3) Albuterol Sulfate (Albuterol Sulfate (0.083%) 2.5 Mg/3 Ml Vial.Neb) 2.5 mg INHALE Q2H PRN PRN Reason: Shortness of Breath/Wheezing Albuterol/Ipratropium (Albuterol/Iprat 2.5/0.5mg 3 Ml Ampul.Neb) 3 ml INHALE RQ4H WHILE AWAKE [facility] Aspirin (Aspirin Enteric Coated 81 Mg Tablet.Dr) 81 mg PO DAILY [facility] Atorvastatin Calcium (Atorvastatin Calcium 80 Mg Tablet) 80 mg PO DAILY [facility] Diazepam (Diazepam 5 Mg Tablet) 10 mg PO BID PRN PRN Reason: Anxiety Last Admin: 05/13/21 15:05 Dose: 10 mg Documented by: Donepezil HCl (Donepezil Hcl 5 Mg Tablet) 5 mg PO DAILY [facility] Enoxaparin Sodium (Enoxaparin Sodium 40 Mg/0.4 Ml Syringe) 40 mg SUBCUT Q24H [facility] Fluoxetine HCl (Fluoxetine Hcl 10 Mg Capsule) 10 mg PO DAILY [facility] Fluticasone/Vilanterol (Fluticasone/Vilanterol 100/25 Blst.W.Dev) 1 puff INHALE RDAILY [facility] Folic Acid (Folic Acid 1 Mg Tablet) 1 mg PO DAILY [facility] Sodium Chloride (Ns) 500 mls @ 999 mls/hr IV .Q31M [facility] Stop: 05/13/21 15:15 Last Admin: 05/13/21 15:02 Dose: 999 mls/hr Documented by: Ceftriaxone Sodium 1 gm/ (Sodium Chloride) 50 mls @ 100 mls/hr IV Q24H [facility] Doxycycline Hyclate 100 mg/ (Sodium Chloride) 250 mls @ 166.67 mls/hr IV Q12H [facility] Last Admin: 05/13/21 15:06 Dose: 166.67 mls/hr Documented by: Loratadine (Loratadine 10 Mg Tablet) 10 mg PO DAILY [facility] Methylprednisolone Sodium Succinate (Methylprednisolone Sod Succ 40 Mg/Ml Vial) 40 mg IVPUSH Q12H [facility] Metoprolol Succinate (Metoprolol Succinate Er 100 Mg Tab.Er.24h) 100 mg PO DAILY [facility]; Protocol Montelukast Sodium (Montelukast Sodium 10 Mg Tablet) 10 mg PO DAILY [facility] Omeprazole (Omeprazole 40 Mg Capsule.Dr) 40 mg PO BID@0630,1630 [facility] Ondansetron HCl (Ondansetron Hcl 4 Mg/2 Ml Vial) 4 mg IVPUSH Q8H PRN PRN Reason: Nausea and Vomiting Oxycodone HCl (Oxycodone Hcl Immed Release 5 Mg Tablet) 5 mg PO Q6H PRN PRN Reason: Pain, Severe (Pain Scale 7-10) Pharmacy Consult (Consult Rx Perform Med Rec) 1 each MISCELLANE ONCE PRN PRN Reason: Consult order Sodium Chloride (0.9 % Sodium Chloride Flush 3 Ml Syringe) 3 ml IVFLUSH QSHIFT [facility] Tamsulosin HCl (Tamsulosin Hcl 0.4 Mg Capsule) 0.8 mg PO DAILY [facility] Thiamine HCl (Thiamine Hcl 100 Mg Tablet) 100 mg PO DAILY [facility] Tiotropium [place] (Tiotropium [place] 18 Mcg Cap.W.Dev) 1 puff INHALE RDAILY [facility] Vitamin D (Cholecalciferol (Vitamin D3) 25 Mcg Tablet) 25 mcg PO DAILY [facility] Home Medications Medication Instructions Recorded Confirmed Last Taken Type acetaminophen 300 mg-codeine 30 mg 1 tab PO BID PRN 02/12/20 05/13/21 Unknown History tablet aspirin 81 mg tablet,delayed 81 mg PO DAILY 02/12/20 05/13/21 Unknown History release atorvastatin 80 mg tablet 80 mg PO DAILY 02/12/20 05/13/21 Unknown History cholecalciferol (vitamin D3) 25 25 mcg PO DAILY 02/12/20 05/13/21 Unknown History mcg (1,000 unit) tablet folic acid 1 mg tablet 1 mg PO DAILY 02/12/20 05/13/21 Unknown History metoprolol succinate 100 mg 100 mg PO DAILY 02/12/20 05/13/21 Unknown History tablet,extended release 24 hr montelukast 10 mg tablet 10 mg PO DAILY 02/12/20 05/13/21 Unknown History thiamine HCl (vitamin B1) 100 mg 100 mg PO DAILY 02/12/20 05/13/21 Unknown History tablet cetirizine 10 mg tablet 10 mg PO DAILY 03/22/20 05/13/21 Unknown History tamsulosin 0.4 mg capsule 0.8 mg PO DAILY 03/22/20 05/13/21 Unknown History donepezil 10 mg tablet 5 mg PO DAILY tab 09/20/20 05/13/21 Unknown History diazepam 10 mg tablet 1 tab PO BID PRN 02/10/21 05/13/21 04/02/21 09:00 History fluoxetine 10 mg capsule 1 cap PO DAILY 02/10/21 05/13/21 Unknown History oxycodone 5 mg tablet 1 tab PO DAILY PRN 05/13/21 05/13/21 Unknown History Physical Exam Vital Signs and Narrative: Vital Signs: Last Vital Signs Temp 97 F 05/13/21 14:20 Pulse 84 05/13/21 14:58 Resp 22 H 05/13/21 14:58 BP 96/55 L 05/13/21 14:20 Pulse Ox 97 05/13/21 14:20 Oxygen Flow Rate 2 05/13/21 11:21 BMI result Body Mass Index 18.0 Gen: in mild respiratory distress, chronically ill-apperaing HEENT: sclera anicteric, moist mucus membranes Neck: supple Lungs: diminished at R base, scattered wheezes Heart: regular rate and rhythm, no murmurs Abd: soft, non-tender, non-distended Ext: no edema Skin: warm/well-perfused Neuro: alert and oriented x3, no focal findings Psych: appropriate affect Results Labs CBC and Chem 7: 05/13/21 12:02 05/13/21 12:02 Labs: Laboratory Results - last 24 hr 05/13/21 05/13/21 05/13/21 12:02 12:02 12:02 MCV 96.9 MCH 31.7 MCHC 32.8 RDW 14.0 Plt Count 236 D MPV 9.2 L Immature Gran % (Auto) 0.9 H Neut % (Auto) 81.2 H Lymph % (Auto) 8.4 L [place] % (Auto) 8.9 Eos % (Auto) 0.2 Baso % (Auto) 0.4 Lymph # (Auto) 1.1 L [place] # (Auto) 1.2 Eos # (Auto) 0.0 Baso # (Auto) 0.1 Abs Immat Gran (auto) 0.12 H Absolute Neuts (auto) 10.8 H Absolute Nucleated RBC 0.000 Nucleated RBC % (auto) 0.0 Anion Gap 11 L Estim Creat Clear Calc 69.1 Estimated GFR > 60 Random Glucose 105 Lactic Acid 1.7 Calcium 8.0 L Magnesium 1.6 Total Bilirubin 0.6 Direct Bilirubin 0.3 AST 17 ALT 12 Alkaline Phosphatase 96 B-Natriuretic Peptide Total Protein 5.6 L Albumin 3.3 L Influenza Type A (PCR) Influenza Type B (PCR) RSV RNA Qual (PCR) SARS-CoV-2 RNA (RT-PCR) 05/13/21 05/13/21 12:02 12:02 MCV MCH MCHC RDW Plt Count MPV Immature Gran % (Auto) Neut % (Auto) Lymph % (Auto) [place] % (Auto) Eos % (Auto) Baso % (Auto) Lymph # (Auto) [place] # (Auto) Eos # (Auto) Baso # (Auto) Abs Immat Gran (auto) Absolute Neuts (auto) Absolute Nucleated RBC Nucleated RBC % (auto) Anion Gap Estim Creat Clear Calc Estimated GFR Random Glucose Lactic Acid Calcium Magnesium Total Bilirubin Direct Bilirubin AST ALT Alkaline Phosphatase B-Natriuretic Peptide 145 H Total Protein Albumin Influenza Type A (PCR) NEGATIVE Influenza Type B (PCR) NEGATIVE RSV RNA Qual (PCR) NEGATIVE SARS-CoV-2 RNA (RT-PCR) NEGATIVE ITS Impressions Chest X-Ray 05/13/21 13:00 IMPRESSION: COPD Small focus of disease with question small pleural effusion right base. Old granulomatous disease. Imaging Radiologist's Impressions: Impressions Chest X-Ray 05/13/21 13:00 IMPRESSION: COPD Small focus of disease with question small pleural effusion right base. Old granulomatous disease. Assessment and Plan (1) COPD exacerbation: Status: Acute (2) Pneumonia: Status: Acute Plan 70yo M with COPD with chronic cough, NICM s/p ICD [LVEF 07/27/20 >50%] presenting with wheezing, cough, and dyspnea, found to have pneumonia with small pleural effusion and COPD exacerbation. # pneumonia # COPD exacerbation - Admit to [facility] [place]. Ceftriaxone + doxycycline. Check blood cultures + Legionella/pneumococcal urinary antigens. Trend procalcitonin. Give IV methylprednisolone and standing/prn INDU/KARIN. Continue ICS/LABA, LAMA, montelukast. # NICM - ICD in place. Continue metoprolol succinate. Generator was changed 04/02/21 # moderate malnutrition - supplements # VTE ppx - SCDs, LMWH # code - full Quality Stroke Does the patient have a stroke diagnosis?: No VTE Prior VTE?: No VTE Risk Level:: Medical - moderate - high VTE Device Contraindication: N/A - Device Ordered VTE Drug Contraindication: N/A - Med Ordered
[2021-05-13 15:23] LABS: Procalcitonin 0.22 ng/mL
--- NOTE | 2021-05-13 15:43 | PC.NURSE ---
patient rotated onto left side at this time to alleviate discomfort to rectal area
[2021-05-13] MEDS: 0.9 % Sodium Chloride Flush 3 ML SYRINGE IVFLUSH (17:02)
[2021-05-13] MEDS: cefTRIAXone sodium 1 GM in 0.9 % Sodium Chloride 50 ML IV (20:19)
[2021-05-13] MEDS: Enoxaparin Sodium 40 MG/0.4 ML SYRINGE SUBCUT (20:21)
--- NOTE | 2021-05-13 22:05 | PC.NURSE ---
Assumed care of pt from main ED. Pt resting in bed, in NAD, vitals as charted. Attached to ekg monitor tech and pulse ox. Given phone per request. Call light at hand, denies further needs. Awaiting inpatient bed assignment
[2021-05-14] VITALS (8 sets, daily range): BP systolic 102–123; BP diastolic 53–69; PULSE 67–86; RESP 12–16; TEMP 36.3–36.7; O2SAT 95–98
[2021-05-14] MEDS: methylPREDNISolone Sod Succ 40 MG/ML VIAL IVPUSH ×2 (01:53→13:11)
[2021-05-14] MEDS: Doxycycline Hyclate 100 MG in 0.9 % Sodium Chloride 250 ML 166.67 MG IV ×2 (03:55→17:14)
[2021-05-14 06:47] LABS: Venous Blood Gas Refer to POC result
[2021-05-14 06:48] LABS: VBG Base Excess 2.3 mmol/L; VBG HCO3 26 mmol/L (22-26); VBG pCO2 37 mmHg; VBG pH 7.44 (7.32-7.43); VBG pO2 110 mmHg
[2021-05-14 06:50] LABS: Hematocrit 35.7 % (42.0-52.0); Hemoglobin 11.9 g/dl (14.0-18.0); Mean Corpuscular HGB Conc 33.3 g/dl (31.0-36.0); Mean Corpuscular Hemoglobin 32.2 pg (27.0-33.0); Mean Corpuscular Volume 96.5 fL (80.0-98.0); Mean Platelet Volume 8.9 fL (9.4-12.4); Platelet Count 207 X10*3/uL (160-400); Red Cell Distribution Width 13.7 % (11.0-16.0); White Blood Count 7.2 X10*3/uL (4.8-10.8)
[2021-05-14 07:12] LABS: Anion Gap 10 (12-20); Blood Urea Nitrogen 12 mg/dL (9-16); Calcium 8.2 mg/dL (8.4-10.2); Carbon Dioxide 26 mmol/L (22-29); Chloride 107 mmol/L (96-108); Estimated Glomerular Filt Rate > 60; Glucose Random 157 mg/dL (60-115); Potassium 3.8 mmol/L (3.3-5.1); Sodium 139 mmol/L (135-145)
[2021-05-14] MEDS: Albuterol/Iprat 2.5/0.5MG 3 ML AMPUL.NEB INHALE ×3 (08:03→19:37)
[2021-05-14] MEDS: diazePAM 5 MG TABLET 10 MG PO ×2 (09:28→21:44)
[2021-05-14] MEDS: Metoprolol Succinate ER 100 MG TAB.ER.24H PO (09:29)
[2021-05-14] MEDS: Cholecalciferol (Vitamin D3) 25 MCG TABLET PO (09:29)
[2021-05-14] MEDS: Tamsulosin HCL 0.4 MG CAPSULE 0.8 MG PO (09:29)
[2021-05-14] MEDS: Folic Acid 1 MG TABLET PO (09:30)
[2021-05-14] MEDS: Donepezil HCl 5 MG TABLET PO (09:30)
[2021-05-14] MEDS: Atorvastatin Calcium 80 MG TABLET PO (09:30)
[2021-05-14] MEDS: Aspirin Enteric Coated 81 MG TABLET.DR PO (09:30)
[2021-05-14] MEDS: FLUoxetine HCl 20 MG CAPSULE PO (09:30)
[2021-05-14] MEDS: Loratadine 10 MG TABLET PO (09:30)
[2021-05-14] MEDS: Thiamine HCL 100 MG TABLET PO (09:30)
[2021-05-14] MEDS: 0.9 % Sodium Chloride Flush 3 ML SYRINGE IVFLUSH (09:30)
[2021-05-14] MEDS: Montelukast Sodium 10 MG TABLET PO (09:46)
--- NOTE | 2021-05-14 14:24 | HO.PM.IMPN ---
Subjective Subjective Date of Service: 05/14/21 Interval History: Coughing + dyspneic. Somewhat improved. Review of Systems Review of Systems: Yes all other systems are reviewed and are negative Physical Exam Vital Signs: Vital Signs: Last Vital Signs Temp 97.4 F 05/14/21 10:56 Pulse 69 05/14/21 11:35 Resp 16 05/14/21 11:35 BP 113/69 05/14/21 10:56 Pulse Ox 97 05/14/21 10:56 Oxygen Flow Rate 2 05/13/21 11:21 BMI result Body Mass Index 18.0 Gen: in no acute distress HEENT: sclera anicteric, moist mucus membranes Neck: supple Lungs: diminished air entry R base, scattered wheezes Heart: regular rate and rhythm, no murmurs Abd: soft, non-tender, non-distended Ext: no edema Skin: warm/well-perfused Neuro: alert and oriented x3, no focal findings Psych: appropriate affect Objective Data Active Medications Acetaminophen (Acetaminophen 325 Mg Tablet) 650 mg PO Q6H PRN PRN Reason: Pain, Mild (Pain Scale 1-3) Albuterol Sulfate (Albuterol Sulfate (0.083%) 2.5 Mg/3 Ml Vial.Neb) 2.5 mg INHALE Q2H PRN PRN Reason: Shortness of Breath/Wheezing Albuterol/Ipratropium (Albuterol/Iprat 2.5/0.5mg 3 Ml Ampul.Neb) 3 ml INHALE RQ4H WHILE AWAKE [facility] Last Admin: 05/14/21 11:32 Dose: 3 ml Documented by: CESAR Aspirin (Aspirin Enteric Coated 81 Mg Tablet.) 81 mg PO DAILY [facility] Last Admin: 05/14/21 09:30 Dose: 81 mg Documented by: JUSTIN Atorvastatin Calcium (Atorvastatin Calcium 80 Mg Tablet) 80 mg PO DAILY [facility] Last Admin: 05/14/21 09:30 Dose: 80 mg Documented by: JUSTIN Diazepam (Diazepam 5 Mg Tablet) 10 mg PO BID@0900,2100 PRN PRN Reason: Anxiety Donepezil HCl (Donepezil Hcl 5 Mg Tablet) 5 mg PO DAILY [facility] Last Admin: 05/14/21 09:30 Dose: 5 mg Documented by: JUSTIN Enoxaparin Sodium (Enoxaparin Sodium 40 Mg/0.4 Ml Syringe) 40 mg SUBCUT Q24H [facility] Last Admin: 05/13/21 20:21 Dose: 40 mg Documented by: ZONIA Fluoxetine HCl (Fluoxetine Hcl 20 Mg Capsule) 20 mg PO DAILY [facility] Last Admin: 05/14/21 09:30 Dose: 20 mg Documented by: JUSTIN Fluticasone/Vilanterol (Fluticasone/Vilanterol 100/25 Blst.W.Dev) 1 puff INHALE RDAILY [facility] Last Admin: 05/14/21 11:26 Dose: Not Given Documented by: CESAR Non-Admin Reason: Med Not Available Folic Acid (Folic Acid 1 Mg Tablet) 1 mg PO DAILY [facility] Last Admin: 05/14/21 09:30 Dose: 1 mg Documented by: JUSTIN Ceftriaxone Sodium 1 gm/ (Sodium Chloride) 50 mls @ 100 mls/hr IV Q24H [facility] Last Infusion: 05/13/21 22:06 Dose: 0 mls/hr Documented by: STEPHANY Doxycycline Hyclate 100 mg/ (Sodium Chloride) 250 mls @ 166.67 mls/hr IV Q12H [facility] Last Infusion: 05/14/21 06:32 Dose: 0 mls/hr Documented by: STEPHANY Loratadine (Loratadine 10 Mg Tablet) 10 mg PO DAILY [facility] Last Admin: 05/14/21 09:30 Dose: 10 mg Documented by: JUSTIN Methylprednisolone Sodium Succinate (Methylprednisolone Sod Succ 40 Mg/Ml Vial) 40 mg IVPUSH Q12H [facility] Last Admin: 05/14/21 13:11 Dose: 40 mg Documented by: JUSTIN Metoprolol Succinate (Metoprolol Succinate Er 100 Mg Tab.Er.24h) 100 mg PO DAILY [facility]; Protocol Last Admin: 05/14/21 09:29 Dose: 100 mg Documented by: JUSTIN Montelukast Sodium (Montelukast Sodium 10 Mg Tablet) 10 mg PO DAILY [facility] Last Admin: 05/14/21 09:46 Dose: 10 mg Documented by: JUSTIN Omeprazole (Omeprazole 40 Mg Capsule.Dr) 40 mg PO BID@0630,1630 [facility] Last Admin: 05/14/21 06:34 Dose: Not Given Documented by: STEPHANY Non-Admin Reason: Patient Refused Ondansetron HCl (Ondansetron Hcl 4 Mg/2 Ml Vial) 4 mg IVPUSH Q8H PRN PRN Reason: Nausea and Vomiting Oxycodone HCl (Oxycodone Hcl Immed Release 5 Mg Tablet) 5 mg PO Q6H PRN PRN Reason: Pain, Severe (Pain Scale 7-10) Pharmacy Consult (Consult Rx Perform Med Rec) 1 each MISCELLANE ONCE PRN PRN Reason: Consult order Sodium Chloride (0.9 % Sodium Chloride Flush 3 Ml Syringe) 3 ml IVFLUSH QSHIFT [facility] Last Admin: 05/14/21 09:30 Dose: 3 ml Documented by: JUSTIN Tamsulosin HCl (Tamsulosin Hcl 0.4 Mg Capsule) 0.8 mg PO DAILY [facility] Last Admin: 05/14/21 09:29 Dose: 0.8 mg Documented by: JUSTIN Thiamine HCl (Thiamine Hcl 100 Mg Tablet) 100 mg PO DAILY [facility] Last Admin: 05/14/21 09:30 Dose: 100 mg Documented by: JUSTIN Tiotropium [place] (Tiotropium [place] 18 Mcg Cap.W.Dev) 1 puff INHALE RDAILY [facility] Last Admin: 05/14/21 11:26 Dose: Not Given Documented by: CESAR Non-Admin Reason: Med Not Available Vitamin D (Cholecalciferol (Vitamin D3) 25 Mcg Tablet) 25 mcg PO DAILY [facility] Last Admin: 05/14/21 09:29 Dose: 25 mcg Documented by: JUSTIN Labs CBC & Chem 7: 05/14/21 06:38 05/14/21 06:38 Labs: Laboratory Results - last 24 hr 05/13/21 05/14/21 05/14/21 12:02 06:38 06:38 MCV 96.5 MCH 32.2 MCHC 33.3 RDW 13.7 Plt Count 207 MPV 8.9 L Absolute Nucleated RBC 0.000 Nucleated RBC % (auto) 0.0 VBG pH VBG pCO2 VBG pO2 VBG HCO3 VBG O2 Saturation VBG Base Excess Anion Gap 10 L Estim Creat Clear Calc 80.0 Estimated GFR > 60 Random Glucose 157 H D Calcium 8.2 L Magnesium 2.0 Procalcitonin 0.22 05/14/21 06:42 MCV MCH MCHC RDW Plt Count MPV Absolute Nucleated RBC Nucleated RBC % (auto) VBG pH 7.44 H VBG pCO2 37 VBG pO2 110 VBG HCO3 26 VBG O2 Saturation 99.0 VBG Base Excess 2.3 Anion Gap Estim Creat Clear Calc Estimated GFR Random Glucose Calcium Magnesium Procalcitonin Assessment and Plan (1) Pneumonia: Status: Acute (2) COPD exacerbation: Status: Acute Plan hospital d#2 70yo M with COPD with chronic cough, NICM s/p ICD [LVEF 07/27/20 >50%] presenting with wheezing, cough, and dyspnea, found to have pneumonia with small pleural effusion and COPD exacerbation. # pneumonia # COPD exacerbation - d#2 of ceftriaxone + doxycycline.? Pending blood cultures + Legionella/pneumococcal urinary antigens.? Trend procalcitonin.? Cotninue IV methylprednisolone and standing/prn INDU/KARIN.? Continue ICS/LABA, LAMA, montelukast. # NICM - ICD in place.? Continue metoprolol succinate.? Generator was changed 04/02/21 # moderate malnutrition - supplements # VTE ppx - LMWH # dispo - anticipate home with VNA in next few days Quality Stroke Does the patient have a stroke diagnosis?: No VTE Prior VTE?: No VTE Risk Level:: Medical - moderate - high VTE Device Contraindication: N/A - Device Ordered VTE Drug Contraindication: N/A - Med Ordered
--- NOTE | 2021-05-14 14:35 | PC.NURSE ---
Pt resting at this time, A&Ox3, offers no complaints at this time. Call urena within reach, will continue to monitor.
[2021-05-14] MEDS: Enoxaparin Sodium 40 MG/0.4 ML SYRINGE SUBCUT (17:22)
[2021-05-14] MEDS: cefTRIAXone sodium 1 GM in 0.9 % Sodium Chloride 50 ML IV (21:03)
[2021-05-15] VITALS (8 sets, daily range): BP systolic 105–137; BP diastolic 62–85; PULSE 51–77; RESP 12–18; TEMP 36.9–37.4; O2SAT 91–98
[2021-05-15] MEDS: methylPREDNISolone Sod Succ 40 MG/ML VIAL IVPUSH ×2 (00:32→14:30)
[2021-05-15] MEDS: Doxycycline Hyclate 100 MG in 0.9 % Sodium Chloride 250 ML 166.67 MG IV ×2 (04:14→16:12)
[2021-05-15] MEDS: Omeprazole 40 MG CAPSULE.DR PO (05:59)
[2021-05-15 06:59] LABS: Hematocrit 35.4 % (42.0-52.0); Hemoglobin 11.6 g/dl (14.0-18.0); Mean Corpuscular HGB Conc 32.8 g/dl (31.0-36.0); Mean Corpuscular Hemoglobin 31.8 pg (27.0-33.0); Mean Platelet Volume 9.2 fL (9.4-12.4); Platelet Count 229 X10*3/uL (160-400); Red Blood Count 3.65 X10*6/uL (4.60-5.80); Red Cell Distribution Width 13.6 % (11.0-16.0); White Blood Count 8.1 X10*3/uL (4.8-10.8)
[2021-05-15 07:43] LABS: Procalcitonin 0.07 ng/mL
[2021-05-15] MEDS: Albuterol/Iprat 2.5/0.5MG 3 ML AMPUL.NEB INHALE ×3 (08:37→20:17)
[2021-05-15] MEDS: Fluticasone/Vilanterol 100/25 BLST.W.DEV 1 PUFF INHALE (08:37)
[2021-05-15] MEDS: Aspirin Enteric Coated 81 MG TABLET.DR PO (09:46)
[2021-05-15] MEDS: Loratadine 10 MG TABLET PO (09:46)
[2021-05-15] MEDS: Metoprolol Succinate ER 100 MG TAB.ER.24H PO (09:46)
[2021-05-15] MEDS: Thiamine HCL 100 MG TABLET PO (09:46)
[2021-05-15] MEDS: FLUoxetine HCl 20 MG CAPSULE PO (09:46)
[2021-05-15] MEDS: Donepezil HCl 5 MG TABLET PO (09:46)
[2021-05-15] MEDS: Atorvastatin Calcium 80 MG TABLET PO (09:46)
[2021-05-15] MEDS: Folic Acid 1 MG TABLET PO (09:46)
[2021-05-15] MEDS: Tamsulosin HCL 0.4 MG CAPSULE 0.8 MG PO (09:46)
[2021-05-15] MEDS: Cholecalciferol (Vitamin D3) 25 MCG TABLET PO (09:46)
--- NOTE | 2021-05-15 10:14 | MHC.CM.PN ---
PT REPORTS HE LIVES ALONE AND HAS 20 HOURS PER WEEK OF AIR INTERCEPT CONTROLLER SERVICES PT REPORTS HE HAS NOT HAD ANY ASSISTANCE LATELY HIS AIR INTERCEPT CONTROLLER HAD A IN THE FAMILY PT REPORTS HE FEELS HE NEEDS 40 HOURS A WEEK OF AIR INTERCEPT CONTROLLER SERVICES BUT THE INSURANCE COMPANY KEEPS IGNORING HIS DOCTORS RECOMMENDATIONS PT REPORTS HE HAS GRAB BARS IN HIS BATHROOM, AND HE USES A WALKER, CANE AND NEBULIZER PRN. PT ALSO REPORTS HE HAS ACCESS TO A WHEEL CHAIR IF HE NEEDS ONE PT CONFIRMS ANGELA BENTLEY IS HIS PCP AND THE HCP ON FILE ACCURATE PT REPORTS HE IS COVID-19 VACCINATED AND HAS RECEIVED THE BOOSTER DOSE IMM DELIVERED, ORIGINAL AT BEDSIDE, COPY SENT TO [facility] CURRENT DC PLAN IS HOME WITH RESUMPTION OF AIR INTERCEPT CONTROLLER SERVICES PT REPORTS HE HAS BEEN TO TWO [facility] FACILITIES IN THE PAST, [facility], HE IS NOT WILLING TO GO TO ANOTHER [facility]. PT REPORTS HE IS OPEN TO HAVING THERAPIES AT HOME IF INDICATED FAMILY/FRIEND TRANSPORT
--- NOTE | 2021-05-15 10:19 | PC.NURSE ---
0946 Pt medicated per MAY. no complaints of pain. Pt weaned to RA by respiratory. O2 sats between 90-92% on RA. Pt resting comfortably in the hospital bed. Pt able to use the urinal with no problems. assistance provided as needed. Call urena within reach along with personal belongings.
[2021-05-15] MEDS: Enoxaparin Sodium 40 MG/0.4 ML SYRINGE SUBCUT (16:12)
[2021-05-15] MEDS: cefTRIAXone sodium 1 GM in 0.9 % Sodium Chloride 50 ML IV (21:10)
[2021-05-15] MEDS: diazePAM 5 MG TABLET 10 MG PO (21:11)
[2021-05-16] VITALS (9 sets, daily range): BP systolic 134–156; BP diastolic 72–85; PULSE 52–83; RESP 16–18; TEMP 36.5–37.3; O2SAT 93–96; BMI 20.7
[2021-05-16] MEDS: methylPREDNISolone Sod Succ 40 MG/ML VIAL IVPUSH ×2 (00:25→12:04)
[2021-05-16] MEDS: 0.9 % Sodium Chloride Flush 3 ML SYRINGE IVFLUSH ×4 (00:26→19:46)
--- NOTE | 2021-05-16 02:33 | PC.NURSE ---
Assumed care at 15:00. Patient alert and oriented. tremor at times to BUE, patient says is chronic, and he is taking valium for it, medicated per EMAR. Denied pain. Afebrile. Occasional nonproductive loose cough. Sinus rhythm on monitor. BP soft occasionally. 100/59 range. Patient with clear lung sounds and dim bases. Breathing easily on room air. Was transferred up to 3rd floor on telemetry after giving report to LULU Dailey.
[2021-05-16] MEDS: Doxycycline Hyclate 100 MG in 0.9 % Sodium Chloride 250 ML 166.67 MG IV ×2 (05:11→15:15)
--- NOTE | 2021-05-16 07:23 | PC.NURSE ---
transfer to ms by previous shift
[2021-05-16] MEDS: Albuterol/Iprat 2.5/0.5MG 3 ML AMPUL.NEB INHALE ×3 (08:08→19:45)
[2021-05-16] MEDS: Fluticasone/Vilanterol 100/25 BLST.W.DEV 1 PUFF INHALE (08:08)
[2021-05-16] MEDS: Folic Acid 1 MG TABLET PO (09:24)
[2021-05-16] MEDS: Loratadine 10 MG TABLET PO (09:24)
[2021-05-16] MEDS: Aspirin Enteric Coated 81 MG TABLET.DR PO (09:24)
[2021-05-16] MEDS: Atorvastatin Calcium 80 MG TABLET PO (09:24)
[2021-05-16] MEDS: Cholecalciferol (Vitamin D3) 25 MCG TABLET PO (09:24)
[2021-05-16] MEDS: Montelukast Sodium 10 MG TABLET PO (09:24)
[2021-05-16] MEDS: Donepezil HCl 5 MG TABLET PO (09:24)
[2021-05-16] MEDS: Thiamine HCL 100 MG TABLET PO (09:25)
[2021-05-16] MEDS: Tamsulosin HCL 0.4 MG CAPSULE 0.8 MG PO (09:25)
[2021-05-16] MEDS: diazePAM 5 MG TABLET 10 MG PO ×2 (09:25→20:34)
[2021-05-16] MEDS: FLUoxetine HCl 20 MG CAPSULE PO (09:25)
[2021-05-16] MEDS: Metoprolol Succinate ER 100 MG TAB.ER.24H PO (09:25)
--- NOTE | 2021-05-16 12:40 | P.PNIM_ITS ---
Subjective Subjective Date of Service: 05/16/21 Interval History: Still states feeling ill with shortness of breath and cough. Review of Systems Denies chest pain Admits to exertional shortness of breath and severe productive cough Denies nausea vomiting diarrhea Physical Exam Vital Signs: Vital Signs: Last Vital Signs Temp 98.0 F 05/16/21 11:20 Pulse 65 05/16/21 11:45 Resp 18 05/16/21 11:45 BP 138/72 05/16/21 11:20 Pulse Ox 95 05/16/21 11:20 Oxygen Flow Rate 2 05/13/21 11:21 BMI result Body Mass Index 20.7 Const: Other: Awake alert oriented x3 no acute distress Resp: Other: Diminished with coarse rhonchi throughout all hdez. Diminished at bases Cardio: Other: No S4; positive S1-S2; no S3 murmurs rubs or gallops GI: Other: Soft nontender nondistended with normoactive bowel sounds Extrem: Other: No edema bilaterally Objective Data Active Medications Acetaminophen (Acetaminophen 325 Mg Tablet) 650 mg PO Q6H PRN PRN Reason: Pain, Mild (Pain Scale 1-3) Albuterol Sulfate (Albuterol Sulfate (0.083%) 2.5 Mg/3 Ml Vial.Neb) 2.5 mg INHALE Q2H PRN PRN Reason: Shortness of Breath/Wheezing Albuterol/Ipratropium (Albuterol/Iprat 2.5/0.5mg 3 Ml Ampul.Neb) 3 ml INHALE RQ4H WHILE AWAKE [facility] Last Admin: 05/16/21 11:44 Dose: 3 ml Documented by: REENA Aspirin (Aspirin Enteric Coated 81 Mg Tablet.) 81 mg PO DAILY [facility] Last Admin: 05/16/21 09:24 Dose: 81 mg Documented by: BERYL Atorvastatin Calcium (Atorvastatin Calcium 80 Mg Tablet) 80 mg PO DAILY [facility] Last Admin: 05/16/21 09:24 Dose: 80 mg Documented by: BERYL Diazepam (Diazepam 5 Mg Tablet) 10 mg PO BID@0900,2100 PRN PRN Reason: Anxiety Last Admin: 05/16/21 09:25 Dose: 10 mg Documented by: BERYL Donepezil HCl (Donepezil Hcl 5 Mg Tablet) 5 mg PO DAILY [facility] Last Admin: 05/16/21 09:24 Dose: 5 mg Documented by: BERYL Enoxaparin Sodium (Enoxaparin Sodium 40 Mg/0.4 Ml Syringe) 40 mg SUBCUT Q24H [facility] Last Admin: 05/15/21 16:12 Dose: 40 mg Documented by: TERRELL Fluoxetine HCl (Fluoxetine Hcl 20 Mg Capsule) 20 mg PO DAILY [facility] Last Admin: 05/16/21 09:25 Dose: 20 mg Documented by: BERYL Fluticasone/Vilanterol (Fluticasone/Vilanterol 100/25 Blst.W.Dev) 1 puff INHALE RDAILY [facility] Last Admin: 05/16/21 08:08 Dose: 1 puff Documented by: CESAR Folic Acid (Folic Acid 1 Mg Tablet) 1 mg PO DAILY [facility] Last Admin: 05/16/21 09:24 Dose: 1 mg Documented by: BERYL Ceftriaxone Sodium 1 gm/ (Sodium Chloride) 50 mls @ 100 mls/hr IV Q24H [facility] Last Infusion: 05/15/21 21:53 Dose: 0 mls/hr Documented by: ALONDRA Doxycycline Hyclate 100 mg/ (Sodium Chloride) 250 mls @ 166.67 mls/hr IV Q12H [facility] Last Infusion: 05/16/21 06:47 Dose: 0 mls/hr Documented by: JHOANA Loratadine (Loratadine 10 Mg Tablet) 10 mg PO DAILY [facility] Last Admin: 05/16/21 09:24 Dose: 10 mg Documented by: BERYL Methylprednisolone Sodium Succinate (Methylprednisolone Sod Succ 40 Mg/Ml Vial) 40 mg IVPUSH Q12H [facility] Last Admin: 05/16/21 12:04 Dose: 40 mg Documented by: BERYL Metoprolol Succinate (Metoprolol Succinate Er 100 Mg Tab.Er.24h) 100 mg PO D AILY [facility]; Protocol Last Admin: 05/16/21 09:25 Dose: 100 mg Documented by: BERYL Montelukast Sodium (Montelukast Sodium 10 Mg Tablet) 10 mg PO DAILY [facility] Last Admin: 05/16/21 09:24 Dose: 10 mg Documented by: BERYL Omeprazole (Omeprazole 40 Mg Capsule.Dr) 40 mg PO BID@0630,1630 [facility] Last Admin: 05/16/21 05:12 Dose: Not Given Documented by: JHOANA Non-Admin Reason: Patient Refused Ondansetron HCl (Ondansetron Hcl 4 Mg/2 Ml Vial) 4 mg IVPUSH Q8H PRN PRN Reason: Nausea and Vomiting Oxycodone HCl (Oxycodone Hcl Immed Release 5 Mg Tablet) 5 mg PO Q6H PRN PRN Reason: Pain, Severe (Pain Scale 7-10) Pharmacy Consult (Consult Rx Perform Med Rec) 1 each MISCELLANE ONCE PRN PRN Reason: Consult order Sodium Chloride (0.9 % Sodium Chloride Flush 3 Ml Syringe) 3 ml IVFLUSH QSHIFT [facility] Last Admin: 05/16/21 07:40 Dose: 3 ml Documented by: BERYL Tamsulosin HCl (Tamsulosin Hcl 0.4 Mg Capsule) 0.8 mg PO DAILY [facility] Last Admin: 05/16/21 09:25 Dose: 0.8 mg Documented by: BERYL Thiamine HCl (Thiamine Hcl 100 Mg Tablet) 100 mg PO DAILY [facility] Last Admin: 05/16/21 09:25 Dose: 100 mg Documented by: BERYL Tiotropium [place] (Tiotropium [place] 18 Mcg Cap.W.Dev) 1 puff INHALE RDAILY [facility] Last Admin: 05/16/21 08:08 Dose: 1 puff Documented by: CESAR Vitamin D (Cholecalciferol (Vitamin D3) 25 Mcg Tablet) 25 mcg PO DAILY [facility] Last Admin: 05/16/21 09:24 Dose: 25 mcg Documented by: BERYL Labs CBC & Chem 7: 05/15/21 05:52 05/14/21 06:38 Microbiology Microbiology Results: Microbiology 05/13/21 12:02 Blood Culture - Preliminary Blood - Venous No growth after 48 hours. 05/13/21 12:02 Blood Culture - Preliminary Blood - Venous No growth after 48 hours. Assessment and Plan (1) Pneumonia: Status: Acute (2) COPD exacerbation: Status: Acute (3) Nonischemic cardiomyopathy: Status: Acute Plan 70yo M with COPD with chronic cough, NICM s/p ICD [LVEF 07/27/20 >50%] presenting with wheezing, cough, and dyspnea, found to have pneumonia with small pleural effusion and COPD exacerbation. 1. COPD exacerbation secondary to pneumonia) -ceftriaxone + doxycycline(3) -IV steroids/nebs -continue outpatient inhalers 2.Non- ischemic Cardiomyopathy - ICD in place.?\ - Continue metoprolol succinate.? (Generator was changed 04/02/21) # VTE ppx - LMWH Quality Stroke Does the patient have a stroke diagnosis?: No VTE Prior VTE?: No VTE Risk Level:: Medical - moderate - high VTE Device Contraindication: N/A - Device Ordered VTE Drug Contraindication: N/A - Med Ordered
[2021-05-16] MEDS: Enoxaparin Sodium 40 MG/0.4 ML SYRINGE SUBCUT (16:00)
[2021-05-16] MEDS: cefTRIAXone sodium 1 GM in 0.9 % Sodium Chloride 50 ML IV (19:46)
[2021-05-16] MEDS: oxyCODONE HCl Immed Release 5 MG TABLET PO (20:34)
[2021-05-17] VITALS (11 sets, daily range): BP systolic 119–138; BP diastolic 67–80; PULSE 53–88; RESP 16–22; TEMP 36.3–36.8; O2SAT 91–97
[2021-05-17] MEDS: methylPREDNISolone Sod Succ 40 MG/ML VIAL IVPUSH ×2 (00:06→12:52)
[2021-05-17] MEDS: Doxycycline Hyclate 100 MG in 0.9 % Sodium Chloride 250 ML 166.67 MG IV ×2 (04:39→15:59)
[2021-05-17 04:41] LABS: MANUAL DIFF FLAG NO
[2021-05-17 04:46] LABS: Hematocrit 35.5 % (42.0-52.0); Hemoglobin 11.7 g/dl (14.0-18.0); Imm Gran Abs Auto 0.08 X10*3/uL (0.00-0.03); Imm Gran Pct Auto 1.4 % (0.0-0.4); Lymphocytes Absolute Auto 0.3 X10*3/uL (1.2-4.9); Mean Corpuscular Hemoglobin 31.7 pg (27.0-33.0); Mean Corpuscular Volume 96.2 fL (80.0-98.0); Mean Platelet Volume 9.4 fL (9.4-12.4); Monocytes Absolute Auto 0.2 X10*3/uL (0.1-1.2); Neutrophils Absolute Auto 5.2 x10*3/uL (2.0-8.3); Neutrophils Percent Auto 89.6 % (45-73); Platelet Count 231 X10*3/uL (160-400); Red Blood Count 3.69 X10*6/uL (4.60-5.80); Red Cell Distribution Width 13.3 % (11.0-16.0); White Blood Count 5.8 X10*3/uL (4.8-10.8)
[2021-05-17 05:17] LABS: Alanine Aminotransferase 17 U/L (0-40); Albumin Level 2.9 g/dL (3.5-5.0); Alkaline Phosphatase 65 U/L (39-117); Anion Gap 11 (12-20); Aspartate Amino Transferase 13 U/L (5-37); Bilirubin Total 0.3 mg/dL (0.0-1.0); Blood Urea Nitrogen 20 mg/dL (9-16); Calcium 8.2 mg/dL (8.4-10.2); Carbon Dioxide 30 mmol/L (22-29); Chloride 105 mmol/L (96-108); Creatinine Clr Calc Pharmacy 63.8; Estimated Glomerular Filt Rate > 60; Glucose Fasting 150 mg/dL (60-99); Potassium 4.1 mmol/L (3.3-5.1); Sodium 142 mmol/L (135-145); Total Protein 4.9 g/dL (6.5-8.0)
[2021-05-17] MEDS: Fluticasone/Vilanterol 100/25 BLST.W.DEV 1 PUFF INHALE (08:27)
[2021-05-17] MEDS: Albuterol/Iprat 2.5/0.5MG 3 ML AMPUL.NEB INHALE ×4 (08:27→20:00)
[2021-05-17] MEDS: Cholecalciferol (Vitamin D3) 25 MCG TABLET PO (09:15)
[2021-05-17] MEDS: oxyCODONE HCl Immed Release 5 MG TABLET PO (09:15)
[2021-05-17] MEDS: Tamsulosin HCL 0.4 MG CAPSULE 0.8 MG PO (09:15)
[2021-05-17] MEDS: Donepezil HCl 5 MG TABLET PO (09:15)
[2021-05-17] MEDS: FLUoxetine HCl 20 MG CAPSULE PO (09:15)
[2021-05-17] MEDS: 0.9 % Sodium Chloride Flush 3 ML SYRINGE IVFLUSH ×2 (09:16→15:59)
[2021-05-17] MEDS: Folic Acid 1 MG TABLET PO (09:16)
[2021-05-17] MEDS: Metoprolol Succinate ER 100 MG TAB.ER.24H PO (09:16)
[2021-05-17] MEDS: Montelukast Sodium 10 MG TABLET PO (09:16)
[2021-05-17] MEDS: Loratadine 10 MG TABLET PO ×2 (09:16→17:25)
[2021-05-17] MEDS: Thiamine HCL 100 MG TABLET PO (09:16)
[2021-05-17] MEDS: Atorvastatin Calcium 80 MG TABLET PO (09:16)
[2021-05-17] MEDS: Aspirin Enteric Coated 81 MG TABLET.DR PO (09:16)
--- NOTE | 2021-05-17 11:51 | P.DS_ITS ---
DS: Providers Provider Date of Service: 05/21/21 Date of admission: 05/13/21 15:09 Primary care physician: Abdias Griffin MD DS: Diagnosis Discharge Diagnosis (1) Pneumonia: Status: Acute (2) COPD exacerbation: Status: Acute (3) Nonischemic cardiomyopathy: Status: Acute DS: Summary Hospital Course Hospital Course: Date of service and discharge: 05/21/21. HPI:70yo M with COPD with chronic cough, NICM s/p ICD [LVEF 07/27/20 >50%] presenting with wheezing, cough, and dyspnea, found to have pneumonia with small pleural effusion and COPD exacerbation. Hospital course:patient came with copd excerebation , pneumonia : started on iv antibiotics , nebs , steriods -seems improving-going home with antibiotics and steriods. please repeat chest imaging in 3-4 weeks to see resolution of pneumonia with pcp. also he is generally deconditioned and weak -going to rehab . Patient uses Valium at home for anxiety-limited supply given upon discharge, further use as per rehab. Patient was seen by PT-recommended rehab, patient may benefit from less than 30 day rehab says stay. Above management discussed with the patient in detail length he understand and in agreement with the above plan, time spent 50 minutes and 50% time spent on counseling. Significant findings: As above. Procedures performed: None. Treatment and response: As above. Complications: None. Time Spent with Patient Time attestation: Total time spent providing and/or coordinating discharge services: Discharge coordination time: Greater than 30 minutes Quality: Stroke Does the patient have a stroke diagnosis?: No Physical Exam Vital Signs: Vital Signs: Last Vital Signs Temp 98.0 F 05/17/21 11:16 Pulse 57 05/17/21 11:16 Resp 22 H 05/17/21 11:16 BP 138/77 05/17/21 11:16 Pulse Ox 96 05/17/21 11:16 Oxygen Flow Rate 2 05/13/21 11:21 BMI result Body Mass Index 20.7 general: Alert.? Oriented X3.? not in distress.? cvs: rrr, [id number] , no murmur res: air entry seems improving , no wheezing abd: no rebound or guarding ,nt, bs present. ext pulses present , no cyanosis ,Gait well balanced well coordinated. neuro: axo3 , nonfocal. DS: Data Data Completed and Pending Labs on day of discharge: Laboratory Results - last 24 hr 05/17/21 05/17/21 04:17 04:17 WBC 5.8 RBC 3.69 L Hgb 11.7 L Hct 35.5 L MCV 96.2 MCH 31.7 MCHC 33.0 RDW 13.3 Plt Count 231 MPV 9.4 Immature Gran % (Auto) 1.4 H Neut % (Auto) 89.6 H Lymph % (Auto) 5.0 L [place] % (Auto) 4.0 Eos % (Auto) 0.0 Baso % (Auto) 0.0 Lymph # (Auto) 0.3 L [place] # (Auto) 0.2 Eos # (Auto) 0.0 Baso # (Auto) 0.0 Abs Immat Gran (auto) 0.08 H Absolute Neuts (auto) 5.2 Absolute Nucleated RBC 0.000 Nucleated RBC % (auto) 0.0 Sodium 142 Potassium 4.1 Chloride 105 Carbon Dioxide 30 H Anion Gap 11 L BUN 20 H D Creatinine 0.82 Estim Creat Clear Calc 63.8 Estimated GFR > 60 Fasting Glucose 150 H Calcium 8.2 L Total Bilirubin 0.3 AST 13 ALT 17 Alkaline Phosphatase 65 D Total Protein 4.9 L Albumin 2.9 L Preliminary micro results at discharge 05/13/21 12:02 Blood Culture - Preliminary Blood - Venous No growth after 48 hours. 05/13/21 12:02 Blood Culture - Preliminary Blood - Venous No growth after 48 hours. Additional Comments Additional comments: XR/XR chest 1V IMPRESSION: COPD ? Small focus of disease with question small pleural effusion right base. ? Old granulomatous disease. 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 Referrals: Jennifer MARIE [Outside] - 1 Week ([facility] AND HOME PT) Abdias Griffin MD [Primary Care Provider] - 1 Week Monica Oreilly [Physician] - 1 Week (follow up outpatiently) Discharge Medications: New cefuroxime axetil 500 mg tablet 500 mg PO BID Qty: 10 0RF doxycycline hyclate 100 mg capsule 100 mg PO BID Qty: 10 0RF prednisone 20 mg tablet 40 mg PO DAILY Qty: 4 0RF Continued albuterol sulfate [Ventolin HFA] 90 mcg/actuation HFA aerosol inhaler 1 inh inhalation QID Qty: 8.5 0RF fluticasone propion-salmeterol [Advair Diskus] 250-50 mcg/dose blister with device 1 inh inhalation BID Qty: 60 3RF Spiriva with HandiHaler 18 mcg capsule, w/inhalation device 1 cap inhalation DAILY Qty: 30 6RF fluoxetine 10 mg capsule 20 mg PO DAILY 0RF Rx Instructions: CONFIRMED BY PT'S MD OFFICE diazepam 10 mg tablet 1 tab PO BID PRN (Reason: Anxiety) Qty: 6 0RF oxycodone 5 mg tablet 1 tab PO DAILY PRN (Reason: Pain) Qty: 6 0RF cetirizine 10 mg tablet 10 mg PO DAILY 0RF tamsulosin 0.4 mg capsule 0.8 mg PO DAILY 0RF aspirin 81 mg tablet,delayed release (DR/EC) 81 mg PO DAILY 0RF atorvastatin 80 mg tablet 80 mg PO DAILY 0RF metoprolol succinate 100 mg tablet extended release 24 hr 100 mg PO DAILY 0RF folic acid 1 mg tablet 1 mg PO DAILY 0RF montelukast 10 mg tablet 10 mg PO DAILY 0RF cholecalciferol (vitamin D3) 25 mcg (1,000 unit) tablet 25 mcg PO DAILY 0RF thiamine HCl (vitamin B1) 100 mg tablet 100 mg PO DAILY 0RF acetaminophen-codeine 300-30 mg tablet 1 tab PO BID PRN (Reason: Pain) 0RF donepezil 10 mg tablet 5 mg PO DAILY 0RF omeprazole 40 mg capsule,delayed release(DR/EC) 40 mg PO BID 30 Days Qty: 60 6RF Discharge Orders: Discharge Order (Routine); Ordered 05/21/21 Ordered By: Yessica Camacho Diet: advance to usual diet Activity on Discharge: As tolerated Stand Alone Forms: Patient Portal Discharge page Care Plan Goals: patient came with copd excerebation , pneumonia : started on iv antibiotics , nebs , steriods -seems improving-going home with antibiotics and steriods. please repeat chest imaging in 3-4 weeks to see resolution of pneumonia with pcp. also he is generally deconditioned and weak -refused rehab , going home with services. Health Concerns: as above. Plan of Treatment: as above. Assessment: as above. Discharge Date/Time: 05/20/21 14:30
--- NOTE | 2021-05-17 11:55 | W.MHC.F2F ---
Service Date Service Date: 05/17/21 Encounter Date of encounter: 05/17/21 Reasons for Services Signs and symptoms assessed: copd /pneumonia Homebound: Leaving the home is medically contraindicated at this time without the asist of a device and/or another person due th the listed conditions above and below. Certification: Based on the above findings, I certify that this patient is confined to the home and needs intermittent [facility] care, physical therapy and/or speech therapy, or continues to need occupational therapy. The patient is under my care, and I have initiated the establishment of the plan of care. The patient will be followed by a physician who will periodically review the plan of care.
--- NOTE | 2021-05-17 14:57 | HO.PM.IMPN ---
Subjective Subjective Date of Service: 05/18/21 Interval History: copd ,pneumonia Review of Systems cough improving Shortness of breath breath seems improved, now patient is at baseline Physical Exam Vital Signs: Vital Signs: Last Vital Signs Temp 98.0 F 05/17/21 11:16 Pulse 88 05/17/21 12:20 Resp 18 05/17/21 12:20 BP 138/77 05/17/21 11:16 Pulse Ox 96 05/17/21 11:16 Oxygen Flow Rate 2 05/13/21 11:21 BMI result Body Mass Index 20.7 Appearance: Alert.? Oriented X3.? not in distress.? cvs: rrr, [id number] , no murmur res: air entry seems improving , no wheezing abd: no rebound or guarding ,nt, bs present. ext pulses present , no cyanosis ,Gait well balanced well coordinated. neuro: axo3 , nonfocal. Objective Data Active Medications Acetaminophen (Acetaminophen 325 Mg Tablet) 650 mg PO Q6H PRN PRN Reason: Pain, Mild (Pain Scale 1-3) Albuterol Sulfate (Albuterol Sulfate (0.083%) 2.5 Mg/3 Ml Vial.Neb) 2.5 mg INHALE Q2H PRN PRN Reason: Shortness of Breath/Wheezing Albuterol/Ipratropium (Albuterol/Iprat 2.5/0.5mg 3 Ml Ampul.Neb) 3 ml INHALE RQ4H WHILE AWAKE [facility] Last Admin: 05/17/21 12:20 Dose: 3 ml Documented by: AMARJIT Aspirin (Aspirin Enteric Coated 81 Mg Tablet.) 81 mg PO DAILY [facility] Last Admin: 05/17/21 09:16 Dose: 81 mg Documented by: MICK Atorvastatin Calcium (Atorvastatin Calcium 80 Mg Tablet) 80 mg PO DAILY [facility] Last Admin: 05/17/21 09:16 Dose: 80 mg Documented by: MICK Diazepam (Diazepam 5 Mg Tablet) 10 mg PO BID@0900,2100 PRN PRN Reason: Anxiety Last Admin: 05/16/21 20:34 Dose: 10 mg Documented by: CASTILM Donepezil HCl (Donepezil Hcl 5 Mg Tablet) 5 mg PO DAILY [facility] Last Admin: 05/17/21 09:15 Dose: 5 mg Documented by: MICK Enoxaparin Sodium (Enoxaparin Sodium 40 Mg/0.4 Ml Syringe) 40 mg SUBCUT Q24H [facility] Last Admin: 05/16/21 16:00 Dose: 40 mg Documented by: BERYL Fluoxetine HCl (Fluoxetine Hcl 20 Mg Capsule) 20 mg PO DAILY [facility] Last Admin: 05/17/21 09:15 Dose: 20 mg Documented by: MICK Fluticasone/Vilanterol (Fluticasone/Vilanterol 100/25 Blst.W.Dev) 1 puff INHALE RDAILY [facility] Last Admin: 05/17/21 08:27 Dose: 1 puff Documented by: AMARJIT Folic Acid (Folic Acid 1 Mg Tablet) 1 mg PO DAILY [facility] Last Admin: 05/17/21 09:16 Dose: 1 mg Documented by: MICK Guaifenesin (Guaifenesin 100 Mg/5 Ml Liquid) 5 ml PO Q6H PRN PRN Reason: Cough Ceftriaxone Sodium 1 gm/ (Sodium Chloride) 50 mls @ 100 mls/hr IV Q24H [facility] Last Infusion: 05/16/21 20:27 Dose: 0 mls/hr Documented by: MALA Doxycycline Hyclate 100 mg/ (Sodium Chloride) 250 mls @ 166.67 mls/hr IV Q12H [facility] Last Infusion: 05/17/21 06:16 Dose: 0 mls/hr Documented by: MALA Loratadine (Loratadine 10 Mg Tablet) 10 mg PO DAILY [facility] Last Admin: 05/17/21 09:16 Dose: 10 mg Documented by: MICK Methylprednisolone Sodium Succinate (Methylprednisolone Sod Succ 40 Mg/Ml Vial) 40 mg IVPUSH Q12H [facility] Last Admin: 05/17/21 12:52 Dose: 40 mg Documented by: MICK Metoprolol Succinate (Metoprolol Succinate Er 100 Mg Tab.Er.24h) 100 mg PO DAILY [facility]; Protocol Last Admin: 05/17/21 09:16 Dose: 100 mg Documented by: MICK Montelukast Sodium (Montelukast Sodium 10 Mg Tablet) 10 mg PO DAILY [facility] Last Admin: 05/17/21 09:16 Dose: 10 mg Documented by: MICK Omeprazole (Omeprazole 40 Mg Capsule.) 40 mg PO BID@0630,1630 [facility] Last Admin: 05/17/21 05:32 Dose: Not Given Documented by: MALA Non-Admin Reason: Patient Refused Ondansetron HCl (Ondansetron Hcl 4 Mg/2 Ml Vial) 4 mg IVPUSH Q8H PRN PRN Reason: Nausea and Vomiting Oxycodone HCl (Oxycodone Hcl Immed Release 5 Mg Tablet) 5 mg PO Q6H PRN PRN Reason: Pain, Severe (Pain Scale 7-10) Last Admin: 05/17/21 09:15 Dose: 5 mg Documented by: MICK Pharmacy Consult (Consult Rx Perform Med Rec) 1 each MISCELLANE ONCE PRN PRN Reason: Consult order Sodium Chloride (0.9 % Sodium Chloride Flush 3 Ml Syringe) 3 ml IVFLUSH QSHIFT [facility] Last Admin: 05/17/21 09:16 Dose: 3 ml Documented by: MICK Tamsulosin HCl (Tamsulosin Hcl 0.4 Mg Capsule) 0.8 mg PO DAILY [facility] Last Admin: 05/17/21 09:15 Dose: 0.8 mg Documented by: MICK Thiamine HCl (Thiamine Hcl 100 Mg Tablet) 100 mg PO DAILY [facility] Last Admin: 05/17/21 09:16 Dose: 100 mg Documented by: MICK Tiotropium [place] (Tiotropium [place] 18 Mcg Cap.W.Dev) 1 puff INHALE RDAILY [facility] Last Admin: 05/17/21 08:27 Dose: 1 puff Documented by: AMARJIT Vitamin D (Cholecalciferol (Vitamin D3) 25 Mcg Tablet) 25 mcg PO DAILY [facility] Last Admin: 05/17/21 09:15 Dose: 25 mcg Documented by: MICK Labs CBC & Chem 7: 05/18/21 05:45 05/18/21 05:45 Labs: Laboratory Results - last 24 hr 05/17/21 05/17/21 04:17 04:17 MCV 96.2 MCH 31.7 MCHC 33.0 RDW 13.3 Plt Count 231 MPV 9.4 Immature Gran % (Auto) 1.4 H Neut % (Auto) 89.6 H Lymph % (Auto) 5.0 L [place] % (Auto) 4.0 Eos % (Auto) 0.0 Baso % (Auto) 0.0 Lymph # (Auto) 0.3 L [place] # (Auto) 0.2 Eos # (Auto) 0.0 Baso # (Auto) 0.0 Abs Immat Gran (auto) 0.08 H Absolute Neuts (auto) 5.2 Absolute Nucleated RBC 0.000 Nucleated RBC % (auto) 0.0 Anion Gap 11 L Estim Creat Clear Calc 63.8 Estimated GFR > 60 Fasting Glucose 150 H Calcium 8.2 L Total Bilirubin 0.3 AST 13 ALT 17 Alkaline Phosphatase 65 D Total Protein 4.9 L Albumin 2.9 L Assessment and Plan (1) Pneumonia: Status: Acute (2) COPD exacerbation: Status: Acute Plan 70yo M with COPD with chronic cough, NICM s/p ICD [LVEF 07/27/20 >50%] presenting with wheezing, cough, and dyspnea, found to have pneumonia with small pleural effusion and COPD exacerbation. 1. COPD exacerbation secondary to pneumonia)?-ceftriaxone + doxycycline(3)-switched to po antibiotics ?switched to po steriods steroids/nebs ?-continue outpatient inhalers Patient says that he has cough from 2 years , do during my exam 2 times went to patient room did not notice seem coughing, but added Robitussin and Tessalon. 2.Non- ischemic Cardiomyopathy - ICD in place.? - Continue metoprolol succinate.? (Generator was changed 04/02/21) 3.moderate malnutrition - supplements 4. VTE ppx - LMWH Patient is generally deconditioned and generally weak-discussed with him in detail and offered rehab but he categorically refuses to go to any rehab. He also refuses to go home '' I want to stay in the hospital until weekend'', trying to appeal the discharge. Quality Stroke Does the patient have a stroke diagnosis?: No VTE Prior VTE?: No VTE Risk Level:: Medical - moderate - high VTE Device Contraindication: N/A - Device Ordered VTE Drug Contraindication: N/A - Med Ordered
--- NOTE | 2021-05-17 15:46 | MHC.CM.PN ---
Addendum entered by Eulalia Ruiz RN 05/17/21 15:47: IMM REVIEWED PRIOR TO APPEAL AND PT SERVED NOTICE OF DISCHARGE. Original Note: CM MET W/PT TO REVIEW DCP, PT CONT'S TO ADAMANTLY REFUSE STR, PT REPORTS TWO BAD EXPERIENCES AT [facility] AND CARE ONE OF [facility]. PT REPORTS HE WILL GO HOME AND IS WILLING TO ACCEPT SERVICES HOWEVER PT ALSO REPORTING HE IS NOT READY FOR D/C AND HE WAS TOLD HE COULD STAY HERE UNTIL HIS COUGH WENT AWAY, PT REPORTS HE HAS COUGH FOR 2/5 YRS, HOSPITALIST AWARE AND AT BEDSIDE, PT CONT'S TO C/O NOT BEING READY FOR D/C WHILE REFUSING STR AND REFUSING TO D/C, PT WILL APPEAL D/C W/MEDICARE.
--- NOTE | 2021-05-17 16:44 | MHC.CARE ---
CARE Team responded to a consultation request to speak with this patient to discuss anxiety and depression symptoms. A lengthy discussion with patient in room 360 who seemed eager to talk about his current struggles, past conflicts and losses. 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 Patient appears to have put barriers to his own treatment, refused rehab due to two past poor experiences although said he heard some [facility] things [facility] and lives nearby. Reported that one agency refuses to go to his home for physical therapy because patient had an unsecured firearms in his apartment--he is licensed, was not loaded and he has never fired it before, sounds as though he was grandstanding.? Has agreed to a referral to counseling, CARE Team will complete form for [facility] (they specialize in geriatrics and do in-home counseling. CARE Team check in with patient again tomorrow.
[2021-05-17] MEDS: predniSONE 20 MG TABLET 40 MG PO (17:25)
[2021-05-17] MEDS: Enoxaparin Sodium 40 MG/0.4 ML SYRINGE SUBCUT (17:26)
[2021-05-17] MEDS: diazePAM 5 MG TABLET 10 MG PO (17:29)
[2021-05-17 18:26] LABS: Strep Pneumo Ag urine Not Detected (Not Detected)
[2021-05-18] VITALS (9 sets, daily range): BP systolic 127–145; BP diastolic 60–74; PULSE 51–67; RESP 15–18; TEMP 36–37.2; O2SAT 92–96
[2021-05-18] MEDS: 0.9 % Sodium Chloride Flush 3 ML SYRINGE IVFLUSH ×4 (00:25→21:20)
[2021-05-18] MEDS: Omeprazole 40 MG CAPSULE.DR PO (05:44)
[2021-05-18 06:13] LABS: MANUAL DIFF FLAG NO
[2021-05-18 06:38] LABS: Alanine Aminotransferase 23 U/L (0-40); Albumin Level 2.8 g/dL (3.5-5.0); Alkaline Phosphatase 65 U/L (39-117); Anion Gap 13 (12-20); Aspartate Amino Transferase 15 U/L (5-37); Bilirubin Total 0.3 mg/dL (0.0-1.0); Blood Urea Nitrogen 22 mg/dL (9-16); Calcium 8.3 mg/dL (8.4-10.2); Carbon Dioxide 29 mmol/L (22-29); Chloride 102 mmol/L (96-108); Creatinine Clr Calc Pharmacy 87.2; Estimated Glomerular Filt Rate > 60; Glucose Fasting 128 mg/dL (60-99); Potassium 3.8 mmol/L (3.3-5.1); Sodium 140 mmol/L (135-145); Total Protein 4.7 g/dL (6.5-8.0)
[2021-05-18 06:41] LABS: Basophils Percent Auto 0.1 % (0-2); Hematocrit 34.9 % (42.0-52.0); Hemoglobin 11.7 g/dl (14.0-18.0); Imm Gran Abs Auto 0.14 X10*3/uL (0.00-0.03); Imm Gran Pct Auto 2.1 % (0.0-0.4); Lymphocytes Absolute Auto 0.6 X10*3/uL (1.2-4.9); Lymphocytes Percent Auto 8.2 % (20-40); Mean Corpuscular HGB Conc 33.5 g/dl (31.0-36.0); Mean Corpuscular Hemoglobin 31.6 pg (27.0-33.0); Mean Corpuscular Volume 94.3 fL (80.0-98.0); Mean Platelet Volume 9.6 fL (9.4-12.4); Monocytes Absolute Auto 0.5 X10*3/uL (0.1-1.2); Monocytes Percent Auto 7.5 % (2-11); Neutrophils Absolute Auto 5.6 x10*3/uL (2.0-8.3); Neutrophils Percent Auto 82.1 % (45-73); Platelet Count 249 X10*3/uL (160-400); Red Cell Distribution Width 13.1 % (11.0-16.0); White Blood Count 6.8 X10*3/uL (4.8-10.8)
[2021-05-18] MEDS: Albuterol/Iprat 2.5/0.5MG 3 ML AMPUL.NEB INHALE ×4 (07:51→19:23)
[2021-05-18] MEDS: Fluticasone/Vilanterol 100/25 BLST.W.DEV 1 PUFF INHALE (07:51)
[2021-05-18] MEDS: diazePAM 5 MG TABLET 10 MG PO ×2 (08:58→21:16)
[2021-05-18] MEDS: Tamsulosin HCL 0.4 MG CAPSULE 0.8 MG PO (08:59)
[2021-05-18] MEDS: Metoprolol Succinate ER 100 MG TAB.ER.24H PO (09:00)
[2021-05-18] MEDS: Montelukast Sodium 10 MG TABLET PO (09:01)
[2021-05-18] MEDS: FLUoxetine HCl 20 MG CAPSULE PO (09:01)
[2021-05-18] MEDS: Loratadine 10 MG TABLET PO (09:02)
[2021-05-18] MEDS: Cholecalciferol (Vitamin D3) 25 MCG TABLET PO (09:02)
[2021-05-18] MEDS: Atorvastatin Calcium 80 MG TABLET PO (09:02)
[2021-05-18] MEDS: Aspirin Enteric Coated 81 MG TABLET.DR PO (09:02)
[2021-05-18] MEDS: Thiamine HCL 100 MG TABLET PO (09:02)
[2021-05-18] MEDS: Donepezil HCl 5 MG TABLET PO (09:02)
[2021-05-18] MEDS: Folic Acid 1 MG TABLET PO (09:03)
[2021-05-18] MEDS: predniSONE 20 MG TABLET 40 MG PO (10:12)
--- NOTE | 2021-05-18 13:34 | HO.PM.IMPN ---
Subjective Subjective Date of Service: 05/18/21 Interval History: copd , pneumonia Review of Systems seems improved , denies any new symptoms. Physical Exam Vital Signs: Vital Signs: Last Vital Signs Temp 98.0 F 05/18/21 11:37 Pulse 64 05/18/21 11:37 Resp 18 05/18/21 11:37 BP 145/68 H 05/18/21 11:37 Pulse Ox 93 05/18/21 11:37 Oxygen Flow Rate 2 05/13/21 11:21 BMI result Body Mass Index 20.7 general: Alert.? Oriented X3.? not in distress.? cvs: rrr, [id number] , no murmur res: air entry seems improving , no wheezing abd: no rebound or guarding ,nt, bs present. ext pulses present , no cyanosis ,Gait well balanced well coordinated. neuro: axo3 , nonfocal. Objective Data Active Medications Acetaminophen (Acetaminophen 325 Mg Tablet) 650 mg PO Q6H PRN PRN Reason: Pain, Mild (Pain Scale 1-3) Albuterol Sulfate (Albuterol Sulfate (0.083%) 2.5 Mg/3 Ml Vial.Neb) 2.5 mg INHALE Q2H PRN PRN Reason: Shortness of Breath/Wheezing Albuterol/Ipratropium (Albuterol/Iprat 2.5/0.5mg 3 Ml Ampul.Neb) 3 ml INHALE RQ4H WHILE AWAKE [facility] Last Admin: 05/18/21 11:04 Dose: 3 ml Documented by: DILCIA Aspirin (Aspirin Enteric Coated 81 Mg Tablet.) 81 mg PO DAILY [facility] Last Admin: 05/18/21 09:02 Dose: 81 mg Documented by: GABBIE Atorvastatin Calcium (Atorvastatin Calcium 80 Mg Tablet) 80 mg PO DAILY [facility] Last Admin: 05/18/21 09:02 Dose: 80 mg Documented by: GABBIE Benzonatate (Benzonatate 100 Mg Capsule) 100 mg PO TID PRN PRN Reason: Cough Cefuroxime Axetil (Cefuroxime Axetil 500 Mg Tablet) 500 mg PO Q12H [facility] Last Admin: 05/18/21 05:44 Dose: 500 mg Documented by: VIVIENNE Diazepam (Diazepam 5 Mg Tablet) 10 mg PO BID@0900,2100 PRN PRN Reason: Anxiety Last Admin: 05/18/21 08:58 Dose: 10 mg Documented by: GABBIE Comments: per patient request for anxiety Donepezil HCl (Donepezil Hcl 5 Mg Tablet) 5 mg PO DAILY [facility] Last Admin: 05/18/21 09:02 Dose: 5 mg Documented by: GABBIE Doxycycline Hyclate (Doxycycline Hyclate 100 Mg Tablet) 100 mg PO Q12H [facility] Last Admin: 05/18/21 05:44 Dose: 100 mg Documented by: VIVIENNE Enoxaparin Sodium (Enoxaparin Sodium 40 Mg/0.4 Ml Syringe) 40 mg SUBCUT Q24H [facility] Last Admin: 05/17/21 17:26 Dose: 40 mg Documented by: SANJEEV Fluoxetine HCl (Fluoxetine Hcl 20 Mg Capsule) 20 mg PO DAILY [facility] Last Admin: 05/18/21 09:01 Dose: 20 mg Documented by: GABBIE Fluticasone/Vilanterol (Fluticasone/Vilanterol 100/25 Blst.W.Dev) 1 puff INHALE RDAILY [facility] Last Admin: 05/18/21 07:51 Dose: 1 puff Documented by: DILCIA Folic Acid (Folic Acid 1 Mg Tablet) 1 mg PO DAILY [facility] Last Admin: 05/18/21 09:03 Dose: 1 mg Documented by: GABBIE Guaifenesin (Guaifenesin 100 Mg/5 Ml Liquid) 5 ml PO Q6H PRN PRN Reason: Cough Loratadine (Loratadine 10 Mg Tablet) 10 mg PO DAILY [facility] Last Admin: 05/18/21 09:02 Dose: 10 mg Documented by: GABBIE Metoprolol Succinate (Metoprolol Succinate Er 100 Mg Tab.Er.24h) 100 mg PO DAILY [facility]; Protocol Last Admin: 05/18/21 09:00 Dose: 100 mg Documented by: GABBIE Comments: 149/62, AP 63 Montelukast Sodium (Montelukast Sodium 10 Mg Tablet) 10 mg PO DAILY [facility] Last Admin: 05/18/21 09:01 Dose: 10 mg Documented by: GABBIE Omeprazole (Omeprazole 40 Mg Capsule.) 40 mg PO BID@0630,1630 [facility] Last Admin: 05/18/21 05:44 Dose: 40 mg Documented by: VIVIENNE Ondansetron HCl (Ondansetron Hcl 4 Mg/2 Ml Vial) 4 mg IVPUSH Q8H PRN PRN Reason: Nausea and Vomiting Oxycodone HCl (Oxycodone Hcl Immed Release 5 Mg Tablet) 5 mg PO Q6H PRN PRN Reason: Pain, Severe (Pain Scale 7-10) Last Admin: 05/17/21 09:15 Dose: 5 mg Documented by: MICK Pharmacy Consult (Consult Rx Perform Med Rec) 1 each MISCELLANE ONCE PRN PRN Reason: Consult order Prednisone (Prednisone 20 Mg Tablet) 40 mg PO DAILY [facility] Last Admin: 05/18/21 10:12 Dose: 40 mg Documented by: GABBIE Sodium Chloride (0.9 % Sodium Chloride Flush 3 Ml Syringe) 3 ml IVFLUSH QSHIFT [facility] Last Admin: 05/18/21 09:01 Dose: 3 ml Documented by: GABBIE Tamsulosin HCl (Tamsulosin Hcl 0.4 Mg Capsule) 0.8 mg PO DAILY [facility] Last Admin: 05/18/21 08:59 Dose: 0.8 mg Documented by: GABBIE Thiamine HCl (Thiamine Hcl 100 Mg Tablet) 100 mg PO DAILY [facility] Last Admin: 05/18/21 09:02 Dose: 100 mg Documented by: GABBIE Tiotropium [place] (Tiotropium [place] 18 Mcg Cap.W.Dev) 1 puff INHALE RDAILY [facility] Last Admin: 05/18/21 07:51 Dose: 1 puff Documented by: DILCIA Vitamin D (Cholecalciferol (Vitamin D3) 25 Mcg Tablet) 25 mcg PO DAILY [facility] Last Admin: 05/18/21 09:02 Dose: 25 mcg Documented by: GABBIE Labs CBC & Chem 7: 05/18/21 05:45 05/18/21 05:45 Labs: Laboratory Results - last 24 hr 05/13/21 05/18/21 05/18/21 20:26 05:45 05:45 MCV 94.3 MCH 31.6 MCHC 33.5 RDW 13.1 Plt Count 249 MPV 9.6 Immature Gran % (Auto) 2.1 H Neut % (Auto) 82.1 H Lymph % (Auto) 8.2 L [place] % (Auto) 7.5 Eos % (Auto) 0.0 Baso % (Auto) 0.1 Lymph # (Auto) 0.6 L [place] # (Auto) 0.5 Eos # (Auto) 0.0 Baso # (Auto) 0.0 Abs Immat Gran (auto) 0.14 H Absolute Neuts (auto) 5.6 Absolute Nucleated RBC 0.000 Nucleated RBC % (auto) 0.0 Anion Gap 13 Estim Creat Clear Calc 87.2 Estimated GFR > 60 Fasting Glucose 128 H Calcium 8.3 L Total Bilirubin 0.3 AST 15 ALT 23 Alkaline Phosphatase 65 Total Protein 4.7 L Albumin 2.8 L Ur Strep pneumoniae Ag Not Detected Assessment and Plan (1) Pneumonia: Status: Acute (2) COPD exacerbation: Status: Acute Plan 70yo M with COPD with chronic cough, NICM s/p ICD [LVEF 07/27/20 >50%] presenting with wheezing, cough, and dyspnea, found to have pneumonia with small pleural effusion and COPD exacerbation. 1. COPD exacerbation secondary to pneumonia)?-ceftriaxone + doxycycline(3)-switched to po antibiotics ?switched to po steriods steroids/nebs ?-continue outpatient inhalers Patient says that he has cough from 2 years , do during my exam 2 times went to patient room did not notice seem coughing, but added Robitussin and Tessalon. 2.Non- ischemic Cardiomyopathy - ICD in place.? - Continue metoprolol succinate.? (Generator was changed 04/02/21) 3.moderate malnutrition - supplements 4. VTE ppx - LMWH 5. anxiety depression : seen by care team -supportive care Patient is generally deconditioned and generally weak-discussed with him in detail and offered rehab but he categorically refuses to go to any rehab. He also refuses to go home, he isgenerlaly very weak , will add capacity eval . Quality Stroke Does the patient have a stroke diagnosis?: No VTE Prior VTE?: No VTE Risk Level:: Medical - moderate - high VTE Device Contraindication: N/A - Device Ordered VTE Drug Contraindication: N/A - Med Ordered
--- NOTE | 2021-05-18 13:36 | MHC.CLN ---
NUTRITION PATIENT WITH MEDICAL DX FAILURE TO THRIVE AND MODERATE MALNUTRITION. DIET=REGULAR. DISLIKES AND DOES NOT WANT SUPPLEMENTS. APPEARS TO BE EATING WELL, 75-100%. ENCOURAGED TO ORDER EXTRA FOODS DESIRED WITH MEALS. NO ADDITIONAL NUTRITION INTERVENTIONS AT THIS TIME.
--- NOTE | 2021-05-18 14:25 | MHC.CM.PN ---
Addendum entered by Eulalia Ruiz RN 05/18/21 15:01: LI DID REPORT THAT LATELY SHE HAD BEEN SEEING PT LESS FREQUENTLY D/T IN FAMILY. Original Note: CM RECEIVED CALL BACK FROM PT'S BIOLOGICAL LAB TECHNICIAN LI ([phone]) WHO REPORTED SHE MANAGES PT'S MEDS, DOES COOKING, CLEANING, LAUNDRY FOR PT. LI ALSO NOTED THAT SHE AND PT'S SISTER DO NOT FEEL PT IS SUITABLE TO BE AT HOME HE LIVES ALONE AND NEEDS TO BE ABLE TO WALK AND BE ABLE TO GET HIMSELF TO THE BR ETC, LI ALSO REPORTS SHE IS A FAMILY FRIEND AND TYPICALLY SPENDS MORE THAT HIS ALLOTTED 25HRS OF BIOLOGICAL LAB TECHNICIAN HRS.
--- NOTE | 2021-05-18 15:55 | MHC.CM.PN ---
REFERRAL PLACED TO [facility] IN [facility]TIC PT WILL BE AGREEABLE TO STR AND PER PT'S CONVERSATION REGARDING SANJEEV, PT REPORTS HE LIVES NEARBY AND THAT HE HAS HEARD GOOD THINGS ABOUT THEM, [facility] HAS OFFERED PT A BED AND WILL FOLLOW.
[2021-05-18] MEDS: Enoxaparin Sodium 40 MG/0.4 ML SYRINGE SUBCUT (16:10)
--- NOTE | 2021-05-18 17:18 | MHC.CARE ---
[id number] CARE Team met with patient in room 360 for a follow up, a friend sitting at bedside present during conversation and helpful encouraging patient to accept rehab services. By report, this friend checks on patient frequently and is concerned about patient's mobility especially because his apartment is so small he cannot navigate with a walker. Again, patient made a statement about being hopeless and reflected on his grief. mostly related to loss of physical health and inability to enjoy himself, though denied any plan or intention of ending his life. Referral sent to [facility]. CARE Team available as needed MD updated
[2021-05-18] MEDS: oxyCODONE HCl Immed Release 5 MG TABLET PO (21:16)
[2021-05-18] MEDS: guaiFENesin 100 MG/5 ML LIQUID PO (21:17)
[2021-05-19] VITALS (11 sets, daily range): BP systolic 125–173; BP diastolic 70–85; PULSE 51–87; RESP 16–20; TEMP 36.1–37.2; O2SAT 92–97
[2021-05-19 06:23] LABS: MANUAL DIFF FLAG NO
[2021-05-19 06:26] LABS: Basophils Percent Auto 0.1 % (0-2); Hematocrit 34.5 % (42.0-52.0); Hemoglobin 11.6 g/dl (14.0-18.0); Imm Gran Abs Auto 0.33 X10*3/uL (0.00-0.03); Imm Gran Pct Auto 3.9 % (0.0-0.4); Lymphocytes Absolute Auto 0.8 X10*3/uL (1.2-4.9); Lymphocytes Percent Auto 9.7 % (20-40); Mean Corpuscular HGB Conc 33.6 g/dl (31.0-36.0); Mean Corpuscular Hemoglobin 31.4 pg (27.0-33.0); Mean Corpuscular Volume 93.2 fL (80.0-98.0); Mean Platelet Volume 9.5 fL (9.4-12.4); Monocytes Absolute Auto 0.7 X10*3/uL (0.1-1.2); Monocytes Percent Auto 8.7 % (2-11); NRBC Pct Auto 0.8 /100WBC (0.0-0.2); Neutrophils Absolute Auto 6.6 x10*3/uL (2.0-8.3); Neutrophils Percent Auto 77.6 % (45-73); Platelet Count 251 X10*3/uL (160-400); Red Cell Distribution Width 13.1 % (11.0-16.0); White Blood Count 8.5 X10*3/uL (4.8-10.8)
[2021-05-19 06:50] LABS: Alanine Aminotransferase 20 U/L (0-40); Albumin Level 2.7 g/dL (3.5-5.0); Alkaline Phosphatase 58 U/L (39-117); Anion Gap 11 (12-20); Aspartate Amino Transferase 12 U/L (5-37); Bilirubin Total 0.5 mg/dL (0.0-1.0); Blood Urea Nitrogen 23 mg/dL (9-16); Calcium 8.3 mg/dL (8.4-10.2); Carbon Dioxide 30 mmol/L (22-29); Chloride 100 mmol/L (96-108); Creatinine Clr Calc Pharmacy 90.2; Estimated Glomerular Filt Rate > 60; Glucose Fasting 125 mg/dL (60-99); Potassium 3.7 mmol/L (3.3-5.1); Sodium 137 mmol/L (135-145); Total Protein 4.6 g/dL (6.5-8.0)
[2021-05-19] MEDS: Fluticasone/Vilanterol 100/25 BLST.W.DEV 1 PUFF INHALE (07:59)
[2021-05-19] MEDS: Albuterol/Iprat 2.5/0.5MG 3 ML AMPUL.NEB INHALE ×4 (07:59→20:29)
[2021-05-19] MEDS: Cholecalciferol (Vitamin D3) 25 MCG TABLET PO (08:36)
[2021-05-19] MEDS: Tamsulosin HCL 0.4 MG CAPSULE 0.8 MG PO (08:36)
[2021-05-19] MEDS: FLUoxetine HCl 20 MG CAPSULE PO (08:37)
[2021-05-19] MEDS: predniSONE 20 MG TABLET 40 MG PO (08:37)
[2021-05-19] MEDS: Donepezil HCl 5 MG TABLET PO (08:38)
[2021-05-19] MEDS: Folic Acid 1 MG TABLET PO (08:38)
[2021-05-19] MEDS: Atorvastatin Calcium 80 MG TABLET PO (08:38)
[2021-05-19] MEDS: Loratadine 10 MG TABLET PO (08:38)
[2021-05-19] MEDS: Montelukast Sodium 10 MG TABLET PO (08:38)
[2021-05-19] MEDS: Aspirin Enteric Coated 81 MG TABLET.DR PO (08:38)
[2021-05-19] MEDS: 0.9 % Sodium Chloride Flush 3 ML SYRINGE IVFLUSH ×3 (08:39→20:14)
[2021-05-19] MEDS: Thiamine HCL 100 MG TABLET PO (08:39)
[2021-05-19] MEDS: Metoprolol Succinate ER 100 MG TAB.ER.24H PO (08:39)
--- NOTE | 2021-05-19 09:11 | P.CNPS_ITS ---
History of Present Illness Date of Service: 05/19/21 Chief Complaint: COPD exac, PNA Reason for Consult: capacity Requesting physician: Yessica Camacho Discussed with referring provider: Yes Sources of Information: patient interviewed, chart reviewed and crisis/core team assessment reviewed HPI Narrative: Patient is a 70yo M with PMH of COPD with chronic cough, NICM s/p ICD [LVEF 07/27/20 >50%] presented to ED with 36 hr of worsening fatigue, weakness, nonproductive cough, dyspnea, and wheeze.? He was found to have pneumonia, and COPD exacerbation, and was admitted for further care and treatment. He was last admitted here 02/11-02/14/21 with CAP and COPD exacerbation along with FTT, and had been discharged to [facility] for STR.? Currently lives alone with his cat and not on home oxygen.? No current PCP [prior PCP, Abdias Griffin, is no longer in primary care] and he sees Dr Arroyo for Pulmonology and Dr Iniguez for Cardiology.? He quit smoking 10 yr ago and drinking alcohol 12 wk ago. Case Management has placed a referral for short-term rehab at this time. Psychiatry consult service was asked to meet with Mr. Moser regarding capacity evaluation. Upon approach, patient was resting in bed with head of bed elevated, in NAD. Thin, cachetic appearance, dishevelled, appears older than stated age. Irritable mood and affect. He reports that ?I want to get the hell out of here?. He was agreeable and cooperative with interview however. Most of the interaction was within normal limits for mental status examination. He was able to state his name, date, place, and circumstances surrounding his hospitalization and treatment. Patient was irritable at times, and expressed frustration that he is not being able to leave and go home. We discussed his current circumstances at home, and his need for therapy. He did acknowledge that that QUARANTINE OFFICER that works with him has informed him that she will not return until he is able to walk. She has also s uffered the loss of an , and patient is currently in grieving process regarding this. When asked if he felt suicidal in any way, he stated ?if I wanted to do it, I would have done it a long time ago ?. He states that he is not happy, but does not have any intention of completing the suicide. He expressed frustration, as that he used to be in extremely active person, but that over the years he has developed medical issues. He also expressed frustration that he is not receiving Tylenol No. 3 here, and that he takes this at home. He has met several times during this hospitalization with care teams social problems specialist, and is willing to accept referral for counseling. Overall, he appears to have capacity for medical decision making. Past Psychiatric History: unknown Medical Evaluation Reviewed: Yes Personal & Social History: retired. Lives alone. Has QUARANTINE OFFICER. Review of Systems Review of Systems A full review of systems was completed and was negative with the exception of pertinent positives noted in history of the presenting illness (HPI). Yes all other systems are reviewed and are negative Constitutional: Reports no additional constitutional complaints [facility] Medical History COPD (chronic obstructive pulmonary disease) ICD (implantable cardioverter-defibrillator) in place Nonischemic cardiomyopathy Pulmonary nodules Surgical History History of permanent cardiac pacemaker placement Family History: Unknown. Social History: Retired, single, lives alone. Substance History: As per chart, Recent cessation of alcohol use, approximately 12 weeks ago. Does not identify this as a concern. Trauma History: Unknown Diagnostics Vital Signs (24Hr): Vital Signs - 24 hr 05/18/21 09:41 05/18/21 11:05 05/18/21 11:37 Temperature 98.0 F Pulse Rate 57 64 64 Respiratory Rate 18 18 Blood Pressure 145/68 H Pulse Oximetry 93 05/18/21 15:12 05/18/21 15:27 05/18/21 19:24 Temperature 98.9 F Pulse Rate 62 67 60 Respiratory Rate 16 15 16 Blood Pressure 141/74 H Pulse Oximetry 93 05/19/21 00:00 05/19/21 04:00 05/19/21 07:59 Temperature 97 F 98 F 97.4 F Pulse Rate 56 55 60 Respiratory Rate 17 17 18 Blood Pressure 169/78 H 173/81 H 156/82 H Pulse Oximetry 94 95 96 05/19/21 08:00 Temperature Pulse Rate 51 Respiratory Rate 18 Blood Pressure Pulse Oximetry BMI result Body Mass Index 20.7 Labs Results: 05/19/21 05:54 05/19/21 05:54 Labs: Laboratory Results - last 48 hr 05/13/21 05/18/21 05/18/21 20:26 05:45 05:45 WBC 6.8 RBC 3.70 L Hgb 11.7 L Hct 34.9 L MCV 94.3 MCH 31.6 MCHC 33.5 RDW 13.1 Plt Count 249 MPV 9.6 Immature Gran % (Auto) 2.1 H Neut % (Auto) 82.1 H Lymph % (Auto) 8.2 L [place] % (Auto) 7.5 Eos % (Auto) 0.0 Baso % (Auto) 0.1 Lymph # (Auto) 0.6 L [place] # (Auto) 0.5 Eos # (Auto) 0.0 Baso # (Auto) 0.0 Abs Immat Gran (auto) 0.14 H Absolute Neuts (auto) 5.6 Absolute Nucleated RBC 0.000 Nucleated RBC % (auto) 0.0 Sodium 140 Potassium 3.8 Chloride 102 Carbon Dioxide 29 Anion Gap 13 BUN 22 H Creatinine 0.60 Estim Creat Clear Calc 87.2 Estimated GFR > 60 Fasting Glucose 128 H Calcium 8.3 L Total Bilirubin 0.3 AST 15 ALT 23 Alkaline Phosphatase 65 Total Protein 4.7 L Albumin 2.8 L Ur Strep pneumoniae Ag Not Detected 05/19/21 05/19/21 05:54 05:54 WBC 8.5 RBC 3.70 L Hgb 11.6 L Hct 34.5 L MCV 93.2 MCH 31.4 MCHC 33.6 RDW 13.1 Plt Count 251 MPV 9.5 Immature Gran % (Auto) 3.9 H Neut % (Auto) 77.6 H Lymph % (Auto) 9.7 L [place] % (Auto) 8.7 Eos % (Auto) 0.0 Baso % (Auto) 0.1 Lymph # (Auto) 0.8 L [place] # (Auto) 0.7 Eos # (Auto) 0.0 Baso # (Auto) 0.0 Abs Immat Gran (auto) 0.33 H Absolute Neuts (auto) 6.6 Absolute Nucleated RBC 0.070 H Nucleated RBC % (auto) 0.8 H Sodium 137 Potassium 3.7 Chloride 100 Carbon Dioxide 30 H Anion Gap 11 L BUN 23 H Creatinine 0.58 Estim Creat Clear Calc 90.2 Estimated GFR > 60 Fasting Glucose 125 H Calcium 8.3 L Total Bilirubin 0.5 AST 12 ALT 20 Alkaline Phosphatase 58 Total Protein 4.6 L Albumin 2.7 L Ur Strep pneumoniae Ag Imaging Radiology Impressions: ITS Impressions Chest X-Ray 05/13/21 13:00 IMPRESSION: COPD Small focus of disease with question small pleural effusion right base. Old granulomatous disease. Mental Status Exam Mental Status Exam Narrative: Thin, cachetic, older than stated age. NAD. Ambulation not observed. No cogw heeling, no tics or tremors, no abnormal movements. Irritable mood and affect. Patient Appearance: Fatigued, Disheveled and Unkempt Patient Orientation: Person, Place, Time and Situation Level of Consciousness: Awake, Appropriate and Alert Patient Behavior: Appropriate, Cooperative and Good Eye Contact Mood Description: Angry (States he is angry, wants to get the hell out of here .) Affect Description: Anxious and Angry (irritable but cooperative) Patient Cognition Impaired: No Ability to Follow Directions: Good Speech Pattern: Clear, Appropriate and Coherent Memory Description: Intact Hallucinations: None Delusions: Not Present Thought Process: Intact, Goal Oriented and Linear Thought Content: positive for Intact, positive for Goal Oriented and positive for Linear Depressive Symptoms: Increased Anxiety and Unhappiness Judgement: Fair Judgement and Insight: Overall judgment and insight fair but adequate. Medications Medications Current Medications Acetaminophen (Acetaminophen 325 Mg Tablet) 650 mg PO Q6H PRN PRN Reason: Pain, Mild (Pain Scale 1-3) Albuterol Sulfate (Albuterol Sulfate (0.083%) 2.5 Mg/3 Ml Vial.Neb) 2.5 mg INHALE Q2H PRN PRN Reason: Shortness of Breath/Wheezing Albuterol/Ipratropium (Albuterol/Iprat 2.5/0.5mg 3 Ml Ampul.Neb) 3 ml INHALE RQ4H WHILE AWAKE [facility] Last Admin: 05/19/21 07:59 Dose: 3 ml Documented by: Aspirin (Aspirin Enteric Coated 81 Mg Tablet.) 81 mg PO DAILY [facility] Last Admin: 05/19/21 08:38 Dose: 81 mg Documented by: Atorvastatin Calcium (Atorvastatin Calcium 80 Mg Tablet) 80 mg PO DAILY [facility] Last Admin: 05/19/21 08:38 Dose: 80 mg Documented by: Benzonatate (Benzonatate 100 Mg Capsule) 100 mg PO TID PRN PRN Reason: Cough Cefuroxime Axetil (Cefuroxime Axetil 500 Mg Tablet) 500 mg PO Q12H [facility] Last Admin: 05/19/21 06:37 Dose: 500 mg Documented by: Diazepam (Diazepam 5 Mg Tablet) 10 mg PO BID@0900,2100 PRN PRN Reason: Anxiety Last Admin: 05/18/21 21:16 Dose: 10 mg Documented by: Donepezil HCl (Donepezil Hcl 5 Mg Tablet) 5 mg PO DAILY [facility] Last Admin: 05/19/21 08:38 Dose: 5 mg Documented by: Doxycycline Hyclate (Doxycycline Hyclate 100 Mg Tablet) 100 mg PO Q12H [facility] Last Admin: 05/19/21 06:37 Dose: 100 mg Documented by: Enoxaparin Sodium (Enoxaparin Sodium 40 Mg/0.4 Ml Syringe) 40 mg SUBCUT Q24H [facility] Last Admin: 05/18/21 16:10 Dose: 40 mg Documented by: Fluoxetine HCl (Fluoxetine Hcl 20 Mg Capsule) 20 mg PO DAILY [facility] Last Admin: 05/19/21 08:37 Dose: 20 mg Documented by: Fluticasone/Vilanterol (Fluticasone/Vilanterol 100/25 Blst.W.Dev) 1 puff INHALE RDAILY [facility] Last Admin: 05/19/21 07:59 Dose: 1 puff Documented by: Folic Acid (Folic Acid 1 Mg Tablet) 1 mg PO DAILY [facility] Last Admin: 05/19/21 08:38 Dose: 1 mg Documented by: Guaifenesin (Guaifenesin 100 Mg/5 Ml Liquid) 5 ml PO Q6H PRN PRN Reason: Cough Last Admin: 05/18/21 21:17 Dose: 5 ml Documented by: Loratadine (Loratadine 10 Mg Tablet) 10 mg PO DAILY [facility] Last Admin: 05/19/21 08:38 Dose: 10 mg Documented by: Metoprolol Succinate (Metoprolol Succinate Er 100 Mg Tab.Er.24h) 100 mg PO DAILY [facility]; Protocol Last Admin: 05/19/21 08:39 Dose: 100 mg Documented by: Montelukast Sodium (Montelukast Sodium 10 Mg Tablet) 10 mg PO DAILY [facility] Last Admin: 05/19/21 08:38 Dose: 10 mg Documented by: Omeprazole (Omeprazole 40 Mg Capsule.) 40 mg PO BID@0630,4280 [facility] Last Admin: 05/19/21 06:40 Dose: Not Given Documented by: Ondansetron HCl (Ondansetron Hcl 4 Mg/2 Ml Vial) 4 mg IVPUSH Q8H PRN PRN Reason: Nausea and Vomiting Oxycodone HCl (Oxycodone Hcl Immed Release 5 Mg Tablet) 5 mg PO Q6H PRN PRN Reason: Pain, Severe (Pain Scale 7-10) Last Admin: 05/18/21 21:16 Dose: 5 mg Documented by: Pharmacy Consult (Consult Rx Perform Med Rec) 1 each MISCELLANE ONCE PRN PRN Reason: Consult order Prednisone (Prednisone 20 Mg Tablet) 40 mg PO DAILY [facility] Last Admin: 05/19/21 08:37 Dose: 40 mg Documented by: Sodium Chloride (0.9 % Sodium Chloride Flush 3 Ml Syringe) 3 ml IVFLUSH QSHIFT [facility] Last Admin: 05/19/21 08:39 Dose: 3 ml Documented by: Tamsulosin HCl (Tamsulosin Hcl 0.4 Mg Capsule) 0.8 mg PO DAILY [facility] Last Admin: 05/19/21 08:36 Dose: 0.8 mg Documented by: Thiamine HCl (Thiamine Hcl 100 Mg Tablet) 100 mg PO DAILY [facility] Last Admin: 05/19/21 08:39 Dose: 100 mg Documented by: Tiotropium [place] (Tiotropium [place] 18 Mcg Cap.W.Dev) 1 puff INHALE RDAILY [facility] Last Admin: 05/19/21 07:59 Dose: 1 puff Documented by: Vitamin D (Cholecalciferol (Vitamin D3) 25 Mcg Tablet) 25 mcg PO DAILY [facility] Last Admin: 05/19/21 08:36 Dose: 25 mcg Documented by: Allergies Allergies Allergy/AdvReac Type Severity Reaction Status Date / Time thiopental [SODIUM PENTOTHAL] Allergy Severe VIOLENCE Verified 05/04/21 12:36 Assessment & Plan Assessment & Plan (1) Encounter for assessment of healthcare decision-making capacity: Status: Acute Code(s): Z02.79 - Encounter for issue of other medical certificate Assessment and Plan: Patient appears to have capacity at this time. He was fully coherent, articulate, and made his needs known. He denied any thought of harm to self or others, denied that he is suicidal in any way. He was able to state correct date, place, and situation of his hospitalization, including his treatment here, and disposition recommendations. He reports that he does not want to go to short-term rehab, even though he is aware that it is being recommended and he is being strongly encouraged to do so. He did acknowledge that his QUARANTINE OFFICER, whom he is close to, has told him that she will not return until he is able to walk independently. He is considering this, and wants to continue with same QUARANTINE OFFICER. States he knows he needs physical therapy, but has had bad experiences at several nursing facilities. We discussed [place], and he states that it is extremely close to his home. Plan Patient appears to have full capacity regarding medical decision making. He is able to receive information regarding his medical condition, process it in a meaningful way, and make healthcare decisions regarding this information. I have notified provider Dr. Ian Camacho, and unit case folder, via secure electronic messaging system. Thank you for this consultation. I spent __35____ minutes with the patient and/or on the patient floor today, greater than?50% of which was spent counseling/coordinating care. Patient educated on: diagnosis, therapeutic strategies and medical condition Informed Consent: understands
[2021-05-19] MEDS: Benzonatate 100 MG CAPSULE PO ×2 (12:20→20:13)
--- NOTE | 2021-05-19 12:27 | P.PNIM_ITS ---
Subjective Subjective Date of Service: 05/20/21 Interval History: copd , pna Review of Systems seems improved Denies any chest pain or with shortness of breath or abdominal pain or fever chills Physical Exam Vital Signs: Vital Signs: Last Vital Signs Temp 97.6 F 05/19/21 11:46 Pulse 87 05/19/21 11:47 Resp 20 05/19/21 11:47 BP 125/70 05/19/21 11:46 Pulse Ox 93 05/19/21 11:46 Oxygen Flow Rate 2 05/13/21 11:21 BMI result Body Mass Index 20.7 general: Alert.? Oriented X3.? not in distress.? cvs: rrr, [id number] , no murmur res: air entry seems improving , no wheezing abd: no rebound or guarding ,nt, bs present. ext pulses present , no cyanosis ,Gait well balanced well coordinated. neuro: axo3 , nonfocal. Objective Data Active Medications Acetaminophen (Acetaminophen 325 Mg Tablet) 650 mg PO Q6H PRN PRN Reason: Pain, Mild (Pain Scale 1-3) Albuterol Sulfate (Albuterol Sulfate (0.083%) 2.5 Mg/3 Ml Vial.Neb) 2.5 mg INHALE Q2H PRN PRN Reason: Shortness of Breath/Wheezing Albuterol/Ipratropium (Albuterol/Iprat 2.5/0.5mg 3 Ml Ampul.Neb) 3 ml INHALE RQ4H WHILE AWAKE [facility] Last Admin: 05/19/21 11:47 Dose: 3 ml Documented by: REENA Aspirin (Aspirin Enteric Coated 81 Mg Tablet.) 81 mg PO DAILY [facility] Last Admin: 05/19/21 08:38 Dose: 81 mg Documented by: CASSIE Atorvastatin Calcium (Atorvastatin Calcium 80 Mg Tablet) 80 mg PO DAILY [facility] Last Admin: 05/19/21 08:38 Dose: 80 mg Documented by: CASSIE Benzonatate (Benzonatate 100 Mg Capsule) 100 mg PO TID PRN PRN Reason: Cough Last Admin: 05/19/21 12:20 Dose: 100 mg Documented by: TREVON Cefuroxime Axetil (Cefuroxime Axetil 500 Mg Tablet) 500 mg PO Q12H [facility] Last Admin: 05/19/21 06:37 Dose: 500 mg Documented by: YARITZA Diazepam (Diazepam 5 Mg Tablet) 10 mg PO BID@0900,2100 PRN PRN Reason: Anxiety Last Admin: 05/18/21 21:16 Dose: 10 mg Documented by: YARITZA Donepezil HCl (Donepezil Hcl 5 Mg Tablet) 5 mg PO DAILY [facility] Last Admin: 05/19/21 08:38 Dose: 5 mg Documented by: CASSIE Doxycycline Hyclate (Doxycycline Hyclate 100 Mg Tablet) 100 mg PO Q12H [facility] Last Admin: 05/19/21 06:37 Dose: 100 mg Documented by: YARITZA Enoxaparin Sodium (Enoxaparin Sodium 40 Mg/0.4 Ml Syringe) 40 mg SUBCUT Q24H [facility] Last Admin: 05/18/21 16:10 Dose: 40 mg Documented by: TABITHA Fluoxetine HCl (Fluoxetine Hcl 20 Mg Capsule) 20 mg PO DAILY [facility] Last Admin: 05/19/21 08:37 Dose: 20 mg Documented by: CASSIE Fluticasone/Vilanterol (Fluticasone/Vilanterol 100/25 Blst.W.Dev) 1 puff INHALE RDAILY [facility] Last Admin: 05/19/21 07:59 Dose: 1 puff Documented by: REENA Folic Acid (Folic Acid 1 Mg Tablet) 1 mg PO DAILY [facility] Last Admin: 05/19/21 08:38 Dose: 1 mg Documented by: CASSIE Guaifenesin (Guaifenesin 100 Mg/5 Ml Liquid) 5 ml PO Q6H PRN PRN Reason: Cough Last Admin: 05/18/21 21:17 Dose: 5 ml Documented by: YARITZA Loratadine (Loratadine 10 Mg Tablet) 10 mg PO DAILY [facility] Last Admin: 05/19/21 08:38 Dose: 10 mg Documented by: CASSIE Metoprolol Succinate (Metoprolol Succinate Er 100 Mg Tab.Er.24h) 100 mg PO DAILY [facility]; Protocol Last Admin: 05/19/21 08:39 Dose: 100 mg Documented by: CASSIE Montelukast Sodium (Montelukast Sodium 10 Mg Tablet) 10 mg PO DAILY [facility] Last Admin: 05/19/21 08:38 Dose: 10 mg Documented by: CASSIE Omeprazole (Omeprazole 40 Mg Capsule.Dr) 40 mg PO BID@0942,5404 [facility] Last Admin: 05/19/21 06:40 Dose: Not Given Documented by: YARITZA Non-Admin Reason: Patient Refused Ondansetron HCl (Ondansetron Hcl 4 Mg/2 Ml Vial) 4 mg IVPUSH Q8H PRN PRN Reason: Nausea and Vomiting Oxycodone HCl (Oxycodone Hcl Immed Release 5 Mg Tablet) 5 mg PO Q6H PRN PRN Reason: Pain, Severe (Pain Scale 7-10) Last Admin: 05/18/21 21:16 Dose: 5 mg Documented by: YARITZA Pharmacy Consult (Consult Rx Perform Med Rec) 1 each MISCELLANE ONCE PRN PRN Reason: Consult order Prednisone (Prednisone 20 Mg Tablet) 40 mg PO DAILY [facility] Last Admin: 05/19/21 08:37 Dose: 40 mg Documented by: CASSIE Sodium Chloride (0.9 % Sodium Chloride Flush 3 Ml Syringe) 3 ml IVFLUSH QSHIFT [facility] Last Admin: 05/19/21 08:39 Dose: 3 ml Documented by: CASSIE Tamsulosin HCl (Tamsulosin Hcl 0.4 Mg Capsule) 0.8 mg PO DAILY [facility] Last Admin: 05/19/21 08:36 Dose: 0.8 mg Documented by: CASSIE Thiamine HCl (Thiamine Hcl 100 Mg Tablet) 100 mg PO DAILY [facility] Last Admin: 05/19/21 08:39 Dose: 100 mg Documented by: CASSIE Tiotropium [place] (Tiotropium [place] 18 Mcg Cap.W.Dev) 1 puff INHALE RDAILY [facility] Last Admin: 05/19/21 07:59 Dose: 1 puff Documented by: REENA Vitamin D (Cholecalciferol (Vitamin D3) 25 Mcg Tablet) 25 mcg PO DAILY [facility] Last Admin: 05/19/21 08:36 Dose: 25 mcg Documented by: CASSIE Labs CBC & Chem 7: 05/19/21 05:54 05/19/21 05:54 Labs: Laboratory Results - last 24 hr 05/19/21 05/19/21 05:54 05:54 MCV 93.2 MCH 31.4 MCHC 33.6 RDW 13.1 Plt Count 251 MPV 9.5 Immature Gran % (Auto) 3.9 H Neut % (Auto) 77.6 H Lymph % (Auto) 9.7 L [place] % (Auto) 8.7 Eos % (Auto) 0.0 Baso % (Auto) 0.1 Lymph # (Auto) 0.8 L [place] # (Auto) 0.7 Eos # (Auto) 0.0 Baso # (Auto) 0.0 Abs Immat Gran (auto) 0.33 H Absolute Neuts (auto) 6.6 Absolute Nucleated RBC 0.070 H Nucleated RBC % (auto) 0.8 H Anion Gap 11 L Estim Creat Clear Calc 90.2 Estimated GFR > 60 Fasting Glucose 125 H Calcium 8.3 L Total Bilirubin 0.5 AST 12 ALT 20 Alkaline Phosphatase 58 Total Protein 4.6 L Albumin 2.7 L Microbiology Microbiology Results: Microbiology 05/13/21 12:02 Blood Culture - Final Blood - Venous No growth after 5 days. 05/13/21 12:02 Blood Culture - Final Blood - Venous No growth after 5 days. Assessment and Plan (1) Pneumonia: Status: Acute (2) COPD exacerbation: Status: Acute Plan 70yo M with COPD with chronic cough, NICM s/p ICD [LVEF 07/27/20 >50%] presenting with wheezing, cough, and dyspnea, found to have pneumonia with small pleural effusion and COPD exacerbation. 1. COPD exacerbation secondary to pneumonia)?-ceftriaxone + doxycycline(3)- switched to po antibiotics ?switched to po steriods steroids/nebs ?-continue outpatient inhalers Patient says that he has cough from 2 years , do during my exam 2 times went to patient room did not notice seem coughing, but added Robitussin and Tessalon. 2.Non- ischemic Cardiomyopathy - ICD in place.? - Continue metoprolol succinate.? (Generator was changed 04/02/21) 3.moderate malnutrition - supplements 4. VTE ppx - LMWH 5. anxiety depression : seen by care team -supportive care Patient is generally deconditioned and generally weak-discussed with him in detail and offered rehab but he categorically refuses to go to any rehab.? He also refuses to go home, he isgenerlaly very weak , psych saw the patient - patient has capacity .discharge plan for rehab Quality Stroke Does the patient have a stroke diagnosis?: No VTE Prior VTE?: No VTE Risk Level:: Medical - moderate - high VTE Device Contraindication: N/A - Device Ordered VTE Drug Contraindication: N/A - Med Ordered
--- NOTE | 2021-05-19 14:40 | MHC.CM.PN ---
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 dischagre plan str with length of stay less than 30 days transportation via [facility] requested rapid covid test to be done
[2021-05-19] MEDS: Enoxaparin Sodium 40 MG/0.4 ML SYRINGE SUBCUT (17:25)
[2021-05-19] MEDS: diazePAM 5 MG TABLET 10 MG PO (20:13)
[2021-05-19] MEDS: oxyCODONE HCl Immed Release 5 MG TABLET PO (20:13)
[2021-05-20] VITALS (7 sets, daily range): BP systolic 129–155; BP diastolic 69–85; PULSE 53–71; RESP 18; TEMP 36.3–37; O2SAT 93–100
[2021-05-20] MEDS: Omeprazole 40 MG CAPSULE.DR PO (05:07)
[2021-05-20] MEDS: Albuterol/Iprat 2.5/0.5MG 3 ML AMPUL.NEB INHALE ×2 (07:53→11:50)
[2021-05-20] MEDS: Fluticasone/Vilanterol 100/25 BLST.W.DEV 1 PUFF INHALE (07:53)
[2021-05-20] MEDS: Cholecalciferol (Vitamin D3) 25 MCG TABLET PO (09:37)
[2021-05-20] MEDS: Donepezil HCl 5 MG TABLET PO (09:37)
[2021-05-20] MEDS: Aspirin Enteric Coated 81 MG TABLET.DR PO (09:37)
[2021-05-20] MEDS: Tamsulosin HCL 0.4 MG CAPSULE 0.8 MG PO (09:37)
[2021-05-20] MEDS: Thiamine HCL 100 MG TABLET PO (09:38)
[2021-05-20] MEDS: FLUoxetine HCl 20 MG CAPSULE PO (09:38)
[2021-05-20] MEDS: Montelukast Sodium 10 MG TABLET PO (09:38)
[2021-05-20] MEDS: oxyCODONE HCl Immed Release 5 MG TABLET PO (09:38)
[2021-05-20] MEDS: Atorvastatin Calcium 80 MG TABLET PO (09:38)
[2021-05-20] MEDS: Metoprolol Succinate ER 100 MG TAB.ER.24H PO (09:38)
[2021-05-20] MEDS: predniSONE 20 MG TABLET 40 MG PO (09:38)
[2021-05-20] MEDS: Loratadine 10 MG TABLET PO (09:39)
[2021-05-20] MEDS: 0.9 % Sodium Chloride Flush 3 ML SYRINGE IVFLUSH (09:39)
[2021-05-20] MEDS: Folic Acid 1 MG TABLET PO (09:39)
[2021-05-20] MEDS: diazePAM 5 MG TABLET 10 MG PO (10:19)
--- NOTE | 2021-05-20 11:12 | MHC.CLN ---
F/U PATIENT WITH MEDICAL DX FAILURE TO THRIVE AND MODERATE MALNUTRITION. DIET=REGULAR. DISLIKES AND DOES NOT WANT SUPPLEMENTS. SKIN WITH RED AREA TO COCCYX. INTAKE VARIABLE AT MEALS, 0-100%. ENCOURAGE SNACKS DESIRED. FOLLOW INTAKE CLOSELY.
[2021-05-20 12:01] LABS: Influenza A PCR NEGATIVE (Negative); Influenza B PCR NEGATIVE (Negative); Resp Syncy Virus RNA Qual PCR NEGATIVE (Negative); SARS COV2 PCR INHOUSE NEGATIVE (Negative)
[2021-05-21 18:56] LABS: Legionella Ag Urine Not Detected (Not Detected)
== END 2021-05-20 14:30 | disposition home health service (06) | DRG 190 ==
LOC: HO.ED 13:48 → HO.EDOVER 15:29 → HO.S3 05-16 00:49
PROVIDERS: Hospitalist; Physician Assistant; Admitting Provider Family Medicine; Emergency Provider Emergency Medicine; PCP Family Medicine; Visit Provider Internal Medicine
DX: J44.0 Chronic obstructive pulmonary disease with (acute) lower respiratory infection (principal); J18.9 Pneumonia, unspecified organism; I42.8 Other cardiomyopathies; E44.0 Moderate protein-calorie malnutrition; J44.1 Chronic obstructive pulmonary disease with (acute) exacerbation; Z20.822 Contact with and (suspected) exposure to COVID-19; Z95.0 Presence of cardiac pacemaker; Z68.20 Body mass index [BMI] 20.0-20.9, adult; Z87.81 Personal history of (healed) traumatic fracture; Z79.82 Long term (current) use of aspirin; Z79.51 Long term (current) use of inhaled steroids; Z79.52 Long term (current) use of systemic steroids; Z79.899 Other long term (current) drug therapy
CPT/HCPCS: 0241U; 36415; 71045; 80048; 80053; 80076; 82803; 83605; 83735; 83880; 84145; 84484; 85025; 85027; 87040; 87449; 87899; 93005; 94640; 94645; 96365; 96366; 96375; 97110; 97116; 97162; 97530; 99285; 99291; J0692; J0696; J1650; J2920; J2930; J3475

== ENCOUNTER → 2021-08-15 14:17 | Outpatient (BNVA) | payer MEDICARE, MEDICAID, SELFPAY | PROVIDERS: PCP Family Medicine; Referring Provider Family Medicine; Visit Provider Internal Medicine Cardiovascular Disease | DX: Z45.02 Encounter for adjustment and management of automatic implantable cardiac defibrillator (principal); I42.8 Other cardiomyopathies | CPT/HCPCS: 99212 ==